=== PATIENT | male | born 1950 | race Caucasian/White ===

== ENCOUNTER 2021-10-08 11:30 | Outpatient (CLI) | payer MEDICARE, BC, SELFPAY ==
[2021-10-08 17:15] LABS: Chloride* 110 mmol/L (96-114); Potassium* 5.5 mmol/L (3.6-5.1); Sodium* 138 mmol/L (135-149)
[2021-10-08 17:17] LABS: Cholesterol* 156 mg/dL (90-199); Creatinine* 1.2 mg/dL (0.5-1.5); Estimated Glomerular Filt Rate 63.85
[2021-10-08 17:18] LABS: Blood Urea Nitrogen* 19 mg/dL (7-30); Calcium* 9.3 mg/dL (8.4-10.6); Carbon Dioxide* 23 mmol/L (20-32); Glucose* 134 mg/dL (60-115); Triglycerides* 113 mg/dL (40-149)
[2021-10-08 17:19] LABS: HDL Cholesterol* 43 mg/dL (>=40); LDL Cholesterol Calculated 90 mg/dL (<100)
[2021-10-08 17:48] LABS: TSH With Reflex to FT4* 0.131 uIU/mL (0.270-4.200)
[2021-10-08 18:06] LABS: Vitamin B12* 408 pg/mL (243-894)
[2021-10-08 20:21] LABS: Free T4 Free Thyroxine* 1.23 ng/dL (0.70-1.85)
== END 2021-10-08 11:31 | disposition home or self-care (01) ==
PROVIDERS: PCP Family Medicine; Visit Provider Family Medicine
DX: E03.9 Hypothyroidism, unspecified (principal); E53.8 Deficiency of other specified B group vitamins; E78.5 Hyperlipidemia, unspecified; N18.9 Chronic kidney disease, unspecified; F03.90 Unspecified dementia, unspecified severity, without behavioral disturbance, psychotic disturbance, mood disturbance, and anxiety; I10 Essential (primary) hypertension; Z13.0 Encounter for screening for diseases of the blood and blood-forming organs and certain disorders involving the immune mechanism
CPT/HCPCS: 80048; 80061; 82607; 84439; 84443

== ENCOUNTER 2022-09-26 11:28 | Outpatient (CLI) | payer MEDICARE, BC, SELFPAY | END 2022-09-26 11:29 | disposition home or self-care (01) | PROVIDERS: PCP Family Medicine; Visit Provider Family Medicine | DX: E11.9 Type 2 diabetes mellitus without complications (principal); I10 Essential (primary) hypertension; E03.9 Hypothyroidism, unspecified; N18.9 Chronic kidney disease, unspecified; E53.8 Deficiency of other specified B group vitamins; E78.5 Hyperlipidemia, unspecified | CPT/HCPCS: 80048; 80061; 84443 ==

== ENCOUNTER 2022-11-08 08:10 | Outpatient (CLI) | payer MEDICARE, BC, SELFPAY | END 2022-11-08 08:11 | disposition home or self-care (01) | LOC: NFLDREF 11-09 14:46 | PROVIDERS: PCP Family Medicine; Referring Provider Family Medicine; Visit Provider Family Medicine | DX: I10 Essential (primary) hypertension (principal); E87.5 Hyperkalemia | CPT/HCPCS: 80048 ==

== ENCOUNTER 2023-03-14 12:13 | Outpatient (CLI) | payer MEDICARE, BC, SELFPAY ==
--- OUTSIDE RECORDS SUMMARY | 2023-03-14 12:17 | XMS_ITS | Continuity of Care Document ---
Author Name Unknown Organization [facility] Address [address] [place] [address] Phone Care Team Providers Care Music Teacher Name Role Phone Navid Massey Unavailable Unavailable Allergies, Adverse Reactions, Alerts Substance Reaction Status Criticality No Known Allergies Active No Inform ation Medications Medication Instructions Dosage Effective Dates (start - stop) Status Comments ASPIRIN (unknown strength) Not Available - Active SIMVASTATIN (unknown strength) Not Available - Active METFORMIN HCL (unknown strength) Not Available - Active MULTIVITAMINS (unknown strength) Not Available - Active LISINOPRIL (unknown strength) Not Available - Active LOPRESSOR (unknown strength) Not Available - Active SYNTHROID (unknown strength) Not Available - Active TRICOR (unknown strength) Not Available - Active GLIPIZIDE (unknown strength) Not Available - Active HYDROXYZINE HCL (unknown strength) Not Available - Active FISH OIL (unknown strength) Not Available - Active ZANAFLEX (unknown strength) Not Available - Active Crossett 5 mg-325 mg tablet take 1 - 2 by Oral route every 6-8 hours as needed for pain. - No Longer Active gabapentin 300 mg capsule take 1 capsule by oral route 3 times every day 300 MG - No Longer Active tramadol 50 mg tablet take 1-2 by Oral route every 8 hours as needed for pain. - No Longer Active Procedures Procedure Date Postop Followup Visit Remove Lumbar Spine Lamina, 1 Seg Remove Added Spine Lamina, 1 Seg 2015 Pa Assist Remove Lumbar Spine Lamina, 1 Seg Pa Assist Remove Added Spine Lamina, 1 S eg Office/Outpatient Visit,Scott Adams 2015 Advance Directives Directive Yes / No Effective Date File Name No Information Encounters Encounter Description Practice Location Reason(s) For Visit Diagnoses Date Provider Providers Copied on Encounter [facility], [address], [place], [place], [id number], [place] tel:[phone] [facility] Encounter for other specified surgical aftercare 6 Maunelito Shoemaker. [facility], [address] [place] [address] [address], [facility], [id number] , [place]. [phone] Referring Provider: Clemente Escobar, [facility] [address], [place], [address]. tel:[phone] [facility], [address], [place], [place], [id number], [place] tel:[phone] [facility] No Information 6 Samantha Tejeda. [facility], [address] [place] [address] [address], [facility], [place], [id number] , [place]. [phone] Referring Provider: Clemente Escobar, [facility] [address], [place], [address]. tel:[phone] [facility], [address], [place], [place], [id number], [place] tel:[phone] [facility] No Information 6 Manuelito Shoemaker. [facility], [address] [place] [address] [address], [facility], [id number] , [place]. tel:[phone] [facility], [address], [place], [place], [id number], [place] tel:[phone] [facility] No Information 6 Manuelito Shoemaker. [facility], [address] [place] [address] [address], [place], [id number] , [place]. tel:[phone] Office/Outpat ient Visit,Scott Adams [facility], [address], [place], [place], [id number], [place] tel:[phone] [facility] Spinal stenosis, lumbar region 0 Manuelito Shoemaker. [facility], [address] [place] [address] [address], [place], [id number] , [place]. tel:[phone] Referring Provider: Clemente Escobar, [facility] [address], [place], [place], [address]. tel:[phone] Family History Family Member Type Diagnosis Age At Onset No Information Payers Payer name Insurance type Covered republican ID [place] [id number] Medicare [facility] [id number] Social History Type Description Quantity Date Captured Comments Alcohol Use Details Unknown Caffeine Use Details Unknown Tobacco Use Status Smoking Status No Information Sex Male Vital Signs Date / Time: Height Weight BMI Pulse Rate Blood Pressure Temperature Respiratory Rate Body Surface Area Head Circumference Head Circ. Percentile Wt./Kamar. Percentile BMI percentile Pulse Ox Inhaled Ox 9:40 AM 71.50 in 115.212 kg (254.00 lbs) 34.9 3 kg/m eter (2) 77 /min 131/72 mm[Hg] Chief Complaint And Reason For Visit No Information Reason For Referral Reason For Referral No Information History Of Present Illness Encounter Date Complaint History Of Prese nt Illness No Information Functional Status Date Functional Assessmen t No Information Instructions Date Instruction Additional Infor mation No Information Assessments Type Assessment Date assessment Encounter for other specified yancey rgical aftercare Patient Care Teams Name Effective Dates (start - stop) Status Members No Information
== END 2023-03-14 12:14 | disposition home or self-care (01) ==
LOC: LKVREF 12:14
PROVIDERS: PCP Family Medicine; Visit Provider Family Medicine
DX: M10.9 Gout, unspecified (principal)
CPT/HCPCS: 84550

== ENCOUNTER 2023-03-18 13:03 | Emergency (ER) | payer MEDICARE, BC, SELFPAY ==
[2023-03-18] VITALS (11 sets, daily range): BP systolic 98–118; BP diastolic 64–80; PULSE 53–59; RESP 16; TEMP 36.1; O2SAT 96–100; BMI 18.2
--- NOTE | 2023-03-18 15:05 | CRLHL7_ITS ---
For Patients: As a result of the Cures Act, medical imaging exams and procedure reports are released immediately into your electronic medical record. You may view this report before your referring provider. If you have questions, please contact your health care provider. INDICATION: First toe infection diabetic TECHNIQUE: Three views right foot FINDINGS: Normal alignment. No acute fractures or acute osseous abnormalities. Tiny focus of gas seen on the oblique view along the dorsal soft tissues of the 1st distal toe no bony destructive change seen. Vascular calcifications. IMPRESSION: No radiographic findings for osteomyelitis. Single view demonstrating a focus gas projected over the region of the nail bed or dorsal distal soft tissues of the 1st toe Dictated by Shagufta Luz MD @ 03/18/2023 4:03:35 PM (Electronically Signed)
[2023-03-18 15:27] LABS: Basophils Absolute Auto 0.02 K/uL (0.00-0.30); Basophils Percent Auto 0.2 % (0.0-3.0); Eosinophils Absolute Auto 0.04 K/uL (0.00-0.50); Eosinophils Percent Auto 0.5 % (0.0-7.0); Hematocrit 42.2 % (37.0-53.0); Hemoglobin* 13.3 gm/dL (13.5-17.5); Immature Granulocytes Abs Auto 0.12 K/uL (0.00-0.30); Immature Granulocytes Pct Auto 1.5 %; Lymphocytes Percent Auto 11.9 % (20-44); Mean Corpuscular HGB Conc 32 gm/dL (32-36); Mean Corpuscular Hemoglobin 28 pg (26-34); Mean Corpuscular Volume 88 fL (80-100); Monocytes Percent Auto 5.8 % (0.0-11.0); Neutrophils Percent Auto 80.1 % (42.0-72.0); Platelet Count* 430 K/uL (140-440); RDW Coefficient of Variation % 13.6 % (11.5-15.5); White Blood Count* 8.07 K/uL (4.50-11.00)
[2023-03-18 15:28] LABS: Slide Review Reflex No
[2023-03-18 15:43] LABS: Albumin* 4.7 g/dL (3.3-5.0); Chloride* 104 mmol/L (96-114)
[2023-03-18 15:44] LABS: Potassium* 4.9 mmol/L (3.6-5.1); Sodium* 137 mmol/L (135-149)
[2023-03-18 15:46] LABS: Creatinine* 1.7 mg/dL (0.5-1.5); Estimated Glomerular Filt Rate 42 ml/min
[2023-03-18 15:47] LABS: Alanine Aminotransferase* 24 U/L (4-50); Alkaline Phosphatase* 50 U/L (40-150); Anion Gap 11 mEq/L (7-15); Aspartate Amino Transferase* 31 U/L (12-35); Bilirubin Total* 0.5 mg/dL (0.1-1.5); Blood Urea Nitrogen* 39 mg/dL (7-30); Calcium* 9.9 mg/dL (8.4-10.6); Carbon Dioxide* 22 mmol/L (20-32); Glucose* 228 mg/dL (60-115)
[2023-03-18 15:50] LABS: C Reactive Protein* 0.6 mg/dL (0.5-1.0)
--- NOTE | 2023-03-18 15:50 | ED_ITS ---
HPI - General Adult General Date Seen: 03/18/23 Chief complaint: Extremity Pain/Injury, Lower Stated complaint: R foot injury Time Seen by Provider: 03/18/23 14:43 Source: patient and family () Mode of arrival: ambulatory Limitations: other (Alzheimer's) History of Present Illness HPI narrative: Patient is a 73-year-old male with history of diabetes, AFib, hypertension, coronary artery disease, dementia presenting to emergency department for concern of a foot infection. According to his they were seen by his primary care provider wall 5 days ago and started on antibiotic. After the antibiotic was started she thinks the erythema to his right great toe has gotten worse. There is a black spot on the lateral aspect at the base of the 5th toe on the same foot but she does not think that has gotten any worse. He has not had any fevers, chills, weakness. He is complaining about foot pain. Patient has been able to ambulate and has been eating and drinking normally. Has not had any vomiting. Denies chest pain, shortness of breath. She does state there was some mild purulent drainage right after the antibiotics were started. No other concerns noted at this time Related Data Home Medications Medication Instructions Recorded Confirmed cyanocobalamin (vitamin B-12) 1,000 mcg PO DAILY 10/08/21 03/18/23 1,000 mcg tablet multivitamin 1 tab PO QAM 10/08/21 03/18/23 metformin 500 mg tablet 500 mg PO BID 09/26/22 03/18/23 aspirin 81 mg tablet,delayed 81 mg PO QDAY 03/14/23 03/18/23 release (Adult Aspirin Regimen) Previous Rx's Medication Instructions Recorded ipratropium bromide 42 mcg (0.06 2 spray intranasal TID #15 mL 09/26/22 %) nasal spray hydrochlorothiazide 25 mg tablet 25 mg PO QAM #90 tabs 09/27/22 lisinopril 20 mg tablet 20 mg PO QDAY #90 tabs 09/27/22 levothyroxine 150 mcg tablet 150 mcg PO DAILY #90 tabs 11/08/22 metoprolol tartrate 25 mg tablet 12.5 mg (1/2 x 25 mg) PO BID #180 11/25/22 tabs olanzapine 5 mg tablet 5 mg PO DAILY #90 tabs 12/21/22 atorvastatin 40 mg tablet See Rx Instructions .Route 02/14/23 .COMPLEX #90 tabs fenofibrate nanocrystallized 48 mg See Rx Instructions .Route 02/14/23 tablet .COMPLEX #180 tabs cephalexin 500 mg capsule 500 mg PO QID #40 caps 03/14/23 prednisone 20 mg tablet 20 mg PO QDAY #7 tabs 03/14/23 fluoxetine 20 mg capsule See Rx Instructions .Route 03/15/23 .COMPLEX #90 caps glipizide 10 mg tablet, extended 10 mg PO QDAY #90 tabs 03/15/23 release 24 hr Allergies Allergy/AdvReac Type Severity Reaction Status Date / Time No Known Drug Allergies Allergy Verified 03/18/23 13:16 Review of Systems Status of ROS: Reports: 10 or more systems reviewed and unremarkable except as noted in History and below [facility] Medical History Durable power of manager environmental health in chart Health care directive on file ?Z78.9 - Other specified health status (ICD-10) Submucosal rectal lesion ?K62.9 - Disease of anus and rectum, unspecified (ICD-10) History of adenomatous polyp of colon (2013) ?Z86.010 - Personal history of colonic polyps (ICD-10) High prostate specific antigen (PSA) ?R97.20 - Elevated prostate specific antigen [PSA] (ICD-10) Cataract (01/12/12) ?H26.9 - Unspecified cataract (ICD-10) Surgical History H/O cataract extraction ?Z98.49 - Cataract extraction status, unspecified eye (ICD-10) H/O shoulder surgery ?Z98.890 - Other specified postprocedural states (ICD-10) History of tonsillectomy (04/14/06) ?Z90.89 - Acquired absence of other organs (ICD-10) History of excision of lamina of lumbar vertebra for decompression of spinal cord (2015) ?Z98.890 - Other specified postprocedural states (ICD-10) History of coronary artery bypass surgery (1993) ?Z95.1 - Presence of aortocoronary bypass graft (ICD-10) Social History Smoking Status: Former smoker Do you use any of these nicotine containing products: None Second hand tobacco smoke exposure: No How often do you have a drink containing alcohol: never AUDIT-C Alcohol total score: 0 Non-prescribed substance use: denies use Little interest or pleasure in doing things: more than half the days Feeling down, depressed, or hopeless: more than half the days service: Yes Exam Narrative: Exam Narrative: Const: Well-nourished, Well-developed, in no distress Eyes: PERRL, no conjunctival injection, and symmetrical lids HENT: Atraumatic external nose and ears. Moist mucous membranes. Neck: Symmetric, trachea midline, No thyromegaly. CVS: RRR, No murmurs or gallops. Peripheral pulses 2+ and equal in all extremities RESP: Unlabored respiratory effort. Clear to auscultation bilaterally. GI: Nontender/Nondistended, No rebound or guarding. MSK:Extremities w/o deformity, Normal Active ROM Skin: Erythema noted to right great toe going from that tip of the toe down to almost the base. Circumferential in appearance. Black lack of. Area of skin at the base of the right great toe on the lateral side aspect Neuro: Normal Muscle tone, No focal neurological deficits. Psych: Awake, Alert, & Oriented x3. Appropriate mood and affect. Const: Vital Signs, click to edit/add: Vital Signs - 24 hr 03/18/23 13:08 03/18/23 15:39 03/18/23 15:40 Temperature 96.9 F L Pulse Rate 58 L 56 L Pulse Rate [Pulse Oximeter] 53 L Respiratory Rate 16 Blood Pressure 98/65 Blood Pressure [Ri ght Upper Arm] 113/64 Pulse Oximetry 98 98 98 Oxygen Delivery Me thod Room Air 03/18/23 15:45 03/18/23 16:00 03/18/23 16:01 Temperature Pulse Rate 59 L 58 L 58 L Pulse Rate [Pulse Oximeter] Respiratory Rate Blood Pressure 112/71 Blood Pressure [Ri ght Upper Arm] Pulse Oximetry 97 96 96 Oxygen Delivery Me thod 03/18/23 16:02 03/18/23 16:15 03/18/23 16:30 Temperature Pulse Rate 57 L 58 L 59 L Pulse Rate [Pulse Oximeter] Respiratory Rate Blood Pressure Blood Pressure [Ri ght Upper Arm] Pulse Oximetry 97 99 100 Oxygen Delivery Me thod 03/18/23 16:31 03/18/23 16:33 Temperature Pulse Rate 59 L Pulse Rate [Pulse Oximeter] Respiratory Rate Blood Pressure 118/80 Blood Pressure [Ri ght Upper Arm] Pulse Oximetry 99 Oxygen Delivery Me thod Course Vital Signs Vital signs: Initial Vital Signs Temperature 96.9 F L 03/18/23 13:08 Temperature Source Temporal Artery Scan 03/18/23 13:08 Pulse Rate 53 L 03/18/23 13:08 Respiratory Rate 16 03/18/23 13:08 Blood Pressure 113/64 03/18/23 13:08 Blood Pressure Mean 80 03/18/23 13:08 Blood Pressure Position Sitting 03/18/23 13:08 Pulse Oximetry 98 03/18/23 13:08 Oxygen Delivery Method Room Air 03/18/23 13:08 Vital Signs Temperature 96.9 F L 03/18/23 13:08 Pulse Rate 53 L 03/18/23 13:08 Respiratory Rate 16 03/18/23 13:08 Blood Pressure 113/64 03/18/23 13:08 Pulse Oximetry 98 03/18/23 13:08 Oxygen Delivery Method Room Air 03/18/23 13:08 Temperature 96.9 F L 03/18/23 13:08 Pulse Rate 59 L 03/18/23 16:33 Respiratory Rate 16 03/18/23 13:08 Blood Pressure 118/80 03/18/23 16:31 Pulse Oximetry 99 03/18/23 16:33 Oxygen Delivery Method Room Air 03/18/23 13:08 Medical Decision Making [facility] Narrative Medical decision making narrative: Patient is a 73-year-old male presenting to emergency department for right foot infection. He is diabetic. Initial concerns for osteomyelitis. He is already on Keflex now for 4 days. Will order ESR, CRP, foot x-ray, CBC, CMP. ESR and CRP are within normal limits. White blood cell count within normal limits. His creatinine is a 1.7 but is appears to be baseline. Foot x-ray returned showing no clear sign of osteomyelitis. There is an air bubble seen underneath the toenail. On evaluation again the patient does have the drain is coming underneath the toenail in this very likely could be the cause of that pocket of air under the nail. This times foot does not appear to be necrotic or showing signs of gangrene. His vital signs were stable I believe is safe to discharge him home and will add on Bactrim which was prescribed through [facility]. I informed him and his that if symptoms are not improving in 48 hours they need to be re-evaluated Lab Data Labs: Lab Results 03/18/23 Range/Units 15:20 WBC 8.07 (4.50-11.00) K/uL RBC 4.80 (4.30-5.90) m/uL Hgb 13.3 L (13.5-17.5) gm/dL Hct 42.2 (37.0-53.0) % MCV 88 (80-100) fL MCH 28 (26-34) pg MCHC 32 (32-36) gm/dL RDW Coeff of Eufemia 13.6 (11.5-15.5) % Plt Count 430 (140-440) K/uL Neut % (Auto) 80.1 H (42.0-72.0) % Lymph % (Auto) 11.9 L (20-44) % Marin % (Auto) 5.8 (0.0-11.0) % Eos % (Auto) 0.5 (0.0-7.0) % Baso % (Auto) 0.2 (0.0-3.0) % Neut # (Auto) 6.50 (1.7-7.0) K/uL Lymph # (Auto) 1.00 (0.90-2.90) K/uL Marin # (Auto) 0.50 (0.00-0.90) K/UL Eos # (Auto) 0.04 (0.00-0.50) K/uL Baso # (Auto) 0.02 (0.00-0.30) K/uL Abs Immat Gran (auto) 0.12 (0.00-0.30) K/uL Imm/Tot Granulo (auto) 1.5 % ESR 11 (2-15) mm/hr Sodium 137 (135-149) mmol/L Potassium 4.9 (3.6-5.1) mmol/L Chloride 104 (96-114) mmol/L Carbon Dioxide 22 (20-32) mmol/L Anion Gap 11 (7-15) mEq/L BUN 39 H (7-30) mg/dL Creatinine 1.7 H (0.5-1.5) mg/dL Estimated Creat Clear 34.20 Estimated GFR 42 ml/min Glucose 228 H (60-115) mg/dL Calcium 9.9 (8.4-10.6) mg/dL Total Bilirubin 0.5 (0.1-1.5) mg/dL AST 31 (12-35) U/L ALT 24 (4-50) U/L Alkaline Phosphatase 50 (40-150) U/L C-Reactive Protein 0.6 (0.5-1.0) mg/dL Total Protein 8.0 (6.0-8.3) g/dL Albumin 4.7 (3.3-5.0) g/dL Imaging Data Foot x-ray: Radiologist's impression: No radiographic findings for osteomyelitis. Single view demonstrating a focus gas projected over the region of the nail bed or dorsal distal soft tissues of the 1st toe Dictated by Shagufta Luz MD @ 03/18/2023 4:03:35 PM Discharge Plan Discharge Clinical Impression: Cellulitis Qualifiers: Site of cellulitis: extremity Site of cellulitis of extremity: toe Laterality: right Qualified Code(s): L03.031 - Cellulitis of right toe Patient Disposition: Home, Self-Care Condition: Stable Instructions: Cellulitis (ED) Additional Instructions: Continue take the cephalexin and also take the Bactrim. If symptoms are not improving in 48 hours return for re-evaluation for possible IV antibiotics. Prescriptions: No Action multivitamin Tablet 1 tab PO QAM cyanocobalamin (vitamin B-12) 1,000 mcg tablet 1,000 mcg PO DAILY aspirin [Adult Aspirin Regimen] 81 mg tablet,delayed release (DR/EC) 81 mg PO QDAY prednisone 20 mg tablet 20 mg PO QDAY Qty: 7 0RF cephalexin 500 mg capsule 500 mg PO QID Qty: 40 0RF metformin 500 mg tablet 500 mg PO BID ipratropium bromide 42 mcg (0.06 %) spray,non-aerosol 2 spray intranasal TID Qty: 15 5RF Rx Instructions: administer into each nostril lisinopril 20 mg tablet 20 mg PO QDAY Qty: 90 3RF hydrochlorothiazide 25 mg tablet 25 mg PO QAM Qty: 90 3RF metoprolol tartrate 25 mg tablet 12.5 mg PO BID Qty: 180 3RF levothyroxine 150 mcg tablet 150 mcg PO DAILY Qty: 90 2RF olanzapine 5 mg tablet 5 mg PO DAILY Qty: 90 2RF fenofibrate nanocrystallized 48 mg tablet See Rx Instructions .ROUTE .COMPLEX Qty: 180 0RF Dose Instruction: TAKE 2 TABLETS BY MOUTH DAILY Rx Instructions: TAKE 2 TABLETS BY MOUTH DAILY atorvastatin 40 mg tablet See Rx Instructions .ROUTE .COMPLEX Qty: 90 1RF Dose Instruction: TAKE 1 TABLET BY MOUTH AT BEDTIME Rx Instructions: TAKE 1 TABLET BY MOUTH AT BEDTIME glipizide 10 mg tablet extended release 24hr 10 mg PO QDAY Qty: 90 3RF fluoxetine 20 mg capsule See Rx Instructions .ROUTE .COMPLEX Qty: 90 1RF Dose Instruction: TAKE 1 CAPSULE BY MOUTH DAILY Rx Instructions: TAKE 1 CAPSULE BY MOUTH DAILY Follow Up/Referrals: Rl Monroe MD [Primary Care Provider] - Stand Alone Forms: [facility] Info Instructions
[2023-03-18 16:07] LABS: Erythrocyte SedimentationRate* 11 mm/hr (2-15)
== END 2023-03-18 16:49 | disposition home or self-care (01) ==
PROVIDERS: Emergency Provider Student in an Organized Health Care Education/Training Program; PCP Family Medicine
DX: L03.031 Cellulitis of right toe (principal)
CPT/HCPCS: 36415; 73630; 80053; 85025; 85651; 86140; 95992; 99283; 99284

== ENCOUNTER 2023-03-25 17:46 | Emergency (ER) | payer MEDICARE, BC, SELFPAY ==
[2023-03-25 17:55] VITALS: BP 112/74; PULSE 96; RESP 18; TEMP 36.4; O2SAT 97; BMI 31.1
--- NOTE | 2023-03-25 18:06 | ED.GENADULT ---
HPI - General Adult General Time Seen by Provider: 18:06 Date Seen: 03/25/23 Chief complaint: Extremity Pain/Injury, Lower Stated complaint: infected right toe Time Seen by Provider: 03/25/23 17:49 Source: patient and RN notes reviewed Mode of arrival: ambulatory Limitations: no limitations History of Present Illness HPI narrative: This 73yo male is accompanied by his with concern for increasing infection in his right foot/toe. He was in on March 17 to the ED, had been on 4 days of Keflex already from his clinic provider at that point. In the ED, CRP, CBC, sed rate were all reassuring. He had Bactrim added in. Creatinine was noted to be 1.7. He finished his Keflex and Bactrim yesterday. Within 24 hours his notes that he has had worsening of the erythema. He is definitely complaining of increased pain with walking. Notes pain in the great toe but possibly also over the lateral foot as well. There have been no fevers. He has no nausea vomiting, is not feeling ill. He does have diabetes and has diabetic neuropathy. Related Data Home Medications Medication Instructions Recorded Confirmed cyanocobalamin (vitamin B-12) 1,000 mcg PO DAILY 10/08/21 03/18/23 1,000 mcg tablet multivitamin 1 tab PO QAM 10/08/21 03/18/23 metformin 500 mg tablet 500 mg PO BID 09/26/22 03/18/23 aspirin 81 mg tablet,delayed 81 mg PO QDAY 03/14/23 03/18/23 release (Adult Aspirin Regimen) Previous Rx's Medication Instructions Recorded ipratropium bromide 42 mcg (0.06 2 spray intranasal TID #15 mL 09/26/22 %) nasal spray hydrochlorothiazide 25 mg tablet 25 mg PO QAM #90 tabs 09/27/22 lisinopril 20 mg tablet 20 mg PO QDAY #90 tabs 09/27/22 levothyroxine 150 mcg tablet 150 mcg PO DAILY #90 tabs 11/08/22 metoprolol tartrate 25 mg tablet 12.5 mg (1/2 x 25 mg) PO BID #180 11/25/22 tabs olanzapine 5 mg tablet 5 mg PO DAILY #90 tabs 12/21/22 atorvastatin 40 mg tablet See Rx Instructions .Route 02/14/23 .COMPLEX #90 tabs fenofibrate nanocrystallized 48 mg See Rx Instructions .Route 02/14/23 tablet .COMPLEX #180 tabs cephalexin 500 mg capsule 500 mg PO QID #40 caps 03/14/23 prednisone 20 mg tablet 20 mg PO QDAY #7 tabs 03/14/23 fluoxetine 20 mg capsule See Rx Instructions .Route 03/15/23 .COMPLEX #90 caps glipizide 10 mg tablet, extended 10 mg PO QDAY #90 tabs 03/15/23 release 24 hr Allergies Allergy/AdvReac Type Severity Reaction Status Date / Time No Known Drug Allergies Allergy Verified 03/18/23 13:16 Review of Systems Status of ROS: Reports: 6 or more systems reviewed and unremarkable except as noted in History and below [facility] Medical History 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 Health care directive on file ?Z78.9 - Other specified health status (ICD-10) Submucosal rectal lesion ?K62.9 - Disease of anus and rectum, unspecified (ICD-10) History of adenomatous polyp of colon (2013) ?Z86.010 - Personal history of colonic polyps (ICD-10) High prostate specific antigen (PSA) ?R97.20 - Elevated prostate specific antigen [PSA] (ICD-10) Cataract (01/12/12) ?H26.9 - Unspecified cataract (ICD-10) Surgical History H/O cataract extraction ?Z98.49 - Cataract extraction status, unspecified eye (ICD-10) H/O shoulder surgery ?Z98.890 - Other specified postprocedural states (ICD-10) History of tonsillectomy (04/14/06) ?Z90.89 - Acquired absence of other organs (ICD-10) History of excision of lamina of lumbar vertebra for decompression of spinal cord (2015) ?Z98.890 - Other specified postprocedural states (ICD-10) History of coronary artery bypass surgery (1993) ?Z95.1 - Presence of aortocoronary bypass graft (ICD-10) Social History Smoking Status: Former smoker Do you use any of these nicotine containing products: None Second hand tobacco smoke exposure: No How often do you have a drink containing alcohol: never AUDIT-C Alcohol total score: 0 Non-prescribed substance use: denies use Little interest or pleasure in doing things: more than half the days Feeling down, depressed, or hopeless: more than half the days service: Yes Exam Const: Vital Signs, click to edit/add: Vital Signs - 24 hr 03/25/23 18:17 03/25/23 18:17 Pulse Rate [Left R adial] 62 Pulse Rate [Right Pulse Oximeter] 65 Respiratory Rate 20 Blood Pressure [Ri ght Upper Arm] 114/74 Pulse Oximetry 97 Oxygen Delivery Me thod Room Air Patient is alter, interactive, no apparent distress. He is sitting in the bed. Speech normal. Face atraumatic, sclera clear. Lungs are clear, no wheezing, no crackles. CV regular rate and rhythm, no murmur noted. Abdomen is soft, nontender, no masses. Left foot has normal skin and comparing his right, the right great toe and lateral foot/fifth toe are red, mildly warm. Small excoriated area at the medial end of the great toenail, no active discharge at this time. Has black eschar along the lateral aspect of the base of the fifth toe, no drainage. Does not seem to have pain with palpation of these areas but is noted to have been complaining of increased pain with walking per his . Documenting provider has reviewed patient's vital signs: yes Course Course ED Course: Will place an IV, draw labs. No evidence for any sepsis, no fever, has been on antibiotics, thus no indication for blood cultures at this time. Will repeat x-ray imaging of his foot, MRI is not an option at this time due to staffing. Will get repeat labs. He certainly has ongoing cellulitis in a diabetic foot with previously treated oral antibiotics with Keflex and Bactrim. Patient does have known renal insufficiency, certainly need to recheck his creatinine for potential antibiotic use and the fact that he was on Bactrim recently. This certainly is worsening cellulitis despite outpatient oral antibiotics, need to rule out underlying osteomyelitis. It is not just the great toe but also the eschar along the base of the 5th toe in the same foot that are concerning. Reevaluation(s) Time of Reevaluation #1: 20:21 Reevaluation #1: Spoke with patient's [place]. We reviewed his situation with the worsening kidney function with creatinine 2.3. He will be getting an EKG. Will have be ordering vancomycin, oral Levaquin. Discussed that I really do recommend hospitalization but she states he gets extremely agitated at night. She would really really prefer to go home. She will return with him tomorrow night, will look at the wound. Have discussed with her that it may be difficult because he is going to need probable outpatient MRI and podiatry. She would still rather proceed with attempted outpatient management. On review of up-to-date, was able to provide a regimen that will allow them to go home. Will give him 1500 mg IV vancomycin here tonight based on renal dosing. Also will give him Levaquin 750 mg which will be every 48 hours. He will return tomorrow evening for re-evaluation to the ER. He will need repeat labs with a CBC and basic metabolic panel. Vital Signs Vital signs: Initial Vital Signs Temperature 97.5 F L 03/25/23 17:55 Temperature Source Temporal Artery Scan 03/25/23 17:55 Pulse Rate 96 03/25/23 17:55 Respiratory Rate 18 03/25/23 17:55 Blood Pressure 112/74 03/25/23 17:55 Blood Pressure Mean 86 03/25/23 17:55 Blood Pressure Position Sitting 03/25/23 17:55 Pulse Oximetry 97 03/25/23 17:55 Oxygen Delivery Method Room Air 03/25/23 17:55 Vital Signs Temperature 97.5 F L 03/25/23 17:55 Pulse Rate 96 03/25/23 17:55 Respiratory Rate 18 03/25/23 17:55 Blood Pressure 112/74 03/25/23 17:55 Pulse Oximetry 97 03/25/23 17:55 Oxygen Delivery Method Room Air 03/25/23 17:55 Temperature 97.5 F L 03/25/23 17:55 Pulse Rate 65 03/25/23 18:17 Respiratory Rate 20 03/25/23 18:17 Blood Pressure 114/74 03/25/23 18:17 Pulse Oximetry 97 03/25/23 18:17 Oxygen Delivery Method Room Air 03/25/23 18:17 Medications Administered Medications: Discontinued Medications Generic Name Dose Route Start Last Admin Trade Name Freq PRN Reason Stop Dose Admin Vancomycin HCl 1,500 mg/ 515 mls @ 257.5 mls/hr 03/25/23 20:30 03/25/23 21:06 Sodium Chloride IVPB 257.5 mls/hr Q24H ANABEL Administration Protocol Levofloxacin 750 mg 03/25/23 20:24 03/25/23 21:06 Levofloxacin 750 Mg Tablet PO 03/25/23 20:25 750 mg ONCE ONE Administration Medical Decision Making Lab Data Lab results reviewed: Yes I reviewed the patient's lab results Labs: Lab Results 03/25/23 Range/Units 18:40 WBC 7.79 (4.50-11.00) K/uL RBC 4.70 (4.30-5.90) m/uL Hgb 13.0 L (13.5-17.5) gm/dL Hct 40.4 (37.0-53.0) % MCV 86 (80-100) fL MCH 28 (26-34) pg MCHC 32 (32-36) gm/dL RDW Coeff of Eufemia 13.3 (11.5-15.5) % Plt Count 381 (140-440) K/uL Neut % (Auto) 68.9 (42.0-72.0) % Lymph % (Auto) 17.2 L (20-44) % Winkler % (Auto) 10.9 (0.0-11.0) % Eos % (Auto) 2.2 (0.0-7.0) % Baso % (Auto) 0.3 (0.0-3.0) % Neut # (Auto) 5.37 (1.7-7.0) K/uL Lymph # (Auto) 1.30 (0.90-2.90) K/uL Winkler # (Auto) 0.80 (0.00-0.90) K/UL Eos # (Auto) 0.17 (0.00-0.50) K/uL Baso # (Auto) 0.02 (0.00-0.30) K/uL Abs Immat Gran (auto) 0.04 (0.00-0.30) K/uL Imm/Tot Granulo (auto) 0.5 % ESR 14 (2-15) mm/hr Sodium 133 L (135-149) mmol/L Potassium 5.5 H (3.6-5.1) mmol/L Chloride 102 (96-114) mmol/L Carbon Dioxide 17 L (20-32) mmol/L Anion Gap 14 (7-15) mEq/L BUN 44 H (7-30) mg/dL Creatinine 2.3 H (0.5-1.5) mg/dL Estimated Creat Clear 32.26 Estimated GFR 29 ml/min Glucose 113 (60-115) mg/dL Lactate 1.4 (0.5-1.9) mmol/L Calcium 9.7 (8.4-10.6) mg/dL C-Reactive Protein 1.0 (0.5-1.0) mg/dL Imaging Data XR right foot: Attestation: I have reviewed the pertinent imaging results. My impression: A my preliminary review, see no evidence for any osteomyelitis, await Radiology over-read. Radiologist's impression: [facility] Patient ID:?[id number] Site Patient ID:?[id number]. Site :?[id number] Study:?XRay Extremity Right Foot 3v-03/25/2023 7:10:42 PM Ordering Physician:?Juventino Toure Final Report: INDICATION: Worsening cellulitis, rule osteomyelitis. TECHNIQUE: Three views of the right foot. FINDINGS: No specific radiographic evidence for osteomyelitis in the foot. No subcutaneous gas. Arterial calcifications in the foot and ankle. Dictated by Donell Crowder MD @ 03/25/2023 8:46:57 PM (Electronic Signature) ECG Data Attestation: I personally reviewed and interpreted this ECG as follows: (Normal sinus rhythm, 64 beats per minute. No ischemia, some nonspecific changes with some mild ST scooping but there is also artifact. Nothing definitive for concerning hyperkalemia. QT corrected 427 milliseconds.) Discharge Plan Discharge Clinical Impression: Diabetic infection of right foot Patient Disposition: Home w/ Parent or Adult Condition: Unchanged Additional Instructions: You need to return tomorrow evening, he will need a CBC and basic metabolic panel for labs, possible other labs if he is considered to be worse. He will need potential repeat antibiotic dosing if kidney function is not worse. Encourage him to drink fluids, try to have him elevate the leg and stay off of it for the time being. If he spiking fevers, you feel this infection is rapidly worsening the next 24 hours, please return to the ER. You are going to have to secure Podiatry outpatient follow-up likely next week as well. Prescriptions: No Action multivitamin Tablet 1 tab PO QAM cyanocobalamin (vitamin B-12) 1,000 mcg tablet 1,000 mcg PO DAILY aspirin [Adult Aspirin Regimen] 81 mg tablet,delayed release (DR/EC) 81 mg PO QDAY prednisone 20 mg tablet 20 mg PO QDAY Qty: 7 0RF cephalexin 500 mg capsule 500 mg PO QID Qty: 40 0RF metformin 500 mg tablet 500 mg PO BID ipratropium bromide 42 mcg (0.06 %) spray,non-aerosol 2 spray intranasal TID Qty: 15 5RF Rx Instructions: administer into each nostril lisinopril 20 mg tablet 20 mg PO QDAY Qty: 90 3RF hydrochlorothiazide 25 mg tablet 25 mg PO QAM Qty: 90 3RF metoprolol tartrate 25 mg tablet 12.5 mg PO BID Qty: 180 3RF levothyroxine 150 mcg tablet 150 mcg PO DAILY Qty: 90 2RF olanzapine 5 mg tablet 5 mg PO DAILY Qty: 90 2RF fenofibrate nanocrystallized 48 mg tablet See Rx Instructions .ROUTE .COMPLEX Qty: 180 0RF Dose Instruction: TAKE 2 TABLETS BY MOUTH DAILY Rx Instructions: TAKE 2 TABLETS BY MOUTH DAILY atorvastatin 40 mg tablet See Rx Instructions .ROUTE .COMPLEX Qty: 90 1RF Dose Instruction: TAKE 1 TABLET BY MOUTH AT BEDTIME Rx Instructions: TAKE 1 TABLET BY MOUTH AT BEDTIME glipizide 10 mg tablet extended release 24hr 10 mg PO QDAY Qty: 90 3RF fluoxetine 20 mg capsule See Rx Instructions .ROUTE .COMPLEX Qty: 90 1RF Dose Instruction: TAKE 1 CAPSULE BY MOUTH DAILY Rx Instructions: TAKE 1 CAPSULE BY MOUTH DAILY Follow Up/Referrals: Rl Monroe MD [Primary Care Provider] - Stand Alone Forms: [employer] Info Instructions
--- NOTE | 2023-03-25 18:13 | CRLHL7_ITS ---
For Patients: As a result of the Century Cures Act, medical imaging exams and procedure reports are released immediately into your electronic medical record. You may view this report before your referring provider. If you have questions, please contact your health care provider. INDICATION: Worsening cellulitis, rule osteomyelitis. TECHNIQUE: Three views of the right foot. FINDINGS: No specific radiographic evidence for osteomyelitis in the foot. No subcutaneous gas. Arterial calcifications in the foot and ankle. Dictated by Donell Crowder MD @ 03/25/2023 8:46:57 PM (Electronically Signed)
[2023-03-25 18:17] VITALS: BP 114/74; PULSE 62; PULSE 65; RESP 20; O2SAT 97
--- OUTSIDE RECORDS SUMMARY | 2023-03-25 18:27 | XMS_ITS | Continuity of Care Document ---
Author Name Unknown Organization [facility] Address [address] [place] [address] Phone Care Team Providers Care Executive Manager Name Role Phone Navid Massey Unavailable Unavailable Allergies, Adverse Reactions, Alerts Substance Reaction Status Criticality No Known Allergies Active No Inform ation Medications Medication Instructions Dosage Effective Dates (start - stop) Status Comments ZANAFLEX (unknown strength) Not Available - Active FISH OIL (unknown strength) Not Available - Active HYDROXYZINE HCL (unknown strength) Not Available - Active GLIPIZIDE (unknown strength) Not Available - Active TRICOR (unknown strength) Not Available - Active SYNTHROID (unknown strength) Not Available - Active LOPRESSOR (unknown strength) Not Available - Active LISINOPRIL (unknown strength) Not Available - Active MULTIVITAMINS (unknown strength) Not Available - Active METFORMIN HCL (unknown strength) Not Available - Active SIMVASTATIN (unknown strength) Not Available - Active ASPIRIN (unknown strength) Not Available - Active Emelle 5 mg-325 mg tablet take 1 - 2 by Oral route every 6-8 hours as needed for pain. - No Longer Active tramadol 50 mg tablet take 1-2 by Oral route every 8 hours as needed for pain. - No Longer Active gabapentin 300 mg capsule take 1 capsule by oral route 3 times every day 300 MG - No Longer Active Procedures Procedure Date [...] C, [address], [place], [place], [id number], [place] tel:[phone] [facility] Encounter for other specified surgical aftercare 6 Manuelito Shoemaker. [facility], [address] [place] [address] [address], [facility], [place], [id number] , [place]. [phone] Referring Provider: Clemente Escobar, [facility] [address], [place], [address]. tel:[phone] [facility], [address], [place], [place], [id number], [place] tel:[phone] [place] [facility] No Information 6 Samantha Tejeda. [facility], [address] [place] [address] [address], [facility] [place], [place], [id number] , [place]. [phone] Referring Provider: Clemente Escobar, [facility] [address], [place], [address]. tel:[phone] [facility], [address], [place], [place], [id number], [place] tel:[phone] [facility] No Information 6 Manuelito Shoemaker. [facility], [address] [place] [address] [address], [facility] [place], [id number] , [place]. tel:[phone] [facility], [address], [place], [place], [id number], [place] tel:[phone] [facility] No Information 6 Manuelito Shoemaker. [facility], [address] [place] [address] [address], [place], [id number] , [place]. tel:[phone] Office/Outpat ient Visit,Scott [facility], [address], [place], [id number], [place] tel:[phone] [facility] Spinal stenosis, lumbar region 0 Manuelito Shoemaker. [facility], [address] [place] [address] [address], [place], [id number] , [place]. tel:[phone] Referring Provider: Clemente Escobar, [facility] [address], [place], [address]. tel:[phone] Family History Family Member Type Diagnosis Age At Onset No Information Payers Payer name Insurance type Covered alliance party ID [place] [id number] Medicare [facility] [id number] Social History Type Description Quantity Date Captured [...]
[2023-03-25 18:49] LABS: Lactate* 1.4 mmol/L (0.5-1.9)
[2023-03-25 18:50] LABS: Basophils Absolute Auto 0.02 K/uL (0.00-0.30); Basophils Percent Auto 0.3 % (0.0-3.0); Eosinophils Absolute Auto 0.17 K/uL (0.00-0.50); Eosinophils Percent Auto 2.2 % (0.0-7.0); Hematocrit 40.4 % (37.0-53.0); Immature Granulocytes Abs Auto 0.04 K/uL (0.00-0.30); Immature Granulocytes Pct Auto 0.5 %; Lymphocytes Percent Auto 17.2 % (20-44); Mean Corpuscular HGB Conc 32 gm/dL (32-36); Mean Corpuscular Hemoglobin 28 pg (26-34); Mean Corpuscular Volume 86 fL (80-100); Monocytes Percent Auto 10.9 % (0.0-11.0); Neutrophils Absolute Auto 5.37 K/uL (1.7-7.0); Neutrophils Percent Auto 68.9 % (42.0-72.0); Platelet Count* 381 K/uL (140-440); RDW Coefficient of Variation % 13.3 % (11.5-15.5); White Blood Count* 7.79 K/uL (4.50-11.00)
[2023-03-25 18:56] LABS: Slide Review Reflex No
[2023-03-25 19:17] LABS: Chloride* 102 mmol/L (96-114)
[2023-03-25 19:18] LABS: Potassium* 5.5 mmol/L (3.6-5.1); Sodium* 133 mmol/L (135-149)
[2023-03-25 19:20] LABS: Creatinine* 2.3 mg/dL (0.5-1.5); Est. Creatinine Clearance* 32.26; Estimated Glomerular Filt Rate 29 ml/min
[2023-03-25 19:21] LABS: Anion Gap 14 mEq/L (7-15); Blood Urea Nitrogen* 44 mg/dL (7-30); Calcium* 9.7 mg/dL (8.4-10.6); Carbon Dioxide* 17 mmol/L (20-32); Glucose* 113 mg/dL (60-115)
[2023-03-25 19:39] LABS: Erythrocyte SedimentationRate* 14 mm/hr (2-15)
[2023-03-25] MEDS: levoFLOXacin 750 MG TABLET PO (21:06)
== END 2023-03-25 23:23 | disposition home or self-care (01) ==
PROVIDERS: Emergency Provider Family Medicine; PCP Family Medicine
DX: E11.621 Type 2 diabetes mellitus with foot ulcer (principal)
CPT/HCPCS: 36415; 73630; 80048; 83605; 85025; 85651; 86140; 96365; 99284; A9270; J3370; J7120

== ENCOUNTER 2023-03-26 18:09 | Emergency (ER) | payer MEDICARE, BC, SELFPAY ==
[2023-03-26 18:59] VITALS: BP 114/77; PULSE 72; RESP 16; TEMP 36.6; O2SAT 96
[2023-03-26 19:05] LABS: Basophils Absolute Auto 0.02 K/uL (0.00-0.30); Basophils Percent Auto 0.2 % (0.0-3.0); Eosinophils Absolute Auto 0.07 K/uL (0.00-0.50); Eosinophils Percent Auto 0.8 % (0.0-7.0); Hematocrit 41.7 % (37.0-53.0); Hemoglobin* 13.4 gm/dL (13.5-17.5); Immature Granulocytes Abs Auto 0.05 K/uL (0.00-0.30); Immature Granulocytes Pct Auto 0.6 %; Lymphocytes Percent Auto 10.4 % (20-44); Mean Corpuscular HGB Conc 32 gm/dL (32-36); Mean Corpuscular Hemoglobin 28 pg (26-34); Mean Corpuscular Volume 86 fL (80-100); Monocytes Percent Auto 8.5 % (0.0-11.0); Neutrophils Percent Auto 79.5 % (42.0-72.0); Platelet Count* 380 K/uL (140-440); RDW Coefficient of Variation % 13.4 % (11.5-15.5); Red Blood Count 4.85 m/uL (4.30-5.90); White Blood Count* 8.73 K/uL (4.50-11.00)
[2023-03-26 19:09] LABS: Slide Review Reflex No
[2023-03-26 19:20] LABS: Chloride* 102 mmol/L (96-114); Potassium* 5.1 mmol/L (3.6-5.1); Sodium* 131 mmol/L (135-149)
[2023-03-26 19:23] LABS: Creatinine* 2.2 mg/dL (0.5-1.5); Estimated Glomerular Filt Rate 30 ml/min
[2023-03-26 19:24] LABS: Anion Gap 17 mEq/L (7-15); Blood Urea Nitrogen* 37 mg/dL (7-30); Calcium* 9.6 mg/dL (8.4-10.6); Carbon Dioxide* 12 mmol/L (20-32); Glucose* 160 mg/dL (60-115)
[2023-03-26 19:27] LABS: C Reactive Protein* 0.7 mg/dL (0.5-1.0)
--- NOTE | 2023-03-26 19:42 | ED_ITS ---
HPI - General Adult General Time Seen by Provider: 19:43 Date Seen: 03/26/23 Chief complaint: Unspecified Complaint, Adult Stated complaint: Cellulitis R foot Time Seen by Provider: 03/26/23 18:12 Source: patient and family ( is present) Mode of arrival: ambulatory Limitations: no limitations History of Present Illness HPI narrative: This 73-year-old male is coming in for re-evaluation tonight. He received vancomycin and oral levofloxacin last night for concern for worsening right foot cellulitis. Patient is diabetic, has diabetic peripheral neuropathy. His Akosua whom is a nurse does state that he put on a sock that was bit longer and thicker, did not complain of pain. He is telling me it still hurts but she observed these changes today and was a bit more reassuring to her. No fevers. She does not feel like the wound is worse. He was waiting in the lobby of to come back, foot had been dependent during that time. He had some worsening theresa l function, needs to have his kidney functions rechecked. She is hopeful to keep him out of the hospital due to his increased behaviors and agitation at night. It is easier for him to be at home. Related Data Home Medications Medication Instructions Recorded Confirmed cyanocobalamin (vitamin B-12) 1,000 mcg PO DAILY 10/08/21 03/18/23 1,000 mcg tablet multivitamin 1 tab PO QAM 10/08/21 03/18/23 metformin 500 mg tablet 500 mg PO BID 09/26/22 03/18/23 aspirin 81 mg tablet,delayed 81 mg PO QDAY 03/14/23 03/18/23 release (Adult Aspirin Regimen) Previous Rx's Medication Instructions Recorded ipratropium bromide 42 mcg (0.06 2 spray intranasal TID #15 mL 09/26/22 %) nasal spray hydrochlorothiazide 25 mg tablet 25 mg PO QAM #90 tabs 09/27/22 lisinopril 20 mg tablet 20 mg PO QDAY #90 tabs 09/27/22 levothyroxine 150 mcg tablet 150 mcg PO DAILY #90 tabs 11/08/22 metoprolol tartrate 25 mg tablet 12.5 mg (1/2 x 25 mg) PO BID #180 11/25/22 tabs olanzapine 5 mg tablet 5 mg PO DAILY #90 tabs 12/21/22 atorvastatin 40 mg tablet See Rx Instructions .Route 02/14/23 .COMPLEX #90 tabs fenofibrate nanocrystallized 48 mg See Rx Instructions .Route 02/14/23 tablet .COMPLEX #180 tabs cephalexin 500 mg capsule 500 mg PO QID #40 caps 03/14/23 prednisone 20 mg tablet 20 mg PO QDAY #7 tabs 03/14/23 fluoxetine 20 mg capsule See Rx Instructions .Route 03/15/23 .COMPLEX #90 caps glipizide 10 mg tablet, extended 10 mg PO QDAY #90 tabs 03/15/23 release 24 hr Allergies Allergy/AdvReac Type Severity Reaction Status Date / Time No Known Drug Allergies Allergy Verified 03/18/23 13:16 Review of Systems Narrative: As per HPI. 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 Health care directive on file ?Z78.9 - Other specified health status (ICD-10) Submucosal rectal lesion ?K62.9 - Disease of anus and rectum, unspecified (ICD-10) History of adenomatous polyp of colon (2013) ?Z86.010 - Personal history of colonic polyps (ICD-10) High prostate specific antigen (PSA) ?R97.20 - Elevated prostate specific antigen [PSA] (ICD-10) Cataract (01/12/12) ?H26.9 - Unspecified cataract (ICD-10) Surgical History H/O cataract extraction ?Z98.49 - Cataract extraction status, unspecified eye (ICD-10) H/O shoulder surgery ?Z98.890 - Other specified postprocedural states (ICD-10) History of tonsillectomy (04/14/06) ?Z90.89 - Acquired absence of other organs (ICD-10) History of excision of lamina of lumbar vertebra for decompression of spinal cord (2015) ?Z98.890 - Other specified postprocedural states (ICD-10) History of coronary artery bypass surgery (1993) ?Z95.1 - Presence of aortocoronary bypass graft (ICD-10) Social History Smoking Status: Former smoker Do you use any of these nicotine containing products: None Second hand tobacco smoke exposure: No How often do you have a drink containing alcohol: never AUDIT-C Alcohol total score: 0 Non-prescribed substance use: denies use Little interest or pleasure in doing things: more than half the days Feeling down, depressed, or hopeless: more than half the days service: Yes Exam Const: Vital Signs, click to edit/add: Vital Signs - 24 hr 03/26/23 18:59 Temperature 97.8 F Pulse Rate [Right Pulse Oximeter] 72 Respiratory Rate 16 Blood Pressure [Le ft Upper Arm] 114/77 Pulse Oximetry 96 Oxygen Delivery Me thod Room Air Patient is alert, interactive. He has some erythema of his foot but he is just brought back, has been dependent in the lobby. The toe and the lateral foot where there is a black eschar look stable, there is no drainage, do not see any concern for any increased swelling or erythema. Foot does not have increased warmth. While here, do appreciate dependent rubor of this foot. Overall, feel like the great toe is decreased in size, swelling diminished. Akosua his does appreciate this as well. Documenting provider has reviewed patient's vital signs: yes Course Course ED Course: His Levaquin dosing would be 750 mg every 48 hours per guidelines from up-to- date. He received 1500 mg of vancomycin yesterday, will see where his labs are today and potentially repeat dose. Akosua understands that she is going to need him to get into Podiatry this next week. He may potentially need an MRI of his foot which is something I cannot provide at this time either. Reevaluation(s) Time of Reevaluation #1: 22:23 Reevaluation #1: Akosua in I reviewed his lab results, discuss that his bicarb is down a bit, would like to see that be improving. Creatinine is at 2.2, yesterday was 2.3. Did give him 500 mL of fluid tonight, he did urinate already. He is getting 1500 mg of vancomycin. Is not due for this 750 mg of Levaquin until tomorrow. Plan will be to do outpatient oral Levaquin 750 mg, repeat the 1500 mg IV vancomycin if his basic metabolic panel stable. She will have him follow up in clinic with his primary or Podiatry on Monday, need to try to get an MRI of this foot scheduled. Further antibiotics to be decided upon on Monday, he would not get another dose of Levaquin until Monday based on kidney dosing for him. Patient may need to be evaluated by a ED staff tomorrow if kidney functions are showing worsening. Akosua did question peak and trough levels for the vancomycin, it is too early to draw these but if he has ongoing vancomycin beyond tomorrow, this may need to be started around 5th dose. Vital Signs Vital signs: Initial Vital Signs Temperature 97.8 F 03/26/23 18:59 Temperature Source Temporal Artery Scan 03/26/23 18:59 Pulse Rate 72 03/26/23 18:59 Respiratory Rate 16 03/26/23 18:59 Blood Pressure 114/77 03/26/23 18:59 Blood Pressure Mean 89 03/26/23 18:59 Blood Pressure Position Sitting 03/26/23 18:59 Pulse Oximetry 96 03/26/23 18:59 Oxygen Delivery Method Room Air 03/26/23 18:59 Vital Signs Temperature 97.8 F 03/26/23 18:59 Pulse Rate 72 03/26/23 18:59 Respiratory Rate 16 03/26/23 18:59 Blood Pressure 114/77 03/26/23 18:59 Pulse Oximetry 96 03/26/23 18:59 Oxygen Delivery Method Room Air 03/26/23 18:59 Temperature 97.8 F 03/26/23 18:59 Pulse Rate 72 03/26/23 18:59 Respiratory Rate 16 03/26/23 18:59 Blood Pressure 114/77 03/26/23 18:59 Pulse Oximetry 96 03/26/23 18:59 Oxygen Delivery Method Room Air 03/26/23 18:59 Medications Administered Medications: Generic Name Dose Route Start Last Admin Trade Name Freq PRN Reason Stop Dose Admin Vancomycin HCl 1,500 mg/ 515 mls @ 257.5 mls/hr 03/26/23 20:15 03/26/23 20:34 Sodium Chloride IVPB 257.5 mls/hr Q24H ANABEL Administration Protocol Discontinued Medications Generic Name Dose Route Start Last Admin Trade Name Freq PRN Reason Stop Dose Admin Sodium Chloride 500 mls @ 500 mls/hr 03/26/23 20:03 03/26/23 21:33 0.9 % Sodium Chloride 500 Ml IV 03/26/23 21:02 Infused .Q1H ONE Infusion Medical Decision Making Lab Data Lab results reviewed: Yes I reviewed the patient's lab results Labs: Lab Results 03/26/23 Range/Units 18:50 WBC 8.73 (4.50-11.00) K/uL RBC 4.85 (4.30-5.90) m/uL Hgb 13.4 L (13.5-17.5) gm/dL Hct 41.7 (37.0-53.0) % MCV 86 (80-100) fL MCH 28 (26-34) pg MCHC 32 (32-36) gm/dL RDW Coeff of Eufemia 13.4 (11.5-15.5) % Plt Count 380 (140-440) K/uL Neut % (Auto) 79.5 H (42.0-72.0) % Lymph % (Auto) 10.4 L (20-44) % Russell % (Auto) 8.5 (0.0-11.0) % Eos % (Auto) 0.8 (0.0-7.0) % Baso % (Auto) 0.2 (0.0-3.0) % Neut # (Auto) 6.90 (1.7-7.0) K/uL Lymph # (Auto) 0.90 (0.90-2.90) K/uL Russell # (Auto) 0.70 (0.00-0.90) K/UL Eos # (Auto) 0.07 (0.00-0.50) K/uL Baso # (Auto) 0.02 (0.00-0.30) K/uL Abs Immat Gran (auto) 0.05 (0.00-0.30) K/uL Imm/Tot Granulo (auto) 0.6 % Sodium 131 L (135-149) mmol/L Potassium 5.1 (3.6-5.1) mmol/L Chloride 102 (96-114) mmol/L Carbon Dioxide 12 L (20-32) mmol/L Anion Gap 17 H (7-15) mEq/L BUN 37 H (7-30) mg/dL Creatinine 2.2 H (0.5-1.5) mg/dL Estimated GFR 30 ml/min Glucose 160 H (60-115) mg/dL Calcium 9.6 (8.4-10.6) mg/dL C-Reactive Protein 0.7 (0.5-1.0) mg/dL Discharge Plan Discharge Clinical Impression: Diabetic infection of right foot Patient Disposition: Home w/ Parent or Adult Condition: Stable Additional Instructions: Return tomorrow to have a basic metabolic panel drawn, get vancomycin if this is stable and have Levaquin 750 mg orally administered. You will need to follow up on Monday in clinic either with Podiatry or with your primary care provider. Do recommend having an MRI considered being ordered if they feel appropriate of this foot. Further antibiotic dosing as far as vancomycin and levofloxacin will need to be ordered. For your renal dosing, levofloxacin is indicated at 750 mg every 48 hours for diabetic foot infection. If ongoing vancomycin is going to be administered, pharmacy will need to start following an order peak and trough levels. Prescriptions: No Action multivitamin Tablet 1 tab PO QAM cyanocobalamin (vitamin B-12) 1,000 mcg tablet 1,000 mcg PO DAILY aspirin [Adult Aspirin Regimen] 81 mg tablet,delayed release (DR/EC) 81 mg PO QDAY prednisone 20 mg tablet 20 mg PO QDAY Qty: 7 0RF cephalexin 500 mg capsule 500 mg PO QID Qty: 40 0RF metformin 500 mg tablet 500 mg PO BID ipratropium bromide 42 mcg (0.06 %) spray,non-aerosol 2 spray intranasal TID Qty: 15 5RF Rx Instructions: administer into each nostril lisinopril 20 mg tablet 20 mg PO QDAY Qty: 90 3RF hydrochlorothiazide 25 mg tablet 25 mg PO QAM Qty: 90 3RF metoprolol tartrate 25 mg tablet 12.5 mg PO BID Qty: 180 3RF levothyroxine 150 mcg tablet 150 mcg PO DAILY Qty: 90 2RF olanzapine 5 mg tablet 5 mg PO DAILY Qty: 90 2RF fenofibrate nanocrystallized 48 mg tablet See Rx Instructions .ROUTE .COMPLEX Qty: 180 0RF Dose Instruction: TAKE 2 TABLETS BY MOUTH DAILY Rx Instructions: TAKE 2 TABLETS BY MOUTH DAILY atorvastatin 40 mg tablet See Rx Instructions .ROUTE .COMPLEX Qty: 90 1RF Dose Instruction: TAKE 1 TABLET BY MOUTH AT BEDTIME Rx Instructions: TAKE 1 TABLET BY MOUTH AT BEDTIME glipizide 10 mg tablet extended release 24hr 10 mg PO QDAY Qty: 90 3RF fluoxetine 20 mg capsule See Rx Instructions .ROUTE .COMPLEX Qty: 90 1RF Dose Instruction: TAKE 1 CAPSULE BY MOUTH DAILY Rx Instructions: TAKE 1 CAPSULE BY MOUTH DAILY Follow Up/Referrals: Rl Monroe MD [Primary Care Provider] - Stand Alone Forms: ttwick Info Instructions
--- OUTSIDE RECORDS SUMMARY | 2023-03-26 19:55 | XMS_ITS | Continuity of Care Document ---
Author Name Unknown Organization [facility] Address [address] [place] [address] Phone Care Team Providers Care Starch Mangle Tender Name Role Phone Navid Massey Unavailable Unavailable [...] ASPIRIN (unknown strength) Not Available - Active [place] 5 mg-325 mg tablet take 1 - [...] C, [address], [place], [place], [id number], [place] tel:[phone] [facility] Encounter for other specified surgical aftercare 6 Manuelito Shoemaker. [facility] [place], [address] [place] [address] [address], [facility] [place], [id number] , [place]. [phone] Referring Provider: Clemente Escobar, [facility] [address], [place], [address]. tel:[phone] [facility], [address], [place], [place], [id number], [place] tel:[phone] [facility] No Information 6 Samantha Tejeda. [facility], [address] [place] [address] [address], [facility] [place], [place], [id number] , [place]. [phone] Referring Provider: Clemente Escobar, [facility] [address], [place], [address]. tel:[phone] [facility], [address], [place], [id number], [place] tel:[phone] [facility] No Information 6 Manuelito Shoemaker. [facility] [place], [address] [place] [address] [address], [facility], [id number] , [place]. tel:[phone] [facility], [address], [place], [id number], [place] tel:[phone] [facility] No Information 6 Manuelito Shoemaker. [facility], [address] [place] [address] [address], [place], [id number] , [place]. tel:[phone] Office/Outpat ient Visit,Scott Adams [facility], [address], [place], [place], [id number], [place] tel:[phone] [facility] Spinal stenosis, lumbar region 0 Manuelito Shoemaker. [facility], [address] [place] [address] [address], [place], [id number] , [place]. tel:[phone] Referring Provider: Clemente Escobar, [facility] [address], [place], [address]. tel:[phone] Family History Family Member Type Diagnosis Age At Onset No Information Payers Payer name Insurance type Covered democrat ID [place]erk[place] [id number] Medicare [facility] [id number] Social History Type Description Quantity Date Captured [...]
[2023-03-26] MEDS: 0.9 % SODIUM CHLORIDE 500 ML 500 ML IV (20:31)
== END 2023-03-26 22:50 | disposition home or self-care (01) ==
PROVIDERS: Emergency Provider Family Medicine; PCP Family Medicine
DX: E11.69 Type 2 diabetes mellitus with other specified complication (principal); L08.9 Local infection of the skin and subcutaneous tissue, unspecified
CPT/HCPCS: 36415; 80048; 85025; 86140; 96365; 96366; 99283; 99284; J3370; J7120

== ENCOUNTER 2023-03-27 17:33 | Emergency (ER) | payer MEDICARE, BC, SELFPAY ==
[2023-03-27 17:52] VITALS: BP 94/60; PULSE 64; RESP 14; TEMP 36.7; O2SAT 96
--- OUTSIDE RECORDS SUMMARY | 2023-03-27 18:22 | XMS_ITS | Continuity of Care Document ---
Author Name Unknown Organization [facility] Address [address] [place] [address] Phone Care Team Providers Care Video Game Maker Name Role Phone Navid Massey Unavailable Unavailable [...] ZANAFLEX (unknown strength) Not Available - Active [place] 5 mg-325 mg tablet take 1 - [...] C, [address], [place], [place], [id number], [place] tel:[phone] [facility] Encounter for other specified surgical aftercare 6 Manuelito Shoemaker. [facility] [place], [address] [place] [address] [address], [facility] [place], [place], [id number] , [place]. [phone] Referring Provider: Clemente Escobar, [facility] [address], [place], [address]. tel:[phone] [facility], [address], [place], [id number], [place] tel:[phone] [facility] No Information 6 Samantha Tejeda. [facility], [address] [place] [address] [address], [facility] [place], [place], [id number] , [place]. [phone] Referring Provider: Clemente Escobar, [facility] [address], [place], [address]. tel:[phone] [facility], [address], [place], [id number], [place] tel:[phone] [facility] No Information 6 Manuelito Shoemaker. [facility] [place], [address] [place] [address] [address], [facility] [place], [id number] , [place]. tel:[phone] [facility], [address], [place], [place], [id number], [place] tel:[phone] [facility] No Information 6 Manuelito Shoemaker. [facility], [address] [place] [address] [address], [place], [id number] , [place]. tel:[phone] Office/Outpat ient Visit,Scott Adams [facility], [address], [place], [id number], [place] tel:[phone] [facility] Spinal stenosis, lumbar region 0 Manuelito Shoemaker. [facility], [address] [place] [address] [address], [place], [id number] , [place]. tel:[phone] Referring Provider: Clemente Escobar, [facility] [address], [place], [address]. tel:[phone] Family History Family Member Type Diagnosis Age At Onset No Information Payers Payer name Insurance type Covered constitution party ID [place] [id number] Medicare [facility] [id number] Social History Type Description Quantity Date Captured [...]
[2023-03-27 18:39] LABS: Chloride* 104 mmol/L (96-114); Potassium* 4.5 mmol/L (3.6-5.1); Sodium* 135 mmol/L (135-149)
[2023-03-27 18:41] LABS: Creatinine* 2.5 mg/dL (0.5-1.5); Estimated Glomerular Filt Rate 26 ml/min
[2023-03-27 18:42] LABS: Anion Gap 12 mEq/L (7-15); Blood Urea Nitrogen* 37 mg/dL (7-30); Calcium* 9.3 mg/dL (8.4-10.6); Carbon Dioxide* 19 mmol/L (20-32); Glucose* 82 mg/dL (60-115)
[2023-03-27] MEDS: 0.9 % SODIUM CHLORIDE 500 ML 500 ML 1000 ML IV (19:19)
--- NOTE | 2023-03-27 19:57 | ED_ITS ---
HPI - General Adult General Date Seen: 03/27/23 Chief complaint: Skin/Abscess/Foreign Body Stated complaint: Cellulitis R toe--needs blood work Time Seen by Provider: 03/27/23 18:00 Source: family () Mode of arrival: ambulatory Limitations: no limitations History of Present Illness HPI narrative: Patient is a 73-year-old male with history of dementia and diabetes presenting to emergency department for diabetic foot infection to his right great toe. He has been dealing with this infection for the past few weeks noted was placed on Bactrim back on March 18. She family states symptoms improved significantly on the Bactrim but then started to come back shortly after he finished the prescription. Return to the emergency department on the 25 of March. At that time he worsening kidney function along with his diabetic foot infection. Inpatient treatment was recommended but declined because she states he does not do well in hospitals with his dementia. They decide on a plan to give him vancomycin and Levaquin in the emergency department every few days. The dosing was determined by his kidney function. He has had 2 doses of vancomycin no and returned today to recheck his kidney function along with the another dose of vancomycin and his 2nd dose of Levaquin. A are going to see their primary care provider tomorrow to have them help set up the dosing schedule. Patient's states the infection has improved significantly since starting 2nd round of antibiotics Related Data Home Medications Medication Instructions Recorded Confirmed cyanocobalamin (vitamin B-12) 1,000 mcg PO DAILY 10/08/21 03/27/23 1,000 mcg tablet multivitamin 1 tab PO QAM 10/08/21 03/27/23 metformin 500 mg tablet 500 mg PO BID 09/26/22 03/27/23 aspirin 81 mg tablet,delayed 81 mg PO QDAY 03/14/23 03/27/23 release (Adult Aspirin Regimen) Previous Rx's Medication Instructions Recorded ipratropium bromide 42 mcg (0.06 2 spray intranasal TID #15 mL 09/26/22 %) nasal spray hydrochlorothiazide 25 mg tablet 25 mg PO QAM #90 tabs 09/27/22 lisinopril 20 mg tablet 20 mg PO QDAY #90 tabs 09/27/22 levothyroxine 150 mcg tablet 150 mcg PO DAILY #90 tabs 11/08/22 metoprolol tartrate 25 mg tablet 12.5 mg (1/2 x 25 mg) PO BID #180 11/25/22 tabs olanzapine 5 mg tablet 5 mg PO DAILY #90 tabs 12/21/22 atorvastatin 40 mg tablet See Rx Instructions .Route 02/14/23 .COMPLEX #90 tabs fenofibrate nanocrystallized 48 mg See Rx Instructions .Route 02/14/23 tablet .COMPLEX #180 tabs cephalexin 500 mg capsule 500 mg PO QID #40 caps 03/14/23 prednisone 20 mg tablet 20 mg PO QDAY #7 tabs 03/14/23 fluoxetine 20 mg capsule See Rx Instructions .Route 03/15/23 .COMPLEX #90 caps glipizide 10 mg tablet, extended 10 mg PO QDAY #90 tabs 03/15/23 release 24 hr Allergies Allergy/AdvReac Type Severity Reaction Status Date / Time No Known Drug Allergies Allergy Verified 03/27/23 18:00 Review of Systems Narrative: ROS limited due to dementia PFSH [facility] Medical History 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 Health care directive on file ?Z78.9 - Other specified health status (ICD-10) Submucosal rectal lesion ?K62.9 - Disease of anus and rectum, unspecified (ICD-10) History of adenomatous polyp of colon (2013) ?Z86.010 - Personal history of colonic polyps (ICD-10) High prostate specific antigen (PSA) ?R97.20 - Elevated prostate specific antigen [PSA] (ICD-10) Cataract (01/12/12) ?H26.9 - Unspecified cataract (ICD-10) Surgical History H/O cataract extraction ?Z98.49 - Cataract extraction status, unspecified eye (ICD-10) H/O shoulder surgery ?Z98.890 - Other specified postprocedural states (ICD-10) History of tonsillectomy (04/14/06) ?Z90.89 - Acquired absence of other organs (ICD-10) History of excision of lamina of lumbar vertebra for decompression of spinal cord (2015) ?Z98.890 - Other specified postprocedural states (ICD-10) History of coronary artery bypass surgery (1993) ?Z95.1 - Presence of aortocoronary bypass graft (ICD-10) Social History Smoking Status: Former smoker Do you use any of these nicotine containing products: None Second hand tobacco smoke exposure: No How often do you have a drink containing alcohol: never AUDIT-C Alcohol total score: 0 Non-prescribed substance use: denies use Little interest or pleasure in doing things: more than half the days Feeling down, depressed, or hopeless: more than half the days service: Yes Exam Narrative: Exam Narrative: Const: Well-nourished, Well-developed, in no distress Eyes: PERRL, no conjunctival injection, and symmetrical lids HENT: Atraumatic external nose and ears. Moist mucous membranes. Neck: Symmetric, trachea midline, No thyromegaly. CVS: RRR, No murmurs or gallops. Peripheral pulses 2+ and equal in all extremities RESP: Unlabored respiratory effort. Clear to auscultation bilaterally. GI: Nontender/Nondistended, No rebound or guarding. MSK:Extremities w/o deformity, Normal Active ROM Skin: Warm, Dry. Erythematous right great toe has cool to the touch along with the rest of his foot Neuro: Normal Muscle tone, No focal neurological deficits. Psych: Awake, Alert, & Oriented x3. Appropriate mood and affect. Const: Vital Signs, click to edit/add: Vital Signs - 24 hr 03/27/23 17:52 Temperature 98.0 F Pulse Rate [Right Pulse Oximeter] 64 Respiratory Rate 14 Blood Pressure [Le ft Upper Arm] 94/60 Pulse Oximetry 96 Oxygen Delivery Me thod Room Air Course Vital Signs Vital signs: Initial Vital Signs Temperature 98.0 F 03/27/23 17:52 Temperature Source Temporal Artery Scan 03/27/23 17:52 Pulse Rate 64 03/27/23 17:52 Respiratory Rate 14 03/27/23 17:52 Blood Pressure 94/60 03/27/23 17:52 Blood Pressure Mean 71 03/27/23 17:52 Pulse Oximetry 96 03/27/23 17:52 Oxygen Delivery Method Room Air 03/27/23 17:52 Vital Signs Temperature 98.0 F 03/27/23 17:52 Pulse Rate 64 03/27/23 17:52 Respiratory Rate 14 03/27/23 17:52 Blood Pressure 94/60 03/27/23 17:52 Pulse Oximetry 96 03/27/23 17:52 Oxygen Delivery Method Room Air 03/27/23 17:52 Temperature 98.0 F 03/27/23 17:52 Pulse Rate 64 03/27/23 17:52 Respiratory Rate 14 03/27/23 17:52 Blood Pressure 94/60 03/27/23 17:52 Pulse Oximetry 96 03/27/23 17:52 Oxygen Delivery Method Room Air 03/27/23 17:52 Medications Administered Medications: Discontinued Medications Generic Name Dose Route Start Last Admin Trade Name Freq PRN Reason Stop Dose Admin Sodium Chloride 500 mls @ 1,000 mls/hr 03/27/23 18:58 03/27/23 19:19 0.9 % Sodium Chloride 500 Ml IV 03/27/23 19:27 1,000 mls/hr .Q30M ONE Administration Vancomycin HCl 1,500 mg/ 515 mls @ 257.5 mls/hr 03/27/23 19:25 03/27/23 19:00 Sodium Chloride IVPB 03/27/23 19:26 257.5 mls/hr ONCE ONE Administration Protocol Levofloxacin 750 mg 03/27/23 19:25 03/27/23 20:00 Levofloxacin 750 Mg Tablet PO 03/27/23 19:26 750 mg ONCE ONE Administration Medical Decision Making [facility] Narrative Medical decision making narrative: Patient is a 73-year-old male presenting emergency department for recheck of his lab work along with and a dose of vancomycin and Levaquin. BMP was ordered. Shows his creatinine is now 2.5 compared 2.2 and 2.3 over the past few days. It is still going up and I still recommend inpatient treatment that the does not want at this time. She feels comfortable managing him outpatient. Another dose of vancomycin and Levaquin were ordered. Also gave him 500 extra mL of normal saline. Patient had and his for discharge home in I informed the of the importance of close outpatient follow-up. Next dose of Levaquin is due on Monday. Lab Data Labs: Lab Results 03/27/23 Range/Units 18:15 Sodium 135 (135-149) mmol/L Potassium 4.5 (3.6-5.1) mmol/L Chloride 104 (96-114) mmol/L Carbon Dioxide 19 L (20-32) mmol/L Anion Gap 12 (7-15) mEq/L BUN 37 H (7-30) mg/dL Creatinine 2.5 H (0.5-1.5) mg/dL Estimated GFR 26 ml/min Glucose 82 (60-115) mg/dL Calcium 9.3 (8.4-10.6) mg/dL Discharge Plan Discharge Clinical Impression: Diabetic infection of right foot Patient Disposition: Home w/ Parent or Adult Condition: Stable Instructions: Foot Care for People with Diabetes (ED) Additional Instructions: Make sure to get primary care follow-up tomorrow morning. It is important you see them and get a Podiatry referral for possible MRI. Return for new worsening symptoms Prescriptions: No Action multivitamin Tablet 1 tab PO QAM cyanocobalamin (vitamin B-12) 1,000 mcg tablet 1,000 mcg PO DAILY aspirin [Adult Aspirin Regimen] 81 mg tablet,delayed release (DR/EC) 81 mg PO QDAY prednisone 20 mg tablet 20 mg PO QDAY Qty: 7 0RF cephalexin 500 mg capsule 500 mg PO QID Qty: 40 0RF metformin 500 mg tablet 500 mg PO BID ipratropium bromide 42 mcg (0.06 %) spray,non-aerosol 2 spray intranasal TID Qty: 15 5RF Rx Instructions: administer into each nostril lisinopril 20 mg tablet 20 mg PO QDAY Qty: 90 3RF hydrochlorothiazide 25 mg tablet 25 mg PO QAM Qty: 90 3RF metoprolol tartrate 25 mg tablet 12.5 mg PO BID Qty: 180 3RF levothyroxine 150 mcg tablet 150 mcg PO DAILY Qty: 90 2RF olanzapine 5 mg tablet 5 mg PO DAILY Qty: 90 2RF fenofibrate nanocrystallized 48 mg tablet See Rx Instructions .ROUTE .COMPLEX Qty: 180 0RF Dose Instruction: TAKE 2 TABLETS BY MOUTH DAILY Rx Instructions: TAKE 2 TABLETS BY MOUTH DAILY atorvastatin 40 mg tablet See Rx Instructions .ROUTE .COMPLEX Qty: 90 1RF Dose Instruction: TAKE 1 TABLET BY MOUTH AT BEDTIME Rx Instructions: TAKE 1 TABLET BY MOUTH AT BEDTIME glipizide 10 mg tablet extended release 24hr 10 mg PO QDAY Qty: 90 3RF fluoxetine 20 mg capsule See Rx Instructions .ROUTE .COMPLEX Qty: 90 1RF Dose Instruction: TAKE 1 CAPSULE BY MOUTH DAILY Rx Instructions: TAKE 1 CAPSULE BY MOUTH DAILY Follow Up/Referrals: Rl Monroe MD [Primary Care Provider] - Stand Alone Forms: [facility] Info Instructions
[2023-03-27] MEDS: levoFLOXacin 750 MG TABLET PO (20:00)
== END 2023-03-27 21:15 | disposition home or self-care (01) ==
PROVIDERS: Emergency Provider Student in an Organized Health Care Education/Training Program; PCP Family Medicine
DX: E11.621 Type 2 diabetes mellitus with foot ulcer (principal)
CPT/HCPCS: 36415; 80048; 96365; 99283; A9270; J3370; J7120

== ENCOUNTER 2023-03-28 13:50 | Emergency (ER) | payer MEDICARE, BC, SELFPAY ==
[2023-03-28 14:52] VITALS: BP 98/57; PULSE 80; RESP 16; TEMP 35.9; O2SAT 95
--- OUTSIDE RECORDS SUMMARY | 2023-03-28 15:10 | XMS_ITS | Continuity of Care Document ---
Author Name Unknown Organization [facility] Address [address] [place] [address] Phone Care Team Providers Care Supervisor [facility] Name Role Phone Navid Massey Unavailable Unavailable [...] ZANAFLEX (unknown strength) Not Available - Active Ackworth 5 mg-325 mg tablet take 1 - [...] C, [address], [place], [place], [id number], [place] tel:[phone] [facility] Encounter for other specified surgical aftercare 6 Manuelito Shoemaker. [facility], [address] [place] [address] [address], [facility], [id number] , [place]. [phone] Referring Provider: Clemente Escobar, [facility] [address], [place], [address]. tel:[phone] [facility], [address], [place], [place], [id number], [place] tel:[phone] [facility] No Information 6 Samantha Tejeda. [facility], [address] [place] [address] [address], [facility] [place], [id number] , [place]. [phone] Referring Provider: Clemente Escobar, [facility] [address], [place], [address]. tel:[phone] [facility], [address], [place], [id number], [place] tel:[phone] [facility] No Information 6 Manuelito Shoemaker. [facility], [address] [place] [address] [address], [facility] [place], [id number] , [place]. tel:[phone] [facility], [address], [place], [place], [id number], [place] tel:[phone] [facility] No Information 6 Manuelito Shoemaker. [facility], [address] [place] [address] [address], [place], [id number] , [place]. tel:[phone] Office/Outpat ient Visit,[place] [facility], [address], [place], [id number], [place] tel:[phone] [facility] Spinal stenosis, lumbar region 0 Manuelito Shoemaker. [facility], [address] [place] [address] [address], [place], [id number] , [place]. tel:[phone] Referring Provider: Clemente Escobar, [facility] [address], [place], [address]. tel:[phone] Family History Family Member Type Diagnosis Age At Onset No Information Payers Payer name Insurance type Covered democrat ID [place]erkowitz([place] [id number] Medicare [facility] [id number] Social History Type Description Quantity Date Captured [...]
[2023-03-28 15:45] LABS: Basophils Absolute Auto 0.02 K/uL (0.00-0.30); Basophils Percent Auto 0.2 % (0.0-3.0); Eosinophils Absolute Auto 0.18 K/uL (0.00-0.50); Eosinophils Percent Auto 2.1 % (0.0-7.0); Hematocrit 40.8 % (37.0-53.0); Hemoglobin* 12.9 gm/dL (13.5-17.5); Immature Granulocytes Abs Auto 0.05 K/uL (0.00-0.30); Immature Granulocytes Pct Auto 0.6 %; Lymphocytes Percent Auto 14.7 % (20-44); Mean Corpuscular HGB Conc 32 gm/dL (32-36); Mean Corpuscular Hemoglobin 28 pg (26-34); Mean Corpuscular Volume 88 fL (80-100); Monocytes Percent Auto 10.1 % (0.0-11.0); Neutrophils Percent Auto 72.3 % (42.0-72.0); Platelet Count* 392 K/uL (140-440); RDW Coefficient of Variation % 13.4 % (11.5-15.5); Red Blood Count 4.66 m/uL (4.30-5.90); White Blood Count* 8.38 K/uL (4.50-11.00)
[2023-03-28 15:47] LABS: Slide Review Reflex No
[2023-03-28 15:48] LABS: Appearance Urine Clear (Clear); Bilirubin Urine Negative (Negative); Blood Urine Negative (Negative); Color Urine Yellow (Yellow); Glucose Urine Negative (Negative); Ketones Urine Negative (Negative); Leukocyte Esterase Urine Negative (Negative); Nitrite Urine Negative (Negative); Protein Urine Negative (Negative); pH Urine 5.5 (5.0-8.5)
[2023-03-28 16:03] LABS: Chloride* 104 mmol/L (96-114); Potassium* 4.9 mmol/L (3.6-5.1); Sodium* 136 mmol/L (135-149)
[2023-03-28 16:06] LABS: Creatinine* 1.9 mg/dL (0.5-1.5); Estimated Glomerular Filt Rate 36 ml/min
[2023-03-28 16:07] LABS: Anion Gap 14 mEq/L (7-15); Blood Urea Nitrogen* 30 mg/dL (7-30); Calcium* 9.6 mg/dL (8.4-10.6); Carbon Dioxide* 18 mmol/L (20-32); Glucose* 99 mg/dL (60-115)
[2023-03-28 16:10] LABS: C Reactive Protein* 0.8 mg/dL (0.5-1.0)
[2023-03-28 16:13] VITALS: BP 108/67; PULSE 78; RESP 16; TEMP 36.6; O2SAT 96
[2023-03-28 16:22] LABS: RBC Urine 0-2 (0-2); WBC Urine 0-2 (0-5)
--- NOTE | 2023-03-28 16:24 | CRLHL7_ITS ---
For Patients: As a result of the Century Cures Act, medical imaging exams and procedure reports are released immediately into your electronic medical record. You may view this report before your referring provider. If you have questions, please contact your health care provider. INDICATION: Chronic ulcer. COMPARISON: Plain film 25 March 2023. TECHNIQUE: Axial, coronal and spur and sagittal T1 and STIR right forefoot sequences. FINDINGS: Mild diffuse soft tissue edema. Denervation mild atrophy and increased STIR signal in the intrinsic muscles. 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 Shallow subchondral edema at the plantar margin. Subchondral cyst at the dorsal margin. Minimal degenerative arthrosis of the hallux sesamoids. Normal marrow signal in the field of view without osteomyelitis. No organized fluid for abscess. Site of the ulcer is not marked. IMPRESSION: No osteomyelitis, abscess or septic arthritis. Nonspecific soft tissue edema. Chronic denervation changes in the muscles. Dictated by Jareth Jones MD @ 03/28/2023 5:32:02 PM (Electronically Signed)
--- NOTE | 2023-03-28 17:44 | ED.GENADULT ---
HPI - General Adult General Chief complaint: Weakness Stated complaint: Cellulitis R toe Time Seen by Provider: 03/28/23 14:59 History of Present Illness HPI narrative: Patient is a 73-year-old male with underlying diabetes and a chronic ulcer on his right foot, seen originally on March 18 with a cellulitis of the right foot, treated at that time with Bactrim. His , who is a nurse, had brought him back on the because of recurrent redness and pain in the foot, he was noted to have some renal insufficiency at that time, creatinine was up from baseline of 1.7 to 2.3. He has underlying dementia, does not do well out of his routine and so his had hoped to keep him out of the hospital, he came back on the and , had IV vancomycin, has been on p.o. Levaquin as well x2 doses. His thinks the foot is doing pretty well but his creatinine had remained elevated and so she talked to his primary doctor today who said he should be re-evaluated in the ER again. He has not had fevers, he denies pain in the foot at this time. Mental status is at baseline. No vomiting, chills, or other complaints. Related Data Home Medications Medication Instructions Recorded Confirmed cyanocobalamin (vitamin B-12) 1,000 mcg PO DAILY 10/08/21 03/27/23 1,000 mcg tablet multivitamin 1 tab PO QAM 10/08/21 03/27/23 metformin 500 mg tablet 500 mg PO BID 09/26/22 03/27/23 aspirin 81 mg tablet,delayed 81 mg PO QDAY 03/14/23 03/27/23 release (Adult Aspirin Regimen) Previous Rx's Medication Instructions Recorded ipratropium bromide 42 mcg (0.06 2 spray intranasal TID #15 mL 09/26/22 %) nasal spray hydrochlorothiazide 25 mg tablet 25 mg PO QAM #90 tabs 09/27/22 lisinopril 20 mg tablet 20 mg PO QDAY #90 tabs 09/27/22 levothyroxine 150 mcg tablet 150 mcg PO DAILY #90 tabs 11/08/22 metoprolol tartrate 25 mg tablet 12.5 mg (1/2 x 25 mg) PO BID #180 11/25/22 tabs olanzapine 5 mg tablet 5 mg PO DAILY #90 tabs 12/21/22 atorvastatin 40 mg tablet See Rx Instructions .Route 02/14/23 .COMPLEX #90 tabs fenofibrate nanocrystallized 48 mg See Rx Instructions .Route 02/14/23 tablet .COMPLEX #180 tabs cephalexin 500 mg capsule 500 mg PO QID #40 caps 03/14/23 prednisone 20 mg tablet 20 mg PO QDAY #7 tabs 03/14/23 fluoxetine 20 mg capsule See Rx Instructions .Route 03/15/23 .COMPLEX #90 caps glipizide 10 mg tablet, extended 10 mg PO QDAY #90 tabs 03/15/23 release 24 hr Allergies Allergy/AdvReac Type Severity Reaction Status Date / Time No Known Drug Allergies Allergy Verified 03/27/23 18:00 Review of Systems Status of ROS: Reports: unobtainable due to medical condition PFSH [facility] Medical History 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 Health care directive on file ?Z78.9 - Other specified health status (ICD-10) Submucosal rectal lesion ?K62.9 - Disease of anus and rectum, unspecified (ICD-10) History of adenomatous polyp of colon (2013) ?Z86.010 - Personal history of colonic polyps (ICD-10) High prostate specific antigen (PSA) ?R97.20 - Elevated prostate specific antigen [PSA] (ICD-10) Cataract (01/12/12) ?H26.9 - Unspecified cataract (ICD-10) Surgical History H/O cataract extraction ?Z98.49 - Cataract extraction status, unspecified eye (ICD-10) H/O shoulder surgery ?Z98.890 - Other specified postprocedural states (ICD-10) History of tonsillectomy (04/14/06) ?Z90.89 - Acquired absence of other organs (ICD-10) History of excision of lamina of lumbar vertebra for decompression of spinal cord (2015) ?Z98.890 - Other specified postprocedural states (ICD-10) History of coronary artery bypass surgery (1993) ?Z95.1 - Presence of aortocoronary bypass graft (ICD-10) Social History Smoking Status: Former smoker Do you use any of these nicotine containing products: None Second hand tobacco smoke exposure: No How often do you have a drink containing alcohol: never AUDIT-C Alcohol total score: 0 Non-prescribed substance use: denies use Little interest or pleasure in doing things: more than half the days Feeling down, depressed, or hopeless: more than half the days service: Yes Exam Narrative: Exam Narrative: Vital signs as noted above. In general, an alert, nontoxic elderly male. Head: Normocephalic, atraumatic. Eyes: Pupils are equal reactive. Extraocular movements are full. Conjunctivae are normal. ENT: Mucous membranes are moist. Throat is normal. Neck: Supple without lymphadenopathy. Heart: Regular rate and rhythm. No murmur or rub. Lungs: Clear bilaterally. No increased work of breathing, crackles or wheezes. Abdomen: Soft and nontender. No organomegaly. Extremities: Pulses are not palpable in either foot, capillary refill is just about 2 seconds. On the right there is some mild erythema noted particularly on the lateral foot. No significant warmth. He has a small ulcer near the head of the 5th metatarsal on the right with black eschar. Trace edema in the foot on the right. Neurologic: Patient is oriented to person. Speech is fluent, face symmetric, moves all extremities equally. Affect: Normal. Skin: Warm and dry. Well perfused. Const: Vital Signs, click to edit/add: Vital Signs - 24 hr 03/28/23 14:52 03/28/23 16:13 Temperature 96.7 F L 97.8 F Pulse Rate [Pulse Oximeter] 80 78 Respiratory Rate 16 16 Blood Pressure [Le ft Upper Arm] 98/57 L 108/67 Pulse Oximetry 95 96 Oxygen Delivery Me thod Room Air Room Air Documenting provider has reviewed patient's vital signs: yes Course Course ED Course: I recheck labs today, white blood cell count, lactate, CRP remain normal. His creatinine is actually improved to 1.9. I do not think he needs admission for renal insufficiency at this point. He is afebrile, initial blood pressure was recorded at 98/57 but repeat is 108/67. No signs of sepsis at this time. I did have Dr. Peterson look at his foot as well as she saw him a couple of days ago to assess whether it looked stable, worse etcetera. She feels that it looks improved compared to couple of days ago. I did do an MRI, this is read by Radiology as negative for evidence of osteomyelitis. I think it is reasonable to let him go home today, will keep him on his Levaquin q.48h, renal dosing for 3 more doses. I put in a consult for wound care clinic. His is well aware of reasons to return such as significantly worsening redness, fevers, chills etcetera. Vital Signs Vital signs: Initial Vital Signs Temperature 96.7 F L 03/28/23 14:52 Temperature Source Temporal Artery Scan 03/28/23 14:52 Pulse Rate 80 03/28/23 14:52 Respiratory Rate 16 03/28/23 14:52 Blood Pressure 98/57 L 03/28/23 14:52 Blood Pressure Mean 70 03/28/23 14:52 Blood Pressure Position Sitting 03/28/23 14:52 Pulse Oximetry 95 03/28/23 14:52 Oxygen Delivery Method Room Air 03/28/23 14:52 Vital Signs Temperature 96.7 F L 03/28/23 14:52 Pulse Rate 80 03/28/23 14:52 Respiratory Rate 16 03/28/23 14:52 Blood Pressure 98/57 L 03/28/23 14:52 Pulse Oximetry 95 03/28/23 14:52 Oxygen Delivery Method Room Air 03/28/23 14:52 Temperature 97.8 F 03/28/23 16:13 Pulse Rate 78 03/28/23 16:13 Respiratory Rate 16 03/28/23 16:13 Blood Pressure 108/67 03/28/23 16:13 Pulse Oximetry 96 03/28/23 16:13 Oxygen Delivery Method Room Air 03/28/23 16:13 Medical Decision Making Lab Data Labs: Lab Results 03/28/23 03/28/23 Range/Units 15:26 15:35 WBC 8.38 (4.50-11.00) K/uL RBC 4.66 (4.30-5.90) m/uL Hgb 12.9 L (13.5-17.5) gm/dL Hct 40.8 (37.0-53.0) % MCV 88 (80-100) fL MCH 28 (26-34) pg MCHC 32 (32-36) gm/dL RDW Coeff of Eufemia 13.4 (11.5-15.5) % Plt Count 392 (140-440) K/uL Neut % (Auto) 72.3 H (42.0-72.0) % Lymph % (Auto) 14.7 L (20-44) % Barnes % (Auto) 10.1 (0.0-11.0) % Eos % (Auto) 2.1 (0.0-7.0) % Baso % (Auto) 0.2 (0.0-3.0) % Neut # (Auto) 6.10 (1.7-7.0) K/uL Lymph # (Auto) 1.20 (0.90-2.90) K/uL Barnes # (Auto) 0.80 (0.00-0.90) K/UL Eos # (Auto) 0.18 (0.00-0.50) K/uL Baso # (Auto) 0.02 (0.00-0.30) K/uL Abs Immat Gran (auto) 0.05 (0.00-0.30) K/uL Imm/Tot Granulo (auto) 0.6 % Sodium 136 (135-149) mmol/L Potassium 4.9 (3.6-5.1) mmol/L Chloride 104 (96-114) mmol/L Carbon Dioxide 18 L (20-32) mmol/L Anion Gap 14 (7-15) mEq/L BUN 30 (7-30) mg/dL Creatinine 1.9 H (0.5-1.5) mg/dL Estimated GFR 36 ml/min Glucose 99 (60-115) mg/dL Calcium 9.6 (8.4-10.6) mg/dL C-Reactive Protein 0.8 (0.5-1.0) mg/dL Urine Color Yellow (Yellow) Urine Appearance Clear (Clear) Urine pH 5.5 (5.0-8.5) Ur Specific [place] 1.010 (1.000-1.030) Urine Protein Negative (Negative) Urine Glucose (UA) Negative (Negative) Urine Ketones Negative (Negative) Urine Blood Negative (Negative) Urine Nitrite Negative (Negative) Urine Bilirubin Negative (Negative) Urine Urobilinogen 1.0 (0.2-1.0) Ur Leukocyte Esterase Negative (Negative) Urine RBC 0-2 (0-2) Urine WBC 0-2 (0-5) Ur Squamous Epith Cells None (None-Few) Urine Bacteria None (None) Discharge Plan Discharge Clinical Impression: Cellulitis, Chronic ulcer of right foot Patient Disposition: Home w/ Parent or Adult Condition: Stable Instructions: Cellulitis (ED) Additional Instructions: Continue Levaquin, 750 mg (tablets are 500 mg) for 3 more doses, for a total of 10 days. I have put in a request for wound care consult. Return at any time for worsening such as fevers, significantly worsening erythema, etcetera. The number to the wound clinic is [phone]. Prescriptions: No Action multivitamin Tablet 1 tab PO QAM cyanocobalamin (vitamin B-12) 1,000 mcg tablet 1,000 mcg PO DAILY aspirin [Adult Aspirin Regimen] 81 mg tablet,delayed release (DR/EC) 81 mg PO QDAY prednisone 20 mg tablet 20 mg PO QDAY Qty: 7 0RF cephalexin 500 mg capsule 500 mg PO QID Qty: 40 0RF metformin 500 mg tablet 500 mg PO BID ipratropium bromide 42 mcg (0.06 %) spray,non-aerosol 2 spray intranasal TID Qty: 15 5RF Rx Instructions: administer into each nostril lisinopril 20 mg tablet 20 mg PO QDAY Qty: 90 3RF hydrochlorothiazide 25 mg tablet 25 mg PO QAM Qty: 90 3RF metoprolol tartrate 25 mg tablet 12.5 mg PO BID Qty: 180 3RF levothyroxine 150 mcg tablet 150 mcg PO DAILY Qty: 90 2RF olanzapine 5 mg tablet 5 mg PO DAILY Qty: 90 2RF fenofibrate nanocrystallized 48 mg tablet See Rx Instructions .ROUTE .COMPLEX Qty: 180 0RF Dose Instruction: TAKE 2 TABLETS BY MOUTH DAILY Rx Instructions: TAKE 2 TABLETS BY MOUTH DAILY atorvastatin 40 mg tablet See Rx Instructions .ROUTE .COMPLEX Qty: 90 1RF Dose Instruction: TAKE 1 TABLET BY MOUTH AT BEDTIME Rx Instructions: TAKE 1 TABLET BY MOUTH AT BEDTIME glipizide 10 mg tablet extended release 24hr 10 mg PO QDAY Qty: 90 3RF fluoxetine 20 mg capsule See Rx Instructions .ROUTE .COMPLEX Qty: 90 1RF Dose Instruction: TAKE 1 CAPSULE BY MOUTH DAILY Rx Instructions: TAKE 1 CAPSULE BY MOUTH DAILY Follow Up/Referrals: Rl Monroe MD [Primary Care Provider] - Stand Alone Forms: [employer] Info Instructions
== END 2023-03-28 17:54 | disposition home or self-care (01) ==
PROVIDERS: Emergency Provider Emergency Medicine; PCP Family Medicine
DX: E11.621 Type 2 diabetes mellitus with foot ulcer (principal); L03.115 Cellulitis of right lower limb
CPT/HCPCS: 36415; 73718; 80048; 81001; 85025; 86140; 99284

== ENCOUNTER 2023-04-13 07:49 | Outpatient (CLI) | payer MEDICARE, BC, SELFPAY ==
--- OUTSIDE RECORDS SUMMARY | 2023-04-13 07:54 | XMS_ITS | Clinical Summary ---
Author Name Unknown Organization [employer] [facility] [employer] Address [place], [place] [address] Care Team Providers Care Remote Sensing Technician Name Role Phone Rl Monroe MD Primary Care Provider Allergies No known active allergies Medications Medication Sig Dispensed Refills Start Date End Date Status metoprolol (LOPRESSOR) 50 mg tablet takes 25 mg per day 0 03/19/2009 Active glipiZIDE (GLUCOTROL) 10 mg tablet take 1 tablet (10 mg) by oral route once daily before a meal 0 03/19/2009 Active aspirin enteric coated (ECOTRIN) 325 mg tablet take 2 tablets (650 mg) by oral route every 6 hours as needed 0 03/19/2009 Active hydrOXYzine HCl (ATARAX) 50 mg tabletIndications:Lum bar radiculopathy Take 1 tablet by mouth every 6 hours if needed for Other (Specify) (back pain). 30 tablet 0 08/19/2015 Active MURTAZA ROOT (MURTAZA, ZINGIBER OFFICINALIS,) 550 mg capsule Take 550 mg by mouth once daily. 0 Active Cinnamon Bark 500 mg capsule Take 1,000 mg by mouth once daily. 0 Active Cholecalciferol, Vitamin D3, 5,000 unit tab Take by mouth once daily. 0 Active Melatonin-Pyridoxine 3-2 mg tab Take 3 mg by mouth at bedtime. 0 Active coQ10, ubiquinol, 100 mg cap Take 200 mg by mouth. 0 Active lisinopril (PRINIVIL; ZESTRIL) 40 mg tablet Take 40 mg by mouth once daily. 0 Active lovastatin (MEVACOR) 40 mg tablet Take 40 mg by mouth at bedtime. 0 Active levothyroxine (SYNTHROID) 175 mcg tablet Take 175 mcg by mouth once daily. 0 Active folic acid 1 mg tabletIndications:Spi nal stenosis, lumbar region, without neurogenic claudication Take 1 tablet by mouth once daily. 30 tablet 0 10/01/2015 Active thiamine (VITAMIN B1) 100 mg tabletIndications:Spi nal stenosis, lumbar region, without neurogenic claudication Take 1 tablet by mouth once daily. 30 tablet 0 10/01/2015 Active acetaminophen (TYLENOL) 325 mg tabletIndications:Acu te postoperative pain Take 2 tablets by mouth every 4 hours while awake. Max acetaminophen dose: 4000mg in 24 hrs. 0 10/01/2015 Active gabapentin (NEURONTIN) 100 mg capsuleIndications:Ac pechanga postoperative pain Take 2 capsules by mouth 3 times daily. 30 capsule 0 10/01/2015 Active methocarbamol (ROBAXIN) 500 mg tabletIndications:Acu te postoperative pain Take 1 tablet by mouth every 6 hours if needed. 0 10/01/2015 Active metFORMIN (GLUCOPHAGE) 1,000 mg tabletIndications:Typ e 2 diabetes mellitus without complication (HC) Take 1 tablet by mouth once daily with a meal. 0 10/01/2015 Active omega-3 fatty acids-vitamin E (FISH OIL) 1,000 mg capIndications:Other hyperlipidemia Take 1 capsule by mouth once daily. 0 10/01/2015 Active multivitamins pediatric chewable (FLINTSTONE'S) chewable tabletIndications:Typ e 2 diabetes mellitus without complication (HC) Take 1 tablet by mouth once daily. 0 10/01/2015 Active fenofibrate nanocrystallized (TRICOR) 48 mg tabletIndications:Oth er hyperlipidemia Take 2 tablets by mouth once daily with a meal. 0 10/01/2015 Active oxyCODONE (ROXICODONE) 5 mg immediate release tabletIndications:Acu te postoperative pain Take 1-2 tablets by mouth every 4 hours if needed for Pain (Pain 3-6/10 1 tab, 7-10/10 2 tabs.). 30 tablet 0 10/01/2015 Active sennosides-docusate, 8.6-50 mg, (SENOKOT S) 8.6-50 mg tabletIndications:Spi nal stenosis, lumbar region, without neurogenic claudication Take 2 tablets by mouth 2 times daily. Hold for loose stools. 30 tablet 0 10/01/2015 Active Active Problems Problem Noted Date Diagnosed Date Depression 09/29/2015 Bipolar disorder 09/29/2015 Overview: Stopped [place] in 2011 Spinal stenosis, lumbar deborah on, without neurogenic claudication 09/28/2015 Insomnia 09/28/2015 Unspecified hypothyroidism 09/12/2011 Diabetes mellitus type II 09/12/2011 Overview: a system change updated this record. This will not affect patient care or billing. This comment can be deleted. 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 Family History Medical History Relation Name Comments Heart Disease Father Other Father polio Stroke Father Diabetes Mother Heart Disease Mother Hypertension Mother Psychiatric illness Mother depressi on Cancer Sister esophageal Diabetes Sister Relation Name Status Comments Father Mother Sister Social History Tobacco Use Types Packs/Day Years Used Date Smoking Tobacco: Former Cigarettes 1.5 20 0 09/27/1973 - 09/27/1993 Smokeless Tobacco: Never Comments:quit many years ago Alcohol Use Standard Drinks/Week Comments Yes 7 (1 standard drink = 0.6 oz pur e alcohol) 1-2 drinks per day Social Connections Answer Date Recorded Frequency of Communication with Friends and Fami ly Not on file 12/21/2022 Sex and Gender Information Value Date Recorded Sex Assigned at Not on file Gender Identity Not on file Sexual Orientation Not on file Obstetrics History Last Filed Vital Signs Vital Sign Reading Time Taken Comments Blood Pressure 137/65 10/01/2015 8:00 AM CDT Pulse 65 10/01/2015 8:00 AM CDT Temperature 36.9 ??C (98.5 ??F) 10/01/2015 8:00 AM CD T Respiratory Rate 16 10/01/2015 8:00 AM CDT Oxygen Saturation 99% 10/01/2015 8:00 AM CDT Inhaled Oxygen Concentration - - Weight 113.4 kg (250 lb) 09/28/2015 2:00 PM CDT Height 188 cm (6' 2) 09/28/2015 2:00 PM CDT Body Mass Index 32.1 09/28/2015 2:00 PM CDT Plan of Treatment Upcoming Encounters Date Type Department Care Team (Late st Contact Info) Description 05/16/2023 9:30 AM POWERHOUSE ATTENDANT Office Visit [facility] [place] [address] [facility] [address] [id number] Navi Zimmerman, DPM [address] [place] [address] Health Maintenance Due Date Last Done Comments Pneumococcal series for age 65+ (1 of 2 - PCV) 01/28/1954 Tdap 01/28/1959 Depression screening for age 12+ 1960 Hepatitis C screening for age 18-79 01/28/1966 Tetanus booster 1968 Colonoscopy through age 75 01/28/1993 Lipids for age 45-75 01/28/1993 Zoster (shingles) series for age 50+ (1 of 2) 01/28/1998 Medicare Wellness for age 65+ 01/28/2013 BMI (ht and wt on same day) for age 18+ 08/18/2016 08/19/2015 COVID-19 vaccine series ( season) 2022 03/31/2021, 06/26/2020, 06/05/2020 Influenza for age 65+ 12/02/2022 Advance Directives Latest Code Status on File Code Status Date Activated Date Inactivated Comments Full Code 09/28/2015 9:24 PM 10/01/2015 1:41 PM Code Status History Code Status Date Activated Date Inactivated Comments Full Code 09/28/2015 1:04 PM 09/28/2015 9:24 PM Question Answer Comments Code Status Discussion: Not Discussed Care Teams Remote Sensing Technician Relationship Specialty Start Date End Date Rl Monroe MD PCP - General Family Practice 08/19/15
--- OUTSIDE RECORDS SUMMARY | 2023-04-13 07:54 | XMS_ITS | Continuity of Care Document ---
Author Name Unknown Organization [facility] Address [address] [place] [address] Phone Care Team Providers Care Clean Up Supervisor Name Role Phone Navid Massey Unavailable Unavailable [...] ZANAFLEX (unknown strength) Not Available - Active [place] 5 mg-325 mg tablet take 1 - [...] C, [address], [place], [place], [id number], [place] tel:[phone] [facility] Encounter for other specified surgical aftercare 6 Manuelito Shoemaker. [facility], [address] [place] [address] [address], [facility] [place], [place], [id number] , [place]. [phone] Referring Provider: Clemente Escobar, [facility] [address], [place], [address]. tel:[phone] [facility], [address], [place], [place], [id number], [place] tel:[phone] [facility] No Information 6 Samantha Tejeda. [facility], [address] [place] [address] [address], [facility] [place], [id number] , [place]. [phone] Referring Provider: Clemente Escobar, [facility] [address], [place], [address]. tel:[phone] [facility], [address], [place], [place], [id number], [place] tel:[phone] [facility] No Information 6 Manuelito Shoemaker. [facility], [address] [place] [address] [address], [facility] [place], [id number] , [place]. tel:[phone] [facility], [address], [place], [place], [id number], [place] tel:[phone] [facility] No Information 6 Manuelito Shoemaker. [facility], [address] [place] [address] [address], [place], [place], [id number] , [place]. tel:[phone] Office/Outpat ient Visit,Scott Adams [facility], [address], [place], [place], [id number], [place] tel:[phone] [facility] Spinal stenosis, lumbar region 0 Manuelito Shoemaker. [facility], [address] [place] [address] [address], [place], [id number] , [place]. tel:[phone] Referring Provider: Clemente Escobar, [facility] [address], [place], [address]. tel:[phone] Family History Family Member Type Diagnosis Age At Onset No Information Payers Payer name Insurance type Covered constitution party ID [place] [id number] Medicare [facility] [id number] Social History Type Description Quantity Date Captured [...]
== END 2023-04-13 07:50 | disposition home or self-care (01) ==
PROVIDERS: PCP Family Medicine; Visit Provider Nurse Practitioner Family
DX: E11.621 Type 2 diabetes mellitus with foot ulcer (principal); L97.518 Non-pressure chronic ulcer of other part of right foot with other specified severity; I73.9 Peripheral vascular disease, unspecified; Z79.84 Long term (current) use of oral hypoglycemic drugs
CPT/HCPCS: 97602; G0463

== ENCOUNTER 2023-04-18 10:38 | Emergency (ER) | payer MEDICARE, BC, SELFPAY ==
[2023-04-18 10:47] VITALS: BP 103/60; PULSE 72; RESP 18; TEMP 36.7; O2SAT 98; BMI 31.1
--- NOTE | 2023-04-18 10:55 | ED_ITS ---
HPI - General Adult General Chief complaint: Extremity Pain/Injury, Lower Stated complaint: Pain in R foot Time Seen by Provider: 04/18/23 10:42 History of Present Illness HPI narrative: This 73-year-old male comes in with his significant other who reports increased pain in this right lower extremity. He does have vascular insufficiency likely secondary to diabetes. He had been to wound clinic appointment and a order for ultrasound arterial study was placed but there is no specific time when this is scheduled. He was told by someone in the wound clinic to come to the ER. The patient has dementia and is a poor historian. His is with him and states that he did not sleep well last night because of increased pain. This pain is primarily in his right foot. He does have a cool foot but there is erythema and capillary refill is present but somewhat delayed. He does have a wound on his big toe. Related Data Home Medications Medication Instructions Recorded Confirmed cyanocobalamin (vitamin B-12) 1,000 mcg PO DAILY 10/08/21 04/12/23 1,000 mcg tablet multivitamin 1 tab PO QAM 10/08/21 04/12/23 aspirin 81 mg tablet,delayed 81 mg PO QDAY 03/14/23 04/12/23 release (Adult Aspirin Regimen) levofloxacin 750 mg tablet 750 mg PO Q48H 03/31/23 04/12/23 Previous Rx's Medication Instructions Recorded ipratropium bromide 42 mcg (0.06 2 spray intranasal TID #15 mL 09/26/22 %) nasal spray hydrochlorothiazide 25 mg tablet 25 mg PO QAM #90 tabs 09/27/22 levothyroxine 150 mcg tablet 150 mcg PO DAILY #90 tabs 11/08/22 metoprolol tartrate 25 mg tablet 12.5 mg (1/2 x 25 mg) PO BID #180 11/25/22 tabs olanzapine 5 mg tablet 5 mg PO DAILY #90 tabs 12/21/22 atorvastatin 40 mg tablet See Rx Instructions .Route 02/14/23 .COMPLEX #90 tabs fenofibrate nanocrystallized 48 mg See Rx Instructions .Route 02/14/23 tablet .COMPLEX #180 tabs fluoxetine 20 mg capsule See Rx Instructions .Route 03/15/23 .COMPLEX #90 caps glipizide 10 mg tablet, extended 10 mg PO QDAY #90 tabs 03/15/23 release 24 hr amoxicillin 875 mg-potassium 1 tab PO BID #28 tabs 03/31/23 clavulanate 125 mg tablet azithromycin 250 mg tablet See Rx Instructions PO .COMPLEX #6 04/12/23 tabs oxycodone 5 mg tablet 5 mg PO Q8H PRN pain #20 tabs 04/18/23 Allergies Allergy/AdvReac Type Severity Reaction Status Date / Time No Known Drug Allergies Allergy Verified 04/12/23 11:11 Review of Systems Status of ROS: Reports: 10 or more systems reviewed and unremarkable except as noted in History and below Narrative: Constitutional: No fevers, no weight gain or loss. Eyes: No discharge. No vision changes. HENT: No congestion, no sore throat, no ear pain. Cardiovascular: No chest pain, no palpitations. Respiratory: No shortness of breath, no wheezes, no cough. Gastrointestinal: No abdominal pain, no vomiting, no diarrhea. Genitourinary: No dysuria, no hematuria. Musculoskeletal: Normal range of motion. Right lower extremity pain and pallor. Skin: No rashes, no pruritis. Neurological: No dizziness, weakness, sensory change, speech change. Endo/Heme/Allergies: No bruising or bleeding. No polydipsia. Pysch: no suicidality, no anxiety, no insomnia. All other systems reviewed and are negative. [facility] Medical History Durable power of deputy attorney general in chart Health care directive on file ?Z78.9 - Other specified health status (ICD-10) Submucosal rectal lesion ?K62.9 - Disease of anus and rectum, unspecified (ICD-10) History of adenomatous polyp of colon (2013) ?Z86.010 - Personal history of colonic polyps (ICD-10) High prostate specific antigen (PSA) ?R97.20 - Elevated prostate specific antigen [PSA] (ICD-10) Cataract (01/12/12) ?H26.9 - Unspecified cataract (ICD-10) Surgical History H/O cataract extraction ?Z98.49 - Cataract extraction status, unspecified eye (ICD-10) H/O shoulder surgery ?Z98.890 - Other specified postprocedural states (ICD-10) History of tonsillectomy (04/14/06) ?Z90.89 - Acquired absence of other organs (ICD-10) History of excision of lamina of lumbar vertebra for decompression of spinal cord (2015) ?Z98.890 - Other specified postprocedural states (ICD-10) History of coronary artery bypass surgery (1993) ?Z95.1 - Presence of aortocoronary bypass graft (ICD-10) Social History Smoking Status: Former smoker Do you use any of these nicotine containing products: None Second hand tobacco smoke exposure: No How often do you have a drink containing alcohol: never How often do you have six or more drinks on one occasion: Never AUDIT-C Alcohol total score: 0 Non-prescribed substance use: denies use Little interest or pleasure in doing things: more than half the days Feeling down, depressed, or hopeless: more than half the days service: Yes Exam Narrative: Exam Narrative: Constitutional: Well-developed, well-nourished, no acute distress. HEENT: Normocephalic, atraumatic. Neck: Normal range of motion. Nontender. Supple. Heart: Regular. No murmurs. Normal rate. Intact distal pulses. Lungs: Clear to auscultation. No chest discomfort. No wheezes, rhonchi, or rales. Abdomen: Normal bowel sounds. Nontender. No rebound tenderness. Genitalia: Deferred. Back: No midline tenderness. Normal range of motion. Extremities: Normal range of motion. Right lower extremity has erythema with capillary refill at about 5 seconds. There is diffuse pain in this area. He has a small blister on the big toe near the toenail. Skin: Intact. No rash. Warm. No erythema or pallor. Neurologic: No altered sensation. No weakness. Alert and oriented. Psychiatric: No suicidality. No anxiety or depression. No insomnia. Nursing notes and vitals signs are reviewed. Const: Vital Signs, click to edit/add: Vital Signs - 24 hr 04/18/23 10:47 Temperature 98.1 F Pulse Rate [Pulse Oximeter] 72 Respiratory Rate 18 Blood Pressure [Ri ght Upper Arm] 103/60 Pulse Oximetry 98 Oxygen Delivery Me thod Room Air Course Vital Signs Vital signs: Initial Vital Signs Temperature 98.1 F 04/18/23 10:47 Temperature Source Temporal Artery Scan 04/18/23 10:47 Pulse Rate 72 04/18/23 10:47 Respiratory Rate 18 04/18/23 10:47 Blood Pressure 103/60 04/18/23 10:47 Blood Pressure Mean 74 04/18/23 10:47 Blood Pressure Position Supine 04/18/23 10:47 Pulse Oximetry 98 04/18/23 10:47 Oxygen Delivery Method Room Air 04/18/23 10:47 Vital Signs Temperature 98.1 F 04/18/23 10:47 Pulse Rate 72 04/18/23 10:47 Respiratory Rate 18 04/18/23 10:47 Blood Pressure 103/60 04/18/23 10:47 Pulse Oximetry 98 04/18/23 10:47 Oxygen Delivery Method Room Air 04/18/23 10:47 Temperature 98.1 F 04/18/23 10:47 Pulse Rate 72 04/18/23 10:47 Respiratory Rate 18 04/18/23 10:47 Blood Pressure 103/60 04/18/23 10:47 Pulse Oximetry 98 04/18/23 10:47 Oxygen Delivery Method Room Air 04/18/23 10:47 Medical Decision Making MDM Narrative Medical decision making narrative: This patient comes in with limb ischemia that is acute and possibly critical. He did have an order placed for an arterial ultrasound as an outpatient. I did place the order to happen through the ER here and distribution coordinator reports that there is very minimal flow blood to his right lower extremity. The patient has pain in his leg is cool. He does have red complexion in his leg and there is capillary refill that is delayed. I do not palpate any pulses. He is able to move his foot. He does not have sensation in his leg but this is preexistent with his diabetic neuropathy. I did speak with the vascular surgeon on-call at [facility], Dr. Carbone. He was willing to take him in the hospital for further management treatment but there are no beds available. He would be on a wait list that would likely extend into tomorrow. The patient is currently in not any acute distress and the vascular surgeon stated that would be okay for him to go home on pain medicine and he could return to this emergency department or the emergency department at [facility] if symptoms are worsening. Meanwhile the patient will receive scheduling phone number for vascular clinic and the clinic personnel will attempt to contact him for follow-up to happen very soon. Discharge Plan Discharge Clinical Impression: Limb ischemia, Type 2 diabetes mellitus, Dementia Patient Disposition: Home w/ Parent or Adult Condition: Unchanged Additional Instructions: Take medication as needed and directed for pain. Follow-up with vascular surgery Clinic. Someone from the clinic will call for follow-up plan. The phone number at this clinic is [phone]. Return to emergency department here or at [facility] if worsening symptoms happen. Prescriptions: New oxycodone 5 mg tablet 5 mg PO Q8H PRN (Reason: pain) Qty: 20 0RF No Action multivitamin Tablet 1 tab PO QAM cyanocobalamin (vitamin B-12) 1,000 mcg tablet 1,000 mcg PO DAILY aspirin [Adult Aspirin Regimen] 81 mg tablet,delayed release (DR/EC) 81 mg PO QDAY levofloxacin 750 mg tablet 750 mg PO Q48H amoxicillin-pot clavulanate 875-125 mg tablet 1 tab PO BID Qty: 28 0RF ipratropium bromide 42 mcg (0.06 %) spray,non-aerosol 2 spray intranasal TID Qty: 15 5RF Rx Instructions: administer into each nostril hydrochlorothiazide 25 mg tablet 25 mg PO QAM Qty: 90 3RF metoprolol tartrate 25 mg tablet 12.5 mg PO BID Qty: 180 3RF azithromycin 250 mg tablet See Rx Instructions PO .COMPLEX Qty: 6 0RF Rx Instructions: For 250 mg dose pack: take 500 mg today (day 1), then 250 mg for 4 days (days 2-5) PO levothyroxine 150 mcg tablet 150 mcg PO DAILY Qty: 90 2RF olanzapine 5 mg tablet 5 mg PO DAILY Qty: 90 2RF fenofibrate nanocrystallized 48 mg tablet See Rx Instructions .ROUTE .COMPLEX Qty: 180 0RF Dose Instruction: TAKE 2 TABLETS BY MOUTH DAILY Rx Instructions: TAKE 2 TABLETS BY MOUTH DAILY atorvastatin 40 mg tablet See Rx Instructions .ROUTE .COMPLEX Qty: 90 1RF Dose Instruction: TAKE 1 TABLET BY MOUTH AT BEDTIME Rx Instructions: TAKE 1 TABLET BY MOUTH AT BEDTIME glipizide 10 mg tablet extended release 24hr 10 mg PO QDAY Qty: 90 3RF fluoxetine 20 mg capsule See Rx Instructions .ROUTE .COMPLEX Qty: 90 1RF Dose Instruction: TAKE 1 CAPSULE BY MOUTH DAILY Rx Instructions: TAKE 1 CAPSULE BY MOUTH DAILY Follow Up/Referrals: Rl Monroe MD [Primary Care Provider] - Stand Alone Forms: IActive Instructions
--- NOTE | 2023-04-18 11:17 | CRLHL7_ITS ---
For Patients: As a result of the Century Cures Act, medical imaging exams and procedure reports are released immediately into your electronic medical record. You may view this report before your referring provider. If you have questions, please contact your health care provider. DUPLEX ARTERIAL ULTRASOUND RIGHT LOWER EXTREMITY, 04/18/2023 CLINICAL HISTORY: Nonhealing wounds, decreased pedal pulses. History of dementia. COMPARISON: None. TECHNIQUE: The right lower extremity arteries were examined per exam specific protocol with rizvi-scale ultrasound, color-flow and Doppler spectral analysis. Peak systolic velocities (PSV), Doppler waveform quality and velocity ratios, if applicable, were documented at sites per exam specific protocol. FINDINGS: RIGHT: PSV (cm/sec). Waveform (T-Tri, B-Bi, M-Jayuya). BATH STEWARD: 86. T. DFA: 51. M. FA PRX: 20. M. FA MID: 0. None. FA DISTAL: 145. M. POP A: 165. M. ENEIDA A: 0. None. LINE REPAIRER TOWER: 35. M. CHAPARRO: Nonphasic flow DPA: Nonphasic flow Multiphasic waveforms are seen in the common femoral artery with transition to monophasic waveforms in the proximal SFA. The mid SFA is occluded with reconstitution distally, likely from deep femoral artery collaterals. The peroneal artery is occluded. Monophasic waveforms are seen in the posterior tibial artery. Antegrade nonphasic low-resistance waveforms are seen in the anterior tibial and dorsalis pedis arteries. 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 Peroneal artery is distally occluded. MARY KAY FRANCISCO M.D. Vascular [facility] Interventional [facility]iology [email or web address] Transcribed: 1:[address]/Dictated by: Mary Kay Francisco MD @ 04/18/2023 1:25:00 PM (Electronically Signed)
--- OUTSIDE RECORDS SUMMARY | 2023-04-18 11:20 | XMS_ITS | Clinical Summary ---
Author Name Unknown Organization [employer] Address [place], [place] [address] Care Team Providers Care Tailor Women'S Garment Alteration Name Role Phone Rl Monroe MD Primary Care Provider [phone] Allergies No known active allergies Medications Medication [...] 10/01/2015 Active gabapentin (NEURONTIN) 100 mg capsuleIndications:Ac circle postoperative pain Take 2 capsules by mouth [...] Depression 09/29/2015 Bipolar disorder 09/29/2015 Overview: Stopped [place] in 2011 Spinal stenosis, lumbar deborah on, [...] st Contact Info) Description 05/16/2023 9:30 AM ETHANOL OPERATIONS MANAGER Office Visit [facility] [place] [address] [facility] [address] [address] Navi Zimmerman, DPM [address] [place] [address] Health Maintenance Due Date Last Done Comments [...] Code Status Discussion: Not Discussed Care Teams Tailor Women'S Garment Alteration Relationship Specialty Start Date End Date Rl Monroe MD PCP - General Family Practice 08/19/15
--- OUTSIDE RECORDS SUMMARY | 2023-04-18 11:20 | XMS_ITS | Continuity of Care Document ---
Author Name Unknown Organization [facility] Address [address] [place] [address] Phone Care Team Providers Care Human Resources Designate Name Role Phone Navid Massey Unavailable Unavailable [...] ZANAFLEX (unknown strength) Not Available - Active [place] 5 mg-325 mg tablet take 1 - [...] Spine [place], 1 S eg Office/Outpatient Visit,Scott Aadms 2015 Advance Directives Directive Yes / No Effective Date File Name No Information Encounters Encounter Description Practice Location Reason(s) For Visit Diagnoses Date Provider Providers Copied on Encounter [facility], [address], [place], [id number], [place] tel:[phone] [facility] Encounter for other specified surgical aftercare 6 Maneulito Shoemaker. [facility] [place], [address] [place] [address] [address], [facility] [place], [id number] , [place]. [phone] Referring Provider: Clemente Escobar, [facility] [address], [place], [address]. tel:[phone] [facility], [address], [place], [place], [id number], [place] tel:[phone] [facility] No Information 6 Samantha Tejeda. [facility], [address] [place] [address] [address], [facility] [place] [id number] , [place]. [phone] Referring Provider: Clemente Escobar, [facility] [address], [place], [address]. tel:[phone] [facility], [address], [place], [id number], [place] tel:[phone] [facility] No Information 6 Manuelito Shoemaker. [facility] [place], [address] [place] [address] [address], [facility] [place], [id number] , [place]. tel:[phone] [facility], [address], [place], [id number], [place] tel:[phone] [facility] No Information 6 Manuelito Shoemaker. [facility], [address] [place] [address] [address], [place], [id number] , [place]. tel:[phone] Office/Outpat ient Visit,Scott Adams [facility], [address], [place], [id number], [place] tel:[phone] [facility] Spinal stenosis, lumbar region 0 Manuelito Shoemaker. [facility], [address] [place] [address] [address], [place], [id number] , [place]. tel:[phone] Referring Provider: Clemente Escobar, [facility] [address], [place], [address]. tel:[phone] Family History Family Member Type Diagnosis Age At Onset No Information Payers Payer name Insurance type Covered libertarian ID [place]erk[place] [id number] Medicare [facility] [id number] Social History Type Description Quantity Date Captured [...]
== END 2023-04-18 14:00 | disposition home or self-care (01) ==
PROVIDERS: Emergency Provider Emergency Medicine Emergency Medical Services; PCP Family Medicine
DX: I99.8 Other disorder of circulatory system (principal); E11.9 Type 2 diabetes mellitus without complications; F03.90 Unspecified dementia, unspecified severity, without behavioral disturbance, psychotic disturbance, mood disturbance, and anxiety; M79.604 Pain in right leg
CPT/HCPCS: 93926; 99284

== ENCOUNTER 2023-04-20 09:18 | Outpatient (CLI) | payer MEDICARE, BC, SELFPAY ==
--- OUTSIDE RECORDS SUMMARY | 2023-04-20 09:24 | XMS_ITS | Continuity of Care Document ---
Author Name Unknown Organization [facility] Address [address] [place] [address] Phone Care Team Providers Care Department Of Sociology Chair Name Role Phone Navid Massey Unavailable Unavailable [...] ZANAFLEX (unknown strength) Not Available - Active Mallory 5 mg-325 mg tablet take 1 - [...] C, [address], [place], [id number], [place] tel:[phone] [facility] Encounter for other specified surgical aftercare 6 Manuelito Shoemaker. [facility] [place], [address] [place] [address] [address], [facility] [place], [id number] , [place]. [phone] Referring Provider: Clemente Escobar, [facility] [address], [place], [address]. tel:[phone] [facility], [address], [place], [address], [place] tel:[phone] [facility] No Information 6 Samantha Tejeda. [facility], [address] [place] [address] [address], [facility] [place], [place], [id number] , [place]. [phone] Referring Provider: Clemente Escobar, [facility] [address], [place], [address]. tel:[phone] [facility], [address], [place], [address], [place] tel:[phone] [facility] No Information 6 Manuelito Shoemaker. [facility] [place], [address] [place] [address] [address], [facility], [id number] , [place]. tel:[phone] [facility], [address], [place], [id number], [place] tel:[phone] [facility] No Information 6 Manuelito Shoemaker. [facility], [address] [place] [address] [address], [place], [id number] , [place]. tel:[phone] Office/Outpat ient Visit,Scott Adams [facility], [address], [place], [address], [place] tel:[phone] [facility] Spinal stenosis, lumbar region 0 Manuelito Shoemaker. [facility], [address] [place] [address] [address], [place], [id number] , [place]. tel:[phone] Referring Provider: Clemente Escobar, [facility] [address], [place], [address]. tel:[phone] Family History Family Member Type Diagnosis Age At Onset No Information Payers Payer name Insurance type Covered republican ID [place] [id number] Medicare [facility] [id number] Social History Type Description Quantity Date Captured [...]
--- OUTSIDE RECORDS SUMMARY | 2023-04-20 09:25 | XMS_ITS | Clinical Summary ---
Author Name Unknown Organization [facility] Address [place], [place] [address] Care Team Providers Care Third Loader Name Role Phone Rl Monroe MD Primary Care Provider [phone] Allergies No known active allergies Medications Medication [...] 10/01/2015 Active gabapentin (NEURONTIN) 100 mg capsuleIndications:Ac chinik postoperative pain Take 2 capsules by mouth [...] Depression 09/29/2015 Bipolar disorder 09/29/2015 Overview: Stopped [place] in 2011 Spinal stenosis, lumbar deborah on, without neurogenic claudication 09/28/2015 Insomnia 09/28/2015 Unspecified hypothyroidism 09/12/2011 Diabetes mellitus type II 09/12/2011 Overview: a system change updated this record. This will not affect patient care or billing. This comment can be deleted. 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 Encounters Date Type Department Care Team Description 04/19/2023 Orders Only [facility] [address] [place] [id number] Raulito Carbone MD <No scans attached> 04/19/2023 Telephone [facility] [address] [place] [phone] Raulito Carbone MD Appointment 04/18/2023 Telephone [facility] [address] [place] [phone] Raulito Carbone MD from Last 3 Months Family History Medical History Relation Name Comments [...] st Contact Info) Description 05/16/2023 9:30 AM 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
== END 2023-04-20 09:19 | disposition home or self-care (01) ==
LOC: WOUND 09:18
PROVIDERS: PCP Family Medicine; Visit Provider Nurse Practitioner Family
DX: E11.621 Type 2 diabetes mellitus with foot ulcer (principal); L97.518 Non-pressure chronic ulcer of other part of right foot with other specified severity; L89.152 Pressure ulcer of sacral region, stage 2; I73.9 Peripheral vascular disease, unspecified; Z79.84 Long term (current) use of oral hypoglycemic drugs
CPT/HCPCS: 97602; G0463

== ENCOUNTER 2023-04-27 14:45 | Outpatient (CLI) | payer MEDICARE, BC, SELFPAY ==
--- OUTSIDE RECORDS SUMMARY | 2023-04-27 14:47 | XMS_ITS | Continuity of Care Document ---
Author Name Unknown Organization [facility] Address [address] [place] [address] Phone Care Team Providers Care Exchange Engineer Name Role Phone Navid Massey Unavailable Unavailable [...] ZANAFLEX (unknown strength) Not Available - Active [place] 5 mg-325 mg tablet take 1 - [...] C, [address], [place], [id number], [place] tel:[phone] [facility] Encounter for other specified surgical aftercare 6 Manuelito Shoemaker. [facility] [place], [address] [place] [address] [address], [facility] [place], [id number] , [place]. [phone] Referring Provider: Clemente Escobar, [facility] [address], [place], [address]. tel:[phone] [facility], [address], [place], [id number], [place] tel:[phone] [facility] No Information 6 Samantha Tejeda. [facility], [address] [place] [address] [address], [facility], [id number] , [place]. [phone] Referring Provider: Clemente Escobar, [facility] [address], [place], [address]. tel:[phone] [facility], [address], [place], [address], [place] tel:[phone] [facility] No Information 6 Manuelito Shoemaker. [facility] [place], [address] [place] [address] [address], [facility] [place], [id number] , [place]. tel:[phone] [facility], [address], [place], [address], [place] tel:[phone] [facility] No Information 6 Manuelito Shoemaker. [facility], [address] [place] [address] [address], [place], [id number] , [place]. tel:[phone] Office/Outpat ient Visit,Scott Adams [facility], [address], [place], [id number], [place] tel:[phone] [facility] Spinal stenosis, lumbar region 0 Manuelito Shoemaker. [facility], [address] [place] [address] [address], [place], [id number] , [place]. tel:[phone] Referring Provider: Clemente Escobar, [facility] [address], [place], [address]. tel:[phone] Family History Family Member Type Diagnosis Age At Onset No Information Payers Payer name Insurance type Covered constitution party ID [place] [id number] Medicare [facility] [id number] Social History Type Description Quantity Date Captured [...]
--- OUTSIDE RECORDS SUMMARY | 2023-04-27 14:47 | XMS_ITS | Clinical Summary ---
Author Name Unknown Organization [facility] Address [place], [place] [address] Care Team Providers Care Rn New Graduate Name Role Phone Rl Monroe MD Primary Care Provider [phone] Allergies No known active allergies Medications Medication Sig Dispensed Refills Start Date End Date Status Cholecalciferol, Vitamin D3, 5,000 unit tab Take by mouth once daily. 0 Active acetaminophen (TYLENOL) 325 mg tabletIndications:Ac chitimacha postoperative pain Take 2 tablets by mouth every 4 hours while awake. Max acetaminophen dose: 4000mg in 24 hrs. 0 6 Active fenofibrate nanocrystallized (TRICOR) 48 mg tabletIndications:Ot her hyperlipidemia Take 2 tablets by mouth once daily with a meal. 0 6 Active aspirin (ECOTRIN) 81 mg enteric coated tablet Take 81 mg by mouth once daily with a meal. 0 Active atorvastatin (LIPITOR) 40 mg tablet Take 40 mg by mouth once daily. 0 Active lisinopriL (PRINIVIL; ZESTRIL) 20 mg tablet Take 10 mg by mouth once daily. 0 Active Levothyroxine (TIROSINT) 150 mcg cap Take 150 mcg by mouth before breakfast. 0 Active metoprolol tartrate (LOPRESSOR) 25 mg tablet Take 12.5 mg by mouth two times daily. 0 Active FLUoxetine 20 mg tablet Take 20 mg by mouth every morning. 0 Active cyanocobalamin (Vitamin B-12) 1,000 mcg tablet Take 1,000 mcg by mouth once daily. 0 Active OLANzapine (ZYPREXA) 5 mg tablet Take 5 mg by mouth at bedtime. 0 Active multivit,thx,calcium ,iron,mins (MULTIVITAMIN AND MINERAL ORAL) Take 1 Tablet by mouth once daily. 0 Active glipiZIDE extended-release (GLUCOTROL XL) 10 mg Extended-Release tablet Take 10 mg by mouth once daily before a meal. 0 Active hydrocodone/acetamin ophen (VICODIN ORAL) Take 5 mg by mouth once daily. 0 Active metoprolol (LOPRESSOR) 50 mg tablet takes 25 mg per day 0 9 04/26/19 Discontinu ed(Other - add note to specify (E-cancel not sent)) glipiZIDE (GLUCOTROL) 10 mg tablet take 1 tablet (10 mg) by oral route once daily before a meal 0 9 04/26/19 Discontinu ed(Other - add note to specify (E-cancel not sent)) aspirin enteric coated (ECOTRIN) 325 mg tablet take 2 tablets (650 mg) by oral route every 6 hours as needed 0 9 04/26/19 Discontinu ed(Other - add note to specify (E-cancel not sent)) hydrOXYzine HCl (ATARAX) 50 mg tabletIndications:Anette mbar radiculopathy Take 1 tablet by mouth every 6 hours if needed for Other (Specify) (back pain). 30 tablet 0 6 04/26/19 Discontinu ed(Other - add note to specify (E-cancel not sent)) MURTAZA ROOT (MURTAZA, ZINGIBER OFFICINALIS,) 550 mg capsule Take 550 mg by mouth once daily. 0 04/26/19 Discontinu ed(Other - add note to specify (E-cancel not sent)) Cinnamon Bark 500 mg capsule Take 1,000 mg by mouth once daily. 0 04/26/19 Discontinu ed(Other - add note to specify (E-cancel not sent)) Melatonin-Pyridoxine 3-2 mg tab Take 3 mg by mouth at bedtime. 0 04/26/19 Discontinu ed(Other - add note to specify (E-cancel not sent)) coQ10, ubiquinol, 100 mg cap Take 200 mg by mouth. 0 04/26/19 Discontinu ed(Other - add note to specify (E-cancel not sent)) lisinopril (PRINIVIL; ZESTRIL) 40 mg tablet Take 40 mg by mouth once daily. 0 04/26/19 Discontinu ed(Other - add note to specify (E-cancel not sent)) lovastatin (MEVACOR) 40 mg tablet Take 40 mg by mouth at bedtime. 0 04/26/19 Discontinu ed(Other - add note to specify (E-cancel not sent)) levothyroxine (SYNTHROID) 175 mcg tablet Take 175 mcg by mouth once daily. 0 04/26/19 Discontinu ed(Other - add note to specify (E-cancel not sent)) folic acid 1 mg tabletIndications:Sp inal stenosis, lumbar region, without neurogenic claudication Take 1 tablet by mouth once daily. 30 tablet 0 6 04/26/19 24 Discontinu ed(Other - add note to specify (E-cancel not sent)) thiamine (VITAMIN B1) 100 mg tabletIndications:Sp inal stenosis, lumbar region, without neurogenic claudication Take 1 tablet by mouth once daily. 30 tablet 0 6 04/26/19 Discontinu ed(Other - add note to specify (E-cancel not sent)) gabapentin (NEURONTIN) 100 mg capsuleIndications:A cute postoperative pain Take 2 capsules by mouth 3 times daily. 30 capsule 0 6 04/26/19 Discontinu ed(Other - add note to specify (E-cancel not sent)) methocarbamol (ROBAXIN) 500 mg tabletIndications:Ac chitimacha postoperative pain Take 1 tablet by mouth every 6 hours if needed. 0 6 04/26/19 Discontinu ed(Other - add note to specify (E-cancel not sent)) metFORMIN (GLUCOPHAGE) 1,000 mg tabletIndications:Ty pe 2 diabetes mellitus without complication (HC) Take 1 tablet by mouth once daily with a meal. 0 6 04/26/19 Discontinu ed(Other - add note to specify (E-cancel not sent)) omega-3 fatty acids-vitamin E (FISH OIL) 1,000 mg capIndications:Other hyperlipidemia Take 1 capsule by mouth once daily. 0 6 04/26/19 Discontinu ed(Other - add note to specify (E-cancel not sent)) multivitamins pediatric chewable (FLINTSTONE'S) chewable tabletIndications:Ty pe 2 diabetes mellitus without complication (HC) Take 1 tablet by mouth once daily. 0 6 04/26/19 Discontinu ed(Other - add note to specify (E-cancel not sent)) oxyCODONE (ROXICODONE) 5 mg immediate release tabletIndications:Ac chitimacha postoperative pain Take 1-2 tablets by mouth every 4 hours if needed for Pain (Pain 3-6/10 1 tab, 7-10/10 2 tabs.). 30 tablet 0 6 04/26/19 Discontinu ed(Other - add note to specify (E-cancel not sent)) sennosides-docusate, 8.6-50 mg, (SENOKOT S) 8.6-50 mg tabletIndications:Sp inal stenosis, lumbar region, without neurogenic claudication Take 2 tablets by mouth 2 times daily. Hold for loose stools. 30 tablet 0 6 04/26/19 Discontinu ed(Other - add note to specify (E-cancel not sent)) Active Problems Problem Noted Date Diagnosed Date Depression 09/29/2015 Bipolar disorder 09/29/2015 Overview: Stopped [place] in 2011 Spinal stenosis, lumbar deborah on, [...] Encounters Date Type Department Care Team Description 04/26/2023 2:00 PM INSPECTION ENGINEER Office Visit [facility] [address] [place] [address] Donal Meneses MD Arrived 04/26/2023 12:29 PM INSPECTION ENGINEER - 04/26/2023 11:59 PM INSPECTION ENGINEER Hospital Encounter [facility] [address] [place] [address] Carmen Carbone MD Leistner, Joseph S, R.T. [facility] Critical limb ischemia of both lower extremities (HC) 04/26/2023 Travel 04/20/2023 Telephone [facility] [address], [place] [address] Carmen Carbone MD Follow Up 04/19/2023 Orders Only [facility] [address], [place] [address] Carmen Carbone MD <No scans attached> 04/19/2023 Telephone [facility] [address], [place] [address] Carmen Carbone MD Appointment 04/18/2023 Telephone [facility] [address], [place] [address] Carmen Carbone MD from Last 3 Months Family [...] Sign Reading Time Taken Comments Blood Pressure 118/52 04/26/2023 1:57 PM INSPECTION ENGINEER Pulse 62 04/26/2023 1:57 PM INSPECTION ENGINEER Temperature 36.9 ??C (98.5 ??F) 10/01/2015 8:00 AM CD T Respiratory Rate 16 04/26/2023 1:57 PM INSPECTION ENGINEER Oxygen Saturation 96% 04/26/2023 1:57 PM INSPECTION ENGINEER Inhaled Oxygen Concentration - - Weight 113.4 kg (250 lb) 09/28/2015 2:00 PM CDT Height 188 cm (6' 2) 09/28/2015 2:00 PM CDT Body Mass Index 32.1 09/28/2015 2:00 PM CDT Plan of Treatment Upcoming Encounters Date Type Department Care Team (Late st Contact Info) Description 05/16/2023 9:30 AM INSPECTION ENGINEER Office Visit [facility] [address] [place] [address] Navi Zimmerman, DPDeo [address] [place] [address] Health Maintenance Due Date Last Done Comments [...] 06/26/2020, 06/05/2020 Influenza for age 65+ 12/02/2022 Procedures Procedure Name Priority Date/Time Associated Diagnosis Comments US ARTERIAL LOWER EXTREMITY W REYNA BILATERAL MORRIS 04/26/2023 1:40 PM INSPECTION ENGINEER Critical limb ischemia of both lower extremities (HC) from Last 3 Months Results * US ARTERIAL LOWER EXTREMITY W REYNA BILATERAL (04/26/2023 1:40 PM INSPECTION ENGINEER) Anatomical Region Laterality Modality LEGS Ultrasound 04/26/2023 1:01 PM INSPECTION ENGINEER Narrative 04/26/2023 6:51 PM INSPECTION ENGINEER VASCULAR ULTRASOUND REPORT CLEMENTE WEI Accession#: ?? [id number] : ?1950 Study Date: ?? 04/26/2023 1:01:19 PM Age: ?73 years ?? Tech: ? JSL Gender: M ?Referring MD: CARMEN CARBONE Site: [facility] Study performed: ?Lower extremity (bilateral), resting REYNA, TBI, duplex US. Indication for study: Critical limb ischemia of both lower extremities (HC) Study Quality: ?Good TECHNIQUE: Lower/upper extremity arteries were examined per exam protocol by duplex ultrasound, color-flow and spectral Doppler. Peak systolic velocities (PSV), Doppler waveform quality, velocity ratios and vessel size in cm, were documented at protocol specific sites. Physiologic data including segmental pressures, ankle/brachial index (REYNA), digit PPG recordings, laser Doppler flowmetry, transcutaneous oximetry, and digit temperatures were documented at sites per exam protocol and test requirements. IMPRESSION: 1. Resting ankle-brachial index is moderately reduced on the right at 0.75 and is normal on the left at 1.02. 2. Toe-brachial index is severely reduced on the right at 0.00 and toe-brachial index is moderately reduced on the left at 0.47. 3. Evaluation of the lower right extremity shows 50-74% stenosis in the profunda femoral and 75-99% stenosis in the proximal popliteal arteries. There mid right superficial femoral artery appears occluded with distal reconstitution via collaterals COMPARISON: No prior study available for comparison. FINDINGS: Moderate right REYNA and Normal left REYNA. 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 The right mid FA appears to be occluded with collaterals feeding into the distal FA. There appears to be two stenoses within the right popliteal artery. Monophasic flow detected at the ankle bilaterally. Right toe/brachial index indicates severe range. There is 50-74% stenosis in the right profunda femoral artery. There is 75-99% stenosis in the right proximal popliteal artery. Left toe/brachial index indicates moderate range. +--------+ + + +--------+ + RIGHT ?? Velocity cm/s PRE ? Phasicity ?? Stenosis Ratio ? Velocity cm/s ? Phasicity ? +--------+ + + +--------+ + FELTING MACHINE OPERATOR HELPER PRX ? 74 ? multiphasic ? +--------+ + + +--------+ + FELTING MACHINE OPERATOR HELPER DST ? 82 ? multiphasic ? +--------+ + + +--------+ + PFA ? 205 ? 74 ? stenotic ?? 50-74% 2.8:1 ? multiphasic ? +--------+ + + +--------+ + SFA PRX ? 42 ? monophasic ? +--------+ + + +--------+ + SFA MID ?0 ? occluded ? +--------+ + + +--------+ + SFA DST ? 67 ? monophasic ? COLLATERAL FED +--------+ + + +--------+ + TRUDY PRX ? 131 ? 25 ? stenotic ?? 75-99% 5.2:1 ? monophasic ? +--------+ + + +--------+ + TRUDY MID ? 116 ? 23 ? stenotic ?? 75-99% 5.0:1 ? monophasic ? +--------+ + + +--------+ + TRUDY DST ? 17 ? monophasic ? +--------+ + + +--------+ + CONCIERGE MANAGER DST ? 16 ? monophasic ? +--------+ + + +--------+ + ENEIDA DST ? 13 ? monophasic ? +--------+ + + +--------+ + DPA ? 14 ? monophasic ? +--------+ + + +--------+ + +--------+ + + LEFT ? Velocity cm/s Phasicity ?? +--------+ + + FELTING MACHINE OPERATOR HELPER PRX ? 57 ? multiphasic +--------+ + + FELTING MACHINE OPERATOR HELPER DST ? 66 ? multiphasic +--------+ + + PFA ? 91 ? multiphasic +--------+ + + SFA PRX ? 53 ? multiphasic +--------+ + + SFA MID ? 67 ? multiphasic +--------+ + + SFA DST ? 39 ? multiphasic +--------+ + + TRUDY PRX ? 33 ? multiphasic +--------+ + + TRUDY DST ? 40 ? monophasic +--------+ + + CONCIERGE MANAGER DST ? 20 ? monophasic +--------+ + + DPA ? 30 ? monophasic +--------+ + + Criteria: Stenosis ?V. Ratio Mild ?<50% ?<2.0 Moderate ?? 50-74% ?> or = 2.0 Severe ? 75-99% ?> or = 4.0 Occluded ?100% ?? no detectable flow Pressures +-----+ +--------+ +-----+ ? RIGHT (mmHg) ? LEFT (mmHg) ? +-----+ +--------+ +-----+ Index ? 96 ? Brachial ?94 ? Index +-----+ +--------+ +-----+ 0.75 ? 72 ?CONCIERGE MANAGER ?74 ? 0.77 +-----+ +--------+ +-----+ 0.66 ? 63 ?DPA ?98 ? 1.02 +-----+ +--------+ +-----+ 0.00 ? 0 ? Digit 1 ?45 ? 0.47 +-----+ +--------+ +-----+ Donal Meneses MD. Electronically signed on 04/26/2023 6:51:00 PM This study was performed and interpreted by a service accredited by the Intersocietal Accreditation Commission (IAC/Vascular), [email or web address].org/vascular Report generated by [email or web address]. ??Final ?? Procedure Note Donal Meneses MD - 04/26/2023 VASCULAR ULTRASOUND REPORT CLEMENTE WEI : 1950 Study Date: 04/26/2023 1:01:19 PM Age: 73 years Tech: ETHEL Gender: M Referring MD: CARMEN CARBONE Site: [facility] Study performed: Lower extremity (bilateral), resting REYNA, TBI,duplex US. Indication for study: Critical limb ischemia of both lower extremities(HC) Study Quality: Good TECHNIQUE: Lower/upper extremity arteries were examined per exam protocol by duplexultrasound, color-flow and spectral Doppler. Peak systolic velocities(PSV), Doppler waveform quality, velocity ratios and vessel size in cm,were documented at protocol specific sites. Physiologic data includingsegmental pressures, ankle/brachial index (REYNA), digit PPG recordings,laser Doppler flowmetry, transcutaneous oximetry, and digit temperatureswere documented at sites per exam protocol and test requirements. IMPRESSION: 1. Resting ankle-brachial index is moderately reduced on the right at0.75 and is normal on the left at 1.02. 2. Toe-brachial index is severely reduced on the right at 0.00 andtoe-brachial index is moderately reduced on the left at 0.47. 3. Evaluation of the lower right extremity shows 50-74% stenosis in theprofunda femoral and 75-99% stenosis in the proximal popliteal arteries.There mid right superficial femoral artery appears occluded with distalreconstitution via collaterals COMPARISON: No prior study available for comparison. FINDINGS: Moderate right REYNA and Normal left REYNA. 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 The right mid FA appears to be occluded with collaterals feeding into thedistal FA. There appears to be two stenoses within the right poplitealartery. Monophasic flow detected at the ankle bilaterally. Right toe/brachial index indicates severe range. There is 50-74% stenosisin the right profunda femoral artery. There is 75-99% stenosis in theright proximal popliteal artery. Left toe/brachial index indicates moderate range. +--------+ + + +--------+ + RIGHT Velocity cm/s PRE Phasicity Stenosis Ratio Velocity cm/s Phasicity +--------+ + + +--------+ + FELTING MACHINE OPERATOR HELPER PRX 74 multiphasic +--------+ + + +--------+ + FELTING MACHINE OPERATOR HELPER DST 82 multiphasic +--------+ + + +--------+ + PFA 205 74 stenotic 50-74% 2.8:1 multiphasic +--------+ + + +--------+ + SFA PRX 42 monophasic +--------+ + + +--------+ + SFA MID 0 occluded +--------+ + + +--------+ + SFA DST 67 monophasic COLLATERALFED +--------+ + + +--------+ + TRUDY PRX 131 25 stenotic 75-99% 5.2:1 monophasic +--------+ + + +--------+ + TRUDY MID 116 23 stenotic 75-99% 5.0:1 monophasic +--------+ + + +--------+ + TRUDY DST 17 monophasic +--------+ + + +--------+ + CONCIERGE MANAGER DST 16 monophasic +--------+ + + +--------+ + ENEIDA DST 13 monophasic +--------+ + + +--------+ + DPA 14 monophasic +--------+ + + +--------+ + +--------+ + + LEFT Velocity cm/s Phasicity +--------+ + + FELTING MACHINE OPERATOR HELPER PRX 57 multiphasic +--------+ + + FELTING MACHINE OPERATOR HELPER DST 66 multiphasic +--------+ + + PFA 91 multiphasic +--------+ + + SFA PRX 53 multiphasic +--------+ + + SFA MID 67 multiphasic +--------+ + + SFA DST 39 multiphasic +--------+ + + TRUDY PRX 33 multiphasic +--------+ + + TRUDY DST 40 monophasic +--------+ + + CONCIERGE MANAGER DST 20 monophasic +--------+ + + DPA 30 monophasic +--------+ + + Criteria: Stenosis V. Ratio Mild <50% <2.0 Moderate 50-74% > or = 2.0 Severe 75-99% > or = 4.0 Occluded 100% no detectable flow Pressures +-----+ +--------+ +-----+ RIGHT (mmHg) LEFT (mmHg) +-----+ +--------+ +-----+ Index 96 Brachial 94 Index +-----+ +--------+ +-----+ 0.75 72 CONCIERGE MANAGER 74 0.77 +-----+ +--------+ +-----+ 0.66 63 DPA 98 1.02 +-----+ +--------+ +-----+ 0.00 0 Digit 1 45 0.47 +-----+ +--------+ +-----+ Donal Meneses MD. Electronically signed on 04/26/2023 6:51:00 PM This study was performed and interpreted by a service accredited by theIntersocietal Accreditation Commission (IAC/Vascular),www.[email or web address]/vascular Report generated by [email or web address]. Final Carmen Donell Carbone MD from Last 3 Months Advance Directives Latest Code Status on File Code Status Date Activated Date Inactivated Comments Full Code 09/28/2015 9:24 PM 10/01/2015 1:41 PM Code Status History Code Status Date Activated Date Inactivated Comments Full Code 09/28/2015 1:04 PM 09/28/2015 9:24 PM Question Answer Comments Code Status Discussion: Not Discussed Care Teams Rn New Graduate Relationship Specialty Start Date End Date Rl Monroe MD PCP - General Family Practice 08/19/15
== END 2023-04-27 14:46 | disposition home or self-care (01) ==
LOC: WOUND 14:45
PROVIDERS: PCP Family Medicine; Visit Provider Nurse Practitioner Family
DX: E11.621 Type 2 diabetes mellitus with foot ulcer (principal); I70.221 Atherosclerosis of native arteries of extremities with rest pain, right leg; L97.518 Non-pressure chronic ulcer of other part of right foot with other specified severity; L89.152 Pressure ulcer of sacral region, stage 2; Z79.84 Long term (current) use of oral hypoglycemic drugs
CPT/HCPCS: G0463

== ENCOUNTER 2023-05-05 18:20 | Outpatient (CLI) | payer MEDICARE, BC, SELFPAY ==
--- OUTSIDE RECORDS SUMMARY | 2023-05-07 07:28 | XMS_ITS | Clinical Summary ---
Author Name Unknown Organization [employer] [facility] Address [place], [place] [address] Care Team Providers Care Plant Superintendent Name Role Phone Rl Monroe MD Primary Care Provider [phone] Allergies No known active allergies Medications Medication [...] Depression 09/29/2015 Bipolar disorder 09/29/2015 Overview: Stopped [place] in 2011 Spinal stenosis, lumbar deborah on, [...] Department Care Team Description 05/05/2023 Orders Only [facility] [address] [place] [address] Abida Louis MD <No scans attached> 05/02/2023 2:14 PM SAWMILL RELIEF WORKER Anesthesia Event [facility] [address] [place] [address] June Damian MD Rochon, Breanne Nicole, SUZANNA 04/28/2023 9:28 AM SAWMILL RELIEF WORKER Anesthesia Event [facility] [address] [place] [address] June Damian MD Taylor, Matty Nieves MD 04/27/2023 6:58 PM SAWMILL RELIEF WORKER - 05/05/2023 4:45 PM SAWMILL RELIEF WORKER Hospital Encounter [facility] [address] [place] [address] Helen Ryder MD [facility], MD Dante Clay, MD [...] Home Health 04/27/2023 Travel 04/26/2023 2:00 PM SAWMILL RELIEF WORKER Office Visit [facility] [address] [place] [id number] Donal Meneses MD 04/26/2023 12:29 PM SAWMILL RELIEF WORKER - 04/26/2023 11:59 PM SAWMILL RELIEF WORKER Hospital Encounter [facility] [address], [place] [address] Carmen Carbone MD Leistner, Joseph S, R.T. (ARRT) Critical limb ischemia of both lower extremities (HC) 04/26/2023 Travel 04/20/2023 Telephone [facility] [address] [place] [phone] Carmen Carbone MD Follow Up 04/19/2023 Orders Only [facility] [address], [place] [address] Carmen Carbone MD <No scans attached> 04/19/2023 Telephone [facility] [address] [place] [phone] Carmen Carbone MD Appointment 04/18/2023 Telephone [facility] [address] [place] [phone] Carmen Carbone MD from Last 3 Months [...] Comments Blood Pressure 112/54 05/05/2023 3:37 PM SAWMILL RELIEF WORKER Pulse 61 05/05/2023 3:37 PM SAWMILL RELIEF WORKER Temperature 36.6 ??C (97.8 ??F) 05/05/2023 3:37 PM CS T Respiratory Rate 16 05/05/2023 3:37 PM SAWMILL RELIEF WORKER Oxygen Saturation 100% 05/05/2023 3:37 PM SAWMILL RELIEF WORKER Inhaled Oxygen Concentration - - Weight 103.3 kg (227 lb 11.2 oz) 05/05/2023 6:00 AM SAWMILL RELIEF WORKER Height 185.4 cm (6' 1) 04/27/2023 5:50 PM SAWMILL RELIEF WORKER Body Mass Index 30.04 04/27/2023 5:50 PM SAWMILL RELIEF WORKER Plan of Treatment Upcoming Encounters Date Type Department Care Team (Late st Contact Info) Description 05/16/2023 9:30 AM SAWMILL RELIEF WORKER Office Visit [facility] [address] [phone] Navi Zimmerman, BOB [address] [place] [address] 06/09/2023 12:30 PM SAWMILL RELIEF WORKER Appointment [facility] [address] [place] [address] 06/09/2023 1:30 PM SAWMILL RELIEF WORKER Office Visit [facility] [address] [place] [address] Donal Meneses MD [address] [place] [address] Health Maintenance Due Date Last Done Comments [...] Comments GLUCOSE METER Timed 05/05/2023 1:38 PM SAWMILL RELIEF WORKER GLUCOSE METER Timed 05/05/2023 9:12 AM SAWMILL RELIEF WORKER GLUCOSE METER Timed 05/04/2023 9:25 PM SAWMILL RELIEF WORKER GLUCOSE METER Timed 05/04/2023 5:29 PM SAWMILL RELIEF WORKER US ARTERIAL LOWER EXTREMITY W REYNA RIGHT Routine 05/04/2023 3:49 PM SAWMILL RELIEF WORKER GLUCOSE METER Timed 05/04/2023 2:18 PM SAWMILL RELIEF WORKER XR FOOT 3 VIEWS RIGHT PORTABLE Routine 05/03/2023 12:36 PM SAWMILL RELIEF WORKER HEMOGLOBIN A1C SCREENING MORRIS 05/03/2023 8:49 AM SAWMILL RELIEF WORKER EXTRA TUBE BLUE Today 05/03/2023 8:49 AM SAWMILL RELIEF WORKER BASIC METABOLIC PANEL Early AM 05/03/2023 8:49 AM SAWMILL RELIEF WORKER CBC W PLT NO DIFF Early AM 05/03/2023 8:4 9 AM SAWMILL RELIEF WORKER SCAN-CARDIAC STRIP 05/03/2023 8: 12 AM SAWMILL RELIEF WORKER APTT Early AM 05/03/2023 7:28 AM SAWMILL RELIEF WORKER GLUCOSE METER Timed 05/02/2023 6:33 PM SAWMILL RELIEF WORKER PV OTHER PROCEDURE Routine 05/02/2023 6: 20 PM SAWMILL RELIEF WORKER HCHG ACTIVATED CLOTTING TM CV Timed 05/02/2023 6:05 PM SAWMILL RELIEF WORKER HCHG ACTIVATED CLOTTING TM CV Timed 05/02/2023 5:12 PM SAWMILL RELIEF WORKER HCHG ACTIVATED CLOTTING TM CV Timed 05/02/2023 5:02 PM SAWMILL RELIEF WORKER HCHG ACTIVATED CLOTTING TM CV Timed 05/02/2023 4:30 PM SAWMILL RELIEF WORKER HCHG ACTIVATED CLOTTING TM CV Timed 05/02/2023 3:55 PM SAWMILL RELIEF WORKER HCHG ACTIVATED CLOTTING TM CV Timed 05/02/2023 3:21 PM SAWMILL RELIEF WORKER HCHG ACTIVATED CLOTTING TM CV Timed 05/02/2023 3:09 PM SAWMILL RELIEF WORKER ENDOTRACHEAL TUBE Routine 05/02/2023 2:4 0 PM SAWMILL RELIEF WORKER ENDOTRACHEAL TUBE Routine 05/02/2023 2:4 0 PM SAWMILL RELIEF WORKER ENDOTRACHEAL TUBE Routine 05/02/2023 2:4 0 PM SAWMILL RELIEF WORKER CBC W PLT NO DIFF Timed 05/02/2023 9:3 0 AM SAWMILL RELIEF WORKER BASIC METABOLIC PANEL Timed 05/02/2023 9:30 AM SAWMILL RELIEF WORKER APTT Early AM 05/02/2023 9:30 AM SAWMILL RELIEF WORKER SCAN-CARDIAC STRIP 05/02/2023 12 :00 AM SAWMILL RELIEF WORKER GLUCOSE METER Timed 05/01/2023 9:34 PM SAWMILL RELIEF WORKER GLUCOSE METER Timed 05/01/2023 8:42 PM SAWMILL RELIEF WORKER GLUCOSE METER Timed 05/01/2023 5:12 PM SAWMILL RELIEF WORKER GLUCOSE METER Timed 05/01/2023 12:01 PM SAWMILL RELIEF WORKER GLUCOSE METER Timed 05/01/2023 8:02 AM SAWMILL RELIEF WORKER APTT MORRIS 05/01/2023 7:53 AM SAWMILL RELIEF WORKER GLUCOSE METER Timed 04/30/2023 10:21 PM SAWMILL RELIEF WORKER GLUCOSE METER Timed 04/30/2023 4:51 PM SAWMILL RELIEF WORKER GLUCOSE METER Timed 04/30/2023 11:45 AM SAWMILL RELIEF WORKER GLUCOSE, RANDOM MORRIS 04/30/2023 7:26 AM SAWMILL RELIEF WORKER APTT Early AM 04/30/2023 7:26 AM SAWMILL RELIEF WORKER CREATININE Early AM 04/30/2023 7:26 AM SAWMILL RELIEF WORKER APTT Timed 04/30/2023 12:10 AM SAWMILL RELIEF WORKER GLUCOSE METER Timed 04/29/2023 10:09 PM SAWMILL RELIEF WORKER APTT Timed 04/29/2023 4:51 PM SAWMILL RELIEF WORKER GLUCOSE METER Timed 04/29/2023 4:46 PM SAWMILL RELIEF WORKER GLUCOSE METER Timed 04/29/2023 12:05 PM SAWMILL RELIEF WORKER GLUCOSE METER Timed 04/29/2023 7:56 AM SAWMILL RELIEF WORKER APTT Timed 04/29/2023 7:31 AM SAWMILL RELIEF WORKER CBC W PLT NO DIFF Early AM 04/29/2023 7:3 1 AM SAWMILL RELIEF WORKER BASIC METABOLIC PANEL Early AM 04/29/2023 7:31 AM SAWMILL RELIEF WORKER APTT Timed 04/28/2023 11:13 PM SAWMILL RELIEF WORKER GLUCOSE METER Timed 04/28/2023 10:41 PM SAWMILL RELIEF WORKER GLUCOSE METER Timed 04/28/2023 6:39 PM SAWMILL RELIEF WORKER US VEIN MAPPING LOWER EXTREMITY BILATERAL Today 04/28/2023 5:38 PM SAWMILL RELIEF WORKER SCAN-CARDIAC STRIP 04/28/2023 4: 41 PM SAWMILL RELIEF WORKER CREATININE Early AM 04/28/2023 4:32 PM SAWMILL RELIEF WORKER GLUCOSE METER Timed 04/28/2023 2:12 PM SAWMILL RELIEF WORKER GLUCOSE METER Timed 04/28/2023 1:44 PM SAWMILL RELIEF WORKER GLUCOSE METER Timed 04/28/2023 1:30 PM SAWMILL RELIEF WORKER GLUCOSE METER Timed 04/28/2023 1:26 PM SAWMILL RELIEF WORKER SCAN-OPERATIVE/PROCED URE REPORT 04/28/2023 12:00 AM SAWMILL RELIEF WORKER LACTATE SCREEN VENOUS ISTAT W BECKFORD Timed 04/27/2023 9:43 PM SAWMILL RELIEF WORKER TYPE & SCREEN STAT 04/27/2023 8:21 PM SAWMILL RELIEF WORKER APTT MORRIS 04/27/2023 8:21 PM SAWMILL RELIEF WORKER ISTAT EC8 Timed 04/27/2023 7:52 PM SAWMILL RELIEF WORKER BLOOD CULTURE STAT 04/27/2023 7:41 PM SAWMILL RELIEF WORKER EXTRA TUBE BECKFORD ON ICE STAT 04/27/2023 7:35 PM SAWMILL RELIEF WORKER ISTAT LACTATE SCREEN VENOUS STAT 04/27/2023 7:35 PM SAWMILL RELIEF WORKER CBC WITH AUTO DIFFERENTIAL STAT 04/27/2023 7:34 PM SAWMILL RELIEF WORKER BLOOD CULTURE STAT 04/27/2023 7:34 PM SAWMILL RELIEF WORKER BASIC METABOLIC PANEL STAT 04/27/2023 7:34 PM SAWMILL RELIEF WORKER CBC WITH AUTO DIFFERENTIAL STAT 04/27/2023 7:34 PM SAWMILL RELIEF WORKER US ARTERIAL LOWER EXTREMITY W REYNA BILATERAL MORRIS 04/26/2023 1:40 PM SAWMILL RELIEF WORKER Critical limb ischemia of both lower extremities (HC) from Last 3 Months Results * (ABNORMAL) GLUCOSE METER (05/05/2023 1:38 PM SAWMILL RELIEF WORKER) Only the most recent of24 resultswithin the time period is included. [facility] GLUCOSE METER 160(H) 65 - 100 mg/dL 05/05/2023 1:39 PM SAWMILL RELIEF WORKER [facility] Blood BLOOD SPECIMEN / Unknown 05/05/2023 1:38 PM SAWMILL RELIEF WORKER 05/05/2023 1:39 PM SAWMILL RELIEF WORKER Abida Louis MD CHEMISTRY [facility] [address] [place] [address], [place] * US ARTERIAL LOWER EXTREMITY W REYNA RIGHT (05/04/2023 3:49 PM SAWMILL RELIEF WORKER) Anatomical Region Laterality Modality LEG R Ultrasound Impressions 05/05/2023 8:20 AM SAWMILL RELIEF WORKER ?? 1. ??Right lower extremity: ??Moderately reduced [...] and [facility] [employer] [email or web address] [email or web address] / Narrative 05/05/2023 8:20 AM SAWMILL RELIEF WORKER Table formatting from the original result was [...] CM/SEC ? RIGHT PSV T,B,M VELOCITY RATIO LOSS PREVENTION INVESTIGATOR Prox 96 T - ?? LOSS PREVENTION INVESTIGATOR Dist 124 T ??- PFA 124 T - ?? SFA Prox ??109 62 T - ?? SFA Mid ??117 140 T - ?? SFA Dist ??101 116 T - ?? TRUDY Prox 63 M - ?? TRUDY Dist 88 M - ?? RANGE SCIENTIST ??147 M - ?? CHAPARRO 75 M - DPA 65 M - ?? T= Triphasic; ??B= Biphasic; ??M= Monophasic ?? LEFT PSV T,B,M VELOCITY RATIO LOSS PREVENTION INVESTIGATOR Prox 88 ??T ??- ?? LOSS PREVENTION INVESTIGATOR Dist 89 ??T ??- ?? PFA 136 ??T ??- ?? SFA Prox ??62 69 ??T ??- ?? SFA Mid ??62 78 T ??- ?? SFA Dist ??58 62 ??T ??- ?? TRUDY Prox 31 T ??- ?? TRUDY Dist 49 ??T ??- ?? RANGE SCIENTIST ??0 - - ?? CHAPARRO 72 T - DPA 33 M - ?? Right ??Left ?Index ??Index Brachial 125 ??118 ?? Ankle (PT) 72 0.58 0 0.00 Ankle (DP) 68 0.54 82 0.66 Digit 16 0.13 44 0.35 Ny LUDWIG US * XR FOOT 3 VIEWS RIGHT PORTABLE (05/03/2023 12:36 PM SAWMILL RELIEF WORKER) Anatomical Region Laterality Modality FEET, FOOT R Digital Radiogra phy 05/03/2023 6:22 PM SAWMILL RELIEF WORKER Impressions 05/03/2023 6:22 PM SAWMILL RELIEF WORKER Assessment of the toes is limited by flexion. No soft tissue air. No foreign body. No obvious bone resorption. No fracture or significant bone lesion. 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 Dictated by Jareth Jones MD @ May 03 2023 ??6:22PM (Electronically Signed) ?? Narrative 05/03/2023 6:22 PM SAWMILL RELIEF WORKER For Patients: ??As a result of the [...] (ABNORMAL) HEMOGLOBIN A1C SCREENING (05/03/2023 8:49 AM SAWMILL RELIEF WORKER) HEMOGLOBIN A1C SCREENING 7.2(H) <=6.4 % 05/03/2023 2:03 PM SAWMILL RELIEF WORKER [facility] TRAL LABORATORY Blood BLOOD SPECIMEN / Unknown Butterfly / Unknown 05/03/2023 8:49 AM SAWMILL RELIEF WORKER 05/03/2023 8:59 AM SAWMILL RELIEF WORKER Narrative [facility] - 05/03/2023 2:03 PM SAWMILL RELIEF WORKER ? (<5.7%) ?Normal ? (5.7% to 6.4%) ? Indicates prediabetes ? (>=6.5%) ? Confirms diabetes Falsely low levels may be seen with: Recent Transfusion, Recent Significant Blood Loss, Hemolytic Diseases, or Falsely elevated levels may be seen with: Untreated Anemias, Splenectomy Huma FRAGAM CHEMISTRY Performing Organization Address [facility] de Phone Number [facility] [address] [place] [phone], [place] * EXTRA TUBE BLUE (05/03/2023 8:49 AM SAWMILL RELIEF WORKER) Blood BLOOD SPECIMEN / Unknown Butterfly / Unknown 05/03/2023 8:49 AM SAWMILL RELIEF WORKER 05/03/2023 8:59 AM SAWMILL RELIEF WORKER Abida Louis MD LABORATORY Performing Organization Address [facility] de Phone Number [facility] [address] [place] [phone], [place] * (ABNORMAL) CBC (05/03/2023 8:49 AM SAWMILL RELIEF WORKER) Only the most recent of3 resultswithin the time period is included. WHITE BLOOD COUNT 7.1 4.5 - 11.0 thou/cu mm 05/03/2023 9:18 AM [facility] TRAL LABORATORY RED BLOOD COUNT 4.09(L) 4.30 - 5.90 mil/cu mm 05/03/2023 9:18 AM [facility] TRAL LABORATORY HEMOGLOBIN 10.9(L) 13.5 - 17.5 g/dL 05/03/2023 9:18 AM [facility] TRAL LABORATORY HEMATOCRIT 36.0(L) 37.0 - 53.0 % 05/03/2023 9:18 AM [facility] TRAL LABORATORY MCV 88 80 - 100 fL 05/03/2023 9:18 AM [facility] TRAL LABORATORY MCH 26.7 26.0 - 34.0 pg 05/03/2023 9:18 AM [facility] TRAL LABORATORY MCHC 30.3(L) 32.0 - 36.0 g/dL 05/03/2023 9:18 AM [facility] TRAL LABORATORY RDW 13.6 11.5 - 15.5 % 05/03/2023 9:18 AM [facility] TRAL LABORATORY PLATELET COUNT 343 140 - 440 thou/cu mm 05/03/2023 9:18 AM [facility] TRAL LABORATORY MPV 9.4 6.5 - 11.0 fL 05/03/2023 9:18 AM [facility] TRAL LABORATORY NRBC 0.0 % 05/03/2023 9:18 AM [facility] TRAL LABORATORY ABS NRBC 0.0 thou /cu mm 05/03/2023 9:18 AM [facility] TRAL LABORATORY Blood BLOOD SPECIMEN / Unknown Butterfly / Unknown 05/03/2023 8:49 AM SAWMILL RELIEF WORKER 05/03/2023 8:59 AM SAWMILL RELIEF WORKER [facility] LABORATORY - 05/03/2023 9:18 AM SAWMILL RELIEF WORKER Call if Hemoglobin less than 10. Jennifer Torres MD HEMATOLOGY [facility] [address] [place] [address], * (ABNORMAL) Basic Metabolic Panel (05/03/2023 8:49 AM SAWMILL RELIEF WORKER) Only the most recent of4 resultswithin the time period is included. SODIUM 137 136 - 145 mmol/L 05/03/2023 9:43 AM [facility] TRAL LABORATORY POTASSIUM 4.3 3.5 - 5.1 mmol/L 05/03/2023 9:43 AM [facility] TRAL LABORATORY CHLORIDE 106 98 - 107 mmol/L 05/03/2023 9:43 AM [facility] TRAL LABORATORY CO2,TOTAL 20(L) 22 - 29 mmol/L 05/03/2023 9:43 AM [facility] TRAL LABORATORY ANION GAP 11 5 - 18 05/03/2023 9:43 AM [facility] TRAL LABORATORY GLUCOSE 97 70 - 99 mg/dL 05/03/2023 9:43 AM [facility] TRAL LABORATORY CALCIUM 9.5 8.8 - 10.2 mg/dL 05/03/2023 9:43 AM [facility] TRAL LABORATORY BUN 20 8 - 23 mg/dL 05/03/2023 9:43 AM [facility] TRAL LABORATORY CREATININE 1.68(H) 0.70 - 1.20 mg/dL 05/03/2023 9:43 AM [facility] TRAL LABORATORY BUN/CREAT RATIO 12 10 - 20 9:43 AM [facility] TRAL LABORATORY eGFR 42(L) >90 mL/min/1.7 3m2 05/03/2023 9:43 AM [facility] TRAL LABORATORY Comment:As of 2021, eG FR is calculated by the CKD-EPI creatinine equation without race adjustment. ??eGFR can be influenced by muscle mass, exercise, and diet. ??The reported eGFR is an estimation only and is only applicable if the renal function is stable. Blood BLOOD SPECIMEN / Unknown Butterfly / Unknown 05/03/2023 8:49 AM SAWMILL RELIEF WORKER 05/03/2023 8:59 AM SAWMILL RELIEF WORKER Jennifer Torres MD [facility] [address] [place] [phone], * SCAN-CARDIAC STRIP (05/03/2023 8:12 AM SAWMILL RELIEF WORKER) Scanner OTHER * APTT (05/03/2023 7:28 AM SAWMILL RELIEF WORKER) Only the most recent of9 resultswithin the time period is included. APTT 31 29 - 36 sec 05/03/2023 8:17 AM [facility] LABOR[facility] Blood BLOOD SPECIMEN / Unknown Butterfly / Unknown 05/03/2023 7:28 AM SAWMILL RELIEF WORKER 05/03/2023 7:42 AM SAWMILL RELIEF WORKER Narrative [facility] - 05/03/2023 8:17 AM SAWMILL RELIEF WORKER Therapeutic Range: 57-100 seconds Donal Meneses MD HEMATOLOG Y [facility] [address] [place] [address], [place] * PV OTHER PROCEDURE (05/02/2023 6:20 PM SAWMILL RELIEF WORKER) Anatomical Region Laterality Modality Other Narrative 05/02/2023 6:20 PM SAWMILL RELIEF WORKER Donal Meneses MD ? 05/03/2023 ??9:42 AM OPERATIVE REPORT DATE OF SURGERY: 05/03/2023 SURGEON: Donal Meneses MD ETL SOFTWARE ENGINEER: Jennifer Torres MD (vascular surgery fellow) PREOPERATIVE [...] kit and we subsequently placed in a 5-Macanese sheath. We then were able to select [...] Using a Mongo ES 0.014 wire and Venetia catheter we attempted to cross antegrade through [...] for the entire procedure as dictated above. CUSHION BUILDER MEASURES: We utilized approximately 65 ml of Visipaque contrast and fluoroscopy time was approximately 32.8 minutes (232 mGy). The patient was systemically heparinized during the procedure Donal Meneses MD Vascular and Endovascular Surgery Doanl Meneses MD CV IMAGIN G * (ABNORMAL) ACTIVATED CLOTTING TIME SAS053 ACT (05/02/2023 6:05 PM SAWMILL RELIEF WORKER) Only the most recent of7 resultswithin the time period is included. ACTIVATED CLOTTING TIME, POCT 228(H) 74 - 125 sec 05/02/2023 6:29 PM SAWMILL RELIEF WORKER [facility] LABORATORY Blood BLOOD SPECIMEN / Unknown 05/02/2023 6:05 PM SAWMILL RELIEF WORKER 05/02/2023 6:29 PM SAWMILL RELIEF WORKER Abida Louis MD [facility] [address] [place] [address], [place] * [facility] TUBE PR1, H[facility] INSTRUMENT DISP PR10, HCHG STYLET PR1 (05/02/2023 2:40 PM SAWMILL RELIEF WORKER) Narrative Jatin Ross CRNA - 05/02/2023 2:40 PM SAWMILL RELIEF WORKER Jatin Ross CRNA ? 05/02/2023 ??2:41 PM [...] ORDERABLES * SCAN-CARDIAC STRIP (05/02/2023 12:00 AM SAWMILL RELIEF WORKER) Narrative 05/02/2023 12:00 AM SAWMILL RELIEF WORKER Ordered by an unspecified provider. Other Clinical Staff OTHER * GLUCOSE, RANDOM (04/30/2023 7:26 AM SAWMILL RELIEF WORKER) GLUCOSE,RANDOM 116 70 - 139 mg/dL 04/30/2023 10:36 AM SAWMILL RELIEF WORKER [facility] Blood BLOOD SPECIMEN / Unknown Venipuncture / Unknown 04/30/2023 7:26 AM SAWMILL RELIEF WORKER 04/30/2023 7:39 AM SAWMILL RELIEF WORKER Lisbeth Dee RN CHEMISTRY [facility] [employer] [facility] [address] [place] [address], * (ABNORMAL) Creatinine AM (04/30/2023 7:26 AM SAWMILL RELIEF WORKER) Only the most recent of2 resultswithin the time period is included. eGFR 50(L) >90 mL/min/1.7 3m2 04/30/2023 8:06 AM SAWMILL RELIEF WORKER [facility] [employer] LABORATORY[facility] TR[facility]ORATORY Comment:As of 2021, eG FR is calculated by the CKD-EPI creatinine equation without race adjustment. ??eGFR can be influenced by muscle mass, exercise, and diet. ??The reported eGFR is an estimation only and is only applicable if the renal function is stable. CREATININE 1.45(H) 0.70 - 1.20 mg/dL 04/30/2023 8:06 AM SAWMILL RELIEF WORKER [facility] TR[facility] LABOR[facility] Blood BLOOD SPECIMEN / Unknown Venipuncture / Unknown 04/30/2023 7:26 AM SAWMILL RELIEF WORKER 04/30/2023 7:39 AM SAWMILL RELIEF WORKER Abida Louis MD CHEMISTRY [facility] [address] [place] [address], [place] * US VEIN MAPPING LOWER EXTREMITY BILATERAL (04/28/2023 5:38 PM SAWMILL RELIEF WORKER) Anatomical Region Laterality Modality LEGS, LEG L, LEG R Ultrasound Impressions 04/29/2023 3:00 PM SAWMILL RELIEF WORKER ??Bilateral lower extremity superficial venous mapping with diameters outlined above. The bilateral greater saphenous veins are patent and compressible throughout. The right small saphenous vein is noncompressible in the distal calf. The left small saphenous vein is noncompressible throughout. Chase Barnes M.D. Vascular and Interventional [facility]iology [employer] [email or web address] KARNE/[email or web address] / Narrative 04/29/2023 3:00 PM SAWMILL RELIEF WORKER For Patients: As a result of the [...] [place] * SCAN-CARDIAC STRIP (04/28/2023 4:41 PM SAWMILL RELIEF WORKER) Scanner OTHER * SCAN-OPERATIVE/PROCEDURE REPORT (04/28/2023 12:00 AM SAWMILL RELIEF WORKER) Narrative 04/28/2023 12:00 AM SAWMILL RELIEF WORKER Ordered by an unspecified provider. Other Clinical Staff OTHER * LACTATE SCREEN VENOUS ISTAT W SHAKEEL (04/27/2023 9:43 PM SAWMILL RELIEF WORKER) LACTATE VENOUS SCREEN ISTAT <1.8 <=2.0 04/27/2023 9:48 PM SAWMILL RELIEF WORKER [facility] LABORATORY LACTATE SCREEN VENOUS POCT 1.5 <=2.0 04/27/2023 9:48 PM SAWMILL RELIEF WORKER [facility] LABORATORY Blood BLOOD SPECIMEN / Unknown 04/27/2023 9:43 PM SAWMILL RELIEF WORKER 04/27/2023 9:48 PM SAWMILL RELIEF WORKER Helen Ryder MD LABORATORY [facility] LABORATORY [address] [place] [address], * TYPE & SCREEN (04/27/2023 8:21 PM SAWMILL RELIEF WORKER) ABORH O Rh Positive 04/27/2023 9:31 PM SAWMILL RELIEF WORKER [facility] LAB BLOOD BANK ANTIBODY SCREEN Negative Negative 04/27/2023 9:31 PM SAWMILL RELIEF WORKER [facility] LAB BLOOD BANK SPECIMEN EXPIRATION DATE/TIME 04/30/23 23:59 04/27/2023 9:31 PM SAWMILL RELIEF WORKER [facility] LAB BLOOD BANK Blood BLOOD SPECIMEN / Unknown Non-Lab Venipuncture / Unknown 04/27/2023 8:21 PM SAWMILL RELIEF WORK[employer] 04/27/2023 8:48 PM [employer] Rosie Orourke MD BLOOD BANK [facility] BLOOD BANK [address] [place] [id number], * (ABNORMAL) ISTAT EC8 (04/27/2023 7:52 PM [employer]) GLUCOSE, POCT 70 70 - 99 mg/dL 04/27/2023 7:56 PM [employer] [facility] LABORAT[facility] BUN, POCT 37(H) 8 - 25 mg/dL 04/27/2023 7:56 PM [employer] [facility] SODIUM, POCT 135 135 - 145 mmol/L 04/27/2023 7:56 PM [employer] [facility] LAB[facility] POTASSIUM, POCT 4.3 3.5 - 5.0 mmol/L 04/27/2023 7:56 PM [facility] TRAL LABORATORY CHLORIDE, POCT 107 98 - 107 mmol/L 04/27/2023 7:56 PM [employer] [facility] LAB[facility] CO2,TOTAL, POCT 21 21 - 31 mmol/L 04/27/2023 7:56 PM [employer] [facility] ANION GAP, POCT 13 5 - 18 04/27/2023 7:56 PM [employer] WORK[employer] [facility] PH, VENOUS, POCT 7.44(H) 7.32 - 7.42 04/27/2023 7:56 PM [employer] [facility] PCO2, VENOUS, POCT 29(L) 41 - 51 mmHg 04/27/2023 7:56 PM [facility] TRAL LAB[facility] HCO3, VENOUS, POCT 20(L) 22 - 30 mmol/L 04/27/2023 7:56 PM [facility] BASE EXCESS, VENOUS, POCT -5.0(L) -2.0 - 3.0 04/27/2023 7:56 PM [facility] HEMATOCRIT, POCT 35.0(L) 37.0 - 53.0 % 04/27/2023 7:56 PM [facility] HEMOGLOBIN, POCT 11.9(L) 13.5 - 17.5 g/dL 04/27/2023 7:56 PM [facility] Blood BLOOD SPECIMEN / Unknown 04/27/2023 7:52 PM [employer] 04/27/2023 7:56 PM [employer] Helen Ryder MD [facility]MI[facility] [address] [place] [address], * BLOOD CULTURE X2 (04/27/2023 7:41 PM SAWMILL RELIEF WORKER) Only the most recent of2 resultswithin the time period is included. CULTURE No Growth. 05/01/2023 9:49 PM SAWMILL RELIEF WORKER [facility] Blood BLOOD SPECIMEN / Unknown Non-Lab Venipuncture / Unknown 04/27/2023 7:41 PM SAWMILL RELIEF WORKER 04/27/2023 7:49 PM SAWMILL RELIEF WORKER Narrative [facility] - 05/01/2023 9:49 PM [employer]WMILL RELIEF WORKER Low volume blood culture received; possible false negative culture. Helen Ryder MD MICROBIOLOGY Performing Organization Address [facility]/ZIP Co de Phone Number [facility] [address] [place] [address], * EXTRA TUBE [place] ON ICE (04/27/2023 7:35 PM SAWMILL RELIEF WORKER) Blood BLOOD SPECIMEN / Unknown Non-Lab Venipuncture / Unknown 04/27/2023 7:35 PM SAWMILL RELIEF WORKER 04/27/2023 7:50 PM SAWMILL RELIEF WORKER Helen Ryder MD LABORATORY Performing Organization Address [facility] Co de Phone Number [facility] [address] [place] [address], * (ABNORMAL) CBC WITH AUTO DIFFERENTIAL (04/27/2023 7:34 PM SAWMILL RELIEF WORKER) WHITE BLOOD COUNT 7.3 4.5 - 11.0 thou/cu mm 04/27/2023 8:00 PM SAWMILL RELIEF WORKER [facility] RED BLOOD COUNT 4.20(L) 4.30 - 5.90 mil/cu mm 04/27/2023 8:00 PM SAWMILL RELIEF WORKER [facility] HEMOGLOBIN 11.7(L) 13.5 - 17.5 g/dL 04/27/2023 8:00 PM [facility] HEMATOCRIT 35.4(L) 37.0 - 53.0 % 04/27/2023 8:00 PM [employer]WMILL RELIEF WORKER [facility] MCV 84 80 - 100 fL 04/27/2023 8:00 PM [facility] MCH 27.9 26.0 - 34.0 pg 04/27/2023 8:00 PM SAWMILL RELIEF WORKER [facility] MCHC 33.1 32.0 - 36.0 g/dL 04/27/2023 8:00 PM [facility] RDW 13.3 11.5 - 15.5 % 04/27/2023 8:00 PM [facility] PLATELET COUNT 425 140 - 440 thou/cu mm 04/27/2023 8:00 PM [facility] MPV 9.3 6.5 - 11.0 fL 04/27/2023 8:00 PM [facility] NRBC 0.0 % 04/27/2023 8:00 PM [facility] ABS NRBC 0.0 thou /cu mm 04/27/2023 8:00 PM [facility] % NEUT 68.6 % 04/27/2023 8:00 PM [facility] % LYMPH 16.8 % 04/27/2023 8:00 PM [facility] % MONO 12.2 % 04/27/2023 8:00 PM [facility] % EOS 1.1 % 04/27/2023 8:00 PM [facility] % BASO 0.3 % 04/27/2023 8:00 PM [facility] % IMMATURE GRAN (METAS,MYELOS,MI OS) 1.0 % 04/27/2023 8:00 PM [facility] ABSOLUTE NEUTROPHILS 5.0 1.7 - 7.0 thou/cu mm 04/27/2023 8:00 PM [facility] ABSOLUTE LYMPHOCYTES 1.2 0.9 - 2.9 thou/cu mm 04/27/2023 8:00 PM [facility] ABSOLUTE MONOCYTES 0.9(H) <0.9 thou/cu mm 04/27/2023 8:00 PM [facility] ABSOLUTE EOSINOPHILS 0.1 <0.5 thou/cu mm 04/27/2023 8:00 PM [facility] ABSOLUTE BASOPHILS 0.0 <0.3 thou/cu mm 04/27/2023 8:00 PM SAWMILL RELIEF WORKER [facility] ABSOLUTE IMMATURE GRANULOCYTES(MET ,MYELOS,PROS) 0.1 <0.3 thou/cu mm 04/27/2023 8:00 PM SAWMILL RELIEF WORKER [facility] Blood BLOOD SPECIMEN / Unknown Non-Lab Venipuncture / Unknown 04/27/2023 7:34 PM SAWMILL RELIEF WORKER 04/27/2023 7:49 PM SAWMILL RELIEF WORKER Helen Ryder MD [facility] [address] [place] [address], [place] * US ARTERIAL LOWER EXTREMITY W REYNA BILATERAL (04/26/2023 1:40 PM SAWMILL RELIEF WORKER) Anatomical Region Laterality Modality LEGS Ultrasound 04/26/2023 1:01 PM SAWMILL RELIEF WORKER Narrative 04/26/2023 6:51 PM SAWMILL RELIEF WORKER VASCULAR ULTRASOUND REPORT CLEMENTE BENTON Accession#: ?? [id number] : ?1950 Study Date: ?? 04/26/2023 1:01:19 PM Age: ?73 years ?? Tech: ? JSL Gender: M ?Referring MD: CARMEN CARBONE Site: [facility] Study performed: ?Lower extremity (bilateral), [...] Phasicity ? +--------+ + + +--------+ + LOSS PREVENTION INVESTIGATOR PRX ? 74 ? multiphasic ? +--------+ + + +--------+ + LOSS PREVENTION INVESTIGATOR DST ? 82 ? multiphasic ? +--------+ [...] monophasic ? +--------+ + + +--------+ + RANGE SCIENTIST DST ? 16 ? monophasic ? +--------+ + + +--------+ + ENEIDA DST ? 13 ? monophasic ? +--------+ + + +--------+ + DPA ? 14 ? monophasic ? +--------+ + + +--------+ + +--------+ + + LEFT ? Velocity cm/s Phasicity ?? +--------+ + + LOSS PREVENTION INVESTIGATOR PRX ? 57 ? multiphasic +--------+ + + LOSS PREVENTION INVESTIGATOR DST ? 66 ? multiphasic +--------+ + + PFA ? 91 ? multiphasic +--------+ + + SFA PRX ? 53 ? multiphasic +--------+ + + SFA MID ? 67 ? multiphasic +--------+ + + SFA DST ? 39 ? multiphasic +--------+ + + TRUDY PRX ? 33 ? multiphasic +--------+ + + TRUDY DST ? 40 ? monophasic +--------+ + + RANGE SCIENTIST DST ? 20 ? monophasic +--------+ + [...] Index +-----+ +--------+ +-----+ 0.75 ? 72 ?RANGE SCIENTIST ?74 ? 0.77 +-----+ +--------+ +-----+ 0.66 ? 63 ?DPA ?98 ? 1.02 +-----+ +--------+ +-----+ 0.00 ? 0 ? Digit 1 ?45 ? 0.47 +-----+ +--------+ +-----+ Donal Meneses MD. Electronically signed on 04/26/2023 6:51:00 PM This study was performed and interpreted by a service accredited by the Intersocietal Accreditation Commission (IAC/Vascular), www.intersocietal.org/vascular Report generated by [facility]. ??Final ?? Procedure Note Donal Meneses MD - 04/26/2023 VASCULAR ULTRASOUND REPORT CLEMENTE BENTON : 1950 Study Date: 04/26/2023 1:01:19 PM Age: 73 years Tech: ETHEL Gender: M Referring MD: CARMEN CARBONE Site: [facility] Study performed: Lower extremity (bilateral), resting RYENA, TBI,duplex US. Indication for study: Critical limb [...] cm/s Phasicity +--------+ + + +--------+ + LOSS PREVENTION INVESTIGATOR PRX 74 multiphasic +--------+ + + +--------+ + LOSS PREVENTION INVESTIGATOR DST 82 multiphasic +--------+ + + +--------+ [...] 17 monophasic +--------+ + + +--------+ + RANGE SCIENTIST DST 16 monophasic +--------+ + + +--------+ + ENEIDA DST 13 monophasic +--------+ + + +--------+ + DPA 14 monophasic +--------+ + + +--------+ + +--------+ + + LEFT Velocity cm/s Phasicity +--------+ + + LOSS PREVENTION INVESTIGATOR PRX 57 multiphasic +--------+ + + LOSS PREVENTION INVESTIGATOR DST 66 multiphasic +--------+ + + PFA 91 multiphasic +--------+ + + SFA PRX 53 multiphasic +--------+ + + SFA MID 67 multiphasic +--------+ + + SFA DST 39 multiphasic +--------+ + + TRUDY PRX 33 multiphasic +--------+ + + TRUDY DST 40 monophasic +--------+ + + RANGE SCIENTIST DST 20 monophasic +--------+ + + DPA 30 monophasic +--------+ + + Criteria: Stenosis V. Ratio Mild <50% <2.0 Moderate 50-74% > or = 2.0 Severe 75-99% > or = 4.0 Occluded 100% no detectable flow Pressures +-----+ +--------+ +-----+ RIGHT (mmHg) LEFT (mmHg) +-----+ +--------+ +-----+ Index 96 Brachial 94 Index +-----+ +--------+ +-----+ 0.75 72 RANGE SCIENTIST 74 0.77 +-----+ +--------+ +-----+ 0.66 63 DPA 98 1.02 +-----+ +--------+ +-----+ 0.00 0 Digit 1 45 0.47 +-----+ +--------+ +-----+ Donal Meneses MD. Electronically signed on 04/26/2023 6:51:00 PM This study was performed and interpreted by a service accredited by theIntersocietal Accreditation Commission (IAC/Vascular),[email or web address]/vascular Report generated by [facility]. 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
--- OUTSIDE RECORDS SUMMARY | 2023-05-07 07:28 | XMS_ITS | Continuity of Care Document ---
Author Name Unknown Organization [facility] Address [address] [place] [address] Phone Care Team Providers Care Automobile Locator Name Role Phone Navid Massey Unavailable Unavailable [...] ASPIRIN (unknown strength) Not Available - Active [place] 5 mg-325 mg tablet take 1 - [...] C, [address], [place], [place], [id number], [place] tel:[phone] [facility] Encounter for other specified surgical aftercare 6 Manuelito Shoemaker. [facility] [place], [address] [place] [address] [address], [facility], [id number] , [place]. [phone] Referring Provider: Clemente Escobar, [facility] [address], [place], [address]. tel:[phone] [facility], [address], [place], [place], [id number], [place] tel:[phone] [facility] No Information 6 Samantha Tejeda. [facility], [address] [place] [address] [address], [facility], [place], [id number] , [place]. [phone] Referring Provider: Clmeente Escobar, [facility] [address], [place], [address]. tel:[phone] [facility], [address], [place], [place], [id number], [place] tel:[phone] [facility] No Information 6 Manuelito Shoemaker. [facility] [place], [address] [place] [address] [address], [facility] [place], [id number] , [place]. tel:[phone] [facility], [address], [place], [id number], [place] tel:[phone] [facility] No Information 6 Manuelito Shoemaker. [facility], [address] [place] [address] [address], [place], [place], [id number] , [place]. tel:[phone] Office/Outpat ient Visit,Scott Adams [facility], [address], [place], [place], [id number], [place] tel:[phone] [facility] Spinal stenosis, lumbar region 0 Manuelito Shoemaker. [facility], [address] [place] [address] [address], [place], [id number] , [place]. tel:[phone] Referring Provider: Clemente Escobar, [facility] [address], [place], [address]. tel:[phone] Family History Family Member Type Diagnosis Age At Onset No Information Payers Payer name Insurance type Covered [id number] Medicare [facility] [id number] Social History Type Description Quantity Date Captured [...]
== END 2023-05-05 18:21 | disposition home or self-care (01) ==
LOC: AMB 05-07 07:26
PROVIDERS: PCP Family Medicine; Visit Provider Family Medicine
DX: S09.90XA Unspecified injury of head, initial encounter (principal); W18.30XA Fall on same level, unspecified, initial encounter; Y92.481 Parking lot as the place of occurrence of the external cause
CPT/HCPCS: A0425; A0427

== ENCOUNTER 2023-05-05 19:15 | Emergency (ER) | payer MEDICARE, BC, SELFPAY ==
[2023-05-05 19:18] VITALS: BP 108/59; PULSE 70; RESP 24; TEMP 36.5; O2SAT 99
--- NOTE | 2023-05-05 19:21 | CRLHL7_ITS ---
For Patients: As a result of the Century Cures Act, medical imaging exams and procedure reports are released immediately into your electronic medical record. You may view this report before your referring provider. If you have questions, please contact your health care provider. Indication: Fall Technique: Noncontrast axial CT of the lumbar spine with coronal and sagittal reformats. Comparison: No relevant comparison studies available at this institution. Findings: Preserved lumbar lordosis. Trace degenerative anterolisthesis at L2-3. Vertebral body heights are maintained. No acute osseous fracture identified. Degenerative changes and bony bridging across the bilateral SI joints. Aortoiliac atherosclerotic plaquing. Colonic diverticulosis. At L3-4, posterior disc-osteophyte complex and facet arthropathy, with suspected mild-moderate residual spinal canal narrowing status post inferior laminectomy decompression. At L4-5, posterior disc-osteophyte complex and facet arthropathy, with mild right and moderate left neural foraminal stenosis, but patent spinal canal status post laminectomy decompression. No other significant neural foraminal or spinal canal stenosis at the remaining levels. Impression: 1. No evidence of acute fracture or traumatic malalignment in the lumbar spine. 2. Lumbar spondylosis, post-laminectomy changes, and bilateral SI joint ankylosis as detailed. Please note that all CT scans at this facility use dose modulation, iterative reconstruction, and/or weight-based dosing when appropriate to reduce radiation dose to as low as reasonably achievable. Dictated by Aleah Carter MD @ 05/05/2023 8:45:21 PM (Electronically Signed)
--- NOTE | 2023-05-05 19:21 | CRLHL7_ITS ---
For Patients: As a result of the Century Cures Act, medical imaging exams and procedure reports are released immediately into your electronic medical record. You may view this report before your referring provider. If you have questions, please contact your health care provider. Indication: Fall Technique: Noncontrast axial CT of the thoracic spine with coronal and sagittal reformats. Comparison: No relevant comparison studies available at this institution. Findings: Normal static alignment of the thoracic spine. No significant spondylolisthesis. Vertebral body heights are preserved. No evidence of acute fracture. Right ventrolateral bridging syndesmophytes spanning T3-7 with bulky ventrolateral projecting osteophytes throughout the mid and lower thoracic levels. Spinal canal appears grossly patent. No evidence of significant neural foraminal or spinal canal stenosis. Included lungs are clear. Impression: 1. No evidence of acute fracture or traumatic malalignment in the thoracic spine. 2. Scattered spondylosis without significant spinal canal stenosis. Please note that all CT scans at this facility use dose modulation, iterative reconstruction, and/or weight-based dosing when appropriate to reduce radiation dose to as low as reasonably achievable. Dictated by Aleah Carter MD @ 05/05/2023 8:34:14 PM (Electronically Signed)
--- NOTE | 2023-05-05 19:21 | CRLHL7_ITS ---
For Patients: As a result of the Century Cures Act, medical imaging exams and procedure reports are released immediately into your electronic medical record. You may view this report before your referring provider. If you have questions, please contact your health care provider. Indication: Fall Technique: Noncontrast axial CT of the cervical spine with coronal and sagittal reformats. Comparison: No relevant comparison studies available at this institution. Findings: The head and neck are tilted and turned rightward, limiting evaluation. Slight reversal of normal cervical lordosis. No acute fracture identified. No convincing evidence of traumatic malalignment given suboptimal positioning. Craniocervical articulation appears grossly maintained. The spinal canal appears widely patent. No concerning findings identified in the paraspinal soft tissues. Included lung apices are clear. Impression: 1. No convincing evidence of acute fracture or traumatic malalignment in the cervical spine given suboptimal positioning. Please note that all CT scans at this facility use dose modulation, iterative reconstruction, and/or weight-based dosing when appropriate to reduce radiation dose to as low as reasonably achievable. Dictated by Aleah Carter MD @ 05/05/2023 8:40:12 PM (Electronically Signed)
--- NOTE | 2023-05-05 19:21 | CRLHL7_ITS ---
For Patients: As a result of the Century Cures Act, medical imaging exams and procedure reports are released immediately into your electronic medical record. You may view this report before your referring provider. If you have questions, please contact your health care provider. INDICATION: Fall TECHNIQUE: Noncontrast axial CT of the head. Coronal and sagittal reformats. Bone and soft tissue algorithms. COMPARISON: MRI brain and CT head, April 2021 FINDINGS: Generalized cerebral volume loss. No acute intracranial hemorrhage or abnormal extra-axial fluid collection. No midline shift, hydrocephalus, or herniation. Preserved rizvi-white matter differentiation. 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 Calcific intracranial atherosclerotic plaquing. Lobulated mucosal thickening in both maxillary sinuses. Bilateral cerumen impaction. Bilateral lens implants. IMPRESSION: 1. No skull fracture or acute intracranial hemorrhage identified. 2. Generalized cerebral volume loss, mild chronic microangiopathy changes, and small old right parietal infarct. 3. Bilateral cerumen impaction. Please note that all CT scans at this facility use dose modulation, iterative reconstruction, and/or weight-based dosing when appropriate to reduce radiation dose to as low as reasonably achievable. Dictated by Aleah Carter MD @ 05/05/2023 8:29:03 PM (Electronically Signed)
--- OUTSIDE RECORDS SUMMARY | 2023-05-05 19:37 | XMS_ITS | Clinical Summary ---
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 0 Active fenofibrate nanocrystallized (TRICOR) 48 mg tabletIndications:O ther hyperlipidemia Take 2 tablets by mouth once daily with a meal. 0 10/01/19 16 Active aspirin (ECOTRIN) 81 mg enteric coated [...] by mouth two times daily. 0 Active cyanocobalamin (Vitamin B-12) 1,000 mcg tablet Take 1,000 mcg by mouth once daily. 0 Active multivit,thx,calciu m,iron,mins (MULTIVITAMIN AND MINERAL ORAL) Take 1 Tablet by mouth once daily. 0 Active lisinopriL (PRINIVIL; ZESTRIL) 10 mg tablet Take 10 mg by mouth once daily. 0 Active FLUoxetine (PROZAC) 20 mg capsule Take 20 mg by mouth once daily. 0 Active ipratropium (ATROVENT NASAL) 42 mcg (0.06 %) nasal spray Inhale 2 Sprays into affected nostril(s) 3 times daily if needed. 0 Active acetaminophen (TYLENOL EXTRA STRGTH) 500 mg tabletIndications:P ain of lower extremity, unspecified laterality Take 2 Tablets (1,000 mg) by mouth three times daily. Max acetaminophen dose: 4000mg in 24 hrs. 120 Tablet 0 05/05/19 24 Active melatonin 3 mg tabletIndications:P rimary insomnia Take 2 Tablets (6 mg) by mouth at bedtime. 30 Tablet 0 05/05/19 24 Active QUEtiapine (SEROQUEL) 50 mg tabletIndications:A gitation due to dementia (HC) Take 1 Tablet (50 mg) by mouth at bedtime. 30 Tablet 0 05/05/19 24 Active clopidogreL (PLAVIX) 75 mg tabletIndications:C ritical limb ischemia of right lower extremity (HC) Take 1 Tablet (75 mg) by mouth once daily. 60 Tablet 0 05/06/19 24 Active OLANzapine (ZYPREXA) 5 mg tabletIndications:A gitation due to dementia (HC) Take 1 Tablet (5 mg) by mouth every 6 hours if needed for Agitation. 30 Tablet 0 05/05/19 24 Active glipiZIDE extended-release (GLUCOTROL XL) 10 mg Extended-Release tabletIndications:T ype 2 diabetes mellitus with diabetic nephropathy, without long-term current use of insulin (HC) HOLD UNTIL FOLLOW UP WITH PCP 0 05/05/19 24 Active oxyCODONE (ROXICODONE) 5 mg immediate release tabletIndications:P ain of lower extremity, unspecified laterality Take 1 tablet (5mg) by mouth before bedtime scheduled and every 6 hours as needed for pain. 30 Tablet 0 05/05/19 24 Active commodeIndications: Critical limb ischemia of right lower extremity (HC) As directed. Standard commode. For home use. -Patient is confined to a single room 1 Each 0 05/05/19 24 Active metoprolol (LOPRESSOR) 50 mg tablet takes 25 mg per day 0 03/19/20 09 024 Discontinued(Ot her - add note to specify (E-cancel not sent)) glipiZIDE (GLUCOTROL) 10 mg tablet take 1 tablet (10 mg) by oral route once daily before a meal 0 03/19/20 09 Discontinued(Ot her - add note to specify (E-cancel not sent)) aspirin enteric coated (ECOTRIN) 325 mg tablet take 2 tablets (650 mg) by oral route every 6 hours as needed 0 03/19/20 09 024 Discontinued(Ot her - add note to specify (E-cancel not sent)) hydrOXYzine HCl (ATARAX) 50 mg tabletIndications:L umbar radiculopathy Take 1 tablet by mouth every 6 hours if needed for Other (Specify) (back pain). 30 tablet 0 08/19/19 16 024 Discontinued(Ot her - add note to specify (E-cancel not sent)) MURTAZA ROOT (MURTAZA, ZINGIBER OFFICINALIS,) 550 mg capsule Take 550 mg by mouth once daily. 0 Discontinued(Ot her - add note to specify (E-cancel not sent)) Cinnamon Bark 500 mg capsule Take 1,000 mg by mouth once daily. 0 024 Discontinued(Ot her - add note to specify (E-cancel not sent)) Melatonin-Pyridoxin e 3-2 mg tab Take 3 mg by mouth at bedtime. 0 Discontinued(Ot her - add note to specify (E-cancel not sent)) coQ10, ubiquinol, 100 mg cap Take 200 mg by mouth. 0 Discontinued(Ot her - add note to specify (E-cancel not sent)) lisinopril (PRINIVIL; ZESTRIL) 40 mg tablet Take 40 mg by mouth once daily. 0 024 Discontinued(Ot her - add note to specify (E-cancel not sent)) lovastatin (MEVACOR) 40 mg tablet Take 40 mg by mouth at bedtime. 0 Discontinued(Ot her - add note to specify (E-cancel not sent)) levothyroxine (SYNTHROID) 175 mcg tablet Take 175 mcg by mouth once daily. 0 Discontinued(Ot her - add note to specify (E-cancel not sent)) folic acid 1 mg tabletIndications:S chikis stenosis, lumbar region, without neurogenic claudication Take 1 tablet by mouth once daily. 30 tablet 0 10/01/19 16 024 Discontinued(Ot her - add note to specify (E-cancel not sent)) thiamine (VITAMIN B1) 100 mg tabletIndications:S chikis stenosis, lumbar region, without neurogenic claudication Take 1 tablet by mouth once daily. 30 tablet 0 10/01/19 16 024 Discontinued(Ot her - add note to specify (E-cancel not sent)) acetaminophen (TYLENOL) 325 mg tabletIndications:A cute postoperative pain Take 2 tablets by mouth every 4 hours while awake. Max acetaminophen dose: 4000mg in 24 hrs. 0 10/01/19 16 024 Discontinued(Ph armacist change per medication history (E-cancel not sent)) gabapentin (NEURONTIN) 100 mg capsuleIndications: Acute postoperative pain Take 2 capsules by mouth 3 times daily. 30 capsule 0 10/01/19 16 024 Discontinued(Ot her - add note to specify (E-cancel not sent)) methocarbamol (ROBAXIN) 500 mg tabletIndications:A cute postoperative pain Take 1 tablet by mouth every 6 hours if needed. 0 10/01/19 16 024 Discontinued(Ot her - add note to specify (E-cancel not sent)) metFORMIN (GLUCOPHAGE) 1,000 mg tabletIndications:T ype 2 diabetes mellitus without complication (HC) Take 1 tablet by mouth once daily with a meal. 0 10/01/19 16 024 Discontinued(Ot her - add note to specify (E-cancel not sent)) omega-3 fatty acids-vitamin E (FISH OIL) 1,000 mg capIndications:Othe r hyperlipidemia Take 1 capsule by mouth once daily. 0 10/01/19 16 024 Discontinued(Ot her - add note to specify (E-cancel not sent)) multivitamins pediatric chewable (FLINTSTONE'S) chewable tabletIndications:T ype 2 diabetes mellitus without complication (HC) Take 1 tablet by mouth once daily. 0 10/01/19 16 024 Discontinued(Ot her - add note to specify (E-cancel not sent)) oxyCODONE (ROXICODONE) 5 mg immediate release tabletIndications:A cute postoperative pain Take 1-2 tablets by mouth every 4 hours if needed for Pain (Pain 3-6/10 1 tab, 7-10/10 2 tabs.). 30 tablet 0 10/01/19 16 024 Discontinued(Ot her - add note to specify (E-cancel not sent)) sennosides-docusate , 8.6-50 mg, (SENOKOT S) 8.6-50 mg tabletIndications:S chikis stenosis, lumbar region, without neurogenic claudication Take 2 tablets by mouth 2 times daily. Hold for loose stools. 30 tablet 0 10/01/19 16 024 Discontinued(Ot her - add note to specify (E-cancel not sent)) lisinopriL (PRINIVIL; ZESTRIL) 20 mg tablet Take 10 mg by mouth once daily. 0 024 Discontinued(*M edication adjustment) FLUoxetine 20 mg tablet Take 20 mg by mouth every morning. 0 024 Discontinued(*M edication adjustment) OLANzapine (ZYPREXA) 5 mg tablet Take 5 mg by mouth at bedtime. 0 024 Discontinued(*I P Discontinued) glipiZIDE extended-release (GLUCOTROL XL) 10 mg Extended-Release tablet Take 10 mg by mouth once daily before a meal. 0 024 Discontinued hydrocodone/acetami nophen (VICODIN ORAL) Take 5 mg by mouth once daily. 0 024 Discontinued(Ph armacist change per medication history (E-cancel not sent)) hydroCHLOROthiazide (HCTZ) 25 mg tablet Take 25 mg by mouth once daily. 0 024 Discontinued(Ph armacist change per medication history (E-cancel not sent)) metFORMIN (GLUCOPHAGE) 1,000 mg tablet Take 1,000 mg by mouth two times daily with meals. 0 024 Discontinued(Ph armacist change per medication history (E-cancel not sent)) acetaminophen (TYLENOL EXTRA STRGTH) 500 mg tablet Take 1,000 mg by mouth every 4 hours if needed. Max acetaminophen dose: 4000mg in 24 hrs. 0 024 Discontinued(*I P Discontinued) oxyCODONE (ROXICODONE) 5 mg immediate release tablet Take 5 mg by mouth once daily if needed for Pain. 0 024 Discontinued(*I P Discontinued) commodeIndications: Critical limb ischemia of right lower extremity (HC) As directed. Commode. For home use. Bariatric. 1 Each 0 05/05/19 24 024 Discontinued oxyCODONE (ROXICODONE) 5 mg immediate release tabletIndications:P ain of lower extremity, unspecified laterality Take 1 Tablet (5 mg) by mouth at bedtime. 15 Tablet 0 05/05/19 24 024 Discontinued(*I P Discontinued) oxyCODONE (ROXICODONE) 5 mg immediate release tabletIndications:P ain of lower extremity, unspecified laterality Take 1 Tablet (5 mg) by mouth every 6 hours if needed for Pain. 20 Tablet 0 05/05/19 24 024 Discontinued Active Problems Problem Noted Date Diagnosed Date Critical limb ischemia of right lower extremity 04/28/2023 Depression 09/29/2015 Bipolar disorder 09/29/2015 Overview: Stopped [place] in 2011 Spinal stenosis, lumbar deborah on, [...] Encounters Date Type Department Care Team Description 05/05/2023 Orders Only [facility] [address] [place] [address] Abida Louis MD <No scans attached> 05/02/2023 2:14 PM WATER REGULATOR AND VALVE REPAIRER Anesthesia Event [facility] [address] [place] [address] June Damian MD Rochon, Breanne Nicole, SUZANNA 04/28/2023 9:28 AM WATER REGULATOR AND VALVE REPAIRER Anesthesia Event [facility] [address] [place] [address] June Damian MD Taylor, Matty Nieves MD 04/27/2023 6:58 PM WATER REGULATOR AND VALVE REPAIRER - 05/05/2023 4:45 PM WATER REGULATOR AND VALVE REPAIRER Hospital Encounter [facility] [address] [place] [address] Helen Ryder MD [facility], MD Dante Clay, MD Heriberto Chávez, Abida Jenkins MD S/P peripheral artery angioplasty (Primary Dx); Critical limb ischemia of right lower extremity (HC); S/P arterial stent; Pain of lower extremity, unspecified laterality; Primary insomnia; 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 (ARRT) Critical limb ischemia of both lower extremities (HC) 04/26/2023 Travel 04/20/2023 Telephone [facility] [address] [place] [id number] Carmen Carbone MD Follow Up 04/19/2023 Orders Only [facility] [address], [place] [address] Carmen Carbone MD <No scans attached> 04/19/2023 Telephone [facility] [address] [place] [phone] Carmen Carbone MD Appointment 04/18/2023 Telephone [facility] [address] [place] [id number] Carmen Carbone MD from Last 3 Months [...] Sign Reading Time Taken Comments Blood Pressure 112/54 05/05/2023 3:37 PM WATER REGULATOR AND VALVE REPAIRER Pulse 61 05/05/2023 3:37 PM WATER REGULATOR AND VALVE REPAIRER Temperature 36.6 ??C (97.8 ??F) 05/05/2023 3:37 PM CS T Respiratory Rate 16 05/05/2023 3:37 PM WATER REGULATOR AND VALVE REPAIRER Oxygen Saturation 100% 05/05/2023 3:37 PM WATER REGULATOR AND VALVE REPAIRER Inhaled Oxygen Concentration - - Weight 103.3 kg (227 lb 11.2 oz) 05/05/2023 6:00 AM WATER REGULATOR AND VALVE REPAIRER Height 185.4 cm (6' 1) 04/27/2023 5:50 PM WATER REGULATOR AND VALVE REPAIRER Body Mass Index 30.04 04/27/2023 5:50 PM WATER REGULATOR AND VALVE REPAIRER Plan of Treatment Upcoming Encounters Date Type Department Care Team (Late st Contact Info) Description 05/16/2023 9:30 AM WATER REGULATOR AND VALVE REPAIRER Office Visit [facility] [address] [phone] Navi Zimmerman, [address] [place] [address] 06/09/2023 12:30 PM WATER REGULATOR AND VALVE REPAIRER Appointment [facility] [address] [place] [address] 06/09/2023 1:30 PM WATER REGULATOR AND VALVE REPAIRER Office [place] [facility] [address] [place] [address] Donal Meneses MD [address] [place] [address] Health Maintenance Due Date Last Done Comments [...] Procedure Name Priority Date/Time Associated Diagnosis Comments GLUCOSE METER Timed 05/05/2023 1:38 PM WATER REGULATOR AND VALVE REPAIRER GLUCOSE METER Timed 05/05/2023 9:12 AM WATER REGULATOR AND VALVE REPAIRER GLUCOSE METER Timed 05/04/2023 9:25 PM WATER REGULATOR AND VALVE REPAIRER GLUCOSE METER Timed 05/04/2023 5:29 PM WATER REGULATOR AND VALVE REPAIRER US ARTERIAL LOWER EXTREMITY W REYNA RIGHT Routine 05/04/2023 3:49 PM WATER REGULATOR AND VALVE REPAIRER GLUCOSE METER Timed 05/04/2023 2:18 PM WATER REGULATOR AND VALVE REPAIRER XR FOOT 3 VIEWS RIGHT PORTABLE Routine 05/03/2023 12:36 PM WATER REGULATOR AND VALVE REPAIRER HEMOGLOBIN A1C SCREENING MORRIS 05/03/2023 8:49 AM WATER REGULATOR AND VALVE REPAIRER EXTRA TUBE BLUE Today 05/03/2023 8:49 AM WATER REGULATOR AND VALVE REPAIRER BASIC METABOLIC PANEL Early AM 05/03/2023 8:49 AM WATER REGULATOR AND VALVE REPAIRER CBC W PLT NO DIFF Early AM 05/03/2023 8:4 9 AM WATER REGULATOR AND VALVE REPAIRER SCAN-CARDIAC STRIP 05/03/2023 8: 12 AM WATER REGULATOR AND VALVE REPAIRER APTT Early AM 05/03/2023 7:28 AM WATER REGULATOR AND VALVE REPAIRER GLUCOSE METER Timed 05/02/2023 6:33 PM WATER REGULATOR AND VALVE REPAIRER PV OTHER PROCEDURE Routine 05/02/2023 6: 20 PM WATER REGULATOR AND VALVE REPAIRER HCHG ACTIVATED CLOTTING TM CV Timed 05/02/2023 6:05 PM WATER REGULATOR AND VALVE REPAIRER HCHG ACTIVATED CLOTTING TM CV Timed 05/02/2023 5:12 PM WATER REGULATOR AND VALVE REPAIRER HCHG ACTIVATED CLOTTING TM CV Timed 05/02/2023 5:02 PM WATER REGULATOR AND VALVE REPAIRER HCHG ACTIVATED CLOTTING TM CV Timed 05/02/2023 4:30 PM WATER REGULATOR AND VALVE REPAIRER HCHG ACTIVATED CLOTTING TM CV Timed 05/02/2023 3:55 PM WATER REGULATOR AND VALVE REPAIRER HCHG ACTIVATED CLOTTING TM CV Timed 05/02/2023 3:21 PM WATER REGULATOR AND VALVE REPAIRER HCHG ACTIVATED CLOTTING TM CV Timed 05/02/2023 3:09 PM WATER REGULATOR AND VALVE REPAIRER ENDOTRACHEAL TUBE Routine 05/02/2023 2:4 0 PM WATER REGULATOR AND VALVE REPAIRER ENDOTRACHEAL TUBE Routine 05/02/2023 2:4 0 PM WATER REGULATOR AND VALVE REPAIRER ENDOTRACHEAL TUBE Routine 05/02/2023 2:4 0 PM WATER REGULATOR AND VALVE REPAIRER CBC W PLT NO DIFF Timed 05/02/2023 9:3 0 AM WATER REGULATOR AND VALVE REPAIRER BASIC METABOLIC PANEL Timed 05/02/2023 9:30 AM WATER REGULATOR AND VALVE REPAIRER APTT Early AM 05/02/2023 9:30 AM WATER REGULATOR AND VALVE REPAIRER SCAN-CARDIAC STRIP 05/02/2023 12 :00 AM WATER REGULATOR AND VALVE REPAIRER GLUCOSE METER Timed 05/01/2023 9:34 PM WATER REGULATOR AND VALVE REPAIRER GLUCOSE METER Timed 05/01/2023 8:42 PM WATER REGULATOR AND VALVE REPAIRER GLUCOSE METER Timed 05/01/2023 5:12 PM WATER REGULATOR AND VALVE REPAIRER GLUCOSE METER Timed 05/01/2023 12:01 PM WATER REGULATOR AND VALVE REPAIRER GLUCOSE METER Timed 05/01/2023 8:02 AM WATER REGULATOR AND VALVE REPAIRER APTT MORRSI 05/01/2023 7:53 AM WATER REGULATOR AND VALVE REPAIRER GLUCOSE METER Timed 04/30/2023 10:21 PM WATER REGULATOR AND VALVE REPAIRER GLUCOSE METER Timed 04/30/2023 4:51 PM WATER REGULATOR AND VALVE REPAIRER GLUCOSE METER Timed 04/30/2023 11:45 AM WATER REGULATOR AND VALVE REPAIRER GLUCOSE, RANDOM MORRIS 04/30/2023 7:26 AM WATER REGULATOR AND VALVE REPAIRER APTT Early AM 04/30/2023 7:26 AM WATER REGULATOR AND VALVE REPAIRER CREATININE Early AM 04/30/2023 7:26 AM WATER REGULATOR AND VALVE REPAIRER APTT Timed 04/30/2023 12:10 AM WATER REGULATOR AND VALVE REPAIRER GLUCOSE METER Timed 04/29/2023 10:09 PM WATER REGULATOR AND VALVE REPAIRER APTT Timed 04/29/2023 4:51 PM WATER REGULATOR AND VALVE REPAIRER GLUCOSE METER Timed 04/29/2023 4:46 PM WATER REGULATOR AND VALVE REPAIRER GLUCOSE METER Timed 04/29/2023 12:05 PM WATER REGULATOR AND VALVE REPAIRER GLUCOSE METER Timed 04/29/2023 7:56 AM WATER REGULATOR AND VALVE REPAIRER APTT Timed 04/29/2023 7:31 AM WATER REGULATOR AND VALVE REPAIRER CBC W PLT NO DIFF Early AM 04/29/2023 7:3 1 AM WATER REGULATOR AND VALVE REPAIRER BASIC METABOLIC PANEL Early AM 04/29/2023 7:31 AM WATER REGULATOR AND VALVE REPAIRER APTT Timed 04/28/2023 11:13 PM WATER REGULATOR AND VALVE REPAIRER GLUCOSE METER Timed 04/28/2023 10:41 PM WATER REGULATOR AND VALVE REPAIRER GLUCOSE METER Timed 04/28/2023 6:39 PM WATER REGULATOR AND VALVE REPAIRER US VEIN MAPPING LOWER EXTREMITY BILATERAL Today 04/28/2023 5:38 PM WATER REGULATOR AND VALVE REPAIRER SCAN-CARDIAC STRIP 04/28/2023 4: 41 PM WATER REGULATOR AND VALVE REPAIRER CREATININE Early AM 04/28/2023 4:32 PM WATER REGULATOR AND VALVE REPAIRER GLUCOSE METER Timed 04/28/2023 2:12 PM WATER REGULATOR AND VALVE REPAIRER GLUCOSE METER Timed 04/28/2023 1:44 PM WATER REGULATOR AND VALVE REPAIRER GLUCOSE METER Timed 04/28/2023 1:30 PM WATER REGULATOR AND VALVE REPAIRER GLUCOSE METER Timed 04/28/2023 1:26 PM WATER REGULATOR AND VALVE REPAIRER SCAN-OPERATIVE/PROCED URE REPORT 04/28/2023 12:00 AM WATER REGULATOR AND VALVE REPAIRER LACTATE SCREEN VENOUS ISTAT W BECKFORD Timed 04/27/2023 9:43 PM WATER REGULATOR AND VALVE REPAIRER TYPE & SCREEN STAT 04/27/2023 8:21 PM WATER REGULATOR AND VALVE REPAIRER APTT MORRIS 04/27/2023 8:21 PM WATER REGULATOR AND VALVE REPAIRER ISTAT EC8 Timed 04/27/2023 7:52 PM WATER REGULATOR AND VALVE REPAIRER BLOOD CULTURE STAT 04/27/2023 7:41 PM WATER REGULATOR AND VALVE REPAIRER EXTRA TUBE BECKFORD ON ICE STAT 04/27/2023 7:35 PM WATER REGULATOR AND VALVE REPAIRER ISTAT LACTATE SCREEN VENOUS STAT 04/27/2023 7:35 PM WATER REGULATOR AND VALVE REPAIRER CBC WITH AUTO DIFFERENTIAL STAT 04/27/2023 7:34 PM WATER REGULATOR AND VALVE REPAIRER BLOOD CULTURE STAT 04/27/2023 7:34 PM WATER REGULATOR AND VALVE REPAIRER BASIC METABOLIC PANEL STAT 04/27/2023 7:34 PM WATER REGULATOR AND VALVE REPAIRER CBC WITH AUTO DIFFERENTIAL STAT 04/27/2023 7:34 PM WATER REGULATOR AND VALVE REPAIRER US ARTERIAL LOWER EXTREMITY W REYNA BILATERAL MORRIS 04/26/2023 1:40 PM WATER REGULATOR AND VALVE REPAIRER Critical limb ischemia of both lower extremities (HC) from Last 3 Months Results * (ABNORMAL) GLUCOSE METER (05/05/2023 1:38 PM WATER REGULATOR AND VALVE REPAIRER) Only the most recent of24 resultswithin the time period is included. [facility] GLUCOSE METER 160(H) 65 - 100 mg/dL 05/05/2023 1:39 PM WATER REGULATOR AND VALVE REPAIRER [facility] Blood BLOOD SPECIMEN / Unknown 05/05/2023 1:38 PM WATER REGULATOR AND VALVE REPAIRER 05/05/2023 1:39 PM WATER REGULATOR AND VALVE REPAIRER Abida Louis MD CHEMISTRY [facility] [address] [place] [address], [place] * US ARTERIAL LOWER EXTREMITY W REYNA RIGHT (05/04/2023 3:49 PM WATER REGULATOR AND VALVE REPAIRER) Anatomical Region Laterality Modality LEG R Ultrasound Impressions 05/05/2023 8:20 AM WATER REGULATOR AND VALVE REPAIRER ?? 1. ??Right lower extremity: ??Moderately reduced resting REYNA of 0.58, slightly decreased from 0.75 on prior exam. ??Severely reduced resting TBI of 0.13, previously unable to be obtained. ??Predominantly multiphasic waveforms throughout with transition to monophasic waveforms in the popliteal artery. ??No hemodynamically significant stenoses or occlusions are identified. 2. ??Left lower extremity: ??Moderately reduced resting REYNA of 0.66, decreased from 1.02 on prior exam. Moderately reduced resting TBI of 0.35, slightly decreased from 0.47. ??Predominantly multiphasic waveforms throughout. 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 ??No hemodynamically significant stenoses identified. Chase Barnes M.D. V[facility] Inter[facility] [employer] [email or web address] Narrative 05/05/2023 8:20 AM WATER REGULATOR AND VALVE REPAIRER Table formatting from the original result was not included. For Patients: As a result of the Cures Act, medical imaging exams and procedure reports are released immediately into your electronic medical record. ??You may view this report before your referring provider. ?? If you have questions, please contact your health care provider. DUPLEX ARTERIAL ULTRASOUND RIGHT LOWER EXTREMITY WITH ANKLE AND TOE BRACHIAL INDICES 05/04/2023 CLINICAL HISTORY: ??Status post endovascular intervention. ?? COMPARISON: ??04/26/2023. TECHNIQUE: ??The right lower extremity arteries were examined per exam specific protocol with beckford-scale ultrasound, color-flow and Doppler spectral analysis. ??Peak systolic velocities (PSV), Doppler waveform quality and velocity ratios, if applicable, were documented at sites per exam specific protocol. ??The pedal arteries (posterior tibial, dorsalis pedis, and peroneal) were evaluated with beckford-scale ultrasound, color flow and Doppler spectral analysis (continuous-wave Doppler recordings may be substituted). ??Peak systolic velocities (PSV) and/or Doppler waveform quality were documented at each vessel. ??Ankle-brachial and toe-brachial indices were measured and calculated by placing appropriately sized BP cuffs at ankles and upper arms bilaterally. ??Resting pressures were documented per exam protocol. ?? FINDINGS: ??Right lower extremity: ??Moderately reduced resting REYNA OF 0.58, decreased from 0.75 on prior exam. ??Severely reduced resting TBI of 0.13, previously unobtainable. ??Predominantly multiphasic waveforms are seen throughout with transition to monophasic waveforms in the proximal popliteal artery. ??No hemodynamically significant stenoses or occlusions are identified. Left lower extremity: ??Resting REYNA is moderately reduced measuring 0.66, decreased from 1.02 on prior exam. Resting TBI is moderately reduced measuring 0.35, decreased from 0.47 on prior exam. ??Predominantly multiphasic waveforms are seen throughout with monophasic waveforms noted in the dorsalis pedis artery. ??The posterior tibial artery is distally occluded. ??No hemodynamically significant stenoses identified. ??ARTERIAL DUPLEX US LOWER EXTREMITIES PSV IN CM/SEC ? RIGHT PSV T,B,M VELOCITY RATIO TURNTABLE WORKER Prox 96 T - ?? TURNTABLE WORKER Dist 124 T ??- PFA 124 T - ?? SFA Prox ??109 62 T - ?? SFA Mid ??117 140 T - ?? SFA Dist ??101 116 T - ?? TRUDY Prox 63 M - ?? TRUDY Dist 88 M - ?? SHUTTLE PREPARATION SUPERVISOR ??147 M - ?? CHAPARRO 75 M - DPA 65 M - ?? T= Triphasic; ??B= Biphasic; ??M= Monophasic ?? LEFT PSV T,B,M VELOCITY RATIO TURNTABLE WORKER Prox 88 ??T ??- ?? TURNTABLE WORKER Dist 89 ??T ??- ?? PFA 136 ??T ??- ?? SFA Prox ??62 69 ??T ??- ?? SFA Mid ??62 78 T ??- ?? SFA Dist ??58 62 ??T ??- ?? TRUDY Prox 31 T ??- ?? TRUDY Dist 49 ??T ??- ?? SHUTTLE PREPARATION SUPERVISOR ??0 - - ?? CHAPARRO 72 T - DPA 33 M - ?? Right ??Left ?Index ??Index Brachial 125 ??118 ?? Ankle (PT) 72 0.58 0 0.00 Ankle (DP) 68 0.54 82 0.66 Digit 16 0.13 44 0.35 Ny LUDWIG US * XR FOOT 3 VIEWS RIGHT PORTABLE (05/03/2023 12:36 PM WATER REGULATOR AND VALVE REPAIRER) Anatomical Region Laterality Modality FEET, FOOT R Digital Radiogra phy 05/03/2023 6:22 PM WATER REGULATOR AND VALVE REPAIRER Impressions 05/03/2023 6:22 PM WATER REGULATOR AND VALVE REPAIRER Assessment of the toes is limited by flexion. No soft tissue air. No foreign body. No obvious bone resorption. No fracture or significant bone lesion. 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 Dictated by Jareth Jones MD @ May 03 2023 ??6:22PM (Electronically Signed) ?? Narrative 05/03/2023 6:22 PM WATER REGULATOR AND VALVE REPAIRER For Patients: ??As a result of the Cures Act, medical imaging exams and procedure reports are released immediately into your electronic medical record. ??You may view this report before your referring provider. ??If you have questions, please contact your health care provider. INDICATION: Dry gangrene right hallux. TECHNIQUE: Three views right foot. Procedure Note Jareth Jones MD - 05/03/2023 For Patients: As a result of the Cures Act, medical imagingexams and procedure reports are released immediately into your electronicmedical record. You may view this report before your referring provider.If you have questions, please contact your health care provider. INDICATION: Dry gangrene right hallux. TECHNIQUE: Three views right foot. IMPRESSION: Assessment of the toes is limited by flexion. No soft tissue air. Noforeign body. No obvious bone resorption. No fracture or significant bonelesion. 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 Dictated by Jareth Jones MD @ May 03 2023 6:22PM (Electronically Signed) [facility] [place] [facility] * (ABNORMAL) HEMOGLOBIN A1C SCREENING (05/03/2023 8:49 AM WATER REGULATOR AND VALVE REPAIRER) HEMOGLOBIN A1C SCREENING 7.2(H) <=6.4 % 05/03/2023 2:03 PM WATER REGULATOR AND VALVE REPAIRER [facility] Walk-in Appointment Scheduler-[facility] Blood BLOOD SPECIMEN / Unknown Butterfly / Unknown 05/03/2023 8:49 AM WATER REGULATOR AND VALVE REPAIRER 05/03/2023 8:59 AM WATER REGULATOR AND VALVE REPAIRER Narrative [facility] - 05/03/2023 2:03 PM WATER REGULATOR AND VALVE REPAIRER ? (<5.7%) ?Normal ? (5.7% to 6.4%) ? Indicates prediabetes ? (>=6.5%) ? Confirms diabetes Falsely low levels may be seen with: Recent Transfusion, Recent Significant Blood Loss, Hemolytic Diseases, or Falsely elevated levels may be seen with: Untreated Anemias, Splenectomy [facility] FRAGAM CHEMISTRY Performing Organization Address [facility] de Phone Number [facility] [address] [place] [id number], [place] * EXTRA TUBE BLUE (05/03/2023 8:49 AM WATER REGULATOR AND VALVE REPAIRER) Blood BLOOD SPECIMEN / Unknown Butterfly / Unknown 05/03/2023 8:49 AM WATER REGULATOR AND VALVE REPAIRER 05/03/2023 8:59 AM WATER REGULATOR AND VALVE REPAIRER Abida Louis MD LABORATORY Performing Organization Address [facility] de Phone Number [facility] [address] [place] [id number], [place] * (ABNORMAL) CBC (05/03/2023 8:49 AM WATER REGULATOR AND VALVE REPAIRER) Only the most recent of3 resultswithin the time period is included. WHITE BLOOD COUNT 7.1 4.5 - 11.0 thou/cu mm 05/03/2023 9:18 AM [facility] RED BLOOD COUNT 4.09(L) 4.30 - 5.90 mil/cu mm 05/03/2023 9:18 AM [facility] HEMOGLOBIN 10.9(L) 13.5 - 17.5 g/dL 05/03/2023 9:18 AM [facility] HEMATOCRIT 36.0(L) 37.0 - 53.0 % 05/03/2023 9:18 AM [facility] MCV 88 80 - 100 fL 05/03/2023 9:18 AM [facility] MCH 26.7 26.0 - 34.0 pg 05/03/2023 9:18 AM [facility] MCHC 30.3(L) 32.0 - 36.0 g/dL 05/03/2023 9:18 AM [facility] RDW 13.6 11.5 - 15.5 % 05/03/2023 9:18 AM [facility] PLATELET COUNT 343 140 - 440 thou/cu mm 05/03/2023 9:18 AM [facility] MPV 9.4 6.5 - 11.0 fL 05/03/2023 9:18 AM [facility] NRBC 0.0 % 05/03/2023 9:18 AM [facility] ABS NRBC 0.0 thou /cu mm 05/03/2023 9:18 AM [facility] Blood BLOOD SPECIMEN / Unknown Butterfly / Unknown 05/03/2023 8:49 AM WATER REGULATOR AND VALVE REPAIRER 05/03/2023 8:59 AM WATER REGULATOR AND VALVE REPAIRER [facility] LABORATORY - 05/03/2023 9:18 AM WATER REGULATOR AND VALVE REPAIRER Call if Hemoglobin less than 10. eJnnifer Torres MD HEMATOLOGY [facility] [address] [place] [address], * (ABNORMAL) Basic Metabolic Panel (05/03/2023 8:49 AM WATER REGULATOR AND VALVE REPAIRER) Only the most recent of4 resultswithin the time period is included. SODIUM 137 136 - 145 mmol/L 05/03/2023 9:43 AM [facility] POTASSIUM 4.3 3.5 - 5.1 mmol/L 05/03/2023 9:43 AM [facility] CHLORIDE 106 98 - 107 mmol/L 05/03/2023 9:43 AM [facility] CO2,TOTAL 20(L) 22 - 29 mmol/L 05/03/2023 9:43 AM [facility] ANION GAP 11 5 - 18 05/03/2023 9:43 AM [facility] GLUCOSE 97 70 - 99 mg/dL 05/03/2023 9:43 AM [facility] CALCIUM 9.5 8.8 - 10.2 mg/dL 05/03/2023 9:43 AM [facility] BUN 20 8 - 23 mg/dL 05/03/2023 9:43 AM [facility] CREATININE 1.68(H) 0.70 - 1.20 mg/dL 05/03/2023 9:43 AM [facility] BUN/CREAT RATIO 12 10 - 20 9:43 AM [facility] eGFR 42(L) >90 mL/min/1.7 3m2 05/03/2023 9:43 AM [facility] Comment:As of 2021, eG FR is calculated by the CKD-EPI creatinine equation without race adjustment. ??eGFR can be influenced by muscle mass, exercise, and diet. ??The reported eGFR is an estimation only and is only applicable if the renal function is stable. Blood BLOOD SPECIMEN / Unknown Butterfly / Unknown 05/03/2023 8:49 AM WATER REGULATOR AND VALVE REPAIRER 05/03/2023 8:59 AM WATER REGULATOR AND VALVE REPAIRER Jennifer Torres [facility] [address] [place] [phone], * SCAN-CARDIAC STRIP (05/03/2023 8:12 AM WATER REGULATOR AND VALVE REPAIRER) Scanner OTHER * APTT (05/03/2023 7:28 AM WATER REGULATOR AND VALVE REPAIRER) Only the most recent of9 resultswithin the time period is included. APTT 31 29 - 36 sec 05/03/2023 8:17 AM [facility] Blood BLOOD SPECIMEN / Unknown Butterfly / Unknown 05/03/2023 7:28 AM WATER REGULATOR AND VALVE REPAIRER 05/03/2023 7:42 AM WATER REGULATOR AND VALVE REPAIRER Narrative [facility] - 05/03/2023 8:17 AM WATER REGULATOR AND VALVE REPAIRER Therapeutic Range: 57-100 seconds Donal Meneses MD HEMATOLOG Y [facility] [address] [place] [address], [place] * PV OTHER PROCEDURE (05/02/2023 6:20 PM WATER REGULATOR AND VALVE REPAIRER) Anatomical Region Laterality Modality Other Narrative 05/02/2023 6:20 PM WATER REGULATOR AND VALVE REPAIRER Donal Meneses MD ? 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 PROCEDURES Ultrasound examination of the left groin and ultrasound guided access of the left common femoral artery Left common iliac artery balloon angioplasty (5x40 mm) Right common iliac artery balloon angioplasty (5x40 mm) Right lower extremity angiogram Recanalization of right superficial femoral artery chronic total occlusion Balloon angioplasty of right superficial femoral artery (4x200 mm) Ultrasound guided retrograde access of the right posterior tibial artery Retrograde recanalization of right popliteal artery, TP trunk, and posterior tibial artery Externalization of the retrograde wire from the left femoral access Balloon angioplasty of right popliteal, TP trunk, and posterior tibial artery (2x200 balloon) Intravascular ultrasound evaluation of right femoral, popliteal, TP trunk, and posterior tibial arteries Balloon angioplasty of right P3 segment of the popliteal artery, TP trunk and posterior tibial artery (2.5x150 mm balloon) Drug coated balloon angioplasty of the right popliteal artery (5x150 mm balloon) Drug coated balloon angioplasty of the right superficial femoral and proximal popliteal artery (6x150 and 6x100 mm balloons) Repeat intravascular ultrasound evaluation of right femoral, popliteal, TP trunk and posterior tibial arteries Stenting of the proximal right superficial femoral artery (8x100 mm Everflex stent) Balloon angioplasty of right P1 segment of the popliteal artery (6x60 mm balloon) Balloon angioplasty of distal right posterior tibial artery at the retrograde access point (2x40 mm balloon) Completion angiography Percutaneous closure of left common femoral access (Perclose) ANESTHESIA General INDICATIONS FOR PROCEDURE Clemente Benton is a 73 y.o. male patient with PMH significant for CAD, DM-2, HTN, CKD, and dementia presented to the vascular clinic with a worsening right toe and lateral foot wound. When I first saw the patient he did not have really much of any pain which his corroborated. However 2 days later he started to have more pain so he was sent to the emergency department and underwent diagnostic angiography of the right lower extremity on 04/[address] Galan. Due to the severity of the occlusions seen on the angiogram it was felt that he may do better with a femoral to tibial bypass. Further evaluation showed he only had a small segment of greater saphenous vein in the left thigh. Additional discussion with the patient and family regarding the option of open revascularization and endovascular revascularization was continued. Given his dementia the family thought that recovery from a bypass would be rather significant and not the ideal procedure given his overall status regardless of its potential improved long-term patency. So we discussed proceeding with angiogram with intervention and all were in agreement that we would attempt this first. The risks, benefits, as well as alternatives to surgical therapy were thoroughly discussed with the patient. The patient and understood that the risks of the procedure include, but are not limited to, bleeding, infection, need for reoperation, failure to revascularize, future limb loss, as well as perioperative complications from anesthesia. ??At this point the patient signed a surgical consent and wished for us to proceed. ?? OPERATIVE FINDINGS Ultrasound examination of the groin demonstrated the common femoral artery to be suitable as an access site. A hard copy of the image was placed into the patient's medical records. Based on the angiogram from last Monday we proceeded to go up and over the bifurcation and performed a right lower extremity angiogram from the common femoral artery which demonstrated the same findings as last Monday. Initially he had a right proximal femoral artery occlusion with reconstitution via collaterals at the distal superficial femoral artery. This then occluded at the P2 segment of the popliteal artery with distal reconstitution of the proximal anterior tibial artery, peroneal artery and posterior tibial artery via collaterals with the dominant runoff to the foot via the posterior tibial artery. Due to the stenosis and angulation of the iliac arteries it was difficult to advance the sheath over the bifurcation so a 5 mm balloon was inflated in both the left and right common iliac artery to help advance the sheath up and over into the common femoral artery. The right superficial femoral artery occlusion was crossed and ballooned with a 4 mm balloon to create a channel. We then subsequently attempted to cross the popliteal occlusion but were unable to advance the wire so we opted for a retrograde pedal access. The right posterior tibial artery was evaluated by ultrasound and felt to be adequate for retrograde access. We were able to cross the occlusion retrograde and snare the wire and externalized it out of the left femoral access. Intravascular ultrasound was then performed to obtain accurate vessel diameters and evaluate the nature of the stenosis. The wire did remain true lumen and the areas of occlusion and stenosis were fibrofatty plaque with mild to moderate calcification in some areas. After balloon angioplasty of the popliteal TP trunk and posterior tibial artery there was significantly improved flow into the foot with minimal residual stenosis throughout. His residual dissection of the proximal SFA recanalization was treated with a stent. At the P1 segment there was a small nonflow limiting dissection which we did not stent. The peroneal and anterior tibial artery reconstituted via collaterals and there is an intact pedal arch. PROCEDURE IN DETAIL After obtaining informed consent the patient was brought to the operating room and placed in a supine position. General anesthesia was induced by the anesthesia team. The groins and entirety of the right leg were prepped and draped in the standard sterile fashion. A preoperative time-out was performed which confirmed that the correct patient as well as procedure was being performed. We initiated the procedure by first performing the ultrasound examination with the findings as noted above. ??Under real-time ultrasonic guidance, we went ahead and placed the needle into the patent common femoral artery. This was done utilizing a micropuncture kit and we subsequently placed in a 5-Moroccan sheath. We then were able to select the contralateral common femoral artery by using a catheter. We then performed the angiograms with the findings as noted. The patient was systemically heparinized to an ACT > 250 and this was monitored throughout the procedure. A Rod wire was advanced to the right common femoral artery and a 6 Fr x 45 cm sheath was exchanged. The sheath would not track over the iliac bifurcation due to stenosis and the angulation. Thus we exchanged the Rod wire for an Amplatz superstiff wire and used a 5 mm balloon to perform balloon angioplasty of the left and right common iliac arteries which allowed us to advance our sheath into the right common femoral artery. We subsequently used a 0.035 soft angled Glidewire and Navicross catheter and crossed the proximal chronic total occlusion. We performed balloon angioplasty of this occlusion with a 4 x 200 mm balloon. We then advanced our sheath into the superficial femoral artery over the Amplatz wire. Using a Mongo ES 0.014 wire and Charleston catheter we attempted to cross antegrade through the popliteal occlusion however the wire was only tracking into branches and a subintimal plane. So we decided to perform retrograde pedal access. Ultrasound was used to evaluate the right posterior tibial artery which was felt to be suitable for retrograde access. Using a micropuncture needle and real-time ultrasound evaluation the needle was seen entering the posterior tibial artery and the micropuncture wire was advanced into the posterior tibial artery. Over the micropuncture wire we advanced the micropuncture sheath dilator and subsequently through that a V18 wire. The V18 wire was used to cross the posterior tibial, TP trunk, and popliteal artery occlusion. Using the Ensnare we snared the V18 from the left femoral access and externalized the wire. Over the wire we advanced a 2 x 200 mm balloon and performed initial balloon angioplasty to create a channel through the occlusion. Intravascular ultrasound was then used to evaluate the femoral, popliteal, TP trunk, and posterior tibial segments in order to evaluate the morphology of the stenosis which appeared to be more fibrofatty rather than calcium although there was mild to moderate calcification. Additionally the intravascular ultrasound allowed us to better evaluate the diameters of the arteries to appropriately size our therapy. Subsequently a 2.5 mm balloon was used to perform balloon angioplasty of the distal popliteal, TP trunk, posterior tibial artery. Then a 5 x 150 mm drug-coated balloon was used to perform balloon angioplasty of the right popliteal artery. And finally 6 x 150 and 6 x 100 mm drug-coated balloons were used to perform balloon angioplasty of the right superficial femoral artery. IVUS and angiography demonstrated residual dissection and stenosis of the proximal superficial femoral artery so an 8 x 100 mm Everflex stent was deployed and post-dilated. There was an additional small dissection of the popliteal artery so we performed another prolonged balloon inflation with a 6 mm balloon. After this a small nonflow limiting dissection was still present but not stented. We then advanced a wire to the retrograde pedal access and performed a 5-minute inflation with a 2 mm balloon to obtain hemostasis after removal of the micro sheath dilator. Completion angiography demonstrated significantly improved flow through the femoral popliteal TP trunk and posterior tibial artery. The anterior and peroneal artery reconstitutes distally via collaterals and there is an intact pedal arch. We then subsequently withdrew our catheter and the sheath was removed over a Bentson wire and a Perclose was successfully deployed for hemostasis. A sterile dressing was then placed on top of the access points. SPECIMENS REMOVED: None ESTIMATED BLOOD LOSS: 20 ml INTRAOPERATIVE FLUIDS: Please see medical records. SPONGE/INSTRUMENT/NEEDLE COUNTS: Sponge, instrument and needle counts are correct times two. CONDITION ON DISCHARGE FROM OPERATING ROOM: Condition at discharge was stable. COMPLICATIONS: There were none apparent. ATTESTATION OF PRESENCE: I was present and scrubbed for the entire procedure as dictated above. SUPERVISOR COIN MACHINE MEASURES: We utilized approximately 65 ml of Visipaque contrast and fluoroscopy time was approximately 32.8 minutes (232 mGy). The patient was systemically heparinized during the procedure Donal Meneses MD Vascular and Endovascular Surgery Donal Meneses MD CV IMAGIN G * (ABNORMAL) ACTIVATED CLOTTING TIME [id number] ACT (05/02/2023 6:05 PM WATER REGULATOR AND VALVE REPAIRER) Only the most recent of7 resultswithin the time period is included. ACTIVATED CLOTTING TIME, POCT 228(H) 74 - 125 sec 05/02/2023 6:29 PM WATER REGULATOR AND VALVE REPAIRER [facility] Blood BLOOD SPECIMEN / Unknown 05/02/2023 6:05 PM WATER REGULATOR AND VALVE REPAIRER 05/02/2023 6:29 PM WATER REGULATOR AND VALVE REPAIRER Abida Louis MD [facility] [address] [place] [address], [place] * HCHG TUBE PR1, HCHG INSTRUMENT DISP PR10, HCHG STYLET PR1 (05/02/2023 2:40 PM WATER REGULATOR AND VALVE REPAIRER) Narrative Jatin Ross CRNA - 05/02/2023 2:40 PM WATER REGULATOR AND VALVE REPAIRER Jatin Ross CRNA ? 05/02/2023 ??2:41 PM Procedure: ETT Patient location during procedure: OR ETT Properties Mask Ventilation: easy and oral airway Final Technique: video laryngoscopy Type: straight Location: oral Cuffed: yes Tube Size: 7.5 mm Stylet: yes Laryngoscope Blade: Glidescope Blade Size: 4 Cormack-Lehane Grade View: 1 Insertion Attempts: 1 Placement Verification: auscultation, end tidal CO2, symmetrical chest wall movement and cuff palpation Assessment: pharynx clear, atraumatic and dentition unchanged Secured at: 21 Measured From: lips Difficulty: 0 (not difficult) Difficulty Comment: limited neck mobility Jatin Ross CRNA ANESTHESIA PX NOTE ORDERABLES * SCAN-CARDIAC STRIP (05/02/2023 12:00 AM WATER REGULATOR AND VALVE REPAIRER) Narrative 05/02/2023 12:00 AM WATER REGULATOR AND VALVE REPAIRER Ordered by an unspecified provider. Other Clinical Staff OTHER * GLUCOSE, RANDOM (04/30/2023 7:26 AM WATER REGULATOR AND VALVE REPAIRER) GLUCOSE,RANDOM 116 70 - 139 mg/dL 04/30/2023 10:36 AM WATER REGULATOR AND VALVE REPAIRER [facility] Blood BLOOD SPECIMEN / Unknown Venipuncture / Unknown 04/30/2023 7:26 AM WATER REGULATOR AND VALVE REPAIRER 04/30/2023 7:39 AM WATER REGULATOR AND VALVE REPAIRER Lisbeth Dee RN CHEMISTRY [facility] [address] [place] [address], * (ABNORMAL) Creatinine AM (04/30/2023 7:26 AM WATER REGULATOR AND VALVE REPAIRER) Only the most recent of2 resultswithin the time period is included. eGFR 50(L) >90 mL/min/1.7 3m2 04/30/2023 8:06 AM WATER REGULATOR AND VALVE REPAIRER [facility] Comment:As of 2021, eG FR is calculated by the CKD-EPI creatinine equation without race adjustment. ??eGFR can be influenced by muscle mass, exercise, and diet. ??The reported eGFR is an estimation only and is only applicable if the renal function is stable. CREATININE 1.45(H) 0.70 - 1.20 mg/dL 04/30/2023 8:06 AM WATER REGULATOR AND VALVE REPAIRER [facility] Blood BLOOD SPECIMEN / Unknown Venipuncture / Unknown 04/30/2023 7:26 AM WATER REGULATOR AND VALVE REPAIRER 04/30/2023 7:39 AM WATER REGULATOR AND VALVE REPAIRER Abida Louis MD CHEMISTRY [facility] [address] [place] [address], [place] * US VEIN MAPPING LOWER EXTREMITY BILATERAL (04/28/2023 5:38 PM WATER REGULATOR AND VALVE REPAIRER) Anatomical Region Laterality Modality LEGS, LEG L, LEG R Ultrasound Impressions 04/29/2023 3:00 PM WATER REGULATOR AND VALVE REPAIRER ??Bilateral lower extremity superficial venous mapping with diameters outlined above. The bilateral greater saphenous veins are patent and compressible throughout. The right small saphenous vein is noncompressible in the distal calf. The left small saphenous vein is noncompressible throughout. Chase Barnes M.D. Vascular and Interventional Radiology [employer] [email or web address] / Narrative 04/29/2023 3:00 PM WATER REGULATOR AND VALVE REPAIRER For Patients: As a result of the Century Cures Act, medical imaging exams and procedure reports are released immediately into your electronic medical record. ??You may view this report before your referring provider. ?? If you have questions, please contact your health care provider. ULTRASOUND LOWER EXTREMITY VENOUS MAPPING STUDY BILATERAL 04/28/2023 INDICATION: ??Assess for bypass suitability. ?? COMPARISON: ??None. TECHNIQUE: ??The bilateral lower extremity veins were examined with beckford-scale ultrasound, color-flow and Doppler spectral analysis. ?? Compressibility of the veins by transducer pressure was used to evaluate the presence or absence of DVT/SVT at sites per exam specific protocol. ?? Superficial vein diameters were measured in centimeters (cm) at sites per exam specific protocol. ?? FINDINGS: ??The bilateral greater saphenous veins are patent and compressible where visualized. The left small saphenous vein is noncompressible throughout. The right small saphenous vein is noncompressible in the distal calf. VEIN MAPPING Right Lower Extremity RT GSV/SFJ: ??10 mm RT GSV Prx Thigh: ??3.2 mm RT GSV Mid Thigh: ??2.9 mm RT GSV Distal Thigh: ??1.4 mm RT GSV at Knee: ??1.2 mm RT GSV Prx Calf: ??3.0 mm RT GSV Mid Calf: ??0.9 mm RT GSV Dst Calf: ??2.5 mm RT SSV Pop Fossa: ??1.9 mm RT SSV Prox Calf: ??1.8 mm RT SSV Mid Calf: ??1.6 mm RT SSV Dst Calf: ??N/V Left Lower Extremity LT GSV/SFJ: ??4.5 mm LT GSV Prx Thigh: ??3.2 mm LT GSV Mid Thigh: ??3.7 mm LT GSV Distal Thigh: ??1.7 mm LT GSV at Knee: ??1.5 mm LT GSV Prx Calf: ??2.9 mm LT GSV Mid Calf: ??2.4 mm LT GSV Dst Calf: ??2.2 mm LT SSV Pop Fossa: ??N/V LT SSV Prox Calf: ??N/V LT SSV Mid Calf: ??N/V LT SSV Dst Calf: ??N/V mm Rosie Orourke MD [place] * SCAN-CARDIAC STRIP (04/28/2023 4:41 PM WATER REGULATOR AND VALVE REPAIRER) Scanner OTHER * SCAN-OPERATIVE/PROCEDURE REPORT (04/28/2023 12:00 AM WATER REGULATOR AND VALVE REPAIRER) Narrative 04/28/2023 12:00 AM WATER REGULATOR AND VALVE REPAIRER Ordered by an unspecified provider. Other Clinical Staff OTHER * LACTATE SCREEN VENOUS ISTAT W SHAKEEL (04/27/2023 9:43 PM WATER REGULATOR AND VALVE REPAIRER) LACTATE VENOUS SCREEN ISTAT <1.8 <=2.0 04/27/2023 9:48 PM WATER REGULATOR AND VALVE REPAIRER [facility] LACTATE SCREEN VENOUS POCT 1.5 <=2.0 04/27/2023 9:48 PM WATER REGULATOR AND VALVE REPAIRER [facility] Blood BLOOD SPECIMEN / Unknown 04/27/2023 9:43 PM WATER REGULATOR AND VALVE REPAIRER 04/27/2023 9:48 PM WATER REGULATOR AND VALVE REPAIRER Helen Ryder MD LABORATORY [facility] LABORATORY [address] [place] [address], * TYPE & SCREEN (04/27/2023 8:21 PM WATER REGULATOR AND VALVE REPAIRER) ABORH O Rh Positive 04/27/2023 9:31 PM WATER REGULATOR AND VALVE REPAIRER [facility] LAB BLOOD BANK ANTIBODY SCREEN Negative Negative 04/27/2023 9:31 PM WATER REGULATOR AND VALVE REPAIRER [facility] LAB BLOOD BANK SPECIMEN EXPIRATION DATE/TIME 04/30/23 23:59 04/27/2023 9:31 PM WATER REGULATOR AND VALVE REPAIRER [facility] LAB BLOOD BANK Blood BLOOD SPECIMEN / Unknown Non-Lab Venipuncture / Unknown 04/27/2023 8:21 PM WATER REGULATOR AND VALVE REPAIRER 04/27/2023 8:48 PM WATER REGULATOR AND VALVE REPAIRER Rosie Orourke MD BLOOD BANK [facility] LAB BLOOD BANK [address] [place] [address], * (ABNORMAL) ISTAT EC8 (04/27/2023 7:52 PM WATER REGULATOR AND VALVE REPAIRER) GLUCOSE, POCT 70 70 - 99 mg/dL 04/27/2023 7:56 PM WATER REGULATOR AND VALVE REPAIRER [facility] TRAL LABORATORY BUN, POCT 37(H) 8 - 25 mg/dL 04/27/2023 7:56 PM WATER REGULATOR AND VALVE REPAIRER [facility] TRAL LABORATORY SODIUM, POCT 135 135 - 145 mmol/L 04/27/2023 7:56 PM WATER REGULATOR AND VALVE REPAIRER [facility] TRAL LABORATORY POTASSIUM, POCT 4.3 3.5 - 5.0 mmol/L 04/27/2023 7:56 PM [facility] CHLORIDE, POCT 107 98 - 107 mmol/L 04/27/2023 7:56 PM WATER REGULATOR AND VALVE REPAIRER [facility] TRAL LABOR[facility] CO2,TOTAL, POCT 21 21 - 31 mmol/L 04/27/2023 7:56 PM WATER REGULATOR AND VALVE REPAIRER [facility] ANION GAP, POCT 13 5 - 18 04/27/2023 7:56 PM WATER REGULATOR AND VALVE REPAIRER [facility] LABORATORY PH, VENOUS, POCT 7.44(H) 7.32 - 7.42 04/27/2023 7:56 PM WATER REGULATOR AND VALVE REPAIRER [facility] PCO2, VENOUS, POCT 29(L) 41 - 51 mmHg 04/27/2023 7:56 PM [facility] HCO3, VENOUS, POCT 20(L) 22 - 30 mmol/L 04/27/2023 7:56 PM [facility] LABOR[facility] BASE EXCESS, VENOUS, POCT -5.0(L) -2.0 - 3.0 04/27/2023 7:56 PM [facility] LABOR[facility] HEMATOCRIT, POCT 35.0(L) 37.0 - 53.0 % 04/27/2023 7:56 PM [facility] HEMOGLOBIN, POCT 11.9(L) 13.5 - 17.5 g/dL 04/27/2023 7:56 PM [facility] Blood BLOOD SPECIMEN / Unknown 04/27/2023 7:52 PM WATER REGULATOR AND VALVE REPAIRER 04/27/2023 7:56 PM WATER REGULATOR AND VALVE REPAIRER Helen Ryder MD CHEMISTRY [facility] [address] [place] [address], * BLOOD CULTURE X2 (04/27/2023 7:41 PM WATER REGULATOR AND VALVE REPAIRER) Only the most recent of2 resultswithin the time period is included. CULTURE No Growth. 05/01/2023 9:49 PM WATER REGULATOR AND VALVE REPAIRER [facility] LABORATORY Blood BLOOD SPECIMEN / Unknown Non-Lab Venipuncture / Unknown 04/27/2023 7:41 PM WATER REGULATOR AND VALVE REPAIRER 04/27/2023 7:49 PM WATER REGULATOR AND VALVE REPAIRER Narrative [facility] - 05/01/2023 9:49 PM WATER REGULATOR AND VALVE REPAIRER Low volume blood culture received; possible false negative culture. Helen Ryder MD MICROBIOLOGY Performing Organization Address [facility]/ZIP Co de Phone Number [facility] [address] [place] [address], * EXTRA TUBE B[place]FORD ON ICE (04/27/2023 7:35 PM WATER REGULATOR AND VALVE REPAIRER) Blood BLOOD SPECIMEN / Unknown Non-Lab Venipuncture / Unknown 04/27/2023 7:35 PM WATER REGULATOR AND VALVE REPAIRER 04/27/2023 7:50 PM WATER REGULATOR AND VALVE REPAIRER Helen Ryder MD LABORATORY Performing Organization Address [facility] Co de Phone Number [facility] [address] [place] [address], * (ABNORMAL) CBC WITH AUTO DIFFERENTIAL (04/27/2023 7:34 PM WATER REGULATOR AND VALVE REPAIRER) WHITE BLOOD COUNT 7.3 4.5 - 11.0 thou/cu mm 04/27/2023 8:00 PM WATER REGULATOR AND VALVE REPAIRER [facility] TRAL LABORATORY RED BLOOD COUNT 4.20(L) 4.30 - 5.90 mil/cu mm 04/27/2023 8:00 PM WATER REGULATOR AND VALVE REPAIRER [facility] TRAL LABORATORY HEMOGLOBIN 11.7(L) 13.5 - 17.5 g/dL 04/27/2023 8:00 PM [facility] HEMATOCRIT 35.4(L) 37.0 - 53.0 % 04/27/2023 8:00 PM WATER REGULATOR AND VALVE REPAIRER [facility] TRAL LABORATORY MCV 84 80 - 100 fL 04/27/2023 8:00 PM [facility] MCH 27.9 26.0 - 34.0 pg 04/27/2023 8:00 PM WATER REGULATOR AND VALVE REPAIRER [facility] MCHC 33.1 32.0 - 36.0 g/dL 04/27/2023 8:00 PM [facility] RDW 13.3 11.5 - 15.5 % 04/27/2023 8:00 PM [facility] PLATELET COUNT 425 140 - 440 thou/cu mm 04/27/2023 8:00 PM [facility] MPV 9.3 6.5 - 11.0 fL 04/27/2023 8:00 PM [facility] NRBC 0.0 % 04/27/2023 8:00 PM [facility] ABS NRBC 0.0 thou /cu mm 04/27/2023 8:00 PM [facility] % NEUT 68.6 % 04/27/2023 8:00 PM [facility] % LYMPH 16.8 % 04/27/2023 8:00 PM [facility] % MONO 12.2 % 04/27/2023 8:00 PM [facility] % EOS 1.1 % 04/27/2023 8:00 PM [facility] % BASO 0.3 % 04/27/2023 8:00 PM [facility] % IMMATURE GRAN (METAS,MYELOS,NY OS) 1.0 % 04/27/2023 8:00 PM [facility] ABSOLUTE NEUTROPHILS 5.0 1.7 - 7.0 thou/cu mm 04/27/2023 8:00 PM [facility] ABSOLUTE LYMPHOCYTES 1.2 0.9 - 2.9 thou/cu mm 04/27/2023 8:00 PM [facility] ABSOLUTE MONOCYTES 0.9(H) <0.9 thou/cu mm 04/27/2023 8:00 PM [facility] ABSOLUTE EOSINOPHILS 0.1 <0.5 thou/cu mm 04/27/2023 8:00 PM [facility] ABSOLUTE BASOPHILS 0.0 <0.3 thou/cu mm 04/27/2023 8:00 PM WATER REGULATOR AND VALVE REPAIRER [facility] TRAL LABORATORY ABSOLUTE IMMATURE GRANULOCYTES(MET ,MYELOS,PROS) 0.1 <0.3 thou/cu mm 04/27/2023 8:00 PM WATER REGULATOR AND VALVE REPAIRER [facility] TRAL LABORATORY Blood BLOOD SPECIMEN / Unknown Non-Lab Venipuncture / Unknown 04/27/2023 7:34 PM WATER REGULATOR AND VALVE REPAIRER 04/27/2023 7:49 PM WATER REGULATOR AND VALVE REPAIRER Helen Ryder MD [facility] [address] [place] [address], [place] * US ARTERIAL LOWER EXTREMITY W REYNA BILATERAL (04/26/2023 1:40 PM WATER REGULATOR AND VALVE REPAIRER) Anatomical Region Laterality Modality LEGS Ultrasound 04/26/2023 1:01 PM WATER REGULATOR AND VALVE REPAIRER Narrative 04/26/2023 6:51 PM WATER REGULATOR AND VALVE REPAIRER VASCULAR ULTRASOUND REPORT CLEMENTE BENTON Accession#: ?? [id number] : ?1950 Study Date: ?? 04/26/2023 1:01:19 PM Age: ?73 years ?? Tech: ? JSL Gender: M ?Referring MD: CARMEN CARBONE Site: [facility] Study performed: ?Lower extremity (bilateral), [...] Phasicity ? +--------+ + + +--------+ + TURNTABLE WORKER PRX ? 74 ? multiphasic ? +--------+ + + +--------+ + TURNTABLE WORKER DST ? 82 ? multiphasic ? +--------+ [...] monophasic ? +--------+ + + +--------+ + SHUTTLE PREPARATION SUPERVISOR DST ? 16 ? monophasic ? +--------+ + + +--------+ + ENEIDA DST ? 13 ? monophasic ? +--------+ + + +--------+ + DPA ? 14 ? monophasic ? +--------+ + + +--------+ + +--------+ + + LEFT ? Velocity cm/s Phasicity ?? +--------+ + + TURNTABLE WORKER PRX ? 57 ? multiphasic +--------+ + + TURNTABLE WORKER DST ? 66 ? multiphasic +--------+ + + PFA ? 91 ? multiphasic +--------+ + + SFA PRX ? 53 ? multiphasic +--------+ + + SFA MID ? 67 ? multiphasic +--------+ + + SFA DST ? 39 ? multiphasic +--------+ + + TRUDY PRX ? 33 ? multiphasic +--------+ + + TRUDY DST ? 40 ? monophasic +--------+ + + SHUTTLE PREPARATION SUPERVISOR DST ? 20 ? monophasic +--------+ + [...] Index +-----+ +--------+ +-----+ 0.75 ? 72 ?SHUTTLE PREPARATION SUPERVISOR ?74 ? 0.77 +-----+ +--------+ +-----+ 0.66 ? 63 ?DPA ?98 ? 1.02 +-----+ +--------+ +-----+ 0.00 ? 0 ? Digit 1 ?45 ? 0.47 +-----+ +--------+ +-----+ Donal Meneses MD. Electronically signed on 04/26/2023 6:51:00 PM This study was performed and interpreted by a service accredited by the Intersocietal Accreditation Commission (IAC/Vascular), [email or web address].org/vascular Report generated by [email or web address]. ??Final ?? Procedure Note Donal Meneses MD - 04/26/2023 VASCULAR ULTRASOUND REPORT CLEMENTE BENTON : 1950 Study Date: 04/26/2023 1:01:19 PM Age: 73 years Tech: ETHEL Gender: M Referring MD: CARMEN CARBONE Site: [facility] Study performed: Lower extremity (bilateral), [...] cm/s Phasicity +--------+ + + +--------+ + TURNTABLE WORKER PRX 74 multiphasic +--------+ + + +--------+ + TURNTABLE WORKER DST 82 multiphasic +--------+ + + +--------+ [...] 17 monophasic +--------+ + + +--------+ + SHUTTLE PREPARATION SUPERVISOR DST 16 monophasic +--------+ + + +--------+ + ENEIDA DST 13 monophasic +--------+ + + +--------+ + DPA 14 monophasic +--------+ + + +--------+ + +--------+ + + LEFT Velocity cm/s Phasicity +--------+ + + TURNTABLE WORKER PRX 57 multiphasic +--------+ + + TURNTABLE WORKER DST 66 multiphasic +--------+ + + PFA 91 multiphasic +--------+ + + SFA PRX 53 multiphasic +--------+ + + SFA MID 67 multiphasic +--------+ + + SFA DST 39 multiphasic +--------+ + + TRUDY PRX 33 multiphasic +--------+ + + TRUDY DST 40 monophasic +--------+ + + SHUTTLE PREPARATION SUPERVISOR DST 20 monophasic +--------+ + + DPA 30 monophasic +--------+ + + Criteria: Stenosis V. Ratio Mild <50% <2.0 Moderate 50-74% > or = 2.0 Severe 75-99% > or = 4.0 Occluded 100% no detectable flow Pressures +-----+ +--------+ +-----+ RIGHT (mmHg) LEFT (mmHg) +-----+ +--------+ +-----+ Index 96 Brachial 94 Index +-----+ +--------+ +-----+ 0.75 72 SHUTTLE PREPARATION SUPERVISOR 74 0.77 +-----+ +--------+ +-----+ 0.66 63 DPA 98 1.02 +-----+ +--------+ +-----+ 0.00 0 Digit 1 45 0.47 +-----+ +--------+ +-----+ Donal Meneses MD. Electronically signed on 04/26/2023 6:51:00 PM This study was performed and interpreted by a service accredited by theIntersocietal Accreditation Commission (IAC/Vascular),www.intersocietal.org/vascular Report generated by [employer]. 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 Healthcare Directive 05/05/2022 023 Latest Code Status on File Code Status Date Activated Date Inactivated Comments DNR 04/27/2023 11:01 PM 05/05/2023 7:29 PM Question Answer Comments Code Status Discussion: Reviewed Preferences Code Status History Code Status Date Activated Date Inactivated Comments Full Code 04/27/2023 10:47 PM 04/27/2023 11:01 PM Question Answer Comments Code Status Discussion: Unable to Assess Preferences, Provider to review later Full Code 09/28/2015 9:24 PM 10/01/2015 1:41 PM Full Code 09/28/2015 1:04 PM 09/28/2015 9:24 PM Question Answer Comments Code Status Discussion: Not Discussed Care Teams Smooth And [employer]r Worker Composites Relationship Specialty Start Date End Date Rl Monroe MD PCP - General Family Practice 08/19/15
--- OUTSIDE RECORDS SUMMARY | 2023-05-05 19:37 | XMS_ITS | Continuity of Care Document ---
Author Name Unknown Organization [facility] Address [address] [place] [address] Phone Care Team Providers Care Display Screen Fabricator Name Role Phone Navid Massey Unavailable Unavailable [...] ASPIRIN (unknown strength) Not Available - Active Irving 5 mg-325 mg tablet take 1 - [...] C, [address], [place], [place], [id number], [place] tel:[phone] [facility] Encounter for other specified surgical aftercare 6 Manuelito Shoemaker. [facility], [address] [place] [address] [address], [facility], [place], [id number] , [place]. [phone] Referring Provider: Clemente Escobar, [facility] [address], [place], [address]. tel:[phone] [facility], [address], [place], [place], [id number], [place] tel:[phone] [facility] No Information 6 Samantha Tejeda. [facility], [address] [place] [address] [address], [facility] [place], [place], [id number] , [place]. [phone] Referring Provider: Clemente Escobar, [facility] [address], [place], [address]. tel:[phone] [facility], [address], [place], [place], [id number], [place] tel:[phone] [facility] No Information 6 Manuelito Shoemaker. [facility], [address] [place] [address] [address], [facility] [place], [id number] , [place]. tel:[phone] [facility], [address], [place], [id number], [place] tel:[phone] [facility] No Information 6 Manuelito Shoemaker. [facility], [address] [place] [address] [address], [place], [place], [id number] , [place]. tel:[phone] Office/Outpat ient Visit,Scott Adams [facility], [address], [place], [place], [id number], [place] tel:[phone] [facility] Spinal stenosis, lumbar region 0 Manuelito Shoemaker. [facility], [address] [place] [address] [address], [place], [id number] , [place]. tel:[phone] Referring Provider: Clemente Escobar, [facility] [address], [place], [address]. tel:[phone] Family History Family Member Type Diagnosis Age At Onset No Information Payers Payer name Insurance type Covered democr[place] ID [id number] Medicare [facility] BL [id number] Social History Type Description Quantity Date Captured [...]
--- NOTE | 2023-05-05 20:06 | ED_ITS ---
HPI - General Adult General Chief complaint: Fall/Minor Trauma Stated complaint: fall Time Seen by Provider: 05/05/23 19:18 Source: family and EMS Mode of arrival: EMS Limitations: other (Dementia) History of Present Illness HPI narrative: 73-year-old male with history of dementia presents today after a fall. Patient was waiting in the car while his was grocery shopping when he decided to get out of the car and started wandering around the parking lot. A witness stated that he suddenly fell backwards and hit his head on the concrete. Patient is complaining of head, neck and back pain. He did not allow EMS to put a cervical collar on him. Per EMS and witness, patient did not lose consciousness. Past medical history is also significant for diabetes, vascular insufficiency. Related Data Home Medications Medication Instructions Recorded Confirmed cyanocobalamin (vitamin B-12) 1,000 mcg PO DAILY 10/08/21 04/12/23 1,000 mcg tablet multivitamin 1 tab PO QAM 10/08/21 04/12/23 aspirin 81 mg tablet,delayed 81 mg PO QDAY 03/14/23 04/12/23 release (Adult Aspirin Regimen) levofloxacin 750 mg tablet 750 mg PO Q48H 03/31/23 04/12/23 Previous Rx's Medication Instructions Recorded ipratropium bromide 42 mcg (0.06 2 spray intranasal TID #15 mL 09/26/22 %) nasal spray hydrochlorothiazide 25 mg tablet 25 mg PO QAM #90 tabs 09/27/22 levothyroxine 150 mcg tablet 150 mcg PO DAILY #90 tabs 11/08/22 metoprolol tartrate 25 mg tablet 12.5 mg (1/2 x 25 mg) PO BID #180 11/25/22 tabs olanzapine 5 mg tablet 5 mg PO DAILY #90 tabs 12/21/22 atorvastatin 40 mg tablet See Rx Instructions .Route 02/14/23 .COMPLEX #90 tabs fenofibrate nanocrystallized 48 mg See Rx Instructions .Route 02/14/23 tablet .COMPLEX #180 tabs fluoxetine 20 mg capsule See Rx Instructions .Route 03/15/23 .COMPLEX #90 caps glipizide 10 mg tablet, extended 10 mg PO QDAY #90 tabs 03/15/23 release 24 hr amoxicillin 875 mg-potassium 1 tab PO BID #28 tabs 03/31/23 clavulanate 125 mg tablet azithromycin 250 mg tablet See Rx Instructions PO .COMPLEX #6 04/12/23 tabs oxycodone 5 mg tablet 5 mg PO Q8H PRN pain #20 tabs 04/18/23 Allergies Allergy/AdvReac Type Severity Reaction Status Date / Time No Known Drug Allergies Allergy Verified 04/12/23 11:11 Review of Systems Status of ROS: Reports: 10 or more systems reviewed and unremarkable except as noted in History and below PFSH PFS Medical History 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 Health care directive on file ?Z78.9 - Other specified health status (ICD-10) Submucosal rectal lesion ?K62.9 - Disease of anus and rectum, unspecified (ICD-10) History of adenomatous polyp of colon (2013) ?Z86.010 - Personal history of colonic polyps (ICD-10) High prostate specific antigen (PSA) ?R97.20 - Elevated prostate specific antigen [PSA] (ICD-10) Cataract (01/12/12) ?H26.9 - Unspecified cataract (ICD-10) Surgical History H/O cataract extraction ?Z98.49 - Cataract extraction status, unspecified eye (ICD-10) H/O shoulder surgery ?Z98.890 - Other specified postprocedural states (ICD-10) History of tonsillectomy (04/14/06) ?Z90.89 - Acquired absence of other organs (ICD-10) History of excision of lamina of lumbar vertebra for decompression of spinal cord (2015) ?Z98.890 - Other specified postprocedural states (ICD-10) History of coronary artery bypass surgery (1993) ?Z95.1 - Presence of aortocoronary bypass graft (ICD-10) Social History Smoking Status: Former smoker Do you use any of these nicotine containing products: None Second hand tobacco smoke exposure: No How often do you have a drink containing alcohol: never How often do you have six or more drinks on one occasion: Never AUDIT-C Alcohol total score: 0 Non-prescribed substance use: denies use Little interest or pleasure in doing things: more than half the days Feeling down, depressed, or hopeless: more than half the days service: Yes Exam Narrative: Exam Narrative: Well-nourished well-developed patient. Patient can not answer some questions with yes or no. Can not tell me where his pain is or isn't by saying yes or no. He appears chronically uncomfortable. HEENT: Normocephalic atraumatic. Pupils are equally round reactive to light. Extraocular muscles are intact. Conjunctivae are moist without any icterus noted. Moist mucous membranes. Cardiovascular: Heart is regular rate and rhythm . Lungs: Clear to auscultation bilaterally. Abdomen: Soft and nontender nondistended with normal bowel sounds. Skin: Well perfused without any obvious rashes. Back: Normal appearance. He since he is so uncomfortable is difficult to tell if he is having pain with palpation of the cervical, thoracic or lumbar spine. Const: Vital Signs, click to edit/add: Vital Signs - 24 hr 05/05/23 19:18 Temperature 97.7 F Pulse Rate [Pulse Oximeter] 70 Respiratory Rate 24 Blood Pressure [Le ft Upper Arm] 108/59 L Pulse Oximetry 99 Oxygen Delivery Me thod Room Air Course Course ED Course: Because examination was so difficult, we did proceed with head, cervical, lumbar and thoracic spine CT. Imaging was negative for any acute pathology. Vital Signs Vital signs: Initial Vital Signs Temperature 97.7 F 05/05/23 19:18 Temperature Source Temporal Artery Scan 05/05/23 19:18 Pulse Rate 70 05/05/23 19:18 Respiratory Rate 24 05/05/23 19:18 Blood Pressure 108/59 L 05/05/23 19:18 Blood Pressure Mean 75 05/05/23 19:18 Blood Pressure Position Supine 05/05/23 19:18 Pulse Oximetry 99 05/05/23 19:18 Oxygen Delivery Method Room Air 05/05/23 19:18 Vital Signs Temperature 97.7 F 05/05/23 19:18 Pulse Rate 70 05/05/23 19:18 Respiratory Rate 24 05/05/23 19:18 Blood Pressure 108/59 L 05/05/23 19:18 Pulse Oximetry 99 05/05/23 19:18 Oxygen Delivery Method Room Air 05/05/23 19:18 Temperature 97.7 F 05/05/23 19:18 Pulse Rate 70 05/05/23 19:18 Respiratory Rate 24 05/05/23 19:18 Blood Pressure 108/59 L 05/05/23 19:18 Pulse Oximetry 99 05/05/23 19:18 Oxygen Delivery Method Room Air 05/05/23 19:18 Medical Decision Making MDM Narrative Medical decision making narrative: [age] year old male status post witnessed fall. No evidence of acute significant injury found today. Patient discharged home to the care of his . Imaging Data CT scan - head: Attestation: I have reviewed the pertinent imaging results. Radiologist's impression: Noncontrast axial CT of the head. Coronal and sagittal reformats. Bone and soft tissue algorithms. COMPARISON: MRI brain and CT head, April 2021 FINDINGS: Generalized cerebral volume loss. No acute intracranial hemorrhage or abnormal extra-axial fluid collection. No midline shift, hydrocephalus, or herniation. Preserved rizvi-white matter differentiation. 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 Calcific intracranial atherosclerotic plaquing. Lobulated mucosal thickening in both maxillary sinuses. Bilateral cerumen impaction. Bilateral lens implants. IMPRESSION: 1. No skull fracture or acute intracranial hemorrhage identified. 2. Generalized cerebral volume loss, mild chronic microangiopathy changes, and small old right parietal infarct. 3. Bilateral cerumen impaction. CT cervical spine: Attestation: I have reviewed the pertinent imaging results. Radiologist's impression: Noncontrast axial CT of the cervical spine with coronal and sagittal reformats. Comparison: No relevant comparison studies available at this institution. Findings: The head and neck are tilted and turned rightward, limiting evaluation. Slight reversal of normal cervical lordosis. No acute fracture identified. No convincing evidence of traumatic malalignment given suboptimal positioning. Craniocervical articulation appears grossly maintained. The spinal canal appears widely patent. No concerning findings identified in the paraspinal soft tissues. Included lung apices are clear. Impression: 1. No convincing evidence of acute fracture or traumatic malalignment in the cervical spine given suboptimal positioning. CT thoracic spine: Attestation: I have reviewed the pertinent imaging results. Radiologist's impression: Noncontrast axial CT of the thoracic spine with coronal and sagittal reformats. Comparison: No relevant comparison studies available at this institution. Findings: Normal static alignment of the thoracic spine. No significant spondylolisthesis. Vertebral body heights are preserved. No evidence of acute fracture. Right ventrolateral bridging syndesmophytes spanning T3-7 with bulky ventrolateral projecting osteophytes throughout the mid and lower thoracic levels. Spinal canal appears grossly patent. No evidence of significant neural foraminal or spinal canal stenosis. Included lungs are clear. Impression: 1. No evidence of acute fracture or traumatic malalignment in the thoracic spine. 2. Scattered spondylosis without significant spinal canal stenosis. CT lumbar spine: Attestation: I have reviewed the pertinent imaging results. Radiologist's impression: Noncontrast axial CT of the lumbar spine with coronal and sagittal reformats. Comparison: No relevant comparison studies available at this institution. Findings: Preserved lumbar lordosis. Trace degenerative anterolisthesis at L2-3. Vertebral body heights are maintained. No acute osseous fracture identified. Degenerative changes and bony bridging across the bilateral SI joints. Aortoiliac atherosclerotic plaquing. Colonic diverticulosis. At L3-4, posterior disc-osteophyte complex and facet arthropathy, with suspected mild-moderate residual spinal canal narrowing status post inferior laminectomy decompression. At L4-5, posterior disc-osteophyte complex and facet arthropathy, with mild right and moderate left neural foraminal stenosis, but patent spinal canal status post laminectomy decompression. No other significant neural foraminal or spinal canal stenosis at the remaining levels. Impression: 1. No evidence of acute fracture or traumatic malalignment in the lumbar spine. 2. Lumbar spondylosis, post-laminectomy changes, and bilateral SI joint ankylosis as detailed. Discharge Plan Discharge Clinical Impression: Fall Patient Disposition: Home w/ Parent or Adult Condition: Stable Additional Instructions: Okay to use Tylenol as needed for discomfort. Okay to use a heating pad to the areas that are sore. He may experience increased soreness tomorrow. Return to the ER for increasing altered mental status, vomiting or other concerns. Prescriptions: No Action multivitamin Tablet 1 tab PO QAM cyanocobalamin (vitamin B-12) 1,000 mcg tablet 1,000 mcg PO DAILY aspirin [Adult Aspirin Regimen] 81 mg tablet,delayed release (DR/EC) 81 mg PO QDAY levofloxacin 750 mg tablet 750 mg PO Q48H amoxicillin-pot clavulanate 875-125 mg tablet 1 tab PO BID Qty: 28 0RF ipratropium bromide 42 mcg (0.06 %) spray,non-aerosol 2 spray intranasal TID Qty: 15 5RF Rx Instructions: administer into each nostril hydrochlorothiazide 25 mg tablet 25 mg PO QAM Qty: 90 3RF metoprolol tartrate 25 mg tablet 12.5 mg PO BID Qty: 180 3RF azithromycin 250 mg tablet See Rx Instructions PO .COMPLEX Qty: 6 0RF Rx Instructions: For 250 mg dose pack: take 500 mg today (day 1), then 250 mg for 4 days (days 2-5) PO oxycodone 5 mg tablet 5 mg PO Q8H PRN (Reason: pain) Qty: 20 0RF levothyroxine 150 mcg tablet 150 mcg PO DAILY Qty: 90 2RF olanzapine 5 mg tablet 5 mg PO DAILY Qty: 90 2RF fenofibrate nanocrystallized 48 mg tablet See Rx Instructions .ROUTE .COMPLEX Qty: 180 0RF Dose Instruction: TAKE 2 TABLETS BY MOUTH DAILY Rx Instructions: TAKE 2 TABLETS BY MOUTH DAILY atorvastatin 40 mg tablet See Rx Instructions .ROUTE .COMPLEX Qty: 90 1RF Dose Instruction: TAKE 1 TABLET BY MOUTH AT BEDTIME Rx Instructions: TAKE 1 TABLET BY MOUTH AT BEDTIME glipizide 10 mg tablet extended release 24hr 10 mg PO QDAY Qty: 90 3RF fluoxetine 20 mg capsule See Rx Instructions .ROUTE .COMPLEX Qty: 90 1RF Dose Instruction: TAKE 1 CAPSULE BY MOUTH DAILY Rx Instructions: TAKE 1 CAPSULE BY MOUTH DAILY Follow Up/Referrals: Rl Monroe MD [Primary Care Provider] - Stand Alone Forms: [facility] Info Instructions
== END 2023-05-05 21:04 | disposition home or self-care (01) ==
PROVIDERS: Emergency Provider Family Medicine; PCP Family Medicine
DX: Z71.1 Person with feared health complaint in whom no diagnosis is made (principal); W18.30XA Fall on same level, unspecified, initial encounter; Y93.01 Activity, walking, marching and hiking; Y92.481 Parking lot as the place of occurrence of the external cause
CPT/HCPCS: 70450; 72125; 72128; 72131; 99283; 99284; 99285

== ENCOUNTER 2023-05-09 05:51 | Outpatient (CLI) | payer MEDICARE, BC, SELFPAY ==
--- OUTSIDE RECORDS SUMMARY | 2023-05-12 16:16 | XMS_ITS | Continuity of Care Document ---
Author Name Unknown Organization [facility] Address [address] [place] [address] Phone Care Team Providers Care Holistic Specialist Name Role Phone Navid Massey Unavailable Unavailable [...] ASPIRIN (unknown strength) Not Available - Active [place] 5 mg-325 mg tablet take 1 - [...] C, [address], [place], [place], [id number], [place] tel:[phone] [facility] Encounter for other specified surgical aftercare 6 Manuelito Shoemaker. [facility], [address] [place] [address] [address], [facility] [place], [id number] , [place]. [phone] Referring Provider: Clemente Escobar, [facility] [address], [place], [address]. tel:[phone] [facility], [address], [place], [place], [id number], [place] tel:[phone] [facility] No Information 6 Samantha Tejeda. [facility], [address] [place] [address] [address], [facility], [id number] , [place]. [phone] Referring Provider: Clemente Escobar, [facility] [address], [place], [address]. tel:[phone] [facility], [address], [place], [place], [id number], [place] tel:[phone] [facility] No Information 6 Manuelito Shoemaker. [facility] [place], [address] [place] [address] [address], [facility] [place], [id number] , [place]. tel:[phone] [facility], [address], [place], [id number], [place] tel:[phone] [facility] No Information 6 Manuelito Shoemaker. [facility], [address] [place] [address] [address], [place], [id number] , [place]. tel:[phone] Office/Outpat ient Visit,Scott Adams [facility], [address], [place], [id number], [place] tel:[phone] [facility] Spinal stenosis, lumbar region 0 Manuelito Shoemaker. [facility], [address] [place] [address] [address], [place], [id number] , [place]. tel:[phone] Referring Provider: Clemente Escobar, [facility] [address], [place], [address]. tel:[phone] Family History Family Member Type Diagnosis Age At Onset No Information Payers Payer name Insurance type Covered constitution party [id number] Medicare [facility] [id number] Social History Type Description Quantity Date Captured [...]
--- OUTSIDE RECORDS SUMMARY | 2023-05-12 16:16 | XMS_ITS | Clinical Summary ---
Author Name Unknown Organization [facility] Address [place], [place] [address] Care Team Providers Care Night Order Selector Name Role Phone Rl Monroe MD Primary Care Provider [phone] Allergies No known active allergies Medications Medication [...] Depression 09/29/2015 Bipolar disorder 09/29/2015 Overview: Stopped [place] [facility] in 2011 Spinal stenosis, lumbar deborah on, [...] Encounters Date Type Department Care Team Description 05/12/2023 Telephone [facility] [address] [place] [address] Donal Meneses MD Imaging 05/12/2023 Orders Only [facility] [address] [place] [address] Donal Meneses MD <No scans attached> 05/05/2023 Orders Only [facility] [address] [place] [address] Abida Louis MD <No scans attached> 05/02/2023 2:14 PM PSYCHIATRIC SECRETARY Anesthesia Event [facility] [address] [place] [address] June Damian MD Rochon Genny Coleman, SUZANNA 04/28/2023 9:28 AM PSYCHIATRIC SECRETARY Anesthesia Event [facility] [address] [place] [address] June Damian MD Taylor, Phillip [place], MD 04/27/2023 6:58 PM PSYCHIATRIC SECRETARY - 05/05/2023 4:45 PM PSYCHIATRIC SECRETARY Hospital Encounter [facility] [address] [place] [address] Helen Ryder MD [facility] [place] Hospitalists [facility], MD Dante Clay, MD Heriberto Chávez, Abida Jenkins MD S/P peripheral artery angioplasty (Primary Dx); Critical limb ischemia of right lower extremity (HC); S/P arterial stent; Pain of lower extremity, unspecified laterality; Primary insomnia; Agitation due to dementia (HC); Type 2 diabetes mellitus with diabetic nephropathy, 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 (ARRT) Critical limb ischemia of both lower extremities (HC) 04/26/2023 Travel 04/20/2023 Telephone [facility] [address] [place] [address] Carmen Carbone MD Follow Up 04/19/2023 Orders Only [facility] [address] [place] [address] Carmen Cabrone MD <No scans attached> 04/19/2023 Telephone [facility] [place] [address] [place] [address] Carmen Carbone MD Appointment 04/18/2023 Telephone [facility] [address] [place] [address] Carmen Carbone MD from Last 3 Months [...] Comments Blood Pressure 112/54 05/05/2023 3:37 PM PSYCHIATRIC SECRETARY Pulse 61 05/05/2023 3:37 PM PSYCHIATRIC SECRETARY Temperature 36.6 ??C (97.8 ??F) 05/05/2023 3:37 PM CS T Respiratory Rate 16 05/05/2023 3:37 PM PSYCHIATRIC SECRETARY Oxygen Saturation 100% 05/05/2023 3:37 PM PSYCHIATRIC SECRETARY Inhaled Oxygen Concentration - - Weight 103.3 kg (227 lb 11.2 oz) 05/05/2023 6:00 AM PSYCHIATRIC SECRETARY Height 185.4 cm (6' 1) 04/27/2023 5:50 PM PSYCHIATRIC SECRETARY Body Mass Index 30.04 04/27/2023 5:50 PM PSYCHIATRIC SECRETARY Plan of Treatment Health Maintenance Due Date Last Done Comments [...] Comments GLUCOSE METER Timed 05/05/2023 1:38 PM PSYCHIATRIC SECRETARY GLUCOSE METER Timed 05/05/2023 9:12 AM PSYCHIATRIC SECRETARY GLUCOSE METER Timed 05/04/2023 9:25 PM PSYCHIATRIC SECRETARY GLUCOSE METER Timed 05/04/2023 5:29 PM PSYCHIATRIC SECRETARY US ARTERIAL LOWER EXTREMITY W REYNA RIGHT Routine 05/04/2023 3:49 PM PSYCHIATRIC SECRETARY GLUCOSE METER Timed 05/04/2023 2:18 PM PSYCHIATRIC SECRETARY XR FOOT 3 VIEWS RIGHT PORTABLE Routine 05/03/2023 12:36 PM PSYCHIATRIC SECRETARY HEMOGLOBIN A1C SCREENING MORRIS 05/03/2023 8:49 AM PSYCHIATRIC SECRETARY EXTRA TUBE BLUE Today 05/03/2023 8:49 AM PSYCHIATRIC SECRETARY BASIC METABOLIC PANEL Early AM 05/03/2023 8:49 AM PSYCHIATRIC SECRETARY CBC W PLT NO DIFF Early AM 05/03/2023 8:4 9 AM PSYCHIATRIC SECRETARY SCAN-CARDIAC STRIP 05/03/2023 8: 12 AM PSYCHIATRIC SECRETARY APTT Early AM 05/03/2023 7:28 AM PSYCHIATRIC SECRETARY GLUCOSE METER Timed 05/02/2023 6:33 PM PSYCHIATRIC SECRETARY PV OTHER PROCEDURE Routine 05/02/2023 6: 20 PM PSYCHIATRIC SECRETARY HCHG ACTIVATED CLOTTING TM CV Timed 05/02/2023 6:05 PM PSYCHIATRIC SECRETARY HCHG ACTIVATED CLOTTING TM CV Timed 05/02/2023 5:12 PM PSYCHIATRIC SECRETARY HCHG ACTIVATED CLOTTING TM CV Timed 05/02/2023 5:02 PM PSYCHIATRIC SECRETARY HCHG ACTIVATED CLOTTING TM CV Timed 05/02/2023 4:30 PM PSYCHIATRIC SECRETARY HCHG ACTIVATED CLOTTING TM CV Timed 05/02/2023 3:55 PM PSYCHIATRIC SECRETARY HCHG ACTIVATED CLOTTING TM CV Timed 05/02/2023 3:21 PM PSYCHIATRIC SECRETARY HCHG ACTIVATED CLOTTING TM CV Timed 05/02/2023 3:09 PM PSYCHIATRIC SECRETARY ENDOTRACHEAL TUBE Routine 05/02/2023 2:4 0 PM PSYCHIATRIC SECRETARY ENDOTRACHEAL TUBE Routine 05/02/2023 2:4 0 PM PSYCHIATRIC SECRETARY ENDOTRACHEAL TUBE Routine 05/02/2023 2:4 0 PM PSYCHIATRIC SECRETARY CBC W PLT NO DIFF Timed 05/02/2023 9:3 0 AM PSYCHIATRIC SECRETARY BASIC METABOLIC PANEL Timed 05/02/2023 9:30 AM PSYCHIATRIC SECRETARY APTT Early AM 05/02/2023 9:30 AM PSYCHIATRIC SECRETARY SCAN-CARDIAC STRIP 05/02/2023 12 :00 AM PSYCHIATRIC SECRETARY GLUCOSE METER Timed 05/01/2023 9:34 PM PSYCHIATRIC SECRETARY GLUCOSE METER Timed 05/01/2023 8:42 PM PSYCHIATRIC SECRETARY GLUCOSE METER Timed 05/01/2023 5:12 PM PSYCHIATRIC SECRETARY GLUCOSE METER Timed 05/01/2023 12:01 PM PSYCHIATRIC SECRETARY GLUCOSE METER Timed 05/01/2023 8:02 AM PSYCHIATRIC SECRETARY APTT MORRIS 05/01/2023 7:53 AM PSYCHIATRIC SECRETARY GLUCOSE METER Timed 04/30/2023 10:21 PM PSYCHIATRIC SECRETARY GLUCOSE METER Timed 04/30/2023 4:51 PM PSYCHIATRIC SECRETARY GLUCOSE METER Timed 04/30/2023 11:45 AM PSYCHIATRIC SECRETARY GLUCOSE, RANDOM MORRIS 04/30/2023 7:26 AM PSYCHIATRIC SECRETARY APTT Early AM 04/30/2023 7:26 AM PSYCHIATRIC SECRETARY CREATININE Early AM 04/30/2023 7:26 AM PSYCHIATRIC SECRETARY APTT Timed 04/30/2023 12:10 AM PSYCHIATRIC SECRETARY GLUCOSE METER Timed 04/29/2023 10:09 PM PSYCHIATRIC SECRETARY APTT Timed 04/29/2023 4:51 PM PSYCHIATRIC SECRETARY GLUCOSE METER Timed 04/29/2023 4:46 PM PSYCHIATRIC SECRETARY GLUCOSE METER Timed 04/29/2023 12:05 PM PSYCHIATRIC SECRETARY GLUCOSE METER Timed 04/29/2023 7:56 AM PSYCHIATRIC SECRETARY APTT Timed 04/29/2023 7:31 AM PSYCHIATRIC SECRETARY CBC W PLT NO DIFF Early AM 04/29/2023 7:3 1 AM PSYCHIATRIC SECRETARY BASIC METABOLIC PANEL Early AM 04/29/2023 7:31 AM PSYCHIATRIC SECRETARY APTT Timed 04/28/2023 11:13 PM PSYCHIATRIC SECRETARY GLUCOSE METER Timed 04/28/2023 10:41 PM PSYCHIATRIC SECRETARY GLUCOSE METER Timed 04/28/2023 6:39 PM PSYCHIATRIC SECRETARY US VEIN MAPPING LOWER EXTREMITY BILATERAL Today 04/28/2023 5:38 PM PSYCHIATRIC SECRETARY SCAN-CARDIAC STRIP 04/28/2023 4: 41 PM PSYCHIATRIC SECRETARY CREATININE Early AM 04/28/2023 4:32 PM PSYCHIATRIC SECRETARY GLUCOSE METER Timed 04/28/2023 2:12 PM PSYCHIATRIC SECRETARY GLUCOSE METER Timed 04/28/2023 1:44 PM PSYCHIATRIC SECRETARY GLUCOSE METER Timed 04/28/2023 1:30 PM PSYCHIATRIC SECRETARY GLUCOSE METER Timed 04/28/2023 1:26 PM PSYCHIATRIC SECRETARY SCAN-OPERATIVE/PROCED URE REPORT 04/28/2023 12:00 AM PSYCHIATRIC SECRETARY LACTATE SCREEN VENOUS ISTAT W BECKFORD Timed 04/27/2023 9:43 PM PSYCHIATRIC SECRETARY TYPE & SCREEN STAT 04/27/2023 8:21 PM PSYCHIATRIC SECRETARY APTT MORRIS 04/27/2023 8:21 PM PSYCHIATRIC SECRETARY ISTAT EC8 Timed 04/27/2023 7:52 PM PSYCHIATRIC SECRETARY BLOOD CULTURE STAT 04/27/2023 7:41 PM PSYCHIATRIC SECRETARY EXTRA TUBE BECKFORD ON ICE STAT 04/27/2023 7:35 PM PSYCHIATRIC SECRETARY ISTAT LACTATE SCREEN VENOUS STAT 04/27/2023 7:35 PM PSYCHIATRIC SECRETARY CBC WITH AUTO DIFFERENTIAL STAT 04/27/2023 7:34 PM PSYCHIATRIC SECRETARY BLOOD CULTURE STAT 04/27/2023 7:34 PM PSYCHIATRIC SECRETARY BASIC METABOLIC PANEL STAT 04/27/2023 7:34 PM PSYCHIATRIC SECRETARY CBC WITH AUTO DIFFERENTIAL STAT 04/27/2023 7:34 PM PSYCHIATRIC SECRETARY US ARTERIAL LOWER EXTREMITY W REYNA BILATERAL MORRIS 04/26/2023 1:40 PM PSYCHIATRIC SECRETARY Critical limb ischemia of both lower extremities (HC) from Last 3 Months Results * (ABNORMAL) GLUCOSE METER (05/05/2023 1:38 PM PSYCHIATRIC SECRETARY) Only the most recent of24 resultswithin the time period is included. [facility] GLUCOSE METER 160(H) 65 - 100 mg/dL 05/05/2023 1:39 PM PSYCHIATRIC SECRETARY [facility] [employer] [facility]AT[facility] Blood BLOOD SPECIMEN / Unknown 05/05/2023 1:38 PM PSYCHIATRIC SECRETARY 05/05/2023 1:39 PM PSYCHIATRIC SECRETARY Abida Louis MD CHEMISTRY [facility] [address] [place] [address], * US ARTERIAL LOWER EXTREMITY W REYNA RIGHT (05/04/2023 3:49 PM PSYCHIATRIC SECRETARY) Anatomical Region Laterality Modality LEG R Ultrasound Impressions 05/05/2023 8:20 AM PSYCHIATRIC SECRETARY ?? 1. ??Right lower extremity: ??Moderately reduced [...] and [facility] [employer] [facility] [email or web address] / Narrative 05/05/2023 8:20 AM PSYCHIATRIC SECRETARY Table formatting from the original result was [...] CM/SEC ? RIGHT PSV T,B,M VELOCITY RATIO RISK INTERN Prox 96 T - ?? RISK INTERN Dist 124 T ??- PFA 124 T - ?? SFA Prox ??109 62 T - ?? SFA Mid ??117 140 T - ?? SFA Dist ??101 116 T - ?? TRUDY Prox 63 M - ?? TRUDY Dist 88 M - ?? BIOCHEMISTRY TEACHER ??147 M - ?? CHAPARRO 75 M - DPA 65 M - ?? T= Triphasic; ??B= Biphasic; ??M= Monophasic ?? LEFT PSV T,B,M VELOCITY RATIO RISK INTERN Prox 88 ??T ??- ?? RISK INTERN Dist 89 ??T ??- ?? PFA 136 ??T ??- ?? SFA Prox ??62 69 ??T ??- ?? SFA Mid ??62 78 T ??- ?? SFA Dist ??58 62 ??T ??- ?? TRUDY Prox 31 T ??- ?? TRUDY Dist 49 ??T ??- ?? BIOCHEMISTRY TEACHER ??0 - - ?? CHAPARRO 72 T - DPA 33 M - ?? Right ??Left ?Index ??Index Brachial 125 ??118 ?? Ankle (PT) 72 0.58 0 0.00 Ankle (DP) 68 0.54 82 0.66 Digit 16 0.13 44 0.35 Ny LUDWIG US * XR FOOT 3 VIEWS RIGHT PORTABLE (05/03/2023 12:36 PM PSYCHIATRIC SECRETARY) Anatomical Region Laterality Modality FEET, FOOT R Digital Radiogra phy 05/03/2023 6:22 PM PSYCHIATRIC SECRETARY Impressions 05/03/2023 6:22 PM PSYCHIATRIC SECRETARY Assessment of the toes is limited by flexion. No soft tissue air. No foreign body. No obvious bone resorption. No fracture or significant bone lesion. 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 Dictated by Jareth Jones MD @ May 03 2023 ??6:22PM (Electronically Signed) ?? Narrative 05/03/2023 6:22 PM PSYCHIATRIC SECRETARY For Patients: ??As a result of the 21st Century Cures Act, medical imaging exams and [...] 03 2023 6:22PM (Electronically Signed) Huma Spain DPM GENERAL IMAGING * (ABNORMAL) HEMOGLOBIN A1C SCREENING (05/03/2023 8:49 AM PSYCHIATRIC SECRETARY) HEMOGLOBIN A1C SCREENING 7.2(H) <=6.4 % 05/03/2023 2:03 PM PSYCHIATRIC SECRETARY [facility] [employer] [facility]AT[facility] Blood BLOOD SPECIMEN / Unknown Butterfly / Unknown 05/03/2023 8:49 AM PSYCHIATRIC SECRETARY 05/03/2023 8:59 AM PSYCHIATRIC SECRETARY Narrative [facility] LAB[facility]AT[facility] - 05/03/2023 2:03 PM PSYCHIATRIC SECRETARY ? (<5.7%) ?Normal ? (5.7% to 6.4%) ? Indicates prediabetes ? (>=6.5%) ? Confirms diabetes Falsely low levels may be seen with: Recent Transfusion, Recent Significant Blood Loss, Hemolytic Diseases, or Falsely elevated levels may be seen with: Untreated Anemias, Splenectomy Huma Spain DPM CHEMISTRY [facility] [address] [place] [address], [place] * EXTRA TUBE BLUE (05/03/2023 8:49 AM PSYCHIATRIC SECRETARY) Blood BLOOD SPECIMEN / Unknown Butterfly / Unknown 05/03/2023 8:49 AM PSYCHIATRIC SECRETARY 05/03/2023 8:59 AM PSYCHIATRIC SECRETARY Abida Louis MD LABORATORY [facility] [address] [place] [address], [place] * (ABNORMAL) CBC (05/03/2023 8:49 AM PSYCHIATRIC SECRETARY) Only the most recent of3 resultswithin the time period is included. WHITE BLOOD COUNT 7.1 4.5 - 11.0 thou/cu mm 05/03/2023 9:18 AM [facility] TRAL LABORATORY RED BLOOD COUNT 4.09(L) 4.30 - 5.90 mil/cu mm 05/03/2023 9:18 AM [facility] TRAL LABORATORY HEMOGLOBIN 10.9(L) 13.5 - 17.5 g/dL 05/03/2023 9:18 AM [facility] TRAL LABORATORY HEMATOCRIT 36.0(L) 37.0 - 53.0 % 05/03/2023 9:18 AM [facility] TRAL LABORATORY MCV 88 80 - 100 fL 05/03/2023 9:18 AM [facility] TR[facility] LAB[facility]ORY MCH 26.7 26.0 - 34.0 pg 05/03/2023 9:18 AM [facility] TRAL LABOR[facility]ORY MCHC 30.3(L) 32.0 - 36.0 g/dL 05/03/2023 9:18 AM [facility] TRAL LABORAT[facility] RDW 13.6 11.5 - 15.5 % 05/03/2023 9:18 AM [facility] TRAL LABORATORY PLATELET COUNT 343 140 - 440 thou/cu mm 05/03/2023 9:18 AM [facility] TR[facility] LAB[facility] MPV 9.4 6.5 - 11.0 fL 05/03/2023 9:18 AM [facility] TR[facility] LAB[facility] NRBC 0.0 % 05/03/2023 9:18 AM [facility] TR[facility] LAB[facility] ABS NRBC 0.0 thou /cu mm 05/03/2023 9:18 AM [facility] LAB[facility] Blood BLOOD SPECIMEN / Unknown Butterfly / Unknown 05/03/2023 8:49 AM PSYCHIATRIC SECRETARY 05/03/2023 8:59 AM PSYCHIATRIC SECRETARY [facility] LABORATORY - 05/03/2023 9:18 AM PSYCHIATRIC SECRETARY Call if Hemoglobin less than 10. Jennifer Torres MD HEMATOLOGY [facility] [address] [place] [address], * (ABNORMAL) Basic Metabolic Panel (05/03/2023 8:49 AM PSYCHIATRIC SECRETARY) Only the most recent of4 resultswithin the time period is included. SODIUM 137 136 - 145 mmol/L 05/03/2023 9:43 AM [facility] TRAL LABORATORY POTASSIUM 4.3 3.5 - 5.1 mmol/L 05/03/2023 9:43 AM [facility] TRAL LABORATORY CHLORIDE 106 98 - 107 mmol/L 05/03/2023 9:43 AM [facility] TRAL LABOR[facility] CO2,TOTAL 20(L) 22 - 29 mmol/L 05/03/2023 9:43 AM [facility] TRAL LABORATORY ANION GAP 11 5 - 18 05/03/2023 9:43 AM [facility] TR[facility] LAB[facility] GLUCOSE 97 70 - 99 mg/dL 05/03/2023 9:43 AM [facility] LAB[facility] CALCIUM 9.5 8.8 - 10.2 mg/dL 05/03/2023 9:43 AM [facility] TR[facility] LAB[facility] BUN 20 8 - 23 mg/dL 05/03/2023 9:43 AM [facility] TRAL LABOR[facility]ORY CREATININE 1.68(H) 0.70 - 1.20 mg/dL 05/03/2023 9:43 AM PSYCHIATRIC SECRETARY [facility] TRAL LABORATORY BUN/CREAT RATIO 12 10 - 20 9:43 AM PSYCHIATRIC SECRETARY [facility] TRAL LABORATORY eGFR 42(L) >90 mL/min/1.7 3m2 05/03/2023 9:43 AM PSYCHIATRIC SECRETARY [facility] TRAL LABORATORY Comment:As of 2021, eG FR is calculated by the CKD-EPI creatinine equation without race adjustment. ??eGFR can be influenced by muscle mass, exercise, and diet. ??The reported eGFR is an estimation only and is only applicable if the renal function is stable. Blood BLOOD SPECIMEN / Unknown Butterfly / Unknown 05/03/2023 8:49 AM PSYCHIATRIC SECRETARY 05/03/2023 8:59 AM PSYCHIATRIC SECRETARY Jennifer Torres MD CHEMISTRY Performing Organization Address [facility] Co de Phone Number [facility] [address] [place] [address], * SCAN-CARDIAC STRIP (05/03/2023 8:12 AM PSYCHIATRIC SECRETARY) Scanner OTHER * APTT (05/03/2023 7:28 AM PSYCHIATRIC SECRETARY) Only the most recent of9 resultswithin the time period is included. APTT 31 29 - 36 sec 05/03/2023 8:17 AM PSYCHIATRIC SECRETARY [facility] Blood BLOOD SPECIMEN / Unknown Butterfly / Unknown 05/03/2023 7:28 AM PSYCHIATRIC SECRETARY 05/03/2023 7:42 AM PSYCHIATRIC SECRETARY Narrative [facility] - 05/03/2023 8:17 AM PSYCHIATRIC SECRETARY Therapeutic Range: 57-100 seconds Donal Meneses MD HEMATOLOG Y Performing Organization Address City/[facility] Co de Phone Number [facility] [address] [place] [address], * PV OTHER PROCEDURE (05/02/2023 6:20 PM PSYCHIATRIC SECRETARY) Anatomical Region Laterality Modality Other Narrative 05/02/2023 6:20 PM PSYCHIATRIC SECRETARY Donal Meneses MD ? 05/03/2023 ??9:42 AM OPERATIVE REPORT DATE OF SURGERY: 05/03/2023 SURGEON: Donal Meneses MD ENVIRONMENTAL PROFESSIONAL: Jennifer Torres MD (vascular surgery fellow) PREOPERATIVE [...] kit and we subsequently placed in a 5-Kiswahili sheath. We then were able to select [...] artery over the Amplatz wire. Using a GlamBoxo ES 0.014 wire and Leon catheter we attempted to cross antegrade through [...] and the sheath was removed over a Startlocalson wire and a Perclose was successfully deployed [...] for the entire procedure as dictated above. LATIN TEACHER MEASURES: We utilized approximately 65 ml of Visipaque contrast and fluoroscopy time was approximately 32.8 minutes (232 mGy). The patient was systemically heparinized during the procedure Donal Meneses MD Vascular and Endovascular Surgery Donal Meneses MD CV IMAGIN G * (ABNORMAL) ACTIVATED CLOTTING TIME [id number] ACT (05/02/2023 6:05 PM PSYCHIATRIC SECRETARY) Only the most recent of7 resultswithin the time period is included. ACTIVATED CLOTTING TIME, POCT 228(H) 74 - 125 sec 05/02/2023 6:29 PM PSYCHIATRIC SECRETARY [facility] Blood BLOOD SPECIMEN / Unknown 05/02/2023 6:05 PM PSYCHIATRIC SECRETARY 05/02/2023 6:29 PM PSYCHIATRIC SECRETARY Abida Louis MD HEMATOLOGY [facility] [address] [address], * HCHG TUBE PR1, HCHG INSTRUMENT DISP PR10, HCHG STYLET PR1 (05/02/2023 2:40 PM PSYCHIATRIC SECRETARY) Narrative Jatin Ross CRNA - 05/02/2023 2:40 PM PSYCHIATRIC SECRETARY Jatin Ross CRNA ? 05/02/2023 ??2:41 PM [...] Difficulty Comment: limited neck mobility Jatin Ross [employer]ED GOODS STOCK CLERK ANESTHESIA PX NOTE ORDERABLES * SCAN-CARDIAC STRIP (05/02/2023 12:00 AM PSYCHIATRIC SECRETARY) Narrative 05/02/2023 12:00 AM PSYCHIATRIC SECRETARY Ordered by an unspecified provider. Other Clinical Staff OTHER * GLUCOSE, RANDOM (04/30/2023 7:26 AM PSYCHIATRIC SECRETARY) Pathologist [facility] GLUCOSE,RANDOM 116 70 - 139 mg/dL 04/30/2023 10:36 AM PSYCHIATRIC SECRETARY [facility] Blood BLOOD SPECIMEN / Unknown Venipuncture / Unknown 04/30/2023 7:26 AM PSYCHIATRIC SECRETARY 04/30/2023 7:39 AM PSYCHIATRIC SECRETARY Lisbeth Dee RN CHEMISTRY [facility] [address] * (ABNORMAL) Creatinine AM (04/30/2023 7:26 AM PSYCHIATRIC SECRETARY) Only the most recent of2 resultswithin the time period is included. Pathologist [facility] eGFR 50(L) >90 mL/min/1.7 3m2 04/30/2023 8:06 AM PSYCHIATRIC SECRETARY [facility] Comment:As of 2021, eG FR is calculated by the CKD-EPI creatinine equation without race adjustment. ??eGFR can be influenced by muscle mass, exercise, and diet. ??The reported eGFR is an estimation only and is only applicable if the renal function is stable. CREATININE 1.45(H) 0.70 - 1.20 mg/dL 04/30/2023 8:06 AM PSYCHIATRIC SECRETARY [facility] Blood BLOOD SPECIMEN / Unknown Venipuncture / Unknown 04/30/2023 7:26 AM PSYCHIATRIC SECRETARY 04/30/2023 7:39 AM PSYCHIATRIC SECRETARY Abida Louis MD CHEMISTRY [facility] LAB[facility]ATORY [address] [place] [address], [place] * US VEIN MAPPING LOWER EXTREMITY BILATERAL (04/28/2023 5:38 PM PSYCHIATRIC SECRETARY) Anatomical Region Laterality Modality LEGS, LEG L, LEG R Ultrasound Impressions 04/29/2023 3:00 PM PSYCHIATRIC SECRETARY ??Bilateral lower extremity superficial venous mapping with diameters outlined above. The bilateral greater saphenous veins are patent and compressible throughout. The right small saphenous vein is noncompressible in the distal calf. The left small saphenous vein is noncompressible throughout. Chase Barnes M.D. Vascular and Interventional [facility] [employer] [facility] [email or web address] / Narrative 04/29/2023 3:00 PM PSYCHIATRIC SECRETARY For Patients: As a result of the [...] US * SCAN-CARDIAC STRIP (04/28/2023 4:41 PM PSYCHIATRIC SECRETARY) Scanner OTHER * SCAN-OPERATIVE/PROCEDURE REPORT (04/28/2023 12:00 AM PSYCHIATRIC SECRETARY) Narrative 04/28/2023 12:00 AM PSYCHIATRIC SECRETARY Ordered by an unspecified provider. Other Clinical Staff OTHER * LACTATE SCREEN VENOUS ISTAT W BECKFORD (04/27/2023 9:43 PM PSYCHIATRIC SECRETARY) LACTATE VENOUS SCREEN ISTAT <1.8 <=2.0 04/27/2023 9:48 PM PSYCHIATRIC SECRETARY [facility] LAB[facility]ORY LACTATE SCREEN VENOUS POCT 1.5 <=2.0 04/27/2023 9:48 PM PSYCHIATRIC SECRETARY [facility] Blood BLOOD SPECIMEN / Unknown 04/27/2023 9:43 PM PSYCHIATRIC SECRETARY 04/27/2023 9:48 PM PSYCHIATRIC SECRETARY Helen Ryder MD LABORATORY [facility] [address] [place] [address], * TYPE & SCREEN (04/27/2023 8:21 PM PSYCHIATRIC SECRETARY) ABORH O Rh Positive 04/27/2023 9:31 PM PSYCHIATRIC SECRETARY [facility] ANTIBODY SCREEN Negative Negative 04/27/2023 9:31 PM PSYCHIATRIC SECRETARY [facility] SPECIMEN EXPIRATION DATE/TIME 04/30/23 23:59 04/27/2023 9:31 PM PSYCHIATRIC SECRETARY [facility] Blood BLOOD SPECIMEN / Unknown Non-Lab Venipuncture / Unknown 04/27/2023 8:21 PM PSYCHIATRIC SECRETARY 04/27/2023 8:48 PM PSYCHIATRIC SECRETARY Rosie Orourke MD BLOOD BANK [facility] [address] [place] [address], * (ABNORMAL) ISTAT EC8 (04/27/2023 7:52 PM PSYCHIATRIC SECRETARY) GLUCOSE, POCT 70 70 - 99 mg/dL 04/27/2023 7:56 PM PSYCHIATRIC SECRETARY [facility] TR[facility] LABORATORY BUN, POCT 37(H) 8 - 25 mg/dL 04/27/2023 7:56 PM PSYCHIATRIC SECRETARY [facility] TR[facility] SODIUM, POCT 135 135 - 145 mmol/L 04/27/2023 7:56 PM PSYCHIATRIC SECRETARY [facility] POTASSIUM, POCT 4.3 3.5 - 5.0 mmol/L 04/27/2023 7:56 PM PSYCHIATRIC SECRETARY [facility] CHLORIDE, POCT 107 98 - 107 mmol/L 04/27/2023 7:56 PM PSYCHIATRIC SECRETARY [facility] CO2,TOTAL, POCT 21 21 - 31 mmol/L 04/27/2023 7:56 PM PSYCHIATRIC SECRETARY [facility] ANION GAP, POCT 13 5 - 18 04/27/2023 7:56 PM PSYCHIATRIC SECRETARY [facility] PH, VENOUS, POCT 7.44(H) 7.32 - 7.42 04/27/2023 7:56 PM PSYCHIATRIC SECRETARY [facility] PCO2, VENOUS, POCT 29(L) 41 - 51 mmHg 04/27/2023 7:56 PM PSYCHIATRIC SECRETARY [facility] HCO3, VENOUS, POCT 20(L) 22 - 30 mmol/L 04/27/2023 7:56 PM PSYCHIATRIC SECRETARY [facility] BASE EXCESS, VENOUS, POCT -5.0(L) -2.0 - 3.0 04/27/2023 7:56 PM PSYCHIATRIC SECRETARY [facility] HEMATOCRIT, POCT 35.0(L) 37.0 - 53.0 % 04/27/2023 7:56 PM PSYCHIATRIC SECRETARY [facility] HEMOGLOBIN, POCT 11.9(L) 13.5 - 17.5 g/dL 04/27/2023 7:56 PM PSYCHIATRIC SECRETARY [facility] Blood BLOOD SPECIMEN / Unknown 04/27/2023 7:52 PM PSYCHIATRIC SECRETARY 04/27/2023 7:56 PM PSYCHIATRIC SECRETARY Helen Ryder MD CHEMISTRY Performing Organization Address City/[facility]/ZIP Co de Phone Number [facility] [address] [place] [address], * BLOOD CULTURE X2 (04/27/2023 7:41 PM PSYCHIATRIC SECRETARY) Only the most recent of2 resultswithin the time period is included. CULTURE No Growth. 05/01/2023 9:49 PM PSYCHIATRIC SECRETARY [facility] Blood BLOOD SPECIMEN / Unknown Non-Lab Venipuncture / Unknown 04/27/2023 7:41 PM PSYCHIATRIC SECRETARY 04/27/2023 7:49 PM PSYCHIATRIC SECRETARY Narrative [facility] - 05/01/2023 9:49 PM PSYCHIATRIC SECRETARY Low volume blood culture received; possible false negative culture. Helen Ryder MD MICROBIOLOGY [facility] [address] [place] [id number], [place] * EXTRA TUBE [place] ON ICE (04/27/2023 7:35 PM PSYCHIATRIC SECRETARY) Blood BLOOD SPECIMEN / Unknown Non-Lab Venipuncture / Unknown 04/27/2023 7:35 PM PSYCHIATRIC SECRETARY 04/27/2023 7:50 PM PSYCHIATRIC SECRETARY Helen Ryder MD LABORATORY [facility] [address] [place] [address], * (ABNORMAL) CBC WITH AUTO DIFFERENTIAL (04/27/2023 7:34 PM PSYCHIATRIC SECRETARY) WHITE BLOOD COUNT 7.3 4.5 - 11.0 thou/cu mm 04/27/2023 8:00 PM [facility] RED BLOOD COUNT 4.20(L) 4.30 - 5.90 mil/cu mm 04/27/2023 8:00 PM [facility] HEMOGLOBIN 11.7(L) 13.5 - 17.5 g/dL 04/27/2023 8:00 PM [facility] HEMATOCRIT 35.4(L) 37.0 - 53.0 % 04/27/2023 8:00 PM [facility] MCV 84 80 - 100 fL 04/27/2023 8:00 PM [facility] MCH 27.9 26.0 - 34.0 pg 04/27/2023 8:00 PM [facility] MCHC 33.1 32.0 - 36.0 g/dL 04/27/2023 8:00 PM [facility] RDW 13.3 11.5 - 15.5 % 04/27/2023 8:00 PM [facility] PLATELET COUNT 425 140 - 440 thou/cu mm 04/27/2023 8:00 PM [facility] MPV 9.3 6.5 - 11.0 fL 04/27/2023 8:00 PM [facility] NRBC 0.0 % 04/27/2023 8:00 PM [facility] ABS NRBC 0.0 thou /cu mm 04/27/2023 8:00 PM [facility] % NEUT 68.6 % 04/27/2023 8:00 PM [facility] % LYMPH 16.8 % 04/27/2023 8:00 PM [facility] % MONO 12.2 % 04/27/2023 8:00 PM [facility] % EOS 1.1 % 04/27/2023 8:00 PM [facility] % BASO 0.3 % 04/27/2023 8:00 PM [facility] % IMMATURE GRAN (METAS,MYELOS,WY OS) 1.0 % 04/27/2023 8:00 PM [facility] ABSOLUTE NEUTROPHILS 5.0 1.7 - 7.0 thou/cu mm 04/27/2023 8:00 PM [facility] ABSOLUTE LYMPHOCYTES 1.2 0.9 - 2.9 thou/cu mm 04/27/2023 8:00 PM [facility] ABSOLUTE MONOCYTES 0.9(H) <0.9 thou/cu mm 04/27/2023 8:00 PM [facility] ABSOLUTE EOSINOPHILS 0.1 <0.5 thou/cu mm 04/27/2023 8:00 PM [facility] ABSOLUTE BASOPHILS 0.0 <0.3 thou/cu mm 04/27/2023 8:00 PM [facility] ABSOLUTE IMMATURE GRANULOCYTES(MET ,MYELOS,PROS) 0.1 <0.3 thou/cu mm 04/27/2023 8:00 PM [facility] Blood BLOOD SPECIMEN / Unknown Non-Lab Venipuncture / Unknown 04/27/2023 7:34 PM PSYCHIATRIC SECRETARY 04/27/2023 7:49 PM [facility] Helen Ryder MD HEMATOLOGY [facility] [address] [place] [address], * US ARTERIAL LOWER EXTREMITY W REYNA BILATERAL (04/26/2023 1:40 PM PSYCHIATRIC SECRETARY) Anatomical Region Laterality Modality LEGS Ultrasound 04/26/2023 1:01 PM PSYCHIATRIC SECRETARY Narrative 04/26/2023 6:51 PM PSYCHIATRIC SECRETARY VASCULAR ULTRASOUND REPORT CLEMENTE BENTON Accession#: ?? [id number] : ?1950 Study Date: ?? 04/26/2023 1:01:19 PM Age: ?73 years ?? Tech: ? JSL Gender: M ?Referring MD: CARMEN CARBONE Site: [facility] Study performed: ?Lower extremity (bilateral), [...] Phasicity ? +--------+ + + +--------+ + RISK INTERN PRX ? 74 ? multiphasic ? +--------+ + + +--------+ + RISK INTERN DST ? 82 ? multiphasic ? +--------+ [...] monophasic ? +--------+ + + +--------+ + BIOCHEMISTRY TEACHER DST ? 16 ? monophasic ? +--------+ + + +--------+ + ENEIDA DST ? 13 ? monophasic ? +--------+ + + +--------+ + DPA ? 14 ? monophasic ? +--------+ + + +--------+ + +--------+ + + LEFT ? Velocity cm/s Phasicity ?? +--------+ + + RISK INTERN PRX ? 57 ? multiphasic +--------+ + + RISK INTERN DST ? 66 ? multiphasic +--------+ + + PFA ? 91 ? multiphasic +--------+ + + SFA PRX ? 53 ? multiphasic +--------+ + + SFA MID ? 67 ? multiphasic +--------+ + + SFA DST ? 39 ? multiphasic +--------+ + + TRUDY PRX ? 33 ? multiphasic +--------+ + + TRUDY DST ? 40 ? monophasic +--------+ + + BIOCHEMISTRY TEACHER DST ? 20 ? monophasic +--------+ + [...] Index +-----+ +--------+ +-----+ 0.75 ? 72 ?BIOCHEMISTRY TEACHER ?74 ? 0.77 +-----+ +--------+ +-----+ 0.66 ? 63 ?DPA ?98 ? 1.02 +-----+ +--------+ +-----+ 0.00 ? 0 ? Digit 1 ?45 ? 0.47 +-----+ +--------+ +-----+ Donal Meneses MD. Electronically signed on 04/26/2023 6:51:00 PM This study was performed and interpreted by a service accredited by the Intersocietal Accreditation Commission (IAC/Vascular), www.intersocietal.org/vascular Report generated by [employer]. ??Final ?? Procedure Note Donal Meneses MD - 04/26/2023 VASCULAR ULTRASOUND REPORT CLEMENTE BENTON : 1950 Study Date: 04/26/2023 1:01:19 PM Age: 73 years Tech: ETHEL Gender: M Referring MD: CARMEN CARBONE Site: [facility] Study performed: Lower extremity (bilateral), [...] cm/s Phasicity +--------+ + + +--------+ + RISK INTERN PRX 74 multiphasic +--------+ + + +--------+ + RISK INTERN DST 82 multiphasic +--------+ + + +--------+ [...] 17 monophasic +--------+ + + +--------+ + BIOCHEMISTRY TEACHER DST 16 monophasic +--------+ + + +--------+ + ENEIDA DST 13 monophasic +--------+ + + +--------+ + DPA 14 monophasic +--------+ + + +--------+ + +--------+ + + LEFT Velocity cm/s Phasicity +--------+ + + RISK INTERN PRX 57 multiphasic +--------+ + + RISK INTERN DST 66 multiphasic +--------+ + + PFA 91 multiphasic +--------+ + + SFA PRX 53 multiphasic +--------+ + + SFA MID 67 multiphasic +--------+ + + SFA DST 39 multiphasic +--------+ + + TRUDY PRX 33 multiphasic +--------+ + + TRUDY DST 40 monophasic +--------+ + + BIOCHEMISTRY TEACHER DST 20 monophasic +--------+ + + DPA 30 monophasic +--------+ + + Criteria: Stenosis V. Ratio Mild <50% <2.0 Moderate 50-74% > or = 2.0 Severe 75-99% > or = 4.0 Occluded 100% no detectable flow Pressures +-----+ +--------+ +-----+ RIGHT (mmHg) LEFT (mmHg) +-----+ +--------+ +-----+ Index 96 Brachial 94 Index +-----+ +--------+ +-----+ 0.75 72 BIOCHEMISTRY TEACHER 74 0.77 +-----+ +--------+ +-----+ 0.66 63 DPA 98 1.02 +-----+ +--------+ +-----+ 0.00 0 Digit 1 45 0.47 +-----+ +--------+ +-----+ Donal Meneses MD. Electronically signed on 04/26/2023 6:51:00 PM This study was performed and interpreted by a service accredited by theIntersocietal Accreditation Commission (IAC/Vascular),www.[email or web address]/vascular Report generated by [employer]. Final Carmen Donell Carbone MD US from Last 3 Months Advance Directives Documents on File Type Date Recorded Patient Design Engineering Technician Expl anation Healthcare Directive 05/05/2022 023 Latest [...] Code Status Discussion: Not Discussed Care Teams Night Order Selector Relationship Specialty Start Date End Date Rl Monroe MD PCP - General Family Practice 08/19/15
== END 2023-05-09 05:52 | disposition home or self-care (01) ==
LOC: AMB 05-12 16:14
PROVIDERS: PCP Family Medicine; Visit Provider Family Medicine
DX: R45.1 Restlessness and agitation (principal)
CPT/HCPCS: A0425; A0429

== ENCOUNTER 2023-05-09 06:37 | Inpatient (IN) | payer MEDICARE, BC, SELFPAY ==
[2023-05-09] VITALS (7 sets, daily range): BP systolic 91–144; BP diastolic 56–92; PULSE 74–90; RESP 14–20; TEMP 36.1–36.9; O2SAT 94–100
--- NOTE | 2023-05-09 06:48 | ED.GENADULT ---
HPI - General Adult General Time Seen by Provider: 06:48 <Franklin Winchester MD - Last Filed: 05/09/23 07:03> Date Seen: 05/09/23 <Franklin Winchester MD - Last Filed: 05/09/23 07:03> Chief complaint: Unspecified Complaint, Adult <Franklin Winchester MD - Last Filed: 05/09/23 07:03> Stated complaint: agitation <Franklin Winchester MD - Last Filed: 05/09/23 07:03> Time Seen by Provider: 05/09/23 06:48 <Franklin Winchester MD - Last Filed: 05/09/23 07:03> Source: patient, EMS, RN notes reviewed and old records reviewed <Franklin Winchester MD - Last Filed: 05/09/23 07:03> Mode of arrival: EMS <Franklin Winchester MD - Last Filed: 05/09/23 07:03> Limitations: no limitations <Franklin Winchester MD - Last Filed: 05/09/23 07:03> History of Present Illness HPI narrative: 73-year-old male who comes in with increased agitation. Patient with baseline Alzheimer's and was recently hospitalized for tibial graft left leg, had increased delirium during that admission. Reviewed prior emergency department visit from April 18 when patient was seen with arterial insufficiency of the lower extremity. Also reviewed prior emergency department visit from May 05 when patient was seen for a fall, did fall backward in his head at that time, CT scan of the head at that time was negative. Patient presents today with increased agitation at home. Patient is unable to provide any meaningful history and no family member came with him. Denies pain or shortness of breath although questionable reliability <Franklin Winchester MD - Last Filed: 05/09/23 07:03> Related Data Home medications: Home Medications Medication Instructions Recorded Confirmed cyanocobalamin (vitamin B-12) 1,000 mcg PO DAILY 10/08/21 05/09/23 1,000 mcg tablet multivitamin 1 tab PO QAM 10/08/21 05/09/23 aspirin 81 mg tablet,delayed 81 mg PO QDAY 03/14/23 05/09/23 release (Adult Aspirin Regimen) levofloxacin 750 mg tablet 750 mg PO Q48H 03/31/23 05/09/23 Previous Rx's Medication Instructions Recorded ipratropium bromide 42 mcg (0.06 2 spray intranasal TID #15 mL 09/26/22 %) nasal spray hydrochlorothiazide 25 mg tablet 25 mg PO QAM #90 tabs 09/27/22 levothyroxine 150 mcg tablet 150 mcg PO DAILY #90 tabs 11/08/22 metoprolol tartrate 25 mg tablet 12.5 mg (1/2 x 25 mg) PO BID #180 11/25/22 tabs olanzapine 5 mg tablet 5 mg PO DAILY #90 tabs 12/21/22 atorvastatin 40 mg tablet See Rx Instructions .Route 02/14/23 .COMPLEX #90 tabs fenofibrate nanocrystallized 48 mg See Rx Instructions .Route 02/14/23 tablet .COMPLEX #180 tabs fluoxetine 20 mg capsule See Rx Instructions .Route 03/15/23 .COMPLEX #90 caps glipizide 10 mg tablet, extended 10 mg PO QDAY #90 tabs 03/15/23 release 24 hr amoxicillin 875 mg-potassium 1 tab PO BID #28 tabs 03/31/23 clavulanate 125 mg tablet azithromycin 250 mg tablet See Rx Instructions PO .COMPLEX #6 04/12/23 tabs oxycodone 5 mg tablet 5 mg PO Q8H PRN pain #20 tabs 04/18/23 <Franklin Winchester MD - Last Filed: 05/09/23 07:03> Allergies/adverse reactions: Allergies Allergy/AdvReac Type Severity Reaction Status Date / Time No Known Drug Allergies Allergy Verified 05/09/23 06:44 <Franklin Winchester MD - Last Filed: 05/09/23 07:03> [facility] Medical History: Medical History Durable power of tax associate attorney in chart Health care directive on file ?Z78.9 - Other specified health status (ICD-10) Submucosal rectal lesion ?K62.9 - Disease of anus and rectum, unspecified (ICD-10) History of adenomatous polyp of colon (2013) ?Z86.010 - Personal history of colonic polyps (ICD-10) High prostate specific antigen (PSA) ?R97.20 - Elevated prostate specific antigen [PSA] (ICD-10) Cataract (01/12/12) ?H26.9 - Unspecified cataract (ICD-10) <Franklin Winchester MD - Last Filed: 05/09/23 07:03> Surgical History: Surgical History H/O cataract extraction ?Z98.49 - Cataract extraction status, unspecified eye (ICD-10) H/O shoulder surgery ?Z98.890 - Other specified postprocedural states (ICD-10) History of tonsillectomy (04/14/06) ?Z90.89 - Acquired absence of other organs (ICD-10) History of excision of lamina of lumbar vertebra for decompression of spinal cord (2015) ?Z98.890 - Other specified postprocedural states (ICD-10) History of coronary artery bypass surgery (1993) ?Z95.1 - Presence of aortocoronary bypass graft (ICD-10) <Franklin Winchester MD - Last Filed: 05/09/23 07:03> Social History: Social History Smoking Status: Former smoker Do you use any of these nicotine containing products: None Second hand tobacco smoke exposure: No How often do you have a drink containing alcohol: never How often do you have six or more drinks on one occasion: Never AUDIT-C Alcohol total score: 0 Non-prescribed substance use: denies use Little interest or pleasure in doing things: more than half the days Feeling down, depressed, or hopeless: more than half the days service: Yes <Franklin Winchester MD - Last Filed: 05/09/23 07:03> Exam Narrative: Exam Narrative: General: Well-developed and well-nourished, no acute distress Head: Atraumatic and normocephalic Eyes: Pupils are equal reactive, extraocular motions intact, conjunctiva clear ENT: External nose and ears are normal, posterior pharynx without erythema or exudate Neck: No midline cervical tenderness, full spontaneous range of motion the neck, trachea midline, no adenopathy Heart: Regular rate and rhythm no murmurs or thrills Lungs: Clear to auscultation bilaterally without wheezes or crackles Abdomen: Soft, nontender, nondistended with active bowel sounds Musculoskeletal: No tenderness, deformity, or edema Neurologic: Awake, alert,no gross focal neurologic deficits, cranial nerves intact as tested Psych: Mood and affect are appropriate Skin: Edema and redness of the right foot and ankle, warm. <Franklin Winchester MD - Last Filed: 05/09/23 07:03> Const: Vital Signs, click to edit/add: Vital Signs - 24 hr 05/09/23 06:44 05/09/23 08:00 Temperature 97 F L Pulse Rate [Pulse Oximeter] 84 78 Respiratory Rate 20 18 Blood Pressure [Ri ght Upper Arm] 115/62 112/72 Pulse Oximetry 100 99 Oxygen Delivery Me thod Room Air Room Air <Franklin Winchester MD - Last Filed: 05/09/23 07:03> Vital Signs, click to edit/add: Vital Signs - 24 hr 05/09/23 06:44 05/09/23 08:00 Temperature 97 F L Pulse Rate [Pulse Oximeter] 84 78 Respiratory Rate 20 18 Blood Pressure [Ri ght Upper Arm] 115/62 112/72 Pulse Oximetry 100 99 Oxygen Delivery Me thod Room Air Room Air <Michel Stanley DO - Last Filed: 05/09/23 13:03> Course Course ED Course: Patient seen examined, prior emergency department visit May 05 was reviewed. Patient sent in by ambulance for ?agitation. ? Patient is cooperative and resting comfortably on my exam, unable to provide any meaningful history. Right foot with erythema and warmth, apparently patient had a recent vascular procedure on this leg complicated by postprocedural/hospital delirium on top of baseline Alzheimer's. Labs ordered to evaluate further source patient is alert area, given recent fall and change in mentation, CT scan of the head ordered. <Franklin Winchester MD - Last Filed: 05/09/23 07:03> Vital Signs Vital signs: Initial Vital Signs Temperature 97 F L 05/09/23 06:44 Temperature Source Temporal Artery Scan 05/09/23 06:44 Pulse Rate 84 05/09/23 06:44 Pulse Rhythm Regular 05/09/23 06:44 Pulse Strength 3+ Normal 05/09/23 06:44 Respiratory Rate 20 05/09/23 06:44 Blood Pressure 115/62 05/09/23 06:44 Blood Pressure Mean 79 05/09/23 06:44 Blood Pressure Position Sitting 05/09/23 06:44 Pulse Oximetry 100 05/09/23 06:44 Oxygen Delivery Method Room Air 05/09/23 06:44 Vital Signs Temperature 97 F L 05/09/23 06:44 Pulse Rate 84 05/09/23 06:44 Respiratory Rate 20 05/09/23 06:44 Blood Pressure 115/62 05/09/23 06:44 Pulse Oximetry 100 05/09/23 06:44 Oxygen Delivery Method Room Air 05/09/23 06:44 Temperature 97 F L 05/09/23 06:44 Pulse Rate 78 05/09/23 08:00 Respiratory Rate 18 05/09/23 08:00 Blood Pressure 112/72 05/09/23 08:00 Pulse Oximetry 99 05/09/23 08:00 Oxygen Delivery Method Room Air 05/09/23 08:00 <Franklin Winchester MD - Last Filed: 05/09/23 07:03> Initial Vital Signs Temperature 97 F L 05/09/23 06:44 Temperature Source Temporal Artery Scan 05/09/23 06:44 Pulse Rate 84 05/09/23 06:44 Pulse Rhythm Regular 05/09/23 06:44 Pulse Strength 3+ Normal 05/09/23 06:44 Respiratory Rate 20 05/09/23 06:44 Blood Pressure 115/62 05/09/23 06:44 Blood Pressure Mean 79 05/09/23 06:44 Blood Pressure Position Sitting 05/09/23 06:44 Pulse Oximetry 100 05/09/23 06:44 Oxygen Delivery Method Room Air 05/09/23 06:44 Vital Signs Temperature 97 F L 05/09/23 06:44 Pulse Rate 84 05/09/23 06:44 Respiratory Rate 20 05/09/23 06:44 Blood Pressure 115/62 05/09/23 06:44 Pulse Oximetry 100 05/09/23 06:44 Oxygen Delivery Method Room Air 05/09/23 06:44 Temperature 97 F L 05/09/23 06:44 Pulse Rate 78 05/09/23 08:00 Respiratory Rate 18 05/09/23 08:00 Blood Pressure 112/72 05/09/23 08:00 Pulse Oximetry 99 05/09/23 08:00 Oxygen Delivery Method Room Air 05/09/23 08:00 <Michel Stanley DO - Last Filed: 05/09/23 13:03> Medical Decision Making MDM Narrative Medical decision making narrative: Patient is a 73-year-old male who is signed out to me pending workup and disposition. Lab work all returned showing no acute abnormalities. Head CT showed no concerning findings. The arrived and I spoke to her. She states she has been increasing aggression at home since his procedure last week and she states she is unable to care for him at this time due to this. He has also been having issues with falls and was seen 2 days ago for a fall. She believes he needs geriatric psych but is agreeable to long-term placement if absolutely necessary. Initially patient was admitted but then we are had the possibility for transfer to Geriatric psych in [facility]. We held him in the emergency department until we get a definitive answer on admission. I spoke to their admission people and were told that the currently cannot accept any patients because they have some type of flu-like symptoms going throughout the it department and they want to find out what it is before accepting any more patients. Were told to call back and a day or 2. Patient will be admitted to Dr. Lancaster. <Michel Stanley, - Last Filed: 05/09/23 13:03> Lab Data Labs: Lab Results 05/09/23 05/09/23 Range/Units 07:43 08:30 WBC 7.31 (4.50-11.00) K/uL RBC 3.85 L (4.30-5.90) m/uL Hgb 10.4 L (13.5-17.5) gm/dL Hct 33.8 L (37.0-53.0) % MCV 88 (80-100) fL MCH 27 (26-34) pg MCHC 31 L (32-36) gm/dL RDW Coeff of Eufemia 13.0 (11.5-15.5) % Plt Count 435 (140-440) K/uL Neut % (Auto) 79.0 H (42.0-72.0) % Lymph % (Auto) 8.6 L (20-44) % [place] % (Auto) 10.9 (0.0-11.0) % Eos % (Auto) 0.8 (0.0-7.0) % Baso % (Auto) 0.3 (0.0-3.0) % Neut # (Auto) 5.80 (1.7-7.0) K/uL Lymph # (Auto) 0.60 L (0.90-2.90) K/uL [place] # (Auto) 0.80 (0.00-0.90) K/UL Eos # (Auto) 0.06 (0.00-0.50) K/uL Baso # (Auto) 0.02 (0.00-0.30) K/uL Abs Immat Gran (auto) 0.03 (0.00-0.30) K/uL Imm/Tot Granulo (auto) 0.4 % VBG pH 7.318 L (7.32-7.43) VBG pCO2 40 (40-50) mmHG VBG pO2 31.1 (25-47) mmHG VBG HCO3 21 (21-28) mmol/L Sodium 138 (135-149) mmol/L Potassium 4.2 (3.6-5.1) mmol/L Chloride 108 (96-114) mmol/L Carbon Dioxide 18 L (20-32) mmol/L Anion Gap 12 (7-15) mEq/L BUN 46 H (7-30) mg/dL Creatinine 1.7 H (0.5-1.5) mg/dL Estimated GFR 42 ml/min Glucose 182 H (60-115) mg/dL Calcium 9.9 (8.4-10.6) mg/dL Magnesium 1.8 (1.5-2.6) mg/dL Total Bilirubin 0.7 (0.1-1.5) mg/dL Direct Bilirubin 0.3 (0.0-0.5) mg/dL AST 29 (12-35) U/L ALT 21 (4-50) U/L Alkaline Phosphatase 52 (40-150) U/L Ammonia < 9.0 L (13.1-30.0) umol/L Total Protein 7.4 (6.0-8.3) g/dL Albumin 4.2 (3.3-5.0) g/dL Lab Acknowledgement Test Added <Franklin Winchester MD - Last Filed: 05/09/23 07:03> Lab Results 05/09/23 05/09/23 Range/Units 07:43 08:30 WBC 7.31 (4.50-11.00) K/uL RBC 3.85 L (4.30-5.90) m/uL Hgb 10.4 L (13.5-17.5) gm/dL Hct 33.8 L (37.0-53.0) % MCV 88 (80-100) fL MCH 27 (26-34) pg MCHC 31 L (32-36) gm/dL RDW Coeff of Eufemia 13.0 (11.5-15.5) % Plt Count 435 (140-440) K/uL Neut % (Auto) 79.0 H (42.0-72.0) % Lymph % (Auto) 8.6 L (20-44) % [place] % (Auto) 10.9 (0.0-11.0) % Eos % (Auto) 0.8 (0.0-7.0) % Baso % (Auto) 0.3 (0.0-3.0) % Neut # (Auto) 5.80 (1.7-7.0) K/uL Lymph # (Auto) 0.60 L (0.90-2.90) K/uL [place] # (Auto) 0.80 (0.00-0.90) K/UL Eos # (Auto) 0.06 (0.00-0.50) K/uL Baso # (Auto) 0.02 (0.00-0.30) K/uL Abs Immat Gran (auto) 0.03 (0.00-0.30) K/uL Imm/Tot Granulo (auto) 0.4 % VBG pH 7.318 L (7.32-7.43) VBG pCO2 40 (40-50) mmHG VBG pO2 31.1 (25-47) mmHG VBG HCO3 21 (21-28) mmol/L Sodium 138 (135-149) mmol/L Potassium 4.2 (3.6-5.1) mmol/L Chloride 108 (96-114) mmol/L Carbon Dioxide 18 L (20-32) mmol/L Anion Gap 12 (7-15) mEq/L BUN 46 H (7-30) mg/dL Creatinine 1.7 H (0.5-1.5) mg/dL Estimated GFR 42 ml/min Glucose 182 H (60-115) mg/dL Calcium 9.9 (8.4-10.6) mg/dL Magnesium 1.8 (1.5-2.6) mg/dL Total Bilirubin 0.7 (0.1-1.5) mg/dL Direct Bilirubin 0.3 (0.0-0.5) mg/dL AST 29 (12-35) U/L ALT 21 (4-50) U/L Alkaline Phosphatase 52 (40-150) U/L Ammonia < 9.0 L (13.1-30.0) umol/L Total Protein 7.4 (6.0-8.3) g/dL Albumin 4.2 (3.3-5.0) g/dL Lab Acknowledgement Test Added <Michel Stanley DO - Last Filed: 05/09/23 13:03> Imaging Data CT scan - head: Radiologist's impression: Stable age-related and chronic small-vessel disease changes of the brain similar to previous exam without acute intracranial abnormality. Please note that all CT scans at this facility use dose modulation, iterative reconstruction, and/or weight-based dosing when appropriate to reduce radiation dose to as low as reasonably achievable. Dictated by Calvin Crow MD @ 05/09/2023 9:40:18 AM <Michel Stanley DO - Last Filed: 05/09/23 13:03> Discharge Plan Discharge Clinical Impression: Dementia Qualifiers: Dementia type: unspecified type Dementia severity: unspecified severity Dementia behavioral or psychological symptom: unspecified whether behavioral, psychotic, or mood disturbance or anxiety Qualified Code(s): F03.90 - Unspecified dementia, unspecified severity, without behavioral disturbance, psychotic disturbance, mood disturbance, and anxiety <Franklin Winchester MD - Last Filed: 05/09/23 07:03> Patient Disposition: Admitted As Observation <Franklin Winchester MD - Last Filed: 05/09/23 07:03> Condition: Stable <Franklin Winchester MD - Last Filed: 05/09/23 07:03>
--- OUTSIDE RECORDS SUMMARY | 2023-05-09 07:16 | XMS_ITS | Clinical Summary ---
Author Name Unknown Organization [facility] Address [place], [place] [address] Care Team Providers Care Exhaust Worker Name Role Phone Rl Monroe MD Primary Care Provider [phone] Allergies No known active allergies Medications Medication [...] Depression 09/29/2015 Bipolar disorder 09/29/2015 Overview: Stopped [place] in 2011 Spinal stenosis, lumbar deboarh on, without neurogenic claudication 09/28/2015 Insomnia 09/28/2015 Unspecified hypothyroidism 09/12/2011 Diabetes mellitus type II 09/12/2011 Overview: a system change updated this record. This will not affect patient care or billing. This comment can be deleted. 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 Encounters Date Type Department Care Team Description 05/05/2023 Orders Only [facility] [address] [place] [address] Abida Louis MD <No scans attached> 05/02/2023 2:14 PM CREAM DIPPER Anesthesia Event [facility] [address] [place] [address] June Damian MD Rochon, Breanne Nicole, SUZANNA 04/28/2023 9:28 AM CREAM DIPPER Anesthesia Event [facility] [address] [place] [address] June Damian MD Taylor, Matty Nieves MD 04/27/2023 6:58 PM CREAM DIPPER - 05/05/2023 4:45 PM CREAM DIPPER Hospital Encounter [facility] [address] [place] [address] Helen Ryder MD [facility] [place] [facility], [facility], MD Dante [...] Home Health 04/27/2023 Travel 04/26/2023 2:00 PM CREAM DIPPER Office Visit [facility] [address] [place] [phone] Donal Meneses MD 04/26/2023 12:29 PM CREAM DIPPER - 04/26/2023 11:59 PM CREAM DIPPER Hospital Encounter [facility] [address], [place] [address] Carmen Carbone MD Leistner, Joseph S, R.T. (ARRT) Critical limb ischemia of both lower extremities (HC) 04/26/2023 Travel 04/20/2023 Telephone [facility] [place] [facility] [address] [place] [phone] Carmen Carbone MD Follow Up 04/19/2023 Orders Only [facility] [address], [place] [address] Carmen Carbone MD <No scans attached> 04/19/2023 Telephone [facility] [address] [place] [address] Carmen Carbone MD Appointment 04/18/2023 Telephone [facility] [address] [place] [phone] Carmen Carbone MD from Last 3 Months [...] Comments Blood Pressure 112/54 05/05/2023 3:37 PM CREAM DIPPER Pulse 61 05/05/2023 3:37 PM CREAM DIPPER Temperature 36.6 ??C (97.8 ??F) 05/05/2023 3:37 PM CS T Respiratory Rate 16 05/05/2023 3:37 PM CREAM DIPPER Oxygen Saturation 100% 05/05/2023 3:37 PM CREAM DIPPER Inhaled Oxygen Concentration - - Weight 103.3 kg (227 lb 11.2 oz) 05/05/2023 6:00 AM CREAM DIPPER Height 185.4 cm (6' 1) 04/27/2023 5:50 PM CREAM DIPPER Body Mass Index 30.04 04/27/2023 5:50 PM CREAM DIPPER Plan of Treatment Upcoming Encounters Date Type Department Care Team (Late st Contact Info) Description 05/16/2023 9:30 AM CREAM DIPPER Office Visit [facility] [address] [phone] Navi Zimmerman, [address] [place] [address] 06/09/2023 12:30 PM CREAM DIPPER Appointment [facility] [address] [place] [address] 06/09/2023 1:30 PM CREAM DIPPER Office Visit [facility] [place] [facility] [address] [place] [address] Donal Meneses MD [address] [place] [address] Health Maintenance Due Date Last Done Comments [...] Comments GLUCOSE METER Timed 05/05/2023 1:38 PM CREAM DIPPER GLUCOSE METER Timed 05/05/2023 9:12 AM CREAM DIPPER GLUCOSE METER Timed 05/04/2023 9:25 PM CREAM DIPPER GLUCOSE METER Timed 05/04/2023 5:29 PM CREAM DIPPER US ARTERIAL LOWER EXTREMITY W REYNA RIGHT Routine 05/04/2023 3:49 PM CREAM DIPPER GLUCOSE METER Timed 05/04/2023 2:18 PM CREAM DIPPER XR FOOT 3 VIEWS RIGHT PORTABLE Routine 05/03/2023 12:36 PM CREAM DIPPER HEMOGLOBIN A1C SCREENING MORRIS 05/03/2023 8:49 AM CREAM DIPPER EXTRA TUBE BLUE Today 05/03/2023 8:49 AM CREAM DIPPER BASIC METABOLIC PANEL Early AM 05/03/2023 8:49 AM CREAM DIPPER CBC W PLT NO DIFF Early AM 05/03/2023 8:4 9 AM CREAM DIPPER SCAN-CARDIAC STRIP 05/03/2023 8: 12 AM CREAM DIPPER APTT Early AM 05/03/2023 7:28 AM CREAM DIPPER GLUCOSE METER Timed 05/02/2023 6:33 PM CREAM DIPPER PV OTHER PROCEDURE Routine 05/02/2023 6: 20 PM CREAM DIPPER HCHG ACTIVATED CLOTTING TM CV Timed 05/02/2023 6:05 PM CREAM DIPPER HCHG ACTIVATED CLOTTING TM CV Timed 05/02/2023 5:12 PM CREAM DIPPER HCHG ACTIVATED CLOTTING TM CV Timed 05/02/2023 5:02 PM CREAM DIPPER HCHG ACTIVATED CLOTTING TM CV Timed 05/02/2023 4:30 PM CREAM DIPPER HCHG ACTIVATED CLOTTING TM CV Timed 05/02/2023 3:55 PM CREAM DIPPER HCHG ACTIVATED CLOTTING TM CV Timed 05/02/2023 3:21 PM CREAM DIPPER HCHG ACTIVATED CLOTTING TM CV Timed 05/02/2023 3:09 PM CREAM DIPPER ENDOTRACHEAL TUBE Routine 05/02/2023 2:4 0 PM CREAM DIPPER ENDOTRACHEAL TUBE Routine 05/02/2023 2:4 0 PM CREAM DIPPER ENDOTRACHEAL TUBE Routine 05/02/2023 2:4 0 PM CREAM DIPPER CBC W PLT NO DIFF Timed 05/02/2023 9:3 0 AM CREAM DIPPER BASIC METABOLIC PANEL Timed 05/02/2023 9:30 AM CREAM DIPPER APTT Early AM 05/02/2023 9:30 AM CREAM DIPPER SCAN-CARDIAC STRIP 05/02/2023 12 :00 AM CREAM DIPPER GLUCOSE METER Timed 05/01/2023 9:34 PM CREAM DIPPER GLUCOSE METER Timed 05/01/2023 8:42 PM CREAM DIPPER GLUCOSE METER Timed 05/01/2023 5:12 PM CREAM DIPPER GLUCOSE METER Timed 05/01/2023 12:01 PM CREAM DIPPER GLUCOSE METER Timed 05/01/2023 8:02 AM CREAM DIPPER APTT MORRIS 05/01/2023 7:53 AM CREAM DIPPER GLUCOSE METER Timed 04/30/2023 10:21 PM CREAM DIPPER GLUCOSE METER Timed 04/30/2023 4:51 PM CREAM DIPPER GLUCOSE METER Timed 04/30/2023 11:45 AM CREAM DIPPER GLUCOSE, RANDOM MORRIS 04/30/2023 7:26 AM CREAM DIPPER APTT Early AM 04/30/2023 7:26 AM CREAM DIPPER CREATININE Early AM 04/30/2023 7:26 AM CREAM DIPPER APTT Timed 04/30/2023 12:10 AM CREAM DIPPER GLUCOSE METER Timed 04/29/2023 10:09 PM CREAM DIPPER APTT Timed 04/29/2023 4:51 PM CREAM DIPPER GLUCOSE METER Timed 04/29/2023 4:46 PM CREAM DIPPER GLUCOSE METER Timed 04/29/2023 12:05 PM CREAM DIPPER GLUCOSE METER Timed 04/29/2023 7:56 AM CREAM DIPPER APTT Timed 04/29/2023 7:31 AM CREAM DIPPER CBC W PLT NO DIFF Early AM 04/29/2023 7:3 1 AM CREAM DIPPER BASIC METABOLIC PANEL Early AM 04/29/2023 7:31 AM CREAM DIPPER APTT Timed 04/28/2023 11:13 PM CREAM DIPPER GLUCOSE METER Timed 04/28/2023 10:41 PM CREAM DIPPER GLUCOSE METER Timed 04/28/2023 6:39 PM CREAM DIPPER US VEIN MAPPING LOWER EXTREMITY BILATERAL Today 04/28/2023 5:38 PM CREAM DIPPER SCAN-CARDIAC STRIP 04/28/2023 4: 41 PM CREAM DIPPER CREATININE Early AM 04/28/2023 4:32 PM CREAM DIPPER GLUCOSE METER Timed 04/28/2023 2:12 PM CREAM DIPPER GLUCOSE METER Timed 04/28/2023 1:44 PM CREAM DIPPER GLUCOSE METER Timed 04/28/2023 1:30 PM CREAM DIPPER GLUCOSE METER Timed 04/28/2023 1:26 PM CREAM DIPPER SCAN-OPERATIVE/PROCED URE REPORT 04/28/2023 12:00 AM CREAM DIPPER LACTATE SCREEN VENOUS ISTAT W BECKFORD Timed 04/27/2023 9:43 PM CREAM DIPPER TYPE & SCREEN STAT 04/27/2023 8:21 PM CREAM DIPPER APTT MORRIS 04/27/2023 8:21 PM CREAM DIPPER ISTAT EC8 Timed 04/27/2023 7:52 PM CREAM DIPPER BLOOD CULTURE STAT 04/27/2023 7:41 PM CREAM DIPPER EXTRA TUBE BECKFORD ON ICE STAT 04/27/2023 7:35 PM CREAM DIPPER ISTAT LACTATE SCREEN VENOUS STAT 04/27/2023 7:35 PM CREAM DIPPER CBC WITH AUTO DIFFERENTIAL STAT 04/27/2023 7:34 PM CREAM DIPPER BLOOD CULTURE STAT 04/27/2023 7:34 PM CREAM DIPPER BASIC METABOLIC PANEL STAT 04/27/2023 7:34 PM CREAM DIPPER CBC WITH AUTO DIFFERENTIAL STAT 04/27/2023 7:34 PM CREAM DIPPER US ARTERIAL LOWER EXTREMITY W REYNA BILATERAL MORRIS 04/26/2023 1:40 PM CREAM DIPPER Critical limb ischemia of both lower extremities (HC) from Last 3 Months Results * (ABNORMAL) GLUCOSE METER (05/05/2023 1:38 PM CREAM DIPPER) Only the most recent of24 resultswithin the time period is included. [facility] GLUCOSE METER 160(H) 65 - 100 mg/dL 05/05/2023 1:39 PM CREAM DIPPER [facility] Blood BLOOD SPECIMEN / Unknown 05/05/2023 1:38 PM CREAM DIPPER 05/05/2023 1:39 PM CREAM DIPPER Abida Louis MD CHEMISTRY [facility] [address] [place] [address], [place] * US ARTERIAL LOWER EXTREMITY W REYNA RIGHT (05/04/2023 3:49 PM CREAM DIPPER) Anatomical Region Laterality Modality LEG R Ultrasound Impressions 05/05/2023 8:20 AM CREAM DIPPER ?? 1. ??Right lower extremity: ??Moderately reduced [...] [email or web address] / Narrative 05/05/2023 8:20 AM CREAM DIPPER Table formatting from the original result was [...] CM/SEC ? RIGHT PSV T,B,M VELOCITY RATIO RESEARCH STAFF MEMBER Prox 96 T - ?? RESEARCH STAFF MEMBER Dist 124 T ??- PFA 124 T - ?? SFA Prox ??109 62 T - ?? SFA Mid ??117 140 T - ?? SFA Dist ??101 116 T - ?? TRUDY Prox 63 M - ?? TRUDY Dist 88 M - ?? INSULATION SPRAYER ??147 M - ?? CHAPARRO 75 M - DPA 65 M - ?? T= Triphasic; ??B= Biphasic; ??M= Monophasic ?? LEFT PSV T,B,M VELOCITY RATIO RESEARCH STAFF MEMBER Prox 88 ??T ??- ?? RESEARCH STAFF MEMBER Dist 89 ??T ??- ?? PFA 136 ??T ??- ?? SFA Prox ??62 69 ??T ??- ?? SFA Mid ??62 78 T ??- ?? SFA Dist ??58 62 ??T ??- ?? TRUDY Prox 31 T ??- ?? TRUDY Dist 49 ??T ??- ?? INSULATION SPRAYER ??0 - - ?? CHAPARRO 72 T - DPA 33 M - ?? Right ??Left ?Index ??Index Brachial 125 ??118 ?? Ankle (PT) 72 0.58 0 0.00 Ankle (DP) 68 0.54 82 0.66 Digit 16 0.13 44 0.35 Ny LUDWIG [place] * XR FOOT 3 VIEWS RIGHT PORTABLE (05/03/2023 12:36 PM CREAM DIPPER) Anatomical Region Laterality Modality FEET, FOOT R Digital Radiogra phy 05/03/2023 6:22 PM CREAM DIPPER Impressions 05/03/2023 6:22 PM CREAM DIPPER Assessment of the toes is limited by flexion. No soft tissue air. No foreign body. No obvious bone resorption. No fracture or significant bone lesion. 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 Dictated by Jareth Jones MD @ May 03 2023 ??6:22PM (Electronically Signed) ?? Narrative 05/03/2023 6:22 PM CREAM DIPPER For Patients: ??As a result of the [...] (ABNORMAL) HEMOGLOBIN A1C SCREENING (05/03/2023 8:49 AM CREAM DIPPER) HEMOGLOBIN A1C SCREENING 7.2(H) <=6.4 % 05/03/2023 2:03 PM CREAM DIPPER [facility] Blood BLOOD SPECIMEN / Unknown Butterfly / Unknown 05/03/2023 8:49 AM CREAM DIPPER 05/03/2023 8:59 AM CREAM DIPPER Narrative [facility] - 05/03/2023 2:03 PM CREAM DIPPER ? (<5.7%) ?Normal ? (5.7% to 6.4%) ? Indicates prediabetes ? (>=6.5%) ? Confirms diabetes Falsely low levels may be seen with: Recent Transfusion, Recent Significant Blood Loss, Hemolytic Diseases, or Falsely elevated levels may be seen with: Untreated Anemias, Splenectomy Huma FRAGAM CHEMISTRY Performing Organization Address [facility] de Phone Number [facility] [address] [place] [phone], [place] * EXTRA TUBE BLUE (05/03/2023 8:49 AM CREAM DIPPER) Blood BLOOD SPECIMEN / Unknown Butterfly / Unknown 05/03/2023 8:49 AM CREAM DIPPER 05/03/2023 8:59 AM CREAM DIPPER Abida Louis MD LABORATORY Performing Organization Address [facility] de Phone Number [facility] [address] [place] [phone], [place] * (ABNORMAL) CBC (05/03/2023 8:49 AM CREAM DIPPER) Only the most recent of3 resultswithin the time period is included. WHITE BLOOD COUNT 7.1 4.5 - 11.0 thou/cu mm 05/03/2023 9:18 AM [facility] TR[facility] RED BLOOD COUNT 4.09(L) 4.30 - 5.90 mil/cu mm 05/03/2023 9:18 AM [facility] HEMOGLOBIN 10.9(L) 13.5 - 17.5 g/dL 05/03/2023 9:18 AM [facility] HEMATOCRIT 36.0(L) 37.0 - 53.0 % 05/03/2023 9:18 AM [facility] MCV 88 80 - 100 fL 05/03/2023 9:18 AM [facility] MCH 26.7 26.0 - 34.0 pg 05/03/2023 9:18 AM [facility] MCHC 30.3(L) 32.0 - 36.0 g/dL 05/03/2023 9:18 AM [facility] RDW 13.6 11.5 - 15.5 % 05/03/2023 9:18 AM [facility] PLATELET COUNT 343 140 - 440 thou/cu mm 05/03/2023 9:18 AM [facility] MPV 9.4 6.5 - 11.0 fL 05/03/2023 9:18 AM [facility] NRBC 0.0 % 05/03/2023 9:18 AM [facility] ABS NRBC 0.0 thou /cu mm 05/03/2023 9:18 AM [facility] Blood BLOOD SPECIMEN / Unknown Butterfly / Unknown 05/03/2023 8:49 AM CREAM DIPPER 05/03/2023 8:59 AM CREAM DIPPER [facility] LABORATORY - 05/03/2023 9:18 AM CREAM DIPPER Call if Hemoglobin less than 10. Jennifer Torres MD HEMATOLOGY [facility] [address] [place] [address], * (ABNORMAL) Basic Metabolic Panel (05/03/2023 8:49 AM CREAM DIPPER) Only the most recent of4 resultswithin the time period is included. SODIUM 137 136 - 145 mmol/L 05/03/2023 9:43 AM [facility] POTASSIUM 4.3 3.5 - 5.1 mmol/L 05/03/2023 9:43 AM [facility] CHLORIDE 106 98 - 107 mmol/L 05/03/2023 9:43 AM [facility] CO2,TOTAL 20(L) 22 - 29 mmol/L 05/03/2023 9:43 AM [facility] ANION GAP 11 5 - 18 05/03/2023 9:43 AM [facility] GLUCOSE 97 70 - 99 mg/dL 05/03/2023 9:43 AM [facility] CALCIUM 9.5 8.8 - 10.2 mg/dL 05/03/2023 9:43 AM [facility] BUN 20 8 - 23 mg/dL 05/03/2023 9:43 AM [facility] CREATININE 1.68(H) 0.70 - 1.20 mg/dL 05/03/2023 9:43 AM [facility] BUN/CREAT RATIO 12 10 - 20 9:43 AM [facility] eGFR 42(L) >90 mL/min/1.7 3m2 05/03/2023 9:43 AM [facility] Comment:As of 2021, eG FR is calculated by the CKD-EPI creatinine equation without race adjustment. ??eGFR can be influenced by muscle mass, exercise, and diet. ??The reported eGFR is an estimation only and is only applicable if the renal function is stable. Blood BLOOD SPECIMEN / Unknown Butterfly / Unknown 05/03/2023 8:49 AM CREAM DIPPER 05/03/2023 8:59 AM CREAM DIPPER Jennifer Torres MD [facility] [address] [place] [phone], * SCAN-CARDIAC STRIP (05/03/2023 8:12 AM CREAM DIPPER) Scanner OTHER * APTT (05/03/2023 7:28 AM CREAM DIPPER) Only the most recent of9 resultswithin the time period is included. APTT 31 29 - 36 sec 05/03/2023 8:17 AM [facility] Blood BLOOD SPECIMEN / Unknown Butterfly / Unknown 05/03/2023 7:28 AM CREAM DIPPER 05/03/2023 7:42 AM CREAM DIPPER Narrative [facility] - 05/03/2023 8:17 AM CREAM DIPPER Therapeutic Range: 57-100 seconds Donal Meneses MD HEMATOLOG Y [facility] [address] [place] [address], [place] * PV OTHER PROCEDURE (05/02/2023 6:20 PM CREAM DIPPER) Anatomical Region Laterality Modality Other Narrative 05/02/2023 6:20 PM CREAM DIPPER Donal Meneses MD ? 05/03/2023 ??9:42 AM OPERATIVE REPORT DATE OF SURGERY: 05/03/2023 SURGEON: Donal Meneses MD FOUNTAIN MANAGER: Jennifer Torres MD (vascular surgery fellow) PREOPERATIVE [...] kit and we subsequently placed in a 5-Bolivian sheath. We then were able to select [...] Using a Mongo ES 0.014 wire and Crabtree catheter we attempted to cross antegrade through [...] for the entire procedure as dictated above. CORN CROP SUPERVISOR MEASURES: We utilized approximately 65 ml of Visipaque contrast and fluoroscopy time was approximately 32.8 minutes (232 mGy). The patient was systemically heparinized during the procedure Donal Meneses MD Vascular and Endovascular Surgery Donal Meneses MD CV IMAGIN G * (ABNORMAL) ACTIVATED CLOTTING TIME [id number] ACT (05/02/2023 6:05 PM CREAM DIPPER) Only the most recent of7 resultswithin the time period is included. ACTIVATED CLOTTING TIME, POCT 228(H) 74 - 125 sec 05/02/2023 6:29 PM CREAM DIPPER [facility] Blood BLOOD SPECIMEN / Unknown 05/02/2023 6:05 PM CREAM DIPPER 05/02/2023 6:29 PM CREAM DIPPER Abida Louis MD [facility] [address] [place] [address], [place] * HCHG TUBE PR1, HCHG INSTRUMENT DISP PR10, HCHG STYLET PR1 (05/02/2023 2:40 PM CREAM DIPPER) Narrative Jatin Ross CRNA - 05/02/2023 2:40 PM CREAM DIPPER Jatin Ross CRNA ? 05/02/2023 ??2:41 PM [...] ORDERABLES * SCAN-CARDIAC STRIP (05/02/2023 12:00 AM CREAM DIPPER) Narrative 05/02/2023 12:00 AM CREAM DIPPER Ordered by an unspecified provider. Other Clinical Staff OTHER * GLUCOSE, RANDOM (04/30/2023 7:26 AM CREAM DIPPER) GLUCOSE,RANDOM 116 70 - 139 mg/dL 04/30/2023 10:36 AM CREAM DIPPER [facility] Blood BLOOD SPECIMEN / Unknown Venipuncture / Unknown 04/30/2023 7:26 AM CREAM DIPPER 04/30/2023 7:39 AM CREAM DIPPER Lisbeth Dee RN CHEMISTRY [facility] [address] [place] [address], * (ABNORMAL) Creatinine AM (04/30/2023 7:26 AM CREAM DIPPER) Only the most recent of2 resultswithin the time period is included. eGFR 50(L) >90 mL/min/1.7 3m2 04/30/2023 8:06 AM CREAM DIPPER [facility] Comment:As of 2021, eG FR is calculated by the CKD-EPI creatinine equation without race adjustment. ??eGFR can be influenced by muscle mass, exercise, and diet. ??The reported eGFR is an estimation only and is only applicable if the renal function is stable. CREATININE 1.45(H) 0.70 - 1.20 mg/dL 04/30/2023 8:06 AM CREAM DIPPER [facility] Blood BLOOD SPECIMEN / Unknown Venipuncture / Unknown 04/30/2023 7:26 AM CREAM DIPPER 04/30/2023 7:39 AM CREAM DIPPER Abida Louis MD CHEMISTRY [facility] [address] [place] [address], [place] * US VEIN MAPPING LOWER EXTREMITY BILATERAL (04/28/2023 5:38 PM CREAM DIPPER) Anatomical Region Laterality Modality LEGS, LEG L, LEG R Ultrasound Impressions 04/29/2023 3:00 PM CREAM DIPPER ??Bilateral lower extremity superficial venous mapping with diameters outlined above. The bilateral greater saphenous veins are patent and compressible throughout. The right small saphenous vein is noncompressible in the distal calf. The left small saphenous vein is noncompressible throughout. Chase Barnes M.D. Vascular and Interventional Radiology [employer] [facility] [email or web address] / Narrative 04/29/2023 3:00 PM CREAM DIPPER For Patients: As a result of the [...] [place] * SCAN-CARDIAC STRIP (04/28/2023 4:41 PM CREAM DIPPER) Scanner OTHER * SCAN-OPERATIVE/PROCEDURE REPORT (04/28/2023 12:00 AM CREAM DIPPER) Narrative 04/28/2023 12:00 AM CREAM DIPPER Ordered by an unspecified provider. Other Clinical Staff OTHER * LACTATE SCREEN VENOUS ISTAT W SHAKEEL (04/27/2023 9:43 PM CREAM DIPPER) LACTATE VENOUS SCREEN ISTAT <1.8 <=2.0 04/27/2023 9:48 PM CREAM DIPPER [facility] LACTATE SCREEN VENOUS POCT 1.5 <=2.0 04/27/2023 9:48 PM CREAM DIPPER [facility] Blood BLOOD SPECIMEN / Unknown 04/27/2023 9:43 PM CREAM DIPPER 04/27/2023 9:48 PM CREAM DIPPER Helen Ryder MD LABORATORY [facility] [address] [place] [address], * TYPE & SCREEN (04/27/2023 8:21 PM CREAM DIPPER) ABORH O Rh Positive 04/27/2023 9:31 PM CREAM DIPPER [facility] LAB BLOOD BANK ANTIBODY SCREEN Negative Negative 04/27/2023 9:31 PM CREAM DIPPER [facility] LAB BLOOD BANK SPECIMEN EXPIRATION DATE/TIME 04/30/23 23:59 04/27/2023 9:31 PM CREAM DIPPER [facility] BLOOD BANK Blood BLOOD SPECIMEN / Unknown Non-Lab Venipuncture / Unknown 04/27/2023 8:21 PM CREAM DIPPER 04/27/2023 8:48 PM CREAM DIPPER Rosie Orourke MD BLOOD BANK [facility] LAB BLOOD BANK [address] [place] [address], * (ABNORMAL) ISTAT EC8 (04/27/2023 7:52 PM CREAM DIPPER) GLUCOSE, POCT 70 70 - 99 mg/dL 04/27/2023 7:56 PM CREAM DIPPER [facility] TRAL LABORATORY BUN, POCT 37(H) 8 - 25 mg/dL 04/27/2023 7:56 PM CREAM DIPPER [facility] TR[facility] LABORATORY SODIUM, POCT 135 135 - 145 mmol/L 04/27/2023 7:56 PM CREAM DIPPER [facility] TRAL LABORATORY POTASSIUM, POCT 4.3 3.5 - 5.0 mmol/L 04/27/2023 7:56 PM [facility] TR[facility] LABORATORY CHLORIDE, POCT 107 98 - 107 mmol/L 04/27/2023 7:56 PM CREAM DIPPER [facility] TRAL LABORATORY CO2,TOTAL, POCT 21 21 - 31 mmol/L 04/27/2023 7:56 PM CREAM DIPPER [facility] ANION GAP, POCT 13 5 - 18 04/27/2023 7:56 PM CREAM DIPPER [facility] LAB[facility] PH, VENOUS, POCT 7.44(H) 7.32 - 7.42 04/27/2023 7:56 PM CREAM DIPPER [facility] PCO2, VENOUS, POCT 29(L) 41 - 51 mmHg 04/27/2023 7:56 PM [facility] LAB[facility] HCO3, VENOUS, POCT 20(L) 22 - 30 mmol/L 04/27/2023 7:[address] [facility] LABOR[facility] BASE EXCESS, VENOUS, POCT -5.0(L) -2.0 - 3.0 04/27/2023 7:[address] [facility] HEMATOCRIT, POCT 35.0(L) 37.0 - 53.0 % 04/27/2023 7:[address] [facility] HEMOGLOBIN, POCT 11.9(L) 13.5 - 17.5 g/dL 04/27/2023 7:[address] [facility] Blood BLOOD SPECIMEN / Unknown 04/27/2023 7:52 PM CREAM DIPPER 04/27/2023 7:56 PM CREAM DIPPER Helen Ryder MD CHEMISTRY [facility] LABORATORY [address] [place] [address], * BLOOD CULTURE X2 (04/27/2023 7:41 PM [facility]) Only the most recent of2 resultswithin the time period is included. CULTURE No Growth. 05/01/2023 9:49 PM [facility] Blood BLOOD SPECIMEN / Unknown Non-Lab Venipuncture / Unknown 04/27/2023 7:41 PM [facility] 04/27/2023 7:49 PM [facility] Narrative [facility] - 05/01/2023 9:49 PM [facility] Low volume blood culture received; possible false negative culture. Helen Ryder MD MICROBIOLOGY Performing Organization Address [facility]/ZIP Co de Phone Number [facility] [address] [place] [address], * EXTRA TUBE [place] ON ICE (04/27/2023 7:35 PM [facility]) Blood BLOOD SPECIMEN / Unknown Non-Lab Venipuncture / Unknown 04/27/2023 7:35 PM [facility] 04/27/2023 7:50 PM [facility] Helen Ryder MD LABORATORY Performing Organization Address [facility] Co de Phone Number [facility] [address] [place] [address], * (ABNORMAL) CBC WITH AUTO DIFFERENTIAL (04/27/2023 7:34 PM [facility]) WHITE BLOOD COUNT 7.3 4.5 - 11.0 thou/cu mm 04/27/2023 8:00 PM [facility] RED BLOOD COUNT 4.20(L) 4.30 - 5.90 mil/cu mm 04/27/2023 8:00 PM [facility] HEMOGLOBIN 11.7(L) 13.5 - 17.5 g/dL 04/27/2023 8:00 PM [facility] HEMATOCRIT 35.4(L) 37.0 - 53.0 % 04/27/2023 8:00 PM [facility] MCV 84 80 - 100 fL 04/27/2023 8:00 PM [facility] MCH 27.9 26.0 - 34.0 pg 04/27/2023 8:00 PM [facility] MCHC 33.1 32.0 - 36.0 g/dL 04/27/2023 8:00 PM [facility] RDW 13.3 11.5 - 15.5 % 04/27/2023 8:00 PM [facility] [facility] PLATELET COUNT 425 140 - 440 thou/cu mm 04/27/2023 8:00 PM [facility] MPV 9.3 6.5 - 11.0 fL 04/27/2023 8:00 PM [facility] NRBC 0.0 % 04/27/2023 8:00 PM [facility] ABS NRBC 0.0 thou /cu mm 04/27/2023 8:00 PM [facility] % NEUT 68.6 % 04/27/2023 8:00 PM [facility] % LYMPH 16.8 % 04/27/2023 8:00 PM [facility] % MONO 12.2 % 04/27/2023 8:00 PM [facility] % EOS 1.1 % 04/27/2023 8:00 PM [facility] % BASO 0.3 % 04/27/2023 8:00 PM [facility] % IMMATURE GRAN (METAS,MYELOS,DE OS) 1.0 % 04/27/2023 8:00 PM [facility] ABSOLUTE NEUTROPHILS 5.0 1.7 - 7.0 thou/cu mm 04/27/2023 8:00 PM [facility] ABSOLUTE LYMPHOCYTES 1.2 0.9 - 2.9 thou/cu mm 04/27/2023 8:00 PM [facility] ABSOLUTE MONOCYTES 0.9(H) <0.9 thou/cu mm 04/27/2023 8:00 PM [facility] ABSOLUTE EOSINOPHILS 0.1 <0.5 thou/cu mm 04/27/2023 8:00 PM [facility] ABSOLUTE BASOPHILS 0.0 <0.3 thou/cu mm 04/27/2023 8:00 PM [facility] ABSOLUTE IMMATURE GRANULOCYTES(MET ,MYELOS,PROS) 0.1 <0.3 thou/cu mm 04/27/2023 8:00 PM [facility] Blood BLOOD SPECIMEN / Unknown Non-Lab Venipuncture / Unknown 04/27/2023 7:34 PM [facility] 04/27/2023 7:49 PM [facility] Helen Ryder MD [facility] [address] [place] [address], [place] * US ARTERIAL LOWER EXTREMITY W REYNA BILATERAL (04/26/2023 1:40 PM [facility]) Anatomical Region Laterality Modality LEGS Ultrasound 04/26/2023 1:01 PM [facility] Narrative 04/26/2023 6:51 PM [facility] VASCULAR ULTRASOUND REPORT CLEMENTE BENTON Accession#: ?? [id number] : ?1950 Study Date: ?? 04/26/2023 1:01:19 PM Age: ?73 years ?? Tech: ? JSL Gender: M ?Referring MD: CARMEN CARBONE Site: [facility] Study performed: ?Lower extremity [...] Phasicity ? +--------+ + + +--------+ + RESEARCH STAFF MEMBER PRX ? 74 ? multiphasic ? +--------+ + + +--------+ + RESEARCH STAFF MEMBER DST ? 82 ? multiphasic ? +--------+ [...] monophasic ? +--------+ + + +--------+ + INSULATION SPRAYER DST ? 16 ? monophasic ? +--------+ + + +--------+ + ENEDIA DST ? 13 ? monophasic ? +--------+ + + +--------+ + DPA ? 14 ? monophasic ? +--------+ + + +--------+ + +--------+ + + LEFT ? Velocity cm/s Phasicity ?? +--------+ + + RESEARCH STAFF MEMBER PRX ? 57 ? multiphasic +--------+ + + RESEARCH STAFF MEMBER DST ? 66 ? multiphasic +--------+ + + PFA ? 91 ? multiphasic +--------+ + + SFA PRX ? 53 ? multiphasic +--------+ + + SFA MID ? 67 ? multiphasic +--------+ + + SFA DST ? 39 ? multiphasic +--------+ + + TRUDY PRX ? 33 ? multiphasic +--------+ + + TRUDY DST ? 40 ? monophasic +--------+ + + INSULATION SPRAYER DST ? 20 ? monophasic +--------+ + [...] Index +-----+ +--------+ +-----+ 0.75 ? 72 ?INSULATION SPRAYER ?74 ? 0.77 +-----+ +--------+ +-----+ 0.66 ? 63 ?DPA ?98 ? 1.02 +-----+ +--------+ +-----+ 0.00 ? 0 ? Digit 1 ?45 ? 0.47 +-----+ +--------+ +-----+ Donal Meneses MD. Electronically signed on 04/26/2023 6:51:00 PM This study was performed and interpreted by a service accredited by the Intersocietal Accreditation Commission (IAC/Vascular), www.intersocietal.org/vascular Report generated by [employer]. ??Final ?? Procedure Note Donal Meneses MD - 04/26/2023 VASCULAR ULTRASOUND REPORT CLEMENTE BENTON : 1950 Study Date: 04/26/2023 1:01:19 PM Age: 73 years Tech: ETHEL Gender: M Referring MD: CARMEN CARBONE Site: [facility] Study performed: Lower extremity [...] cm/s Phasicity +--------+ + + +--------+ + RESEARCH STAFF MEMBER PRX 74 multiphasic +--------+ + + +--------+ + RESEARCH STAFF MEMBER DST 82 multiphasic +--------+ + + +--------+ [...] 17 monophasic +--------+ + + +--------+ + INSULATION SPRAYER DST 16 monophasic +--------+ + + +--------+ + ENEIDA DST 13 monophasic +--------+ + + +--------+ + DPA 14 monophasic +--------+ + + +--------+ + +--------+ + + LEFT Velocity cm/s Phasicity +--------+ + + RESEARCH STAFF MEMBER PRX 57 multiphasic +--------+ + + RESEARCH STAFF MEMBER DST 66 multiphasic +--------+ + + PFA 91 multiphasic +--------+ + + SFA PRX 53 multiphasic +--------+ + + SFA MID 67 multiphasic +--------+ + + SFA DST 39 multiphasic +--------+ + + TRUDY PRX 33 multiphasic +--------+ + + TRUDY DST 40 monophasic +--------+ + + INSULATION SPRAYER DST 20 monophasic +--------+ + + DPA 30 monophasic +--------+ + + Criteria: Stenosis V. Ratio Mild <50% <2.0 Moderate 50-74% > or = 2.0 Severe 75-99% > or = 4.0 Occluded 100% no detectable flow Pressures +-----+ +--------+ +-----+ RIGHT (mmHg) LEFT (mmHg) +-----+ +--------+ +-----+ Index 96 Brachial 94 Index +-----+ +--------+ +-----+ 0.75 72 INSULATION SPRAYER 74 0.77 +-----+ +--------+ +-----+ 0.66 63 DPA 98 1.02 +-----+ +--------+ +-----+ 0.00 0 Digit 1 45 0.47 +-----+ +--------+ +-----+ Donal Meneses MD. Electronically signed on 04/26/2023 6:51:00 PM This study was performed and interpreted by a service accredited by theIntersocietal Accreditation Commission (IAC/Vascular),www.intersocietal.org/vascular Report generated by [employer]. Final Carmen Donell Carbone MD from Last 3 Months Advance Directives Documents on File Type Date Recorded Patient Academic Affairs Specialist Expl anation Healthcare Directive 05/05/2022 023 Latest [...] Code Status Discussion: Not Discussed Care Teams Exhaust Worker Relationship Specialty Start Date End Date Rl Monroe MD PCP - General Family Practice 08/19/15
--- OUTSIDE RECORDS SUMMARY | 2023-05-09 07:16 | XMS_ITS | Continuity of Care Document ---
Author Name Unknown Organization [facility] Address [address] [place] [address] Phone Care Team Providers Care Reimbursement Specialist Name Role Phone Navdi Massey Unavailable Unavailable Allergies, Adverse Reactions, Alerts [...] ZANAFLEX (unknown strength) Not Available - Active [place] 5 mg-325 mg tablet take 1 - [...] C, [address], [place], [place], [id number], [place] tel:[phone] [facility] Encounter for other specified surgical aftercare 6 Manuelito Shoemaker. [facility] [place], [address] [place] [address] [address], [facility] [place], [place], [id number] , [place]. [phone] Referring Provider: Clemente Escobar, [facility] [address], [place], [address]. tel:[phone] [facility], [address], [place], [place], [id number], [place] tel:[phone] [facility] No Information 6 Samantha Tejeda. [facility], [address] [place] [address] [address], [facility] [place], [place], [id number] , [place]. [phone] Referring Provider: Clemente Escobar, [facility] [address], [place], [address]. tel:[phone] [facility], [address], [place], [place], [id number], [place] tel:[phone] [facility] No Information 6 Manuelito Shoemaker. [facility] [place], [address] [place] [address] [address], [facility] [place] [place], [id number] , [place]. tel:[phone] [facility], [address], [place], [place], [id number], [place] tel:[phone] [facility] No Information 6 Manuelito Shoemaker. [facility], [address] [place] [address] [address], [place], [place], [id number] , [place]. tel:[phone] Office/Outpat ient Visit,[facility], [address], [place], [place], [id number], [place] tel:[phone] [facility] Spinal stenosis, lumbar region 0 Manuelito Shoemaker. [facility], [address] [place] [address] [address], [place], [id number] , [place]. tel:[phone] Referring Provider: Clemente Escobar, [facility] [address], [place], [address]. tel:[phone] Family History Family Member Type Diagnosis Age At Onset No Information Payers Payer name Insurance type Covered green party [place] [id number] Medicare [facility] [id number] Social History Type Description Quantity Date Captured [...]
--- NOTE | 2023-05-09 07:31 | CRLHL7_ITS ---
For Patients: As a result of the Century Cures Act, medical imaging exams and procedure reports are released immediately into your electronic medical record. You may view this report before your referring provider. If you have questions, please contact your health care provider. Indication: Altered mental status, recent fall Technique: Volumetric multidetector CT images of the head were obtained without the administration of low osmolar intravenous contrast. Comparison: CT head May 05, 2023 Findings: There is no intra-axial or extra-axial fluid collection. There is no mass effect or midline shift. There is age-related cortical atrophy with mild sulcal widening and ex vacuo dilatation of the lateral ventricles. There are chronic small vessel disease changes in the subcortical and periventricular white matter without lost rizvi-white differentiation. The orbits and their contents are grossly within normal limits. The bony calvarium is grossly intact. There is moderate bubbly secretion and mucosal thickening seen throughout the paranasal sinuses. The mastoid air cells are well aerated. Impression: Stable age-related and chronic small-vessel disease changes of the brain similar to previous exam without acute intracranial abnormality. Please note that all CT scans at this facility use dose modulation, iterative reconstruction, and/or weight-based dosing when appropriate to reduce radiation dose to as low as reasonably achievable. Dictated by Calvin Crow MD @ 05/09/2023 9:40:18 AM (Electronically Signed)
[2023-05-09 07:50] LABS: HCO3 VBG 21 mmol/L (21-28); PCO2 VBG 40 mmHG (40-50); PO2 VBG 31.1 mmHG (25-47); pH VBG 7.318 (7.32-7.43)
--- NOTE | 2023-05-09 07:55 | ED.NURSE ---
pt trying to climb out of bed, pt taken monitors off. pt picking at air. pt talks very softly, can't hear what he is saying. pt repositioned in bed, turned to r side. per dr. estevez, do not need to place iv, can have lab draw.
[2023-05-09 08:11] LABS: Chloride* 108 mmol/L (96-114)
[2023-05-09 08:12] LABS: Albumin* 4.2 g/dL (3.3-5.0); Potassium* 4.2 mmol/L (3.6-5.1); Sodium* 138 mmol/L (135-149)
[2023-05-09 08:14] LABS: Creatinine* 1.7 mg/dL (0.5-1.5); Estimated Glomerular Filt Rate 42 ml/min
[2023-05-09 08:15] LABS: Alanine Aminotransferase* 21 U/L (4-50); Alkaline Phosphatase* 52 U/L (40-150); Anion Gap 12 mEq/L (7-15); Aspartate Amino Transferase* 29 U/L (12-35); Bilirubin Direct* 0.3 mg/dL (0.0-0.5); Bilirubin Total* 0.7 mg/dL (0.1-1.5); Blood Urea Nitrogen* 46 mg/dL (7-30); Calcium* 9.9 mg/dL (8.4-10.6); Carbon Dioxide* 18 mmol/L (20-32); Glucose* 182 mg/dL (60-115); Total Protein* 7.4 g/dL (6.0-8.3)
[2023-05-09 08:16] LABS: Magnesium* 1.8 mg/dL (1.5-2.6)
[2023-05-09 08:23] LABS: Ammonia* < 9.0 umol/L (13.1-30.0)
[2023-05-09 08:55] LABS: Basophils Absolute Auto 0.02 K/uL (0.00-0.30); Basophils Percent Auto 0.3 % (0.0-3.0); Eosinophils Absolute Auto 0.06 K/uL (0.00-0.50); Eosinophils Percent Auto 0.8 % (0.0-7.0); Hematocrit 33.8 % (37.0-53.0); Hemoglobin* 10.4 gm/dL (13.5-17.5); Immature Granulocytes Abs Auto 0.03 K/uL (0.00-0.30); Immature Granulocytes Pct Auto 0.4 %; Lymphocytes Percent Auto 8.6 % (20-44); Mean Corpuscular HGB Conc 31 gm/dL (32-36); Mean Corpuscular Hemoglobin 27 pg (26-34); Mean Corpuscular Volume 88 fL (80-100); Monocytes Percent Auto 10.9 % (0.0-11.0); Platelet Count* 435 K/uL (140-440); Red Blood Count 3.85 m/uL (4.30-5.90); White Blood Count* 7.31 K/uL (4.50-11.00)
[2023-05-09 08:58] LABS: Slide Review Reflex No
--- NOTE | 2023-05-09 09:15 | ED.NURSE ---
arrived and at bedside. pt sleeping.
--- NOTE | 2023-05-09 11:11 | PC.SOCIAL ---
Addendum entered by PABLO Denny 05/09/23 11:46: Follow up phone call at 11:45 am to [facility] admissions at [phone] to follow up on the status of referral. Confirmed information was received and they will review and call back with update on acceptance or denial this afternoon. Original Note: Contacted the following [facility] inpatient facilities for possible placement. 1. [facility]- Phone call to intake at [phone] and spoke to [place] in intake. There are currently no openings for this week. [place] took pt information if an opening comes up. 2. [facility]- There are openings, however, pt is not appropriate due to needing to be cognitively able to participate in all programming. 3. [facility]- There are openings, however, pt is not appropriate due to needing to be cognitively able to participate in all programming. 4. [facility]- Phone call to admissions at [phone]. There are no anticipated openings this week. 5. [facility]- Phone call to admissions at [phone]. There is an opening and they will review referral. Faxed referral to [phone]. Social work will follow up as needed.
--- NOTE | 2023-05-09 11:57 | ED.NURSE ---
pt continues to sleep. does not want to wake him for lunch. states he hasn't slept in days. ran home to get some belongings for pt in case he transfers.
--- NOTE | 2023-05-09 12:42 | ED.NURSE ---
Given report to [facility] nurse and plan to admit to room 243 via cart. called and is aware that the patient is going to be admitted to [facility] due to not being accepted due to illness at the facility and want staff to call tomorrow.
--- NOTE | 2023-05-09 15:53 | P.IMHP_ITS ---
Hospitalist- H&P: [place] History of Present Illness Date Seen: 05/09/23 Chief complaint: agitation Narrative: Fransisca Benton is a 73 year old male with dementia, diabetes, coronary artery disease, peripheral vascular disease admitted through the emergency department with severe agitation. Patient has had dementia for last couple years. He has had occasional episodes of delirium in the past. In the past 2 months however he has had progression of his dementia with loss of ability to do his ADLs at home. this is been associated with infection of the toes of the right foot. he has peripheral arterial disease with diabetes and has had problems with ulcerations on his right foot toes. Three weeks ago he was diagnosed with critical ischemia and underwent intervention at [facility] . He had balloon angioplasty of the bilateral common iliac arteries and right lower extremity angiogram with recanalization of the right pop /TP trunk/PT arteries, Balloon angioplasty of the right PT, DC be of popliteal, SFA and stenting of SFA. He has been placed on long-term aspirin and Plavix for this. During the hospital stay he had significant sundowning with delirium. This impacted decisions about his treatment plan including a decision not to do lower extremity bypass surgery. He was also felt out to be a candidate for anticoagulation with his fall risk and delirium. Since discharge from the hospital on May 05 he has been fluctuating in his sundowning and delirium. He was having problems than got better than last night head gotten much worse with more agitation. He did not sleep all night. He was up moving around. Could not be redirected by his . He was brought to the emergency room for evaluation treatment of his delirium. At [facility] he was continued on his chronic Zyprexa 5 mg at bedtime and q.6 hours p.r.n. they added Seroquel 50 mg at bedtime. His has continued this at home. His notes that his code status is DNR. She says that he quite clearly would not want to continue to live in his current condition with his dementia and delirium. Patient is now sleeping soundly and difficult to arouse. He is largely nonverbal. History is obtained from his medical record and from his . Review of Systems Narrative: Other than the delirium he seems to be doing fairly well. His notes that since his bypass surgery he has had a warm and red and somewhat swollen right foot. It gets better if it is elevated and gets worse if it is on the ground. She is not aware that it has changed substantially since surgery. Before gerard cheng he had a cold right foot. He was previously on metformin but this was stopped because of concerns about kidney function. He was put on glipizide but this was stopped as well. He has not recently been on medication for diabetes. [facility] Medical History (Updated 05/09/23 @ 16:27 by Manuelito Vasquez MD) Urinary retention ?R33.9 - Retention of urine, unspecified (ICD-10) Palliative care encounter ?Z51.5 - Encounter for palliative care (ICD-10) Delirium ?R41.0 - Disorientation, unspecified (ICD-10) Torticollis, acquired ?M43.6 - Torticollis (ICD-10) Fall ?W19.XXXA - Unspecified fall, initial encounter (ICD-10) Cellulitis of foot associated with diabetes mellitus ?E11.628 - Type 2 diabetes mellitus with other skin complications (ICD-10) ?L03.119 - Cellulitis of unspecified part of limb (ICD-10) Gout ?M10.9 - Gout, unspecified (ICD-10) Vasomotor rhinitis ?J30.0 - Vasomotor rhinitis (ICD-10) Dementia ?F03.90 - Unspecified dementia without behavioral disturbance (ICD-10) B12 deficiency ?E53.8 - Deficiency of other specified B group vitamins (ICD-10) Left knee DJD ?M17.12 - Unilateral primary osteoarthritis, left knee (ICD-10) Type 2 diabetes mellitus (12/18/09) ?E11.9 - Type 2 diabetes mellitus without complications (ICD-10) Osteoarthritis of both hips ?M16.0 - Bilateral primary osteoarthritis of hip (ICD-10) Hypothyroidism (04/14/06) ?E03.9 - Hypothyroidism, unspecified (ICD-10) Hypertension (12/29/08) ?I10 - Essential (primary) hypertension (ICD-10) Hyperlipidemia (04/14/06) ?E78.5 - Hyperlipidemia, unspecified (ICD-10) Erectile dysfunction (12/29/08) ?N52.9 - Male erectile dysfunction, unspecified (ICD-10) Disorder of intervertebral disc of lumbar spine ?M51.9 - Unspecified thoracic, thoracolumbar and lumbosacral intervertebral disc disorder (ICD-10) Depression (12/29/08) ?F32.A - Depression, unspecified (ICD-10) Chronic kidney disease (2013) ?N18.9 - Chronic kidney disease, unspecified (ICD-10) CAD (coronary artery disease) (04/14/06) ?I25.10 - Atherosclerotic heart disease of [place] coronary artery without angina pectoris (ICD-10) Bipolar disorder (12/29/08) ?F31.9 - Bipolar disorder, unspecified (ICD-10) Atrial fibrillation ?I48.91 - Unspecified atrial fibrillation (ICD-10) Acute renal failure superimposed on chronic kidney disease ?N17.9 - Acute kidney failure, unspecified (ICD-10) ?N18.9 - Chronic kidney disease, unspecified (ICD-10) Durable power of production underwriter in chart Health care directive on file ?Z78.9 - Other specified health status (ICD-10) Submucosal rectal lesion ?K62.9 - Disease of anus and rectum, unspecified (ICD-10) History of adenomatous polyp of colon (2013) ?Z86.010 - Personal history of colonic polyps (ICD-10) High prostate specific antigen (PSA) ?R97.20 - Elevated prostate specific antigen [PSA] (ICD-10) Cataract (01/12/12) ?H26.9 - Unspecified cataract (ICD-10) Surgical History (Updated 05/09/23 @ 16:26 by Manuelito Vasquez MD) History of angioplasty of peripheral vessel ?Z98.62 - Peripheral vascular angioplasty status (ICD-10) H/O cataract extraction ?Z98.49 - Cataract extraction status, unspecified eye (ICD-10) H/O shoulder surgery ?Z98.890 - Other specified postprocedural states (ICD-10) History of tonsillectomy (04/14/06) ?Z90.89 - Acquired absence of other organs (ICD-10) History of excision of lamina of lumbar vertebra for decompression of spinal cord (2015) ?Z98.890 - Other specified postprocedural states (ICD-10) History of coronary artery bypass surgery (1993) ?Z95.1 - Presence of aortocoronary bypass graft (ICD-10) Social History (Updated 05/09/23 @ 16:19 by Manuelito Vasquez MD) Narrative: patient has been living with his , Akosua, who is his primary caregiver and healthcare power of production underwriter. She is a retired RN from [employer]. He does not smoke. He quit drinking alcohol about a year and a half ago. code status is DNR. In the past 2 months he has been losing his ability to perform ADLs, showering , shaving, dressing and brushing teeth. he is unsteady on his feet. Sometimes uses a walker. What is your current living situation?: I presently have a place to live Problems where you live: no known problems Problems where you live details: none In the past 12 months, utilities in danger of being shut off: no In past 12 months, lack of transportation kept you from medical appts, meetings, work, or getting things needed for daily living: no In the past 12 mos, have been you worried that your food would run out before you had money to buy more?: never true In the past 12 mos, the food you bought just didn't last and you didn't have money to buy more?: never true Smoking Status: Former smoker Do you use any of these nicotine containing products: None Second hand tobacco smoke exposure: No How often do you have a drink containing alcohol: never How often do you have six or more drinks on one occasion: Never AUDIT-C Alcohol total score: 0 Non-prescribed substance use: denies use How often does anyone, including family, friends and others, physically hurt you : never How often does anyone, including family, friends and others, insult or talk down to you: never How often does anyone, including family, friends and others, threaten you with harm: never How often does anyone, including family, friends and others, scream or curse at you: never Little interest or pleasure in doing things: more than half the days Feeling down, depressed, or hopeless: more than half the days service: Yes Meds Home Medications and Allergies Home Medications Medication Instructions Recorded Confirmed Type cyanocobalamin (vitamin B-12) 1,000 mcg PO DAILY 10/08/21 05/09/23 History 1,000 mcg tablet multivitamin 1 tab PO QAM 10/08/21 05/09/23 History aspirin 81 mg tablet,delayed 81 mg PO QDAY 03/14/23 05/09/23 History release (Adult Aspirin Regimen) acetaminophen 500 mg tablet 1,000 mg PO TID PRN 05/09/23 05/09/23 History atorvastatin 40 mg tablet 40 mg PO HS 05/09/23 05/09/23 History cholecalciferol (vitamin D3) 125 125 mcg PO DAILY 05/09/23 05/09/23 History mcg (5,000 unit) capsule clopidogrel 75 mg tablet 75 mg PO DAILY 05/09/23 05/09/23 History fenofibrate nanocrystallized 48 mg 96 mg PO DAILY 05/09/23 05/09/23 History tablet fluoxetine 20 mg capsule 20 mg PO DAILY 05/09/23 05/09/23 History ipratropium bromide 42 mcg (0.06 2 spray intranasal TID PRN allergy 05/09/23 05/09/23 History %) nasal spray symptoms lisinopril 10 mg tablet 10 mg PO DAILY 05/09/23 05/09/23 History melatonin 3 mg capsule 6 mg PO HS 05/09/23 05/09/23 History olanzapine 5 mg tablet 5 mg PO Q6H PRN 05/09/23 05/09/23 History quetiapine 50 mg tablet (Seroquel) 50 mg PO QHS 05/09/23 05/09/23 History Allergies Allergy/AdvReac Type Severity Reaction Status Date / Time No Known Drug Allergies Allergy Verified 05/09/23 06:44 Exam Narrative: Exam Narrative: He is sleeping soundly when I initial cm. I check in repeatedly and he does arouse to voice. He does not give significant verbal responses to questions. He is not agitated. He does not follow commands. Head is without obvious trauma. He has his head and neck mildly flexed to the right and mildly rotated to the right. Does not tolerate much passive or active motion in his cervical spine. Palpation of the spine is nontender. Eyes appear normal. No obvious facial asymmetry. Does not open his mouth on command. I do not palpate a mass in his neck. Respirations are clear to auscultation. Breathing is unlabored. Cardiovascular: S1, S2, regular rate and rhythm. No murmur gallop or rub. Abdomen: Bowel sounds active. Abdomen is soft without tenderness or mass. Lower extremities are bilaterally warm to touch. The left lower extremity has no edema. I do not palpate pedal pulses on the left foot but it is warm to touch. Right lower extremity has 1 to 2+ edema in the foot mild erythema. Warm to touch. With the edema pedal pulses are difficult to palpate. Ulcerations on his toes of his right foot with eschar present. He moves all 4 extremities with Approximately equal strength no obvious rigidity. Const: Vital Signs, click to edit/add: Vital Signs - 24 hr 05/09/23 06:44 05/09/23 08:00 05/09/23 12:53 Temperature 97 F L 98.2 F Pulse Rate [Pulse Oximeter] 84 78 87 Respiratory Rate 20 18 14 Blood Pressure [Le ft Arm] 144/92 H Blood Pressure [Ri ght Upper Arm] 115/62 112/72 Pulse Oximetry 100 99 97 Oxygen Delivery Me thod Room Air Room Air Room Air 05/09/23 13:36 05/09/23 15:34 05/09/23 15:34 Temperature 98.3 F Pulse Rate [Pulse Oximeter] 90 90 Respiratory Rate 14 14 14 Blood Pressure [Le ft Arm] 104/67 Blood Pressure [Ri ght Upper Arm] Pulse Oximetry 97 94 Oxygen Delivery Me thod Room Air Room Air Documenting provider has reviewed patient's vital signs: yes Hospitalist - H&P: Result Labs Labs: Short CBC 05/09/23 Range/Units 07:43 WBC 7.31 (4.50-11.00) K/uL Hgb 10.4 L (13.5-17.5) gm/dL Hct 33.8 L (37.0-53.0) % Plt Count 435 (140-440) K/uL BMP 05/09/23 07:43 Sodium 138 Potassium 4.2 Chloride 108 Carbon Dioxide 18 L BUN 46 H Creatinine 1.7 H Glucose 182 H Calcium 9.9 Liver Function 05/09/23 Range/Units 07:43 Total Bilirubin 0.7 (0.1-1.5) mg/dL Direct Bilirubin 0.3 (0.0-0.5) mg/dL AST 29 (12-35) U/L ALT 21 (4-50) U/L Alkaline Phosphatase 52 (40-150) U/L Albumin 4.2 (3.3-5.0) g/dL Assessment and Plan Assessment and plan (1) Delirium: Problem comment: due to underlying dementia with exacerbation due to recent hospitalizations and illnesses. Possible [facility] psych placement Status: Acute (2) Dementia: Problem comment: advanced and progressive now developing behavioral disturbances as well. Consider Geriatric Psychiatry. Status: Acute (3) Urinary retention: Problem comment: had a need for straight cath on at least a couple of occasions at [facility]. Postvoid residuals of up to 900 mL of urine. Poorly tolerated catheter placement. Will check postvoid residuals and try to avoid catheter placement. On admission he had a postvoid residual of 480 mL. Status: Acute (4) Chronic kidney disease: Problem comment: continue to monitor. Continue JUDITH-inhibitor if tolerated Status: Acute (5) Type 2 diabetes mellitus: Problem comment: previously on metformin. Blood sugars have been fairly well controlled. I recommend restarting low-dose metformin which should be acceptable with his stage 3 kidney disease. Ideally this would give adequate blood sugar control so that he would not have to have frequent blood glucose monitoring and risk for hypoglycemia. Status: Acute (6) Cellulitis of foot associated with diabetes mellitus: Problem comment: Previously had cellulitis of his foot. According to his his current redness and swelling in that foot is baseline after his revascularization Status: Acute (7) Fall: Problem comment: fell on May 05 with head and neck injury. No obvious bony injury. Status: Acute (8) Torticollis, acquired: Problem comment: patient is developed what appears to be torticollis. He is flexing and turning his head toward the right. He does not voluntarily move his neck through range of motion. This is been a problem associated with swallowing where he seems to have difficulties with swallowing in this abnormal position. This was evaluated at [facility] with the recommendation that we and encouraged him to get his head in a neutral position and look up to help with swallowing. Did fall and have a head and neck injury on May 05 and imaging of his spine was unremarkable except for the they abnormal positioning Status: Suspected (9) Palliative care encounter: Problem comment: 05/09/2023 discussed with his goals of care. She is very clear that he would not want to live with his dementia and delirium as he has now. She indicates that if she asked him when he was of sound mind he would want to end his life rather than live this way. Consider hospice . Status: Acute (10) History of angioplasty of peripheral vessel: Problem comment: lower extremity angioplasty performed at multiple sites at [facility] April 2019 for for right lower extremity critical ischemia. Continue aspirin and Plavix Status: Acute (11) Atrial fibrillation: Problem comment: currently appears to be in sinus rhythm. Poor candidate for anticoagulation. Continue metoprolol. Status: Acute (12) Hypertension: Problem comment: Continue to monitor and modify hypertension treatment to simplify his medication regimen. Continue beta cait with history of AFib Status: Acute (13) CAD (coronary artery disease): Problem comment: aspirin, Plavix, statin, metoprolol Status: Acute Plan patient admitted to the hospital for management of delirium pending appropriate placement. Will continue psychotropic medications including Seroquel and Zyprexa for safety /sedation with severe agitation. Total time spent today is 90 minutes, 75 minutes in coordination of care and discussing with patient's and other providers management of delirium and other medical problems noted above
[2023-05-09] MEDS: INSULIN ASPART 100 UNIT/ML SUBCUT ×2 (17:45→21:05)
--- NOTE | 2023-05-09 17:59 | PC.NURSE ---
End of Shift: Patient pleasant, oriented to self. Patient at times is re-directable or also not redirectable. Patient vitally stable, lungs clear, BS WNL, NO IV. Patient incontinent of urine x2, got out of bed sat in recliner then urinated self. Bladder scan performed 481 scanned, MD aware. Patient's dinner set up and patient was able to feed self, tolerating regular diet. Blood sugar 165. Patient's right leg in pitting +2 with ulcers, scaly skin, and the great toe nail is falling off. Patient has been sleeping majority of shift. Patient will answer questions from movie writer on and off.
[2023-05-09] MEDS: QUETIAPINE 25 MG TABLET 50 MG PO (20:55)
[2023-05-09] MEDS: TAMSULOSIN HCL 0.4 MG CAPSULE PO (20:56)
[2023-05-09] MEDS: MELATONIN 3 MG TABLET PO (20:56)
[2023-05-09] MEDS: ATORVASTATIN CALCIUM 40 MG TABLET PO (20:56)
[2023-05-09] MEDS: METOPROLOL TARTRATE 25 MG TABLET 12.5 MG PO (20:56)
[2023-05-09] MEDS: OXYCODONE 5 MG TABLET 2.5 MG PO (21:05)
[2023-05-09] MEDS: OLANZapine 5 MG TAB.RAPDIS PO (21:57)
[2023-05-09] MEDS: SODIUM CHLORIDE 0.9 % (FLUSH) 10 ML SYRINGE 5 ML IVF (21:57)
--- NOTE | 2023-05-10 06:26 | PC.NURSE ---
End of shift report [id number]: Patient alert, able to state name and date of , unable to state where he is, day or time. Patient response to questions not appropriate to question asked. Impulsive with transfers, patient attempting several times to get out of bed but then lays right back down, unable to verbalize need. Patient restless, noted to be fidgeting with covers, throwing bedding off onto the floor and throwing water on the floor. Incontinent of bladder, attempted x 4 to bring patient into bathroom when having increased restlessness but patient resistive. PRN olanzapine administered for increased restlessness/agitation not resolving with staff intervention. Patient able to fall asleep around 0100.
[2023-05-10] MEDS: LEVOTHYROXINE 75 MCG TABLET 150 MCG PO (06:44)
[2023-05-10 07:15] LABS: Basophils Absolute Auto 0.02 K/uL (0.00-0.30); Basophils Percent Auto 0.3 % (0.0-3.0); Eosinophils Absolute Auto 0.24 K/uL (0.00-0.50); Eosinophils Percent Auto 3.6 % (0.0-7.0); Hematocrit 34.7 % (37.0-53.0); Hemoglobin* 10.9 gm/dL (13.5-17.5); Immature Granulocytes Abs Auto 0.02 K/uL (0.00-0.30); Immature Granulocytes Pct Auto 0.3 %; Lymphocytes Percent Auto 19.1 % (20-44); Mean Corpuscular HGB Conc 31 gm/dL (32-36); Mean Corpuscular Hemoglobin 28 pg (26-34); Mean Corpuscular Volume 88 fL (80-100); Monocytes Percent Auto 12.6 % (0.0-11.0); Neutrophils Absolute Auto 4.23 K/uL (1.7-7.0); Neutrophils Percent Auto 64.1 % (42.0-72.0); Platelet Count* 390 K/uL (140-440); RDW Coefficient of Variation % 13.2 % (11.5-15.5); Red Blood Count 3.95 m/uL (4.30-5.90)
[2023-05-10 07:17] LABS: Chloride* 110 mmol/L (96-114); Sodium* 137 mmol/L (135-149)
[2023-05-10 07:19] LABS: Slide Review Reflex No
[2023-05-10 07:20] LABS: Anion Gap 9 mEq/L (7-15); Blood Urea Nitrogen* 38 mg/dL (7-30); Carbon Dioxide* 18 mmol/L (20-32); Creatinine* 1.4 mg/dL (0.5-1.5); Estimated Glomerular Filt Rate 52 ml/min
[2023-05-10 07:21] LABS: Calcium* 9.7 mg/dL (8.4-10.6); Glucose* 139 mg/dL (60-115)
[2023-05-10 09:00] VITALS: RESP 16
[2023-05-10 09:56] VITALS: BMI 27.7
--- NOTE | 2023-05-10 10:10 | PC.SOCIAL ---
Discharge planning: Evaluated and called all of the facilities listed on the [facility] as having mental health in-pt placement for a patient who is 74 yeards old with the following results. 1. [facility] - no beds available today. Call back tomorrow. 2. [facility]- Will not accept a pt with dementia. 3. [facility]- Will not accept a pt with dementia. 4. [facility] - no beds available today. Call back tomorrow. 5. [facility] - Will not accept a pt with dementia. 6. [facility] - No openings this week. But has pt information and the facility will call the hospital if bed opens up unexpectedly. 7. [facility] - no openings but unable to accept due to dementia. 8. [facility] - no openings this week. [facility] - Unable to accept patients this week due to medical outbreak on the unit. There are currently no available in-pt mental health geriatric beds available in the state. blow off worker to follow up on geriatric placement options tomorrow and will continue to explore if there are any other placement options including discharge to home with increased services. blow off worker to follow up as needed.
--- NOTE | 2023-05-10 10:30 | REH.PT ---
Per nurse, pt had meds for agitation and is sleeping. Will reassess pt tomorrow as he becomes more awake. Spoke to spouse who is in agreement to this plan. She states his baseline is a 4ww, but due to confusion he does let go of it and try to walk without it. Has had a decline in mobility recently after his foot surgery at [facility]. PT to reattempt eval tomorrow as appropriate.
[2023-05-10 11:00] VITALS: RESP 16
--- NOTE | 2023-05-10 12:17 | REH.OT ---
Order received for OT evaluation, per Nsg, pt. not appropriate for evaluation at his time. Will reattempt when able.
--- NOTE | 2023-05-10 14:15 | P.IMPN_ITS ---
Progress Note: A&P Assessment and plan (1) Delirium: Problem details: With reported agitation, due to underlying dementia with exacerbation due to recent hospitalizations and illnesses Management - Seroquel dosing increased to b.i.d., Zyprexa q.6 hours p.r.n.. Monitor response with goal to decrease agitation, increase independent function, balance sleep/wake cycle Will forego further labs and decrease vitals to b.i.d. for comfort Status: Acute (2) Dementia: Problem details: Advanced and progressive now developing behavioral disturbances as well Continue home medications academic services coordinator assisting with Geripsych placement Status: Acute (3) Urinary retention: Problem details: History of Will check postvoid residuals and try to avoid catheter placement as not previously tolerated. On admission he had a postvoid residual of 480 mL. Status: Acute (4) Chronic kidney disease: Problem details: Creatinine improved to 1.4 from 1.7, baseline 1.7-2.3 Continue JUDITH-inhibitor if tolerated Per discussion with , will not obtain daily labs while awaiting placement Status: Acute (5) Type 2 diabetes mellitus: Problem details: Previously on metformin. Blood sugars have been fairly well controlled. I recommend restarting low-dose metformin which should be acceptable with his stage 3 kidney disease. Ideally this would give adequate blood sugar control so that he would not have to have frequent blood glucose monitoring and risk for hypoglycemia -metformin 500 mg once daily Status: Acute (6) Fall: Problem details: fell on May 05 with head and neck injury. No obvious bony injury. Status: Acute (7) Torticollis, acquired: Problem details: patient has developed what appears to be torticollis. He is flexing and turning his head toward the right. He does not voluntarily move his neck through range of motion. This is been a problem associated with swallowing where he seems to have difficulties with swallowing in this abnormal position. This was evaluated at [place] with the recommendation that we encourage him to get his head in a neutral position and look up to help with swallowing. Did fall and have a head and neck injury on May 05 and imaging of his spine was unremarkable except for the they abnormal positioning Status: Suspected (8) Palliative care encounter: Problem details: 05/09/2023 discussed with his goals of care. She is very clear that he would not want to live with his dementia and delirium as he has now. She indicates that if she asked him when he was of sound mind he would want to end his life rather than live this way. Consider hospice if appropriate. -Will attempt to assess FAST score when awake and interacting. Status: Acute (9) History of angioplasty of peripheral vessel: Problem details: lower extremity angioplasty performed at multiple sites at [facility] April 2019 for for right lower extremity critical ischemia. Continue aspirin and Plavix -current redness and swelling in that foot is baseline after his revascularization - not c/w an acute cellulitis Status: Acute (10) Atrial fibrillation: Problem details: currently appears to be in sinus rhythm. Poor candidate for anticoagulation. Continue metoprolol. Status: Acute (11) Hypertension: Problem details: Continue to monitor and modify hypertension treatment to simplify his medication regimen. Continue beta cait with history of AFib Status: Acute (12) CAD (coronary artery disease): Problem details: aspirin, Plavix, statin, metoprolol Status: Acute Plan Management - Seroquel dosing increased to b.i.d., Zyprexa q.6 hours p.r.n.. Monitor response with goal to decrease agitation, increase independent function, balance sleep/wake cycle Will forego further labs and decrease vitals to b.i.d. for comfort academic services coordinator assisting with [facility] psych placement. May need to consider other options Time Spent With Patient Total time spent: Total time spent caring for the patient today was 45 minutes. This includes time spent for the visit reviewing the chart, time spent during the visit, time spent after the visit and documentation and planning in coordination of care. Subjective Date Seen: 05/10/23 Interval history: Patient is seen with at bedside this morning. Patient is still sleeping, having taken his usual dose of Seroquel last night and an additional p.r.n. dose of Zyprexa at bedtime. No events reported overnight. Remains vitally stable. In discussion with , Akosua, reviewed options for cares going forward. Currently, will minimize labs and vitals. With assistance of social sciences department chair, will continue to seek geriatric psych placement for further medication management. Patient is not currently appropriate for memory care given worsening agitation, but could be in the future given appropriate medication management of his dementia. Akosua also verbalizes may be able to manage patient upon returning home if unable to find placement in near future and medication management is improving. Exam Narrative: Exam Narrative: PHYSICAL EXAM General: Sleeping on right side, appears calm Cardiovascular: RRR Pulmonary: No dyspnea on room air Neurological: Sleeping Skin: Exposed skin warm, dry. Const: Vital Signs, click to edit/add: Vital Signs - 24 hr 05/09/23 15:34 05/09/23 15:34 05/09/23 19:00 Temperature 98.3 F 98.3 F Pulse Rate [Pulse Oximeter] 90 90 89 Respiratory Rate 14 14 20 Blood Pressure [Le ft Arm] 104/67 91/56 L Pulse Oximetry 94 95 Oxygen Delivery Me thod Room Air Room Air 05/09/23 23:00 05/09/23 23:00 05/10/23 09:00 Temperature 98.4 F Pulse Rate [Pulse Oximeter] 74 74 Respiratory Rate 20 20 16 Blood Pressure [Le ft Arm] 108/67 Pulse Oximetry 95 Oxygen Delivery Me thod Room Air 05/10/23 11:00 Temperature Pulse Rate [Pulse Oximeter] Respiratory Rate 16 Blood Pressure [Le ft Arm] Pulse Oximetry Oxygen Delivery Me thod Labs Labs: Laboratory Results - last 24 hr 05/10/23 06:30 WBC 6.60 RBC 3.95 L Hgb 10.9 L Hct 34.7 L MCV 88 MCH 28 MCHC 31 L RDW Coeff of Eufemia 13.2 Plt Count 390 Neut % (Auto) 64.1 Lymph % (Auto) 19.1 L Dawes % (Auto) 12.6 H Eos % (Auto) 3.6 Baso % (Auto) 0.3 Neut # (Auto) 4.23 Lymph # (Auto) 1.30 Dawes # (Auto) 0.80 Eos # (Auto) 0.24 Baso # (Auto) 0.02 Abs Immat Gran (auto) 0.02 Imm/Tot Granulo (auto) 0.3 Sodium 137 Potassium 4.0 Chloride 110 Carbon Dioxide 18 L Anion Gap 9 BUN 38 H Creatinine 1.4 Estimated GFR 52 Glucose 139 H Calcium 9.7 C-Reactive Protein 3.0 H
--- NOTE | 2023-05-10 15:01 | PC.SOCIAL ---
Discharge planning: Met at length with who is interested in discharge plans in the preference of order listed: 1. Geriatric psych placement - as she is hoping medication management could improve his behavior to a point she could care for him at home after this stay. Earlier today, oncology social work called all geriatric mental health hospitals in [place] and there were no beds available. Called [facility] in [place] regarding bed availability and was informed they are not considering admission for pt's outside of their system. is aware there are currently no available geriatric psych beds available. . 2. Placement at a usp for rehab with goal of him returning home. Called [facility] at 's request as a rehab stay at this facility was discussed from [facility]. Spoke with admissions coordinated who stated pt would not be appropriate for their short term or electric motor analyst stay units due to behavior concerns. Sent information for evaluation to [facility] usp unit. Received call back stating there are no beds and pt would not be appropriate for [facility] unit due to behaviors. 3. Returning home with additional care and possibly Hospice if behavior improves so that can sleep at night. Discussed with option to hire additional assistance at home and provided her with Hse Advisor care resource list. She will consider this option if medication at the hospital that could be continued at home would help with him being awake at night. 4. [facility] Placement in a memory care unit. Sent information to [facility], to [facility] and to [facility] for evaluation for memory care assisted living unit. Awaiting decision on admit. recreation worker to follow up as needed.
[2023-05-10 15:28] LABS: Hemoglobin A1C* 6.6 % (0-5.6)
--- NOTE | 2023-05-10 19:54 | PC.NURSE ---
Pt slept most of day. request to not wake pt. Pt was panicing and pacing from door to BR, able to sit pt on toilet and relax to have large, hard BM. Pt was much more at ease after and able to sit in chair and eat dinner.
[2023-05-10] MEDS: TAMSULOSIN HCL 0.4 MG CAPSULE PO (21:08)
[2023-05-10] MEDS: QUETIAPINE 25 MG TABLET 50 MG PO (21:08)
[2023-05-10] MEDS: SENNOSIDES/DOCUSATE TABLET PO (21:08)
[2023-05-10] MEDS: ATORVASTATIN CALCIUM 40 MG TABLET PO (21:08)
[2023-05-10] MEDS: MELATONIN 3 MG TABLET 6 MG PO (21:08)
[2023-05-10] MEDS: METOPROLOL TARTRATE 25 MG TABLET 12.5 MG PO (21:09)
[2023-05-10] MEDS: ACETAMINOPHEN 325 MG TABLET 650 MG PO (21:09)
[2023-05-10] MEDS: OXYCODONE 5 MG TABLET 2.5 MG PO (21:10)
[2023-05-10] MEDS: INSULIN ASPART 100 UNIT/ML SUBCUT (21:17)
[2023-05-10 21:42] VITALS: BP 150/97; PULSE 85; RESP 16; TEMP 36.8; O2SAT 95
[2023-05-10 23:00] VITALS: PULSE 90; RESP 16
[2023-05-11 04:12] VITALS: BP 146/74; PULSE 74; RESP 20; TEMP 36.4; O2SAT 95
[2023-05-11] MEDS: LEVOTHYROXINE 75 MCG TABLET 150 MCG PO (06:54)
[2023-05-11 07:22] VITALS: BP 115/75; PULSE 64; RESP 24; TEMP 36.5; O2SAT 98
[2023-05-11] MEDS: QUETIAPINE 25 MG TABLET PO (08:27)
[2023-05-11] MEDS: FLUOXETINE HCL 20 MG CAPSULE PO (08:27)
[2023-05-11] MEDS: lisinopriL 10 MG TABLET PO (08:27)
[2023-05-11] MEDS: MULTIVITAMIN/MINERALS 1 TABLET 1 TAB PO (08:27)
[2023-05-11] MEDS: METFORMIN ER 500 MG PO (08:27)
[2023-05-11] MEDS: METOPROLOL TARTRATE 25 MG TABLET 12.5 MG PO ×2 (08:27→19:40)
[2023-05-11] MEDS: CLOPIDOGREL 75 MG TABLET PO (08:28)
[2023-05-11] MEDS: CYANOCOBALAMIN (VITAMIN B-12) 500 MCG TABLET 1000 MCG PO (08:28)
[2023-05-11] MEDS: ASPIRIN 81 MG TABLET EC PO (08:28)
[2023-05-11] MEDS: SENNOSIDES/DOCUSATE TABLET 1 TAB PO ×2 (08:30→19:40)
--- NOTE | 2023-05-11 10:53 | PC.SOCIAL ---
Discharge planning: Spoke with , Akosua, regarding progress made yesterday. Akosua had asked to look into the following 4 options. 1. Placement at a geriatric psyche facility. This remains 's first choice. municipal maintenance worker will continue to look for availability in a psyche facility. There have not been any beds available but this can be checked daily. 2. Placement for rehab under insurance coverage. had requested this be explored as this was the plan after surgery at [place]. municipal maintenance worker has discussed this with the hospital team and also with the facility requested by , [facility] admission coordinator. Based on pt's current cognitive and behavioral issues, he would not be eligible for a short term rehab stay. agrees not to explore this option any more. 3. assisted memory care placement. Discussed with , that the memory care units are not covered by insurance and typically require proof finances for at least 2 years of private pay before Medical Assistance would be needed for coverage. states that is not something they can do and requested information be sent to memory care units that do not require a certain length of time for private pay. states that initially she can pay privately for memory care unit. Information will be sent to [facility] for evaluation for admit. is aware that due to pt's current behavior it is unlikely that a memory care facility will accept him directly from the hospital. 4. Home with hired additional assistance. is considering taking pt home with hired home manager care. Provided with written information on home manager care which she will look into. She states she can pay privately for this for a few months. municipal maintenance worker to continue to look for geriatric psyche placement, or memory care placement. to look into options to hire home manager care.
--- NOTE | 2023-05-11 11:44 | P.IMPN_ITS ---
Progress Note: A&P Assessment and plan (1) Delirium: Problem details: With reported agitation, due to underlying dementia with exacerbation due to recent hospitalizations and illnesses CBC without evidence of infection, BMP without evidence of electrolyte derangement. UA has been ordered. Management - Seroquel dosing increased to b.i.d., Zyprexa q.6 hours p.r.n.. Monitor response with goal to decrease agitation, increase independent function, balance sleep/wake cycle Will forego further labs and decrease vitals to b.i.d. for comfort 05/11: With awareness and understanding of risks and benefits in using antipsychotic medications to manage agitation, delirium in dementia, goal, in agreement with his , is to continue to tweak medications, currently using Seroquel and Zyprexa (max 5mg bid ideal) to find appropriate dose to keep patient alert and calm during daytime hours, allowing him to independently feed himself, and reducing risk for self-harm or harm to others and provide rest and sleep during nighttime hours without frequent awakenings. Status: Acute (2) Dementia: Problem details: Advanced and progressive now developing behavioral disturbances as well Continue home medications vice president of consulting services assisting with Geripsych placement. Alternatives include returning to home with his when appropriately medicated and safe to do so with assistance of friends/family. Could consider [facility] also if medication changes providing appropriate management. Status: Acute (3) Urinary retention: Problem details: History of Will check postvoid residuals and try to avoid catheter placement as not previously tolerated. On admission he had a postvoid residual of 480 mL. Awaiting UA Status: Acute (4) Chronic kidney disease: Problem details: Creatinine improved to 1.4 from 1.7, baseline 1.7-2.3 Continue JUDITH-inhibitor if tolerated Per discussion with , will not obtain daily labs while awaiting placement Status: Acute (5) Type 2 diabetes mellitus: Problem details: Previously on metformin. Blood sugars have been fairly well controlled. I recommend restarting low-dose metformin which should be acceptable with his stage 3 kidney disease. Ideally this would give adequate blood sugar control so that he would not have to have frequent blood glucose monitoring and risk for hypoglycemia A1c 6.6, improved from previous 8.5 -metformin 500 mg once daily Status: Acute (6) Fall: Problem details: fell on May 05 with head and neck injury. No obvious bony injury. Status: Acute (7) Torticollis, acquired: Problem details: patient has developed what appears to be torticollis. He is flexing and turning his head toward the right. He does not voluntarily move his neck throug h range of motion. This is been a problem associated with swallowing where he seems to have difficulties with swallowing in this abnormal position. This was evaluated at [place] with the recommendation that we encourage him to get his head in a neutral position and look up to help with swallowing. Did fall and have a head and neck injury on May 05 and imaging of his spine was unremarkable except for the they abnormal positioning 05/11: Does not complain of pain, is not interfering with self feeding Status: Suspected (8) Palliative care encounter: Problem details: 05/09/2023 discussed with his goals of care. She is very clear that he would not want to live with his dementia and delirium as he has now. She indicates that if she asked him when he was of sound mind he would want to end his life rather than live this way. Consider hospice if appropriate. 05/11: FAST score when observed working with PT, currently 6a-6c. No significant medical comorbidities interfering. Likely not yet appropriate for hospice but could be considered at a later date Status: Acute (9) History of angioplasty of peripheral vessel: Problem details: lower extremity angioplasty performed at multiple sites at [facility] April 2019 for for right lower extremity critical ischemia. Continue aspirin and Plavix -current redness and swelling in that foot is baseline after his revascularizati on - not c/w an acute cellulitis Status: Acute (10) Atrial fibrillation: Problem details: currently appears to be in sinus rhythm. Poor candidate for anticoagulation. Continue metoprolol. Status: Acute (11) Hypertension: Problem details: Continue to monitor and modify hypertension treatment to simplify his medication regimen. Continue beta cait with history of AFib Status: Acute (12) CAD (coronary artery disease): Problem details: aspirin, Plavix, statin, metoprolol Status: Acute Plan 05/11: With awareness and understanding of risks and benefits in using antipsychotic medications to manage agitation, delirium in dementia, goal, in agreement with his , is to continue to tweak medications, currently using Seroquel and Zyprexa (max 5mg bid ideal) to find appropriate dose to keep patient alert and calm during daytime hours, allowing him to independently feed himself, and reducing risk for self-harm or harm to others and provide rest and sleep during nighttime hours without frequent awakenings. Time Spent With Patient Total time spent: Total time spent caring for the patient today was 45 minutes. This includes time spent for the visit reviewing the chart, time spent during the visit, time spent after the visit and documentation and planning in coordination of care. Subjective Date Seen: 05/11/23 Interval history: Patient is seen this morning, sitting up eating breakfast. Is calm, pleasant, interactive. Slept most of the day yesterday. Overnight, reported to be awake from 3-7 a.m., confused but much less agitated. As the morning has gone on today, patient restless, getting up setting off bed/chair alarm, remains conf used, no agitation. Exam Narrative: Exam Narrative: PHYSICAL EXAM General: Pleasant, calm, NAD Cardiovascular: RRR, S1S2. No pitting edema Pulmonary: CTA bilaterally without rhonchi, rales, expiratory wheezes. No dyspnea on room air Neurological: Alert, sitting up feeding himself, appropriate interaction Extremities: No gross joint deformity or swelling. AROMI. Neurovascularly intact Skin: Warm, dry. Const: Vital Signs, click to edit/add: Vital Signs - 24 hr 05/10/23 21:42 05/10/23 23:00 05/11/23 04:12 Temperature 98.3 F 97.6 F Pulse Rate [Pulse Oximeter] 85 90 74 Respiratory Rate 16 16 20 Blood Pressure [Le ft Arm] 150/97 H 146/74 H Pulse Oximetry 95 95 Oxygen Delivery Me thod Room Air 05/11/23 07:22 05/11/23 07:22 Temperature 97.7 F Pulse Rate [Pulse Oximeter] 64 64 Respiratory Rate 24 Blood Pressure [Le ft Arm] 115/75 Pulse Oximetry 98 Oxygen Delivery Me thod Room Air Labs Labs: Laboratory Results - last 24 hr 05/09/23 05/10/23 05/10/23 07:43 06:30 14:15 Hemoglobin A1c 6.6 H Cancelled Lab Acknowledgement Test Added
[2023-05-11] MEDS: OLANZapine 5 MG TAB.RAPDIS PO (11:47)
[2023-05-11] MEDS: INSULIN ASPART 100 UNIT/ML SUBCUT ×2 (11:48→22:09)
--- NOTE | 2023-05-11 13:04 | PC.SOCIAL ---
Addendum entered by LIANA Gallardo 05/11/23 16:44: Received call back from Bri at [facility] [phone] stating they can not accept pt due to the level of physical assistance he needs being too high acuity for the current unit. This facility requires patients to be more independent. Addendum entered by PABLO Denny 05/11/23 15:18: [facility] in [place] declined pt due to not being able to meet pt's medical needs. Original Note: Discharge planning- Contacted the following facilities to locate placement for geriatric psych. 1. [facility] ([place])- Phone call to Evelyne in admissions at [phone]. They have one opening and will assess. Faxed requested documentation to [phone]. 2. [facility]- Phone call to admissions at [phone], spoke to [place] and there are no openings. There will be a potential opening early next week. 3. [facility]- No openings. 4. [facility]- There are openings, however, pt is not appropriate due to needing to be able to cognitively able to participate in all programming. 5. [facility]- No openings but unable to accept due to dementia. Social Work will continue to follow up as needed.
[2023-05-11] MEDS: OXYCODONE 5 MG TABLET 2.5 MG PO (14:49)
[2023-05-11] MEDS: ACETAMINOPHEN 325 MG TABLET 650 MG PO (14:50)
--- NOTE | 2023-05-11 16:55 | PM.WSCN ---
Date of Consult Consult date: 05/11/23 Requesting Physician: Hospitalist Primary Care Provider: Rl Monroe MD Consult Narrative Reason for consult: arterial ulcers to right foot Narrative: Fransisca Benton is a 73 year old male known to Wound Services. Currently admitted to the hospital with delirium in dementia. He had been aggressive and brought for hospitalization d/t safety concerns. is working with 7th grade social studies teacher on having patient placed in a geriatric facility with rehab services.. Patient is known to Wound Services for DFU/arterial ulcerations to right foot. Last seen in the Wound Center on 04/04 08/02 4 at that time critical limb ischemia had progressed to being on stable. He was transferred to [facility] same day. Angioplasty with stent was undertaken by their vascular service. Patient went from 16% patent blood flow to 60-70% blood flow post procedure. [facility] balloon angioplasty of the bilateral common iliac arteries and right lower extremity angiogram with recanalization of the right pop /TP trunk/PT arteries, Balloon angioplasty of the right PT, DC be of popliteal, SFA and stenting of SFA. Patient continues on aspirin and Plavix.. is at bedside today. Patient is afebrile and vitally stable. Review of Systems Status of ROS: Reports: 6 or more systems reviewed and unremarkable except as noted in History and below [facility] Medical History (Updated 05/11/23 @ 17:15 by Brenna Keller [facility]) Urinary retention ?R33.9 - Retention of urine, unspecified (ICD-10) Palliative care encounter ?Z51.5 - Encounter for palliative care (ICD-10) Delirium ?R41.0 - Disorientation, unspecified (ICD-10) Torticollis, acquired ?M43.6 - Torticollis (ICD-10) Fall ?W19.XXXA - Unspecified fall, initial encounter (ICD-10) Cellulitis of foot associated with diabetes mellitus ?E11.628 - Type 2 diabetes mellitus with other skin complications (ICD-10) ?L03.119 - Cellulitis of unspecified part of limb (ICD-10) Gout ?M10.9 - Gout, unspecified (ICD-10) Vasomotor rhinitis ?J30.0 - Vasomotor rhinitis (ICD-10) Dementia ?F03.90 - Unspecified dementia without behavioral disturbance (ICD-10) B12 deficiency ?E53.8 - Deficiency of other specified B group vitamins (ICD-10) Left knee DJD ?M17.12 - Unilateral primary osteoarthritis, left knee (ICD-10) Type 2 diabetes mellitus (12/18/09) ?E11.9 - Type 2 diabetes mellitus without complications (ICD-10) Osteoarthritis of both hips ?M16.0 - Bilateral primary osteoarthritis of hip (ICD-10) Hypothyroidism (04/14/06) ?E03.9 - Hypothyroidism, unspecified (ICD-10) Hypertension (12/29/08) ?I10 - Essential (primary) hypertension (ICD-10) Hyperlipidemia (04/14/06) ?E78.5 - Hyperlipidemia, unspecified (ICD-10) Erectile dysfunction (12/29/08) ?N52.9 - Male erectile dysfunction, unspecified (ICD-10) Disorder of intervertebral disc of lumbar spine ?M51.9 - Unspecified thoracic, thoracolumbar and lumbosacral intervertebral disc disorder (ICD-10) Depression (12/29/08) ?F32.A - Depression, unspecified (ICD-10) Chronic kidney disease (2013) ?N18.9 - Chronic kidney disease, unspecified (ICD-10) CAD (coronary artery disease) (04/14/06) ?I25.10 - Atherosclerotic heart disease of [place] coronary artery without angina pectoris (ICD-10) Bipolar disorder (12/29/08) ?F31.9 - Bipolar disorder, unspecified (ICD-10) Atrial fibrillation ?I48.91 - Unspecified atrial fibrillation (ICD-10) Acute renal failure superimposed on chronic kidney disease ?N17.9 - Acute kidney failure, unspecified (ICD-10) ?N18.9 - Chronic kidney disease, unspecified (ICD-10) 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 Health care directive on file ?Z78.9 - Other specified health status (ICD-10) Submucosal rectal lesion ?K62.9 - Disease of anus and rectum, unspecified (ICD-10) History of adenomatous polyp of colon (2013) ?Z86.010 - Personal history of colonic polyps (ICD-10) High prostate specific antigen (PSA) ?R97.20 - Elevated prostate specific antigen [PSA] (ICD-10) Cataract (01/12/12) ?H26.9 - Unspecified cataract (ICD-10) Surgical History (Updated 05/10/23 @ 14:46 by Ariadna Sanchez PA-C) History of angioplasty of peripheral vessel ?Z98.62 - Peripheral vascular angioplasty status (ICD-10) H/O cataract extraction ?Z98.49 - Cataract extraction status, unspecified eye (ICD-10) H/O shoulder surgery ?Z98.890 - Other specified postprocedural states (ICD-10) History of tonsillectomy (04/14/06) ?Z90.89 - Acquired absence of other organs (ICD-10) History of excision of lamina of lumbar vertebra for decompression of spinal cord (2015) ?Z98.890 - Other specified postprocedural states (ICD-10) History of coronary artery bypass surgery (1993) ?Z95.1 - Presence of aortocoronary bypass graft (ICD-10) Social History (Updated 05/09/23 @ 16:19 by Manuelito Vasquez MD) Narrative: patient has been living with his , Akosua, who is his primary caregiver and healthcare power of engraver [employer]. She is a retired RN from [employer]. He does not smoke. He quit drinking alcohol about a year and a half ago. code status is DNR. In the past 2 months he has been losing his ability to perform ADLs, showering , shaving, dressing and brushing teeth. he is unsteady on his feet. Sometimes uses a walker. What is your current living situation?: I presently have a place to live Problems where you live: no known problems Problems where you live details: none In the past 12 months, utilities in danger of being shut off: no In past 12 months, lack of transportation kept you from medical appts, meetings, work, or getting things needed for daily living: no In the past 12 mos, have been you worried that your food would run out before you had money to buy more?: never true In the past 12 mos, the food you bought just didn't last and you didn't have money to buy more?: never true Smoking Status: Former smoker Do you use any of these nicotine containing products: None Second hand tobacco smoke exposure: No How often do you have a drink containing alcohol: never How often do you have six or more drinks on one occasion: Never AUDIT-C Alcohol total score: 0 Non-prescribed substance use: denies use How often does anyone, including family, friends and others, physically hurt you: never How often does anyone, including family, friends and others, insult or talk down to you: never How often does anyone, including family, friends and others, threaten you with harm: never How often does anyone, including family, friends and others, scream or curse at you: never Little interest or pleasure in doing things: more than half the days Feeling down, depressed, or hopeless: more than half the days service: Yes Meds Home Medications and Allergies Home Medications Medication Instructions Recorded Confirmed Type cyanocobalamin (vitamin B-12) 1,000 mcg PO DAILY 10/08/21 05/09/23 History 1,000 mcg tablet multivitamin 1 tab PO QAM 10/08/21 05/09/23 History aspirin 81 mg tablet,delayed 81 mg PO QDAY 03/14/23 05/09/23 History release (Adult Aspirin Regimen) acetaminophen 500 mg tablet 1,000 mg PO TID PRN 05/09/23 05/09/23 History atorvastatin 40 mg tablet 40 mg PO HS 05/09/23 05/09/23 History cholecalciferol (vitamin D3) 125 125 mcg PO DAILY 05/09/23 05/09/23 History mcg (5,000 unit) capsule clopidogrel 75 mg tablet 75 mg PO DAILY 05/09/23 05/09/23 History fenofibrate nanocrystallized 48 mg 96 mg PO DAILY 05/09/23 05/09/23 History tablet fluoxetine 20 mg capsule 20 mg PO DAILY 05/09/23 05/09/23 History ipratropium bromide 42 mcg (0.06 2 spray intranasal TID PRN allergy 05/09/23 05/09/23 History %) nasal spray symptoms lisinopril 10 mg tablet 10 mg PO DAILY 05/09/23 05/09/23 History melatonin 3 mg capsule 6 mg PO HS 05/09/23 05/09/23 History olanzapine 5 mg tablet 5 mg PO Q6H PRN 05/09/23 05/09/23 History quetiapine 50 mg tablet (Seroquel) 50 mg PO QHS 05/09/23 05/09/23 History Allergies Allergy/AdvReac Type Severity Reaction Status Date / Time No Known Drug Allergies Allergy Verified 05/09/23 06:44 Exam Narrative: Exam Narrative: General: Sitting comfortably in bed. No acute distress. Alert. Pulmonary: Unlabored, symmetrical rise RLE: Mild 1-2 edema with diffuse confluent erythema to the right foot, consistent with recent revascularization. Foot is warm, not hot; WNL. Pedal pulses appreciated. Right 5th head wound: measuring 1.3X1.5X0.1cm. 90% dry eschar, 10% slough. No drainage. Stable. Right great toe: 0.7X1X0.1, 100% dry hard eschar. Stable. Right 3rd & Fourth digit wounds: each measuring 0.4X0.4X0.1 100% dry hard eschar. Stable Psych: flat affect Const: Vital Signs, click to edit/add: Vital Signs - 24 hr 05/10/23 21:42 05/10/23 23:00 05/11/23 04:12 Temperature 98.3 F 97.6 F Pulse Rate [Pulse Oximeter] 85 90 74 Respiratory Rate 16 16 20 Blood Pressure [Le ft Arm] 150/97 H 146/74 H Pulse Oximetry 95 95 Oxygen Delivery Me thod Room Air 05/11/23 07:22 05/11/23 07:22 Temperature 97.7 F Pulse Rate [Pulse Oximeter] 64 64 Respiratory Rate 24 Blood Pressure [Le ft Arm] 115/75 Pulse Oximetry 98 Oxygen Delivery Me thod Room Air Documenting provider has reviewed patient's vital signs: yes Assessment and Plan Assessment and plan (1) History of angioplasty of peripheral vessel: Problem comment: lower extremity angioplasty performed at multiple sites at [facility] April 2019 for for right lower extremity critical ischemia. Continue aspirin and Plavix -current redness and swelling in that foot is baseline after his revascularization - not c/w an acute cellulitis Status: Acute (2) Type 2 diabetes mellitus: Problem comment: Previously on metformin. Blood sugars have been fairly well controlled. I recommend restarting low-dose metformin which should be acceptable with his stage 3 kidney disease. Ideally this would give adequate blood sugar control so that he would not have to have frequent blood glucose monitoring and risk for hypoglycemia A1c 6.6, improved from previous 8.5 -metformin 500 mg once daily Status: Acute (3) Peripheral arterial disease with history of revascularization: Status: Acute (4) Dementia: Problem comment: Advanced and progressive now developing behavioral disturbances as well Continue home medications environmental services attendant assisting with Geripsych placement. Alternatives include returning to home with his when appropriately medicated and safe to do so with assistance of friends/family. Could consider halfway also if medication changes providing appropriate management. Status: Acute (5) Non-pressure chronic ulcer of other part of right foot with unspecified severity: Status: Acute Plan No evidence of cellulitis. Wounds are stable. Patient is tolerating elevation to help with the post revascularization expected edema, okay to continue with this. Wounds were cleansed and dressed by this consumer loan underwriter. Nurse updated on wound care orders. Hospitalist updated on wound care orders. Right foot 5th head wound: Cleanse with unit approved cleanser. Iodosorb to wound bed cover with bordered gauze changed every other day and p.r.n.. Remaining right foot wounds cleanse with unit approved cleanser swabbed with Betadine daily. Nursing to complete wound care dressing changes. As wounds are stable, and patient is expected to discharge, wound Services will sign off on patient. Also patient will be discharged from the Wound Center as per due to his impending placement, facility will continue management of wound.
--- NOTE | 2023-05-11 18:22 | PC.NURSE ---
Pt able answer conversational questions with off/on confusion. Easily redirectable. Unable to express pain but actions demonstrate irritation and resetlessness. Tylenol and Oxycodone per 's request given per JUN with relief shown by pt resting in bed for 75minutes.
[2023-05-11 19:30] VITALS: PULSE 93; RESP 18
[2023-05-11] MEDS: TAMSULOSIN HCL 0.4 MG CAPSULE PO (19:39)
[2023-05-11] MEDS: QUETIAPINE 25 MG TABLET 50 MG PO (19:40)
[2023-05-11] MEDS: MELATONIN 3 MG TABLET 6 MG PO (19:41)
[2023-05-11] MEDS: ATORVASTATIN CALCIUM 40 MG TABLET PO (19:41)
[2023-05-12] MEDS: OLANZapine 5 MG TAB.RAPDIS PO ×3 (00:15→17:32)
--- NOTE | 2023-05-12 06:33 | PC.NURSE ---
END OF SHIFT NOTE: PT PLEASANTLY DEMENTED. ALERT; ORIENTED TO SELF AND . DENIES CP, SOB, N/V. AMBULATES WITH SBA. VSS ON RA; AFEBRILE. BED ALARM ON AND CALL LIGHT WITHIN PT?S REACH. PT DID NOT SLEEP WELL DURING HS. IMPULSIVE; SET OFF BED ALARM MULTIPLE TIMES DURING THE NIGHT. PRN ZYPREXA GIVEN FOR AGITATION AND RESTLESSNESS WITH LITTLE EFFECT. ?
[2023-05-12] MEDS: LEVOTHYROXINE 75 MCG TABLET 150 MCG PO (06:37)
[2023-05-12] MEDS: INSULIN ASPART 100 UNIT/ML SUBCUT ×2 (06:40→11:56)
--- NOTE | 2023-05-12 07:26 | PM.IMPN1 ---
Progress Note: A&P Assessment and plan (1) Delirium: Problem details: With reported agitation, due to underlying dementia with exacerbation due to recent hospitalizations and illnesses CBC without evidence of infection, BMP without evidence of electrolyte derangement. UA has been ordered. Management - Seroquel dosing increased to b.i.d., Zyprexa q.6 hours p.r.n.. Monitor response with goal to decrease agitation, increase independent function, balance sleep/wake cycle Will forego further labs and decrease vitals to b.i.d. for comfort 05/11: With awareness and understanding of risks and benefits in using antipsychotic medications to manage agitation, delirium in dementia, goal, in agreement with his , is to continue to tweak medications, currently using Seroquel and Zyprexa (max 5mg bid ideal) to find appropriate dose to keep patient alert and calm during daytime hours, allowing him to independently feed himself, and reducing risk for self-harm or harm to others and provide rest and sleep during nighttime hours without frequent awakenings. 05/12: Increasing dose of seroquel to 75mg qhs, 50mg qam. Adding gabapentin 100mg qhs (do not have 50mg dose available). Still has Zyprexa prn. BMP and EKG tomorrow morning. QTC should be <450. Status: Acute (2) Dementia: Problem details: Advanced and progressive now developing behavioral disturbances as well Continue home medications human services instructor assisting with Geripsych placement - thus far limited bed availability or inability to take patient. Alternatives include returning to home with his when appropriately medicated and safe to do so with assistance of friends/family. Could consider [facility] also if medication changes providing appropriate management. Status: Acute (3) Urinary retention: Problem details: History of Will check postvoid residuals and try to avoid catheter placement as not previously tolerated. On admission he had a postvoid residual of 480 mL. Awaiting UA Status: Acute (4) Chronic kidney disease: Problem details: Creatinine improved to 1.4 from 1.7, baseline 1.7-2.3 Continued on JUDITH-inhibitor Per discussion with , will not obtain daily labs while awaiting placement - 05/12: Will check BMP tomorrow with recent medication changes Status: Acute (5) Type 2 diabetes mellitus: Problem details: Previously on metformin. Blood sugars have been fairly well controlled. I recommend restarting low-dose metformin which should be acceptable with his stage 3 kidney disease. Ideally this would give adequate blood sugar control so that he would not have to have frequent blood glucose monitoring and risk for hypoglycemia A1c 6.6, improved from previous 8.5 -metformin 500 mg once daily Status: Acute (6) Fall: Problem details: fell on May 05 with head and neck injury. No obvious bony injury. Status: Acute (7) Torticollis, acquired: Problem details: patient has developed what appears to be torticollis. He is flexing and turning his head toward the right. He does not voluntarily move his neck through range of motion. This is been a problem associated with swallowing where he seems to have difficulties with swallowing in this abnormal position. This was evaluated at [place] with the recommendation that we encourage him to get his head in a neutral position and look up to help with swallowing. Did fall and have a head and neck injury on May 05 and imaging of his spine was unremarkable except for the they abnormal positioning 05/11: Does not complain of pain, is not interfering with self feeding Status: Suspected (8) Palliative care encounter: Problem details: 05/09/2023 discussed with his goals of care. She is very clear that he would not want to live with his dementia and delirium as he has now. She indicates that if she asked him when he was of sound mind he would want to end his life rather than live this way. Consider hospice if appropriate. 05/11: FAST score when observed working with PT, currently 6a-6c. No significant medical comorbidities interfering. Likely not yet appropriate for hospice but could be considered at a later date Status: Acute (9) History of angioplasty of peripheral vessel: Problem details: lower extremity angioplasty performed at multiple sites at [facility] April 2019 for for right lower extremity critical ischemia. Continue aspirin and Plavix -current redness and swelling in that foot is baseline after his revascularization - not c/w an acute cellulitis 05/12: Wound care consult completed yesterday, note reviewed, appreciate recommendations Status: Acute (10) Atrial fibrillation: Problem details: currently appears to be in sinus rhythm. Poor candidate for anticoagulation. Continue metoprolol. Status: Acute (11) Hypertension: Problem details: Continue to monitor and modify hypertension treatment to simplify his medication regimen. Continue beta cait with history of AFib Status: Acute (12) CAD (coronary artery disease): Problem details: aspirin, Plavix, statin, metoprolol Status: Acute Plan 05/11: With awareness and understanding of risks and benefits in using antipsychotic medications to manage agitation, delirium in dementia, goal, in agreement with his , is to continue to tweak medications, currently using Seroquel and Zyprexa (max 5mg bid ideal) to find appropriate dose to keep patient alert and calm during daytime hours, allowing him to independently feed himself, and reducing risk for self-harm or harm to others and provide rest and sleep during nighttime hours without frequent awakenings. 05/12: Safe discharge plan not yet in place. Continuing to work with medication changes/management. Time Spent With Patient Total time spent: Total time spent caring for the patient today was 45 minutes. This includes time spent for the visit reviewing the chart, time spent during the visit, time spent after the visit and documentation and planning in coordination of care. Subjective Date Seen: 05/12/23 Interval history: Patient is restless this morning, wandering outside of room with his pants down, otherwise calm without agitation. Redirectable with time and patience. Overnight, reported to be up several times. Has otherwise remained afebrile, vitals stable. Exam Narrative: Exam Narrative: PHYSICAL EXAM General: Wandering this morning, conversant Cardiovascular: RRR Pulmonary: No dyspnea on room air Neurological: Alert, wandering, calm Skin: Warm, dry Const: Vital Signs, click to edit/add: Vital Signs - 24 hr 05/11/23 19:30 Pulse Rate [Pulse Oximeter] 93 Respiratory Rate 18 Documenting provider has reviewed patient's vital signs: yes
[2023-05-12] MEDS: CYANOCOBALAMIN (VITAMIN B-12) 500 MCG TABLET 1000 MCG PO (08:33)
[2023-05-12] MEDS: METFORMIN ER 500 MG PO (08:33)
[2023-05-12] MEDS: CLOPIDOGREL 75 MG TABLET PO (08:34)
[2023-05-12] MEDS: ASPIRIN 81 MG TABLET EC PO (08:34)
[2023-05-12] MEDS: SENNOSIDES/DOCUSATE TABLET 1 TAB PO ×2 (08:34→19:47)
[2023-05-12] MEDS: MULTIVITAMIN/MINERALS 1 TABLET 1 TAB PO (08:34)
[2023-05-12] MEDS: METOPROLOL TARTRATE 25 MG TABLET 12.5 MG PO ×2 (08:35→19:48)
[2023-05-12] MEDS: QUETIAPINE 25 MG TABLET 50 MG PO (08:36)
[2023-05-12] MEDS: FLUOXETINE HCL 20 MG CAPSULE PO (08:36)
[2023-05-12] MEDS: lisinopriL 10 MG TABLET PO (08:36)
[2023-05-12 08:45] VITALS: BP 125/76; PULSE 82; RESP 16; TEMP 36.3; O2SAT 96
[2023-05-12] MEDS: ACETAMINOPHEN 325 MG TABLET 650 MG PO ×2 (09:20→15:56)
--- NOTE | 2023-05-12 09:51 | PC.SOCIAL ---
Addendum entered by LIANA Gallardo 05/12/23 15:06: Received call from Ann at [facility] stating she can assess pt next week for memory care at [facility]. Met with who is aware and agrees with this plan for evaluation. is still hoping for in-pt geriatric placement. Updated her that there are currently no beds available and nurse will call [place] and [place] on Monday and Monday to check on in-pr geriatric psych bed availability. See original social work note for additional details on geriatric bed search. Addendum entered by LIANA Gallardo 05/12/23 11:44: Additional Discharge planning: At 's request, faxed pt information to [facility] and [facility] for evaluation for memory care. is aware this would be a private pay placement if accepted. building maintenance worker to follow up as needed. Original Note: Discharge planning: Evaluated and called all of the facilities listed on the [facility] Services Bilingual Trainer as having mental health in-pt placement for a patient who is 74 years old with the following results. 1. [facility] ([facility] - [phone] no beds available today. They do have units that if they had a bed available could accept a pt with dementia. Call back tomorrow. 2. [facility]- Will not accept a pt with dementia. Not an option. 3. [facility]- Will not accept a pt with dementia. Not an option. 4. [facility] - [phone] no beds available today. If they had a bed available, [place] facility is able to accept pt with dementia. Call back tomorrow. 5. [facility] - Will not accept a pt with dementia. Not an option 6. [facility] - No openings this week. But has pt information and the facility will call the hospital if bed opens up unexpectedly. 7. [facility] - no openings but unable to accept due to dementia. Not an option. 8. [facility] - Pt was evaluated and declined due to his high equity. Facility will not reassess. Not an option. 9. [facility] - Unable to accept patients this week due to medical outbreak on the unit. Can call back on Monday to see if they are open to admissions. 10. [facility] - Unable to accept a pt with dementia. Not an option. Over the weekend, RN can call [facility] [phone] and [facility] [phone] for bed availability. Neither of these facilities have had a bed or evaluated pt for admission yet. The other facilities are not options for placement this weekend.
[2023-05-12] MEDS: OXYCODONE 5 MG TABLET 2.5 MG PO ×2 (11:43→15:55)
--- NOTE | 2023-05-12 15:28 | PC.NURSE ---
Shift Summary: Patient confused and agitated this morning, Staffed stayed with patient in room or walked in halls. C/o pain in right foot following wound care, given PRN medication, see JUN. Vitals stable and WNL. Patient more relaxed with present, was able to take a nap and ate 100% of lunch. Poor appetite with breakfast but agreed to ensure. Patient has voided x2 but staff has been unable to measure, bladder scan performed with 61cc shown, patient denied pain with palpation.
--- NOTE | 2023-05-12 19:44 | PC.NURSE ---
VSS, RA. Unable to communicate pain, fidgety. Tried 2.5 oxy & tylenol- slight decrease in restlessness. Tried zyprexa- still fidgety/restless. Confused. Hallucinating, delusions. Unable to communicate needs. Continues to get up and walk without calling, rummages through things, pushes walker away- unstable gait. Bed & chair alarm on. 1:1 initiated. Ate 100% of dinner, drinking plenty of fluids. Voided x1, says has to void off and on, but then does not go. Last BM, this AM 2/9. No IV. , [place], here for most of afternoon. Awaiting placement. Will continue to monitor, follow POC, and keep pt and family updated. June Clarke RN
[2023-05-12 19:45] VITALS: BP 104/67; PULSE 78; RESP 16; TEMP 37; O2SAT 95
[2023-05-12] MEDS: MELATONIN 3 MG TABLET 6 MG PO (19:47)
[2023-05-12] MEDS: QUETIAPINE 25 MG TABLET 75 MG PO (19:47)
[2023-05-12] MEDS: TAMSULOSIN HCL 0.4 MG CAPSULE PO (19:47)
[2023-05-12] MEDS: ATORVASTATIN CALCIUM 40 MG TABLET PO (19:47)
[2023-05-12] MEDS: GABAPENTIN 100 MG CAPSULE PO (19:48)
[2023-05-12 23:00] VITALS: RESP 16
[2023-05-13 01:39] LABS: Appearance Urine Clear (Clear); Bilirubin Urine Negative (Negative); Blood Urine Negative (Negative); Color Urine Yellow (Yellow); Glucose Urine Negative (Negative); Ketones Urine Negative (Negative); Leukocyte Esterase Urine Negative (Negative); Nitrite Urine Negative (Negative); Protein Urine Negative (Negative); Urobilinogen Urine 0.2 (0.2-1.0); pH Urine 5.5 (5.0-8.5)
[2023-05-13 01:56] LABS: RBC Urine 0-2 (0-2)
--- NOTE | 2023-05-13 06:28 | PC.NURSE ---
Pt oriented to self only. Afebrile. Pt denies chest pain, pain, SOB, and N/V. Pt is difficult to reorient but can be redirected. Pt had not urinated for previous shift and had good fluid intake,?PRN?bladder scanned for 343 mls, pt got up and urinated for 950 ml, some urine got on his sweatpants, changed pants and attempted to put brief but pt kept trying to take it off and repeatedly stated ?stop that? but allowed RN to put pajama pants on him. Pt slept throughout most of night.??
[2023-05-13 07:21] LABS: Chloride* 110 mmol/L (96-114); Sodium* 138 mmol/L (135-149)
[2023-05-13 07:23] LABS: Creatinine* 1.5 mg/dL (0.5-1.5); Estimated Glomerular Filt Rate 48 ml/min
[2023-05-13 07:24] LABS: Anion Gap 9 mEq/L (7-15); Blood Urea Nitrogen* 34 mg/dL (7-30); Calcium* 9.5 mg/dL (8.4-10.6); Carbon Dioxide* 19 mmol/L (20-32); Glucose* 143 mg/dL (60-115)
[2023-05-13] MEDS: METFORMIN ER 500 MG PO (08:23)
[2023-05-13] MEDS: OLANZapine 5 MG TAB.RAPDIS PO ×2 (08:23→18:53)
[2023-05-13] MEDS: OXYCODONE 5 MG TABLET 2.5 MG PO (08:23)
[2023-05-13] MEDS: ASPIRIN 81 MG TABLET EC PO (08:24)
[2023-05-13] MEDS: LEVOTHYROXINE 75 MCG TABLET 150 MCG PO (08:24)
[2023-05-13] MEDS: CLOPIDOGREL 75 MG TABLET PO (08:24)
[2023-05-13] MEDS: QUETIAPINE 25 MG TABLET 50 MG PO (08:24)
[2023-05-13] MEDS: MULTIVITAMIN/MINERALS 1 TABLET 1 TAB PO (08:25)
[2023-05-13] MEDS: FLUOXETINE HCL 20 MG CAPSULE PO (08:25)
[2023-05-13] MEDS: CYANOCOBALAMIN (VITAMIN B-12) 500 MCG TABLET 1000 MCG PO (08:25)
[2023-05-13] MEDS: SENNOSIDES/DOCUSATE TABLET 1 TAB PO ×2 (08:29→19:42)
[2023-05-13] MEDS: METOPROLOL TARTRATE 25 MG TABLET 12.5 MG PO ×2 (09:00→19:41)
[2023-05-13] MEDS: lisinopriL 10 MG TABLET PO (09:00)
--- NOTE | 2023-05-13 09:35 | PC.NURSE ---
Called both [facility] and [facility] this morning for bed availability for geriatric psych. Neither facility has bed available today. Will call again tomorrow.
[2023-05-13] MEDS: INSULIN ASPART 100 UNIT/ML SUBCUT (13:08)
--- NOTE | 2023-05-13 14:36 | PM.IMPN1 ---
Progress Note: A&P Assessment and plan (1) Delirium: Problem details: With reported agitation, due to underlying dementia with exacerbation due to recent hospitalizations and illnesses CBC without evidence of infection, BMP without evidence of electrolyte derangement. UA unremarkable Management - Seroquel dosing increased to b.i.d., Zyprexa q.6 hours p.r.n.. Monitor response with goal to decrease agitation, increase independent function, balance sleep/wake cycle Will forego further labs and decrease vitals to b.i.d. for comfort 05/11: With awareness and understanding of risks and benefits in using antipsychotic medications to manage agitation, delirium in dementia, goal, in agreement with his , is to continue to tweak medications, currently using Seroquel and Zyprexa (max 5mg bid ideal) to find appropriate dose to keep patient alert and calm during daytime hours, allowing him to independently feed himself, and reducing risk for self-harm or harm to others and provide rest and sleep during nighttime hours without frequent awakenings. 05/12: Increasing dose of seroquel to 75mg qhs, 50mg qam. Adding gabapentin 100mg qhs (do not have 50mg dose available). Still has Zyprexa prn. BMP and EKG tomorrow morning. QTC should be <450. 05/13: Creatinine 1.5, QTC 456, NSR. With careful consideration, will start donepezil daily, increase gabapentin to 100mg bid, continue bid seroquel. Hope to eventually reduce need for Zyprexa. Unfortunately, medication additions/adjustments take time to see results. Still waiting for possible acceptance at care facilities. Status: Acute (2) Dementia: Problem details: Advanced and progressive now developing behavioral disturbances as well Continue home medications - 05/13 : Adding donepezil. director of clinical services assisting with Geripsych placement - thus far limited bed availability or inability to take patient. Alternatives include returning to home with his when appropriately medicated and safe to do so with assistance of friends/family. Could consider skilled nursing also if medication changes providing appropriate management. Patient really would benefit from psychiatry evaluation, further neurocognitive screening and diagnostics Status: Acute (3) Urinary retention: Problem details: History of Will check postvoid residuals and try to avoid catheter placement as not previously tolerated. On admission he had a postvoid residual of 480 mL. UA unremarkable Status: Acute (4) Chronic kidney disease: Problem details: Creatinine improved to 1.4 from 1.7, baseline 1.7-2.3 Continued on JUDITH-inhibitor Per discussion with , will not obtain daily labs while awaiting placement - 05/12: Will check BMP tomorrow with recent medication changes 1.5 Status: Acute (5) Type 2 diabetes mellitus: Problem details: Previously on metformin. Blood sugars have been fairly well controlled. I recommend restarting low-dose metformin which should be acceptable with his stage 3 kidney disease. Ideally this would give adequate blood sugar control so that he would not have to have frequent blood glucose monitoring and risk for hypoglycemia A1c 6.6, improved from previous 8.5 -metformin 500 mg once daily Status: Acute (6) Fall: Problem details: fell on May 05 with head and neck injury. No obvious bony injury. Status: Acute (7) Torticollis, acquired: Problem details: patient has developed what appears to be torticollis. He is flexing and turning his head toward the right. He does not voluntarily move his neck through range of motion. This is been a problem associated with swallowing where he seems to have difficulties with swallowing in this abnormal position. This was evaluated at [facility] with the recommendation that we encourage him to get his head in a neutral position and look up to help with swallowing. Did fall and have a head and neck injury on May 05 and imaging of his spine was unremarkable except for the they abnormal positioning 05/11: Does not complain of pain, is not interfering with self feeding Status: Suspected (8) Palliative care encounter: Problem details: 05/09/2023 discussed with his goals of care. She is very clear that he would not want to live with his dementia and delirium as he has now. She indicates that if she asked him when he was of sound mind he would want to end his life rather than live this way. Consider hospice if appropriate. 05/11: FAST score when observed working with PT, currently 6a-6c. No significant medical comorbidities interfering. Likely not yet appropriate for hospice but could be considered at a later date Status: Acute (9) History of angioplasty of peripheral vessel: Problem details: lower extremity angioplasty performed at multiple sites at [facility] April 2019 for for right lower extremity critical ischemia. Continue aspirin and Plavix -current redness and swelling in that foot is baseline after his revascularization - not c/w an acute cellulitis 05/12: Wound care consult completed yesterday, note reviewed, appreciate recommendations Status: Acute (10) Atrial fibrillation: Problem details: currently appears to be in sinus rhythm. Poor candidate for anticoagulation. Continue metoprolol. Status: Acute (11) Hypertension: Problem details: Continue to monitor and modify hypertension treatment to simplify his medication regimen. Continue beta cait with history of AFib Status: Acute (12) CAD (coronary artery disease): Problem details: aspirin, Plavix, statin, metoprolol Status: Acute Plan 05/11: With awareness and understanding of risks and benefits in using antipsychotic medications to manage agitation, delirium in dementia, goal, in agreement with his , is to continue to tweak medications, currently using Seroquel and Zyprexa (max 5mg bid ideal) to find appropriate dose to keep patient alert and calm during daytime hours, allowing him to independently feed himself, and reducing risk for self-harm or harm to others and provide rest and sleep during nighttime hours without frequent awakenings. 05/12: Safe discharge plan not yet in place. Continuing to work with medication changes/management. Time Spent With Patient Total time spent: Total time spent caring for the patient today was 45 minutes. This includes time spent for the visit reviewing the chart, time spent during the visit, time spent after the visit and documentation and planning in coordination of care. Subjective Date Seen: 05/13/23 Interval history: Patient is observed wandering this morning. Reported to actually sleep most of the night. Continues to wander during the day, urinating outside of the bathroom. Continues to receive p.r.n. Zyprexa. Exam Narrative: Exam Narrative: PHYSICAL EXAM General: Wandering, calm, Pulmonary: No dyspnea on room air Neurological: Alert, wandering, calm Skin: Warm, dry Const: Vital Signs, click to edit/add: Vital Signs - 24 hr 05/11/23 19:30 05/12/23 08:45 Temperature 97.4 F L Pulse Rate [Pulse Oximeter] 93 82 Respiratory Rate 18 16 Blood Pressure [Le ft Arm] 125/76 Pulse Oximetry 96 Oxygen Delivery Me thod Room Air Documenting provider has reviewed patient's vital signs: yes
[2023-05-13] MEDS: DONEPEZIL 5 MG TABLET PO (15:17)
[2023-05-13] MEDS: ACETAMINOPHEN 325 MG TABLET 650 MG PO (18:02)
--- NOTE | 2023-05-13 18:23 | PC.NURSE ---
Nursing Care Hours: [id number] Pt this shift calm and cooperative with cares. Alert to self. Impulsive movements. Void on toilet x2. Assisted with feeding. Acetaminophen given at HS to help with pain in R foot. foot red and swollen but no warmth. Bandage CDI. In bed around 1800.
[2023-05-13] MEDS: MELATONIN 3 MG TABLET 6 MG PO (19:40)
[2023-05-13] MEDS: TAMSULOSIN HCL 0.4 MG CAPSULE PO (19:41)
[2023-05-13] MEDS: QUETIAPINE 25 MG TABLET 75 MG PO (19:41)
[2023-05-13] MEDS: ATORVASTATIN CALCIUM 40 MG TABLET PO (19:42)
[2023-05-13] MEDS: GABAPENTIN 100 MG CAPSULE PO (19:43)
[2023-05-13 20:33] VITALS: RESP 16
[2023-05-13 20:41] VITALS: BP 111/71; PULSE 68; RESP 16; TEMP 36.4; O2SAT 97
[2023-05-14 09:00] VITALS: PULSE 67; RESP 16
[2023-05-14] MEDS: SENNOSIDES/DOCUSATE TABLET 1 TAB PO ×2 (09:29→20:01)
[2023-05-14] MEDS: FLUOXETINE HCL 20 MG CAPSULE PO (09:29)
[2023-05-14] MEDS: DONEPEZIL 5 MG TABLET PO (09:29)
[2023-05-14] MEDS: lisinopriL 10 MG TABLET PO (09:29)
[2023-05-14] MEDS: MULTIVITAMIN/MINERALS 1 TABLET 1 TAB PO (09:29)
[2023-05-14] MEDS: ASPIRIN 81 MG TABLET EC PO (09:29)
[2023-05-14] MEDS: METFORMIN ER 500 MG PO (09:29)
[2023-05-14] MEDS: METOPROLOL TARTRATE 25 MG TABLET 12.5 MG PO ×2 (09:29→20:01)
[2023-05-14] MEDS: CLOPIDOGREL 75 MG TABLET PO (09:29)
[2023-05-14] MEDS: CYANOCOBALAMIN (VITAMIN B-12) 500 MCG TABLET 1000 MCG PO (09:30)
[2023-05-14] MEDS: GABAPENTIN 100 MG CAPSULE PO ×2 (09:30→20:05)
[2023-05-14] MEDS: LEVOTHYROXINE 75 MCG TABLET 150 MCG PO (09:30)
[2023-05-14] MEDS: QUETIAPINE 25 MG TABLET 50 MG PO (09:30)
--- NOTE | 2023-05-14 10:31 | PM.IMPN1 ---
Progress Note: A&P Assessment and plan (1) Delirium: Problem details: With reported agitation, due to underlying dementia with exacerbation due to recent hospitalizations and illnesses CBC without evidence of infection, BMP without evidence of electrolyte derangement. UA unremarkable Management - Seroquel dosing increased to b.i.d., Zyprexa q.6 hours p.r.n.. Monitor response with goal to decrease agitation, increase independent function, balance sleep/wake cycle Will forego further labs and decrease vitals to b.i.d. for comfort 05/11: With awareness and understanding of risks and benefits in using antipsychotic medications to manage agitation, delirium in dementia, goal, in agreement with his , is to continue to tweak medications, currently using Seroquel and Zyprexa (max 5mg bid ideal) to find appropriate dose to keep patient alert and calm during daytime hours, allowing him to independently feed himself, and reducing risk for self-harm or harm to others and provide rest and sleep during nighttime hours without frequent awakenings. 05/12: Increasing dose of seroquel to 75mg qhs, 50mg qam. Adding gabapentin 100mg qhs (do not have 50mg dose available). Still has Zyprexa prn. BMP and EKG tomorrow morning. QTC should be <450. 05/13: Creatinine 1.5, QTC 456, NSR. With careful consideration, will start donepezil daily, increase gabapentin to 100mg bid, continue bid seroquel. Hope to eventually reduce need for Zyprexa. Unfortunately, medication additions/adjustments take time to see results. Still waiting for possible acceptance at care facilities. Status: Acute (2) Dementia: Problem details: Advanced and progressive now developing behavioral disturbances as well. Unable to find documentation of neurocognitive assessment, screening, evidence of lewy body findings Continue home medications foreign exchange services manager assisting with Geripsych placement - thus far limited bed availability or inability to take patient. Alternatives include returning to home with his when appropriately medicated and safe to do so with assistance of friends/family. Could consider halfway also if medication changes providing appropriate management. Would benefit from psychiatry evaluation, possible further neurocognitive screening and diagnostics to determine most appropriate medication management 05/13 : Adding donepezil Status: Acute (3) Urinary retention: Problem details: History of Will check postvoid residuals and try to avoid catheter placement as not previously tolerated. On admission he had a postvoid residual of 480 mL. UA unremarkable Status: Acute (4) Chronic kidney disease: Problem details: Creatinine improved to 1.4 from 1.7, baseline 1.7-2.3 Continued on JUDITH-inhibitor Per discussion with , will not obtain daily labs while awaiting placement 05/13: Recheck of creatinine, given initiation of new medications, stable at 1.5 Status: Acute (5) Type 2 diabetes mellitus: Problem details: Previously on metformin. Blood sugars have been fairly well controlled. I recommend restarting low-dose metformin which should be acceptable with his stage 3 kidney disease. Ideally this would give adequate blood sugar control so that he would not have to have frequent blood glucose monitoring and risk for hypoglycemia A1c 6.6, improved from previous 8.5 -metformin 500 mg once daily Status: Acute (6) Fall: Problem details: fell on May 05 with head and neck injury. No obvious bony injury. Status: Acute (7) Torticollis, acquired: Problem details: patient has developed what appears to be torticollis. He is flexing and turning his head toward the right. He does not voluntarily move his neck through range of motion. This is been a problem associated with swallowing where he seems to have difficulties with swallowing in this abnormal position. This was evaluated at [place] with the recommendation that we encourage him to get his head in a neutral position and look up to help with swallowing. Did fall and have a head and neck injury on May 05 and imaging of his spine was unremarkable except for the they abnormal positioning 05/11: Does not complain of pain, is not interfering with self feeding Status: Suspected (8) Palliative care encounter: Problem details: 05/09/2023 discussed with his goals of care. She is very clear that he would not want to live with his dementia and delirium as he has now. She indicates that if she asked him when he was of sound mind he would want to end his life rather than live this way. Consider hospice if appropriate. 05/11: FAST score when observed working with PT, currently 6a-6c. No significant medical comorbidities interfering. Likely not yet appropriate for hospice but could be considered at a later date Status: Acute (9) History of angioplasty of peripheral vessel: Problem details: lower extremity angioplasty performed at multiple sites at [facility] April 2019 for for right lower extremity critical ischemia. Continue aspirin and Plavix -current redness and swelling in that foot is baseline after his revascularization - not c/w an acute cellulitis 05/12: Wound care consult completed yesterday, note reviewed, appreciate recommendations Status: Acute (10) Atrial fibrillation: Problem details: currently appears to be in sinus rhythm. Poor candidate for anticoagulation. Continue metoprolol. Status: Acute (11) Hypertension: Problem details: Continue to monitor and modify hypertension treatment to simplify his medication regimen. Continue beta cait with history of AFib Status: Acute (12) CAD (coronary artery disease): Problem details: aspirin, Plavix, statin, metoprolol Status: Acute Plan 05/14: Further medication changes implemented, goal continues to be to keep patient alert and calm during daytime hours, allowing for participation in ADLs to the best of his ability, restful night sleeps. Therefore possibly returning to home with if unable to find [facility] psych placement or long-term care facility/memory care unit. Awaiting safe discharge plan. Time Spent With Patient Total time spent: Total time spent caring for the patient today was 45 minutes. This includes time spent for the visit reviewing the chart, time spent during the visit, time spent after the visit and documentation and planning in coordination of care. Subjective Date Seen: 05/14/23 Interval history: Patient is sleeping this morning. Reported by nursing staff to sleep through the night for the 2nd night in a row. After waking this morning, was appropriate, directable, able to participate in ADLs, feeding himself breakfast. Remains afebrile, vitally stable. Exam Narrative: Exam Narrative: PHYSICAL EXAM General: Calm, cooperative, NAD Pulmonary: No dyspnea on room air Neurological: Alert, calm, confusion appears at baseline Skin: Warm, dry Const: Vital Signs, click to edit/add: Vital Signs - 24 hr 05/13/23 20:33 05/13/23 20:41 Temperature 97.5 F L Pulse Rate [Pulse Oximeter] 68 Respiratory Rate 16 16 Blood Pressure [Le ft Arm] 111/71 Pulse Oximetry 97 Oxygen Delivery Me thod Room Air Documenting provider has reviewed patient's vital signs: yes ECG Attestation: I personally reviewed and interpreted this ECG as follows: Pacemaker model: NSR, ventricular rate 67, QTC 456
[2023-05-14] MEDS: INSULIN ASPART 100 UNIT/ML SUBCUT (12:33)
[2023-05-14 15:39] VITALS: RESP 16
--- NOTE | 2023-05-14 18:26 | PC.NURSE ---
Nursing Care Hours: [id number] Pt this shift calm and cooperative. Setting off bed alarm frequently to get up and adjust pants or start walking towards door. Easily redirected, cooperative and pleasant. Went for walk in [place]. Bandage on foot CDI. Ate about 50% of meal with staff assist. Nutrition drink given earlier.
[2023-05-14 19:35] VITALS: BP 114/68; PULSE 66; RESP 16; TEMP 36.6; O2SAT 100
[2023-05-14] MEDS: MELATONIN 3 MG TABLET 6 MG PO (20:00)
[2023-05-14] MEDS: TAMSULOSIN HCL 0.4 MG CAPSULE PO (20:01)
[2023-05-14] MEDS: QUETIAPINE 25 MG TABLET 75 MG PO (20:01)
[2023-05-14] MEDS: ATORVASTATIN CALCIUM 40 MG TABLET PO (20:01)
--- NOTE | 2023-05-15 06:31 | PC.NURSE ---
Pt oriented to self only. Afebrile. Pt denies chest pain, pain, SOB, and N/V. Pt was pleasant and cooperative.?Pt slept throughout most of night.?Night uneventful.?
[2023-05-15] MEDS: QUETIAPINE 25 MG TABLET 50 MG PO (09:09)
[2023-05-15] MEDS: LEVOTHYROXINE 75 MCG TABLET 150 MCG PO (09:09)
[2023-05-15] MEDS: FLUOXETINE HCL 20 MG CAPSULE PO (09:09)
[2023-05-15] MEDS: MULTIVITAMIN/MINERALS 1 TABLET 1 TAB PO (09:10)
[2023-05-15] MEDS: CYANOCOBALAMIN (VITAMIN B-12) 500 MCG TABLET 1000 MCG PO (09:10)
[2023-05-15] MEDS: GABAPENTIN 100 MG CAPSULE PO (09:10)
[2023-05-15] MEDS: METFORMIN ER 500 MG PO (09:10)
[2023-05-15] MEDS: SENNOSIDES/DOCUSATE TABLET 1 TAB PO (09:10)
[2023-05-15] MEDS: CLOPIDOGREL 75 MG TABLET PO (09:10)
[2023-05-15] MEDS: ASPIRIN 81 MG TABLET EC PO (09:10)
[2023-05-15] MEDS: METOPROLOL TARTRATE 25 MG TABLET 12.5 MG PO (09:11)
[2023-05-15] MEDS: DONEPEZIL 5 MG TABLET PO (09:11)
[2023-05-15] MEDS: lisinopriL 10 MG TABLET PO (09:11)
--- NOTE | 2023-05-15 10:12 | PC.SOCIAL ---
Addendum entered by LIANA Gallardo 05/15/23 15:20: Discharge planning: Met with who is aware there are currently no beds available in geriatric psyche care units, is not interested in having pt evaluated for memory care assisted living unit at this time and wants pt to return home with her. Provided with information on [facility] home demonstr[facility] care, memory care facilities in the area and information on how to search for availability in geriatric psych units. Discussed with that some geriatric psyche units are connected directly to acute care hospitals, and that these units accept pt's from their own hospital before they will consider patients from outside hospitals. is aware of how to contact social media assistant if any additional resources or information are needed. Addendum entered by LIANA Gallardo 05/15/23 10:30: Called [facility] and was informed there are no geraitric psych beds available at [facility] today. Called [facility] who stated pt would only be appropriate for a 2East bed ad [facility] and that there are currently no beds, but social media assistant can call back at 4:00pm today to see if this has changed. acid conditioning worker to follow up as needed. Original Note: [facility]charge planning: [facility] left [facility] requesting call back about bed availability. This facility was considering pt last week prior to their unit closing due to a medical outbreak. acid conditioning worker to follow up as needed.
--- NOTE | 2023-05-15 11:02 | P.IMPN_ITS ---
Progress Note: A&P Assessment and plan (1) Delirium: Problem details: With reported agitation, due to underlying dementia with exacerbation due to recent hospitalizations and illnesses CBC without evidence of infection, BMP without evidence of electrolyte derangement. UA unremarkable Management - Seroquel dosing increased to b.i.d., Zyprexa q.6 hours p.r.n.. Monitor response with goal to decrease agitation, increase independent function, balance sleep/wake cycle Will forego further labs and decrease vitals to b.i.d. for comfort 05/11: With awareness and understanding of risks and benefits in using antipsychotic medications to manage agitation, delirium in dementia, goal, in agreement with his , is to continue to tweak medications, currently using Seroquel and Zyprexa (max 5mg bid ideal) to find appropriate dose to keep patient alert and calm during daytime hours, allowing him to independently feed himself, and reducing risk for self-harm or harm to others and provide rest and sleep during nighttime hours without frequent awakenings. 05/12: Increasing dose of seroquel to 75mg qhs, 50mg qam. Adding gabapentin 100mg qhs (do not have 50mg dose available). Still has Zyprexa prn. BMP and EKG tomorrow morning. QTC should be <450. 05/13: Creatinine 1.5, QTC 456, NSR. With careful consideration, will start donepezil daily, increase gabapentin to 100mg bid, continue bid seroquel. Hope to eventually reduce need for Zyprexa. Unfortunately, medication additions/adjustments take time to see results. Still waiting for possible acceptance at care facilities. 05/15: With decreased behaviors and sleeping well overnight for 2 days, feels she may be able to manage patient at home, but requests that they remain on waiting lists for higher level of care if beds become available. Status: Acute (2) Dementia: Problem details: Advanced and progressive now developing behavioral disturbances as well. Unable to find documentation of neurocognitive assessment, screening, evidence of lewy body findings Continue home medications web services professional assisting with Geripsych placement - thus far limited bed availability or inability to take patient. Alternatives include returning to home with his when appropriately medicated and safe to do so with assistance of friends/family. [place] [facility] also if medication changes providing appropriate management. Would benefit from psychiatry evaluation, possible further neurocognitive screening and diagnostics to determine most appropriate medication management 05/13 : Added donepezil Status: Acute (3) Cellulitis of foot associated with diabetes mellitus: Problem details: Previously had cellulitis of his foot. According to his his current redness and swelling in that foot is baseline after his revascularization Status: Acute (4) Non-pressure chronic ulcer of other part of right foot with unspecified severity: Problem details: Right great toe is dry and with overlying eschar, no evidence of surrounding i nfection Status: Acute (5) Peripheral arterial disease with history of revascularization: Status: Acute (6) Urinary retention: Problem details: History of Will check postvoid residuals and try to avoid catheter placement as not previously tolerated. On admission he had a postvoid residual of 480 mL. UA unremarkable Status: Acute (7) History of angioplasty of peripheral vessel: Problem details: lower extremity angioplasty performed at multiple sites at [facility] April 2019 for for right lower extremity critical ischemia. Continue aspirin and Plavix -current redness and swelling in that foot is baseline after his revascularization - not c/w an acute cellulitis 05/12: Wound care consult completed yesterday, note reviewed, appreciate recomme ndations Status: Acute (8) Palliative care encounter: Problem details: 05/09/2023 discussed with his goals of care. She is very clear that he would not want to live with his dementia and delirium as he has now. She indicates that if she asked him when he was of sound mind he would want to end his life rather than live this way. Consider hospice if appropriate. 05/11: FAST score when observed working with PT, currently 6a-6c. No significant medical comorbidities interfering. Likely not yet appropriate for hospice but could be considered at a later date Status: Acute (9) Fall: Problem details: fell on May 05 with head and neck injury. No obvious bony injury. Status: Acute (10) Type 2 diabetes mellitus: Problem details: Previously on metformin. Blood sugars have been fairly well controlled. I recommend restarting low-dose metformin which should be acceptable with his stage 3 kidney disease. Ideally this would give adequate blood sugar control so that he would not have to have frequent blood glucose monitoring and risk for hypoglycemia A1c 6.6, improved from previous 8.5 -metformin 500 mg once daily Status: Acute (11) Hypertension: Problem details: Continue to monitor and modify hypertension treatment to simplify his medication regimen. Continue beta cait with history of AFib Status: Acute (12) Atrial fibrillation: Problem details: currently appears to be in sinus rhythm. Poor candidate for anticoagulation. Continue metoprolol. Status: Acute (13) Chronic kidney disease: Problem details: Creatinine improved to 1.4 from 1.7, baseline 1.7-2.3 Continued on JUDITH-inhibitor Per discussion with , will not obtain daily labs while awaiting placement 05/13: Recheck of creatinine, given initiation of new medications, stable at 1.5 Status: Acute (14) CAD (coronary artery disease): Problem details: aspirin, Plavix, statin, metoprolol Status: Acute Subjective Date Seen: 05/15/23 Interval history: Patient is seen and examined. is at bedside. Patient reportedly slept well over the last 2 nights following some medication changes. Behaviors have reportedly improved. He is awake and able to answer some questions. Denies any new concerns. EXAM: General- Well appearing, no distress HEENT: NCAT Resp: Unlabored, CTAB CV: RRR, no m/g/r Abd: Soft/NT Skin: Warm and dry Exam Const: Vital Signs, click to edit/add: Vital Signs - 24 hr 05/14/23 15:39 05/14/23 19:35 Temperature 97.8 F Pulse Rate [Pulse Oximeter] 66 Respiratory Rate 16 16 Blood Pressure [Le ft Arm] 114/68 Pulse Oximetry 100 Oxygen Delivery Me thod Room Air
[2023-05-15] MEDS: OLANZapine 5 MG TAB.RAPDIS PO (14:26)
--- NOTE | 2023-05-15 14:30 | PM.DS1 ---
DS: Providers Provider Date Seen: 05/15/23 Date of admission: 05/11/23 12:31 Primary care physician: Rl Monroe MD Admitting Clinician: Lara Lancaster MD Consults: 05/09/23 15:40 Consult to Occupational Therapy [CONS] Routine Comment: Reason(s) for OT Consult:: Evaluate and Treat Any Restrictions?:: No Restrictions Consult to Physical Therapy [CONS] Routine Comment: Reason(s) for PT Consult:: Evaluate and Treat Any Restrictions?:: No Restrictions Consult to Painting Contractor [CONS] Routine Comment: Reason for Consult:: Discharge Planning Needs 05/11/23 12:07 Consult to Wound Care [CONS] Routine Comment: Consulting Provider: Brenna Keller Attending Physician on discharge: Mayra Lopez MD Date of Discharge: 05/15/23 DS: Diagnosis Discharge Diagnosis (1) Delirium: Status: Acute Problem details: With reported agitation, due to underlying dementia with exacerbation due to recent hospitalizations and illnesses CBC without evidence of infection, BMP without evidence of electrolyte derangement. UA unremarkable Management - Seroquel dosing increased to b.i.d., Zyprexa q.6 hours p.r.n. Will forego further labs and decrease vitals to b.i.d. for comfort 05/11: With awareness and understanding of risks and benefits in using antipsychotic medications to manage agitation, delirium in dementia, goal, in agreement with his , is to continue to tweak medications, currently using Seroquel and Zyprexa (max 5mg bid ideal) to find appropriate dose to keep patient alert and calm during daytime hours, allowing him to independently feed himself, and reducing risk for self-harm or harm to others and provide rest and sleep during nighttime hours without frequent awakenings. 05/12: Increasing dose of seroquel to 75mg qhs, 50mg qam. Adding gabapentin 100mg qhs (do not have 50mg dose available). Still has Zyprexa prn. BMP and EKG tomorrow morning. QTC should be <450. 05/13: Creatinine 1.5, QTC 456, NSR. With careful consideration, started donepezil daily, increased gabapentin to 100mg bid, continue bid seroquel. Hope to eventually reduce need for Zyprexa. Unfortunately, medication additions/adjustments take time to see results. 2/12: With decreased behaviors and sleeping well overnight for 2 days, feels she will be able to manage patient at home. RECOMMEND follow up with PCP in 1 week with EKG to monitor QTc (2) Dementia: Status: Acute Problem details: Advanced and progressive now developing behavioral disturbances as well. Unable to find documentation of neurocognitive assessment, screening, evidence of lewy body findings Continue home medications protective services case worker attempted Geripsych placement - thus far limited bed availability or inability to take patient. Would benefit from psychiatry evaluation, possible further neurocognitive screening and diagnostics to determine most appropriate medication management 05/13 : Added donepezil (3) Non-pressure chronic ulcer of other part of right foot with unspecified severity: Status: Acute Problem details: Right great toe is dry and with overlying eschar, no evidence of surrounding infection (4) Peripheral arterial disease with history of revascularization: Status: Acute (5) Urinary retention: Status: Acute Problem details: History of retention. Had mild retention here but did not require maldonado placement UA unremarkable (6) History of angioplasty of peripheral vessel: Status: Acute Problem details: lower extremity angioplasty performed at multiple sites at [facility] April 2019 for for right lower extremity critical ischemia. Continue aspirin and Plavix -current redness and swelling in that foot is baseline after his revascularization - not c/w an acute cellulitis 05/12: Wound care consult completed yesterday, note reviewed, appreciate recommendations (7) Palliative care encounter: Status: Acute Problem details: 05/09/2023 discussed with his goals of care. She is very clear that he would not want to live with his dementia and delirium as he has now. She indicates that if she asked him when he was of sound mind he would want to end his life rather than live this way. Consider hospice if appropriate. 05/11: FAST score when observed working with PT, currently 6a-6c. No significant medical comorbidities interfering. Likely not yet appropriate for hospice but could be considered at a later date (8) Torticollis, acquired: Status: Suspected Problem details: On admission, noted patient has developed what appears to be torticollis. He is flexing and turning his head toward the right. He does not voluntarily move his neck through range of motion. This is been a problem associated with swallowing where he seems to have difficulties with swallowing in this abnormal position. This was evaluated at [place] with the recommendation that we encourage him to get his head in a neutral position and look up to help with swallowing. Did fall and have a head and neck injury on May 05 and imaging of his spine was unremarkable except for the they abnormal positioning. Does not complain of pain, is not interfering with self feeding. He denies any issues and is able to range neck somewhat on day of discharge (9) Fall: Status: Acute Problem details: fell on May 05 with head and neck injury. No obvious bony injury. (10) Cellulitis of foot associated with diabetes mellitus: Status: Acute Problem details: Previously had cellulitis of his foot. According to his his current redness and swelling in that foot is baseline after his revascularization (11) Type 2 diabetes mellitus: Status: Acute Problem details: Previously on metformin. Blood sugars have been fairly well controlled. I recommend restarting low-dose metformin which should be acceptable with his stage 3 kidney disease. Ideally this would give adequate blood sugar control so that he would not have to have frequent blood glucose monitoring and risk for hypoglycemia A1c 6.6, improved from previous 8.5 -metformin 500 mg once daily (12) Hypertension: Status: Acute Problem details: Continue to monitor and modify hypertension treatment to simplify his medication regimen. Continue beta cait with history of AFib. 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 (13) Atrial fibrillation: Status: Acute Problem details: Poor candidate for anticoagulation. Continue metoprolol. (14) Chronic kidney disease: Status: Acute Problem details: Creatinine improved to 1.4 from 1.7, baseline 1.7-2.3 Continued on JUDITH-inhibitor Per discussion with , will not obtain daily labs while awaiting placement 05/13: Recheck of creatinine, given initiation of new medications, stable at 1.5 (15) CAD (coronary artery disease): Status: Acute Problem details: aspirin, Plavix, statin, metoprolol DS: Summary Hospital Course Hospital Course: Patient was admitted on 05/09/23 with acute delirium in the setting of progressive dementia following hospitalizations for critical limb ischemia and cellulitis. There was no evidence of infection or other etiology for decompensation, but patient's was unable to care for him at home. We attempted to locate a geriatric mental health facility to adjust medications, but there were no beds available. He had some medication changes including addition of aricept, low-dose gabapentin and additional seroquel. On the day of discharge, he had slept well for 2 nights and behaviors were improved. His felt comfortable bringing him home and will continue to seek memory care facilities as he is unlikely to remain safely independent much longer given his progressive dementia. Remainder of medical issues as above. Status at Discharge Functional status at discharge: uses cane/walker Time Spent with Patient Time attestation: Total time spent providing and/or coordinating discharge services: Time spent: Greater than 30 minutes Exam Narrative: Exam Narrative: General: Well appearing, interactive HEENT: NCAT Resp: Comfortable, unlabored and CTAB CV: RRR, no m/g/r Abd: Soft, NT/ND Skin: Chronic wounds on right foot with dry skin, no evidence of infection Const: Vital Signs, click to edit/add: Vital Signs - 24 hr 05/14/23 15:39 05/14/23 19:35 Temperature 97.8 F Pulse Rate [Pulse Oximeter] 66 Respiratory Rate 16 16 Blood Pressure [Le ft Arm] 114/68 Pulse Oximetry 100 Oxygen Delivery Me thod Room Air Discharge Plan Discharge Disposition: Home, Self-Care Date of Admission: 05/11/23 12:31 Attending Provider on Discharge: Mayra Lopez Consulting Providers: Brenna Keller Primary Care Provider: Rl Monroe Condition: Stable Anticipated Discharge Date/Time: 05/15/23 14:16 Discharge Medications: New quetiapine 25 mg Tablet 75 mg PO HS@1999 Qty: 30 0RF quetiapine 25 mg Tablet 50 mg PO QAM Qty: 30 0RF donepezil 5 mg Tablet 5 mg PO DAILY Qty: 30 0RF tamsulosin 0.4 mg Capsule 0.4 mg PO HS@1999 Qty: 30 0RF gabapentin 100 mg Capsule 100 mg PO BID Qty: 60 0RF fluoxetine 20 mg Capsule 20 mg PO DAILY Qty: 30 0RF metformin 500 mg Tablet Extended Release 24 Hr 500 mg PO DAILY Qty: 30 0RF Continued multivitamin Tablet 1 tab PO QAM cyanocobalamin (vitamin B-12) 1,000 mcg tablet 1,000 mcg PO DAILY aspirin [Adult Aspirin Regimen] 81 mg tablet,delayed release (DR/EC) 81 mg PO QDAY metoprolol tartrate 25 mg tablet 12.5 mg PO BID Qty: 180 3RF clopidogrel 75 mg tablet 75 mg PO DAILY acetaminophen 500 mg tablet 1,000 mg PO TID PRN cholecalciferol (vitamin D3) 125 mcg (5,000 unit) capsule 125 mcg PO DAILY lisinopril 10 mg tablet 10 mg PO DAILY olanzapine 5 mg tablet 5 mg PO Q6H PRN melatonin 3 mg capsule 6 mg PO HS atorvastatin 40 mg tablet 40 mg PO HS ipratropium bromide 42 mcg (0.06 %) spray,non-aerosol 2 spray intranasal TID PRN (Reason: allergy symptoms) Rx Instructions: administer into each nostril fluoxetine 20 mg capsule 20 mg PO DAILY fenofibrate nanocrystallized 48 mg tablet 96 mg PO DAILY oxycodone 5 mg tablet 5 mg PO Q8H PRN (Reason: pain) Qty: 20 0RF levothyroxine 150 mcg tablet 150 mcg PO DAILY Qty: 90 2RF glipizide 10 mg tablet extended release 24hr 10 mg PO QDAY Qty: 90 3RF Hold Instructions: per [facility] discharge Discontinued hydrochlorothiazide 25 mg tablet 25 mg PO QAM Qty: 90 3RF Hold Instructions: per [facility] discharge quetiapine [Seroquel] 50 mg tablet 50 mg PO QHS Discharge Orders: Discharge Order (Routine); Ordered 05/15/23 Ordered By: Mayra Lopez Patient Education: Altered Mental Status (GEN) Additional Instructions: Please resume home care services patient had prior to admission Activity Level: Activity as Tolerated Discharge Diet: Diabetic Follow Up Appointments: Rl Monroe MD [Primary Care Provider] - (Follow up with EKG in 1 week) Forms: [employer] Info Instructions
--- NOTE | 2023-05-15 16:23 | PC.NURSE ---
Discharge - Pt alert, oriented to self and significant other, cooperative to care. Pt up with standby assistance and observed to ambulate in the halls. Pt denied pain, nausea, SOB. Family at bedside for majority of shift. Pt displayed agitated behavior prior to discharge, pt spouse requested pharmaceutical intervention to pre-medicate for discharge. Pt given medication per MAR with behavior indicating improvement. Discharge education given to spouse, pt discharged to home with spouse at approximately 1550.
== END 2023-05-15 15:50 | disposition home or self-care (01) | DRG 884 ==
LOC: ED 11:42 → MEDSURG 12:53
PROVIDERS: Family Medicine; Admitting Provider Physician Assistant; Emergency Provider Student in an Organized Health Care Education/Training Program; PCP Family Medicine; Visit Provider Family Medicine
DX: F03.911 Unspecified dementia, unspecified severity, with agitation (principal); F05 Delirium due to known physiological condition; L03.115 Cellulitis of right lower limb; R33.9 Retention of urine, unspecified; Z51.5 Encounter for palliative care; M43.6 Torticollis; E11.628 Type 2 diabetes mellitus with other skin complications; E03.9 Hypothyroidism, unspecified; I25.10 Atherosclerotic heart disease of native coronary artery without angina pectoris; I48.91 Unspecified atrial fibrillation; Z98.62 Peripheral vascular angioplasty status; E11.22 Type 2 diabetes mellitus with diabetic chronic kidney disease; I12.9 Hypertensive chronic kidney disease with stage 1 through stage 4 chronic kidney disease, or unspecified chronic kidney disease; N18.30 Chronic kidney disease, stage 3 unspecified; L97.519 Non-pressure chronic ulcer of other part of right foot with unspecified severity; Z91.81 History of falling; Z87.828 Personal history of other (healed) physical injury and trauma
CPT/HCPCS: 36415; 51798; 70450; 80048; 80076; 81001; 82140; 82803; 82962; 83036; 83735; 85025; 86140; 93005; 97116; 97161; 97165; 99283; 99285; A9153; A9270; G0378

== ENCOUNTER 2023-05-24 07:48 | Outpatient (CLI) | payer MEDICARE, BC, SELFPAY | END 2023-05-24 07:49 | disposition home or self-care (01) | LOC: AMB 06-06 12:36 | PROVIDERS: PCP Family Medicine; Visit Provider Family Medicine | DX: S09.90XA Unspecified injury of head, initial encounter (principal); W18.30XA Fall on same level, unspecified, initial encounter; Y92.000 Kitchen of unspecified non-institutional (private) residence as the place of occurrence of the external cause | CPT/HCPCS: A0425; A0427 ==

== ENCOUNTER 2023-05-24 08:26 | Observation (INO) | payer MEDICARE, BC, SELFPAY ==
[2023-05-24] VITALS (9 sets, daily range): BP systolic 97–116; BP diastolic 59–67; PULSE 74–110; RESP 14–24; TEMP 36.4–37.2; O2SAT 97–100
--- NOTE | 2023-05-24 08:33 | ED_ITS ---
HPI - Fall General Time Seen by Provider: 08:33 Date Seen: 05/24/23 Chief Complaint: Fall/Minor Trauma Stated Complaint: fall Time Seen by Provider: 05/24/23 08:31 Source: patient, EMS, RN notes reviewed and old records reviewed Mode of arrival: EMS Limitations: altered mental status History of Present Illness HPI Narrative: This 73-year-old male is brought in by EMS from home where he was found down in the kitchen, had an unwitnessed fall. He is on Plavix. He is denying any pain, EMS did not see any physical symptoms of acute trauma from any fall. He was fou nd by the stove. He does not remember the fall on questioning him right now. He has significant dementia. It is possible that he is weaker than baseline. His Akosua is a nurse that works here previously at [facility]. She will be on her way in shortly. Patient resides with her, she is his primary child care center assistant director at home. He denies any pain right now. He will answer yes no questions but is not really verbalizing beyond that. EMS found his blood sugar to be 277, stable vitals, no difficulty breathing, no outward signs of any trauma. Did have some dried blood in the left ear canal. Patient has had 2 other recent ED visits. He has had a vascular tibial left leg graft since I last saw him in March. He also had a fall May 05, negative head CT at that time. He was seen May 09 with increased agitation. He is also known to have atrial fibrillation but is noted to be a poor candidate for anticoagulation. Related Data Home Medications Medication Instructions Recorded Confirmed cyanocobalamin (vitamin B-12) 1,000 mcg PO DAILY 10/08/21 05/24/23 1,000 mcg tablet multivitamin 1 tab PO QAM 10/08/21 05/09/23 aspirin 81 mg tablet,delayed 81 mg PO QDAY 03/14/23 05/24/23 release (Adult Aspirin Regimen) acetaminophen 500 mg tablet 1,000 mg PO TID PRN 05/09/23 05/22/23 atorvastatin 40 mg tablet 40 mg PO HS 05/09/23 05/24/23 cholecalciferol (vitamin D3) 125 125 mcg PO DAILY 05/09/23 05/22/23 mcg (5,000 unit) capsule clopidogrel 75 mg tablet 75 mg PO DAILY 05/09/23 05/24/23 fenofibrate nanocrystallized 48 mg 96 mg PO DAILY 05/09/23 05/24/23 tablet ipratropium bromide 42 mcg (0.06 2 spray intranasal TID PRN allergy 05/09/23 05/22/23 %) nasal spray symptoms lisinopril 10 mg tablet 10 mg PO DAILY 05/09/23 05/24/23 melatonin 3 mg capsule 6 mg PO HS 05/09/23 05/24/23 paroxetine HCl 37.5 mg 75 mg PO QDAY 05/22/23 05/24/23 tablet,extended release 24 hr (Paxil CR) quetiapine 25 mg tablet 50 - 75 mg PO BID 05/22/23 05/24/23 sennosides 8.6 mg tablet (senna) 8.6 mg PO QHS 05/22/23 05/24/23 Previous Rx's Medication Instructions Recorded levothyroxine 150 mcg tablet 150 mcg PO DAILY #90 tabs 11/08/22 metoprolol tartrate 25 mg tablet 12.5 mg (1/2 x 25 mg) PO BID #180 11/25/22 tabs oxycodone 5 mg tablet 5 mg PO Q8H PRN pain #20 tabs 04/18/23 donepezil 5 mg tablet 5 mg PO DAILY #30 tabs 05/15/23 fluoxetine 20 mg capsule 20 mg PO DAILY #30 caps 05/15/23 gabapentin 100 mg capsule 100 mg PO BID #60 caps 05/15/23 metformin 500 mg tablet,extended 500 mg PO DAILY #30 tabs 05/15/23 release 24 hr tamsulosin 0.4 mg capsule 0.4 mg PO HS@1999 #30 caps 05/15/23 olanzapine 5 mg tablet 5 mg PO BID PRN psychosis #60 tabs 05/22/23 Allergies Allergy/AdvReac Type Severity Reaction Status Date / Time No Known Drug Allergies Allergy Verified 05/22/23 13:36 Review of Systems Status of ROS: Reports: unobtainable due to medical condition (Doubt validity of patient to give me meaningful review of systems. ) [facility] Medical History Urinary retention ?R33.9 - Retention of urine, unspecified (ICD-10) Fall ?W19.XXXA - Unspecified fall, initial encounter (ICD-10) Health care directive on file ?Z78.9 - Other specified health status (ICD-10) Gout ?M10.9 - Gout, unspecified (ICD-10) Vasomotor rhinitis ?J30.0 - Vasomotor rhinitis (ICD-10) Dementia ?F03.90 - Unspecified dementia without behavioral disturbance (ICD-10) B12 deficiency ?E53.8 - Deficiency of other specified B group vitamins (ICD-10) Left knee DJD ?M17.12 - Unilateral primary osteoarthritis, left knee (ICD-10) Osteoarthritis of both hips ?M16.0 - Bilateral primary osteoarthritis of hip (ICD-10) Erectile dysfunction (12/29/08) ?N52.9 - Male erectile dysfunction, unspecified (ICD-10) Disorder of intervertebral disc of lumbar spine ?M51.9 - Unspecified thoracic, thoracolumbar and lumbosacral intervertebral disc disorder (ICD-10) Durable power of assistant city attorney in chart Submucosal rectal lesion ?K62.9 - Disease of anus and rectum, unspecified (ICD-10) History of adenomatous polyp of colon (2013) ?Z86.010 - Personal history of colonic polyps (ICD-10) High prostate specific antigen (PSA) ?R97.20 - Elevated prostate specific antigen [PSA] (ICD-10) Cataract (01/12/12) ?H26.9 - Unspecified cataract (ICD-10) Surgical History History of angioplasty of peripheral vessel ?Z98.62 - Peripheral vascular angioplasty status (ICD-10) H/O cataract extraction ?Z98.49 - Cataract extraction status, unspecified eye (ICD-10) H/O shoulder surgery ?Z98.890 - Other specified postprocedural states (ICD-10) History of tonsillectomy (04/14/06) ?Z90.89 - Acquired absence of other organs (ICD-10) History of excision of lamina of lumbar vertebra for decompression of spinal cord (2015) ?Z98.890 - Other specified postprocedural states (ICD-10) History of coronary artery bypass surgery (1993) ?Z95.1 - Presence of aortocoronary bypass graft (ICD-10) Social History Narrative: patient has been living with his , Akosua, who is his primary caregiver and healthcare power of assistant city attorney. She is a retired RN from [employer]. He does not smoke. He quit drinking alcohol about a year and a half ago. code status is DNR. In the past 2 months he has been losing his ability to perform ADLs, showering , shaving, dressing and brushing teeth. he is unsteady on his feet. Sometimes uses a walker. What is your current living situation?: I presently have a place to live Problems where you live: no known problems Problems where you live details: none In the past 12 months, utilities in danger of being shut off: no In past 12 months, lack of transportation kept you from medical appts, meetings, work, or getting things needed for daily living: no In the past 12 mos, have been you worried that your food would run out before you had money to buy more?: never true In the past 12 mos, the food you bought just didn't last and you didn't have money to buy more?: never true Smoking Status: Former smoker Do you use any of these nicotine containing products: None Second hand tobacco smoke exposure: No How often do you have a drink containing alcohol: never How often do you have six or more drinks on one occasion: Never AUDIT-C Alcohol total score: 0 Non-prescribed substance use: denies use How often does anyone, including family, friends and others, physically hurt you : never How often does anyone, including family, friends and others, insult or talk down to you: never How often does anyone, including family, friends and others, threaten you with harm: never How often does anyone, including family, friends and others, scream or curse at you: never Little interest or pleasure in doing things: more than half the days Feeling down, depressed, or hopeless: more than half the days service: Yes Exam Const: Vital Signs, click to edit/add: Vital Signs - 24 hr 05/24/23 08:29 05/24/23 08:50 05/24/23 09:01 Temperature 97.6 F Pulse Rate 79 Pulse Rate [Pulse Oximeter] 74 Respiratory Rate 14 14 Blood Pressure 116/67 Blood Pressure [Le ft Upper Arm] 97/63 Pulse Oximetry 99 98 97 Oxygen Delivery Me thod Room Air 05/24/23 09:57 05/24/23 10:39 Temperature Pulse Rate 110 H 79 Pulse Rate [Pulse Oximeter] Respiratory Rate Blood Pressure Blood Pressure [Le ft Upper Arm] Pulse Oximetry 98 100 Oxygen Delivery Me thod Patient is alert, interactive, no apparent distress. Breathing easily on room air. Is conversive with yes no questions, pleasant. Has dried blood in his left ear canal, see no acute traumatic change. Pupils are equal round reactive, conjugate gaze. Symmetrical facial function, see no traumatic overnight cashier his face or head. Does not complain of any pain on palpation of his neck her back. Lungs are clear, breathing easily on room air. Heart rate sounds regular at this time, not fast or slow. Do not hear any significant murmur. Abdomen is soft, no masses, no organomegaly. Has good symmetrical foot strength, 5/5. Cannot get him to follow commands of lifting his legs up off the bed however. Strength is 5/5 and symmetric in upper extremities. Seems to have normal light touch sensation. Do not find any acute traumatic change on his extremities. Documenting provider has reviewed patient's vital signs: yes Course Course ED Course: This is a 73-year-old male with an unwitnessed fall in significant dementia. He is on Plavix and aspirin for his vascular disease. Will get EKG, labs, will do head and neck imaging despite lack of complaints of pain. Do not feel that patient as a historian can be trusted to give meaningful review of systems. He does not remember the fall. His Akosua will be in hopefully shortly, will see if she has anything to add to this. Reevaluation(s) Time of Reevaluation #1: 10:05 Reevaluation #1: Patient has been mildly agitated, getting up and down while here. Do have staff watching him. Still awaiting his Akosua to arrive, she definitely is a source of comfort for him. Nursing staff did report to me that the patient seems to be dyspneic or have increased work of breathing whenever he is up. Will obtain a portable chest x-ray based on this information. Do note that his hemoglobin is mildly down, will need to discuss this further with his . Time of Reevaluation #2: 11:38 Reevaluation #2: Have reviewed normal workup to this point with Akosua. Akosua states that they are having increasing problems at home. He is having increasing episodes where he is stating help me, seems agitated. Did discuss with her that this might be part of his dimension could be anxiety episodes. She is wondering about geriatric psychiatry placement. She states that he is going to continue to have the behaviors unless they get the medication management right. She feels that she is having difficulty managing him at home. She is not on willing to take him home but feels he needs increased evaluation for his dementia and behaviors. Time of Reevaluation #3: 13:44 Reevaluation #3: Patient given another dose of oral Zyprexa 5 mg. He is having increased agitation. Will see if that helps. After further discussion with nursing staff, Akosua would like to try Seroquel over Zyprexa. Will order 50 mg Seroquel as she states 25 is never sufficient. Will leave the order for Zyprexa in in case we do want to give it. Additional Reevaluation(s): 4:35 p.m. I have been informed that all geriatric psychiatry facilities have declined this patient. Akosua states she cannot take him home, cannot manage him. Will update the hospitalist Dr. Lancaster, have already given her a preliminary idea that he may need to come in. He is likely going to need placement. Consultations Consultation #1: Did speak with Paola from social media campaign manager via phone. She stated that the facility that he had been accepted prior does not have any availability. She will look into some other facilities but is not very hopeful that this will happen through the ER. I did update Akosua his on this. Patient is a bit more agitated, hallucinating some which is not out of the ordinary per Akosua. She did request Zyprexa, will give him a dose 5 mg orally. Time: 11:45 Vital Signs Vital signs: Initial Vital Signs Temperature 97.6 F 05/24/23 08:29 Temperature Source Temporal Artery Scan 05/24/23 08:29 Pulse Rate 74 05/24/23 08:29 Pulse Rhythm Irregular 05/24/23 08:29 Respiratory Rate 14 05/24/23 08:29 Blood Pressure 97/63 05/24/23 08:29 Blood Pressure Mean 74 05/24/23 08:29 Blood Pressure Position Supine 05/24/23 08:29 Pulse Oximetry 99 05/24/23 08:29 Oxygen Delivery Method Room Air 05/24/23 08:29 Vital Signs Temperature 97.6 F 05/24/23 08:29 Pulse Rate 74 05/24/23 08:29 Respiratory Rate 14 05/24/23 08:29 Blood Pressure 97/63 05/24/23 08:29 Pulse Oximetry 99 05/24/23 08:29 Oxygen Delivery Method Room Air 05/24/23 08:29 Temperature 97.6 F 05/24/23 08:29 Pulse Rate 79 05/24/23 10:39 Respiratory Rate 14 05/24/23 09:01 Blood Pressure 116/67 05/24/23 09:01 Pulse Oximetry 100 05/24/23 10:39 Oxygen Delivery Method Room Air 05/24/23 08:29 Medications Administered Medications: Discontinued Medications Generic Name Dose Route Start Last Admin Trade Name Freq PRN Reason Stop Dose Admin Olanzapine 5 mg 05/24/23 11:50 05/24/23 11:53 Olanzapine 5 Mg Tab.Rapdis PO 05/24/23 11:51 5 mg ONCE ONE Administration Quetiapine Fumarate 50 mg 05/24/23 13:49 05/24/23 14:05 Quetiapine 25 Mg Tablet PO 05/24/23 13:50 50 mg ONCE ONE Administration MDM - Fall Lab Data Attestation: I reviewed the patient's lab results. Labs: Lab Results 05/24/23 05/24/23 05/24/23 Range/Units 08:42 09:10 09:35 WBC 10.30 (4.50-11.00) K/uL RBC 3.36 L (4.30-5.90) m/uL Hgb 9.3 L (13.5-17.5) gm/dL Hct 29.8 L (37.0-53.0) % MCV 89 (80-100) fL MCH 28 (26-34) pg MCHC 31 L (32-36) gm/dL RDW Coeff of Eufemia 13.4 (11.5-15.5) % Plt Count 350 (140-440) K/uL Neut % (Auto) 86.3 H (42.0-72.0) % Lymph % (Auto) 6.2 L (20-44) % [place] % (Auto) 6.6 (0.0-11.0) % Eos % (Auto) 0.2 (0.0-7.0) % Baso % (Auto) 0.1 (0.0-3.0) % Neut # (Auto) 8.90 H (1.7-7.0) K/uL Lymph # (Auto) 0.60 L (0.90-2.90) K/uL [place] # (Auto) 0.70 (0.00-0.90) K/UL Eos # (Auto) 0.02 (0.00-0.50) K/uL Baso # (Auto) 0.01 (0.00-0.30) K/uL Abs Immat Gran (auto) 0.06 (0.00-0.30) K/uL Imm/Tot Granulo (auto) 0.6 % Sodium 132 L (135-149) mmol/L Potassium 5.0 (3.6-5.1) mmol/L Chloride 106 (96-114) mmol/L Carbon Dioxide 16 L (20-32) mmol/L Anion Gap 10 (7-15) mEq/L BUN 56 H (7-30) mg/dL Creatinine 1.5 (0.5-1.5) mg/dL Estimated GFR 48 ml/min Glucose 240 H (60-115) mg/dL Lactate 2.0 H (0.5-1.9) mmol/L Calcium 9.4 (8.4-10.6) mg/dL Total Bilirubin 0.3 (0.1-1.5) mg/dL AST 21 (12-35) U/L ALT 19 (4-50) U/L Alkaline Phosphatase 75 (40-150) U/L Troponin I 0.02 (0.01-0.04) ng/mL Total Protein 6.2 (6.0-8.3) g/dL Albumin 3.5 (3.3-5.0) g/dL Urine Color Yellow (Yellow) Urine Appearance (Clear) Urine pH (5.0-8.5) Ur Specific [place] (1.000-1.030) Urine Protein (Negative) Urine Glucose (UA) (Negative) Urine Ketones (Negative) Urine Blood (Negative) Urine Nitrite (Negative) Urine Bilirubin (Negative) Urine Urobilinogen (0.2-1.0) Ur Leukocyte Esterase (Negative) Urine RBC (0-2) Urine WBC (0-5) Urine WBC Clumps Ur Squamous Epith Cells (None-Few) [place] Biurate Crystals Calcium Carbonate Cryst Calcium Phosphate Cryst Calcium Oxalate Crystal Cystine Crystals Uric Acid Crystals Triple Phos Crystals Sulfur Crystals Cholesterol Crystals Tyrosine Crystals Hippuric Acid Crystals Amorphous Sediment Other Sediment (None) Urine Bacteria (None) Fatty Casts Hyaline Casts Fine Granular Casts Coarse Granular Casts Waxy Casts RBC Casts WBC Casts Other Casts Urine Starch Urine Mucus (None) Urine Trichomonas Urine Yeast SARS-CoV-2 (PCR) Negative SARS-CoV-2 (Negative) Influenza Type A (PCR) Negative PCR FLU A (Negative) Influenza Type B (PCR) Negative PCR FLU B (Negative) RSV (PCR) Negative PCR RSV (Negative) 05/24/23 05/24/23 05/24/23 Range/Units 09:35 09:35 09:35 WBC (4.50-11.00) K/uL RBC (4.30-5.90) m/uL Hgb (13.5-17.5) gm/dL Hct (37.0-53.0) % MCV (80-100) fL MCH (26-34) pg MCHC (32-36) gm/dL RDW Coeff of Eufemia (11.5-15.5) % Plt Count (140-440) K/uL Neut % (Auto) (42.0-72.0) % Lymph % (Auto) (20-44) % [place] % (Auto) (0.0-11.0) % Eos % (Auto) (0.0-7.0) % Baso % (Auto) (0.0-3.0) % Neut # (Auto) (1.7-7.0) K/uL Lymph # (Auto) (0.90-2.90) K/uL [place] # (Auto) (0.00-0.90) K/UL Eos # (Auto) (0.00-0.50) K/uL Baso # (Auto) (0.00-0.30) K/uL Abs Immat Gran (auto) (0.00-0.30) K/uL Imm/Tot Granulo (auto) % Sodium (135-149) mmol/L Potassium (3.6-5.1) mmol/L Chloride (96-114) mmol/L Carbon Dioxide (20-32) mmol/L Anion Gap (7-15) mEq/L BUN (7-30) mg/dL Creatinine (0.5-1.5) mg/dL Estimated GFR ml/min Glucose (60-115) mg/dL Lactate (0.5-1.9) mmol/L Calcium (8.4-10.6) mg/dL Total Bilirubin (0.1-1.5) mg/dL AST (12-35) U/L ALT (4-50) U/L Alkaline Phosphatase (40-150) U/L Troponin I (0.01-0.04) ng/mL Total Protein (6.0-8.3) g/dL Albumin (3.3-5.0) g/dL Urine Color Cancelled (Yellow) Urine Appearance Clear Cancelled (Clear) Urine pH 6.0 Cancelled (5.0-8.5) Ur Specific [place] 1.020 (1.000-1.030) Urine Protein (Negative) Urine Glucose (UA) (Negative) Urine Ketones (Negative) Urine Blood (Negative) Urine Nitrite (Negative) Urine Bilirubin (Negative) Urine Urobilinogen (0.2-1.0) Ur Leukocyte Esterase (Negative) Urine RBC (0-2) Urine WBC (0-5) Urine WBC Clumps Ur Squamous Epith Cells (None-Few) [place] Biurate Crystals Calcium Carbonate Cryst Calcium Phosphate Cryst Calcium Oxalate Crystal Cystine Crystals Uric Acid Crystals Triple Phos Crystals Sulfur Crystals Cholesterol Crystals Tyrosine Crystals Hippuric Acid Crystals Amorphous Sediment Other Sediment (None) Urine Bacteria (None) Fatty Casts Hyaline Casts Fine Granular Casts Coarse Granular Casts Waxy Casts RBC Casts WBC Casts Other Casts Urine Starch Urine Mucus (None) Urine Trichomonas Urine Yeast SARS-CoV-2 (PCR) (Negative) Influenza Type A (PCR) (Negative) Influenza Type B (PCR) (Negative) RSV (PCR) (Negative) 05/24/23 05/24/23 05/24/23 Range/Units 09:35 09:35 09:35 WBC (4.50-11.00) K/uL RBC (4.30-5.90) m/uL Hgb (13.5-17.5) gm/dL Hct (37.0-53.0) % MCV (80-100) fL MCH (26-34) pg MCHC (32-36) gm/dL RDW Coeff of Eufemia (11.5-15.5) % Plt Count (140-440) K/uL Neut % (Auto) (42.0-72.0) % Lymph % (Auto) (20-44) % [place] % (Auto) (0.0-11.0) % Eos % (Auto) (0.0-7.0) % Baso % (Auto) (0.0-3.0) % Neut # (Auto) (1.7-7.0) K/uL Lymph # (Auto) (0.90-2.90) K/uL [place] # (Auto) (0.00-0.90) K/UL Eos # (Auto) (0.00-0.50) K/uL Baso # (Auto) (0.00-0.30) K/uL Abs Immat Gran (auto) (0.00-0.30) K/uL Imm/Tot Granulo (auto) % Sodium (135-149) mmol/L Potassium (3.6-5.1) mmol/L Chloride (96-114) mmol/L Carbon Dioxide (20-32) mmol/L Anion Gap (7-15) mEq/L BUN (7-30) mg/dL Creatinine (0.5-1.5) mg/dL Estimated GFR ml/min Glucose (60-115) mg/dL Lactate (0.5-1.9) mmol/L Calcium (8.4-10.6) mg/dL Total Bilirubin (0.1-1.5) mg/dL AST (12-35) U/L ALT (4-50) U/L Alkaline Phosphatase (40-150) U/L Troponin I (0.01-0.04) ng/mL Total Protein (6.0-8.3) g/dL Albumin (3.3-5.0) g/dL Urine Color (Yellow) Urine Appearance (Clear) Urine pH (5.0-8.5) Ur Specific [place] Cancelled (1.000-1.030) Urine Protein Negative Cancelled (Negative) Urine Glucose (UA) Trace A Cancelled (Negative) Urine Ketones Negative (Negative) Urine Blood (Negative) Urine Nitrite (Negative) Urine Bilirubin (Negative) Urine Urobilinogen (0.2-1.0) Ur Leukocyte Esterase (Negative) Urine RBC (0-2) Urine WBC (0-5) Urine WBC Clumps Ur Squamous Epith Cells (None-Few) [place] Biurate Crystals Calcium Carbonate Cryst Calcium Phosphate Cryst Calcium Oxalate Crystal Cystine Crystals Uric Acid Crystals Triple Phos Crystals Sulfur Crystals Cholesterol Crystals Tyrosine Crystals Hippuric Acid Crystals Amorphous Sediment Other Sediment (None) Urine Bacteria (None) Fatty Casts Hyaline Casts Fine Granular Casts Coarse Granular Casts Waxy Casts RBC Casts WBC Casts Other Casts Urine Starch Urine Mucus (None) Urine Trichomonas Urine Yeast SARS-CoV-2 (PCR) (Negative) Influenza Type A (PCR) (Negative) Influenza Type B (PCR) (Negative) RSV (PCR) (Negative) 05/24/23 05/24/23 05/24/23 Range/Units 09:35 09:35 09:35 WBC (4.50-11.00) K/uL RBC (4.30-5.90) m/uL Hgb (13.5-17.5) gm/dL Hct (37.0-53.0) % MCV (80-100) fL MCH (26-34) pg MCHC (32-36) gm/dL RDW Coeff of Eufemia (11.5-15.5) % Plt Count (140-440) K/uL Neut % (Auto) (42.0-72.0) % Lymph % (Auto) (20-44) % [place] % (Auto) (0.0-11.0) % Eos % (Auto) (0.0-7.0) % Baso % (Auto) (0.0-3.0) % Neut # (Auto) (1.7-7.0) K/uL Lymph # (Auto) (0.90-2.90) K/uL [place] # (Auto) (0.00-0.90) K/UL Eos # (Auto) (0.00-0.50) K/uL Baso # (Auto) (0.00-0.30) K/uL Abs Immat Gran (auto) (0.00-0.30) K/uL Imm/Tot Granulo (auto) % Sodium (135-149) mmol/L Potassium (3.6-5.1) mmol/L Chloride (96-114) mmol/L Carbon Dioxide (20-32) mmol/L Anion Gap (7-15) mEq/L BUN (7-30) mg/dL Creatinine (0.5-1.5) mg/dL Estimated GFR ml/min Glucose (60-115) mg/dL Lactate (0.5-1.9) mmol/L Calcium (8.4-10.6) mg/dL Total Bilirubin (0.1-1.5) mg/dL AST (12-35) U/L ALT (4-50) U/L Alkaline Phosphatase (40-150) U/L Troponin I (0.01-0.04) ng/mL Total Protein (6.0-8.3) g/dL Albumin (3.3-5.0) g/dL Urine Color (Yellow) Urine Appearance (Clear) Urine pH (5.0-8.5) Ur Specific [place] (1.000-1.030) Urine Protein (Negative) Urine Glucose (UA) (Negative) Urine Ketones Cancelled (Negative) Urine Blood Negative Cancelled (Negative) Urine Nitrite Negative Cancelled (Negative) Urine Bilirubin Negative (Negative) Urine Urobilinogen (0.2-1.0) Ur Leukocyte Esterase (Negative) Urine RBC (0-2) Urine WBC (0-5) Urine WBC Clumps Ur Squamous Epith Cells (None-Few) [place] Biurate Crystals Calcium Carbonate Cryst Calcium Phosphate Cryst Calcium Oxalate Crystal Cystine Crystals Uric Acid Crystals Triple Phos Crystals Sulfur Crystals Cholesterol Crystals Tyrosine Crystals Hippuric Acid Crystals Amorphous Sediment Other Sediment (None) Urine Bacteria (None) Fatty Casts Hyaline Casts Fine Granular Casts Coarse Granular Casts Waxy Casts RBC Casts WBC Casts Other Casts Urine Starch Urine Mucus (None) Urine Trichomonas Urine Yeast SARS-CoV-2 (PCR) (Negative) Influenza Type A (PCR) (Negative) Influenza Type B (PCR) (Negative) RSV (PCR) (Negative) 05/24/23 05/24/23 05/24/23 Range/Units 09:35 09:35 09:35 WBC (4.50-11.00) K/uL RBC (4.30-5.90) m/uL Hgb (13.5-17.5) gm/dL Hct (37.0-53.0) % MCV (80-100) fL MCH (26-34) pg MCHC (32-36) gm/dL RDW Coeff of Eufemia (11.5-15.5) % Plt Count (140-440) K/uL Neut % (Auto) (42.0-72.0) % Lymph % (Auto) (20-44) % [place] % (Auto) (0.0-11.0) % Eos % (Auto) (0.0-7.0) % Baso % (Auto) (0.0-3.0) % Neut # (Auto) (1.7-7.0) K/uL Lymph # (Auto) (0.90-2.90) K/uL [place] # (Auto) (0.00-0.90) K/UL Eos # (Auto) (0.00-0.50) K/uL Baso # (Auto) (0.00-0.30) K/uL Abs Immat Gran (auto) (0.00-0.30) K/uL Imm/Tot Granulo (auto) % Sodium (135-149) mmol/L Potassium (3.6-5.1) mmol/L Chloride (96-114) mmol/L Carbon Dioxide (20-32) mmol/L Anion Gap (7-15) mEq/L BUN (7-30) mg/dL Creatinine (0.5-1.5) mg/dL Estimated GFR ml/min Glucose (60-115) mg/dL Lactate (0.5-1.9) mmol/L Calcium (8.4-10.6) mg/dL Total Bilirubin (0.1-1.5) mg/dL AST (12-35) U/L ALT (4-50) U/L Alkaline Phosphatase (40-150) U/L Troponin I (0.01-0.04) ng/mL Total Protein (6.0-8.3) g/dL Albumin (3.3-5.0) g/dL Urine Color (Yellow) Urine Appearance (Clear) Urine pH (5.0-8.5) Ur Specific [place] (1.000-1.030) Urine Protein (Negative) Urine Glucose (UA) (Negative) Urine Ketones (Negative) Urine Blood (Negative) Urine Nitrite (Negative) Urine Bilirubin Cancelled (Negative) Urine Urobilinogen 0.2 Cancelled (0.2-1.0) Ur Leukocyte Esterase 1+ A Cancelled (Negative) Urine RBC 0-2 (0-2) Urine WBC (0-5) Urine WBC Clumps Ur Squamous Epith Cells (None-Few) [place] Biurate Crystals Calcium Carbonate Cryst Calcium Phosphate Cryst Calcium Oxalate Crystal Cystine Crystals Uric Acid Crystals Triple Phos Crystals Sulfur Crystals Cholesterol Crystals Tyrosine Crystals Hippuric Acid Crystals Amorphous Sediment Other Sediment (None) Urine Bacteria (None) Fatty Casts Hyaline Casts Fine Granular Casts Coarse Granular Casts Waxy Casts RBC Casts WBC Casts Other Casts Urine Starch Urine Mucus (None) Urine Trichomonas Urine Yeast SARS-CoV-2 (PCR) (Negative) Influenza Type A (PCR) (Negative) Influenza Type B (PCR) (Negative) RSV (PCR) (Negative) 05/24/23 05/24/23 05/24/23 Range/Units 09:35 09:35 09:35 WBC (4.50-11.00) K/uL RBC (4.30-5.90) m/uL Hgb (13.5-17.5) gm/dL Hct (37.0-53.0) % MCV (80-100) fL MCH (26-34) pg MCHC (32-36) gm/dL RDW Coeff of Eufemia (11.5-15.5) % Plt Count (140-440) K/uL Neut % (Auto) (42.0-72.0) % Lymph % (Auto) (20-44) % [place] % (Auto) (0.0-11.0) % Eos % (Auto) (0.0-7.0) % Baso % (Auto) (0.0-3.0) % Neut # (Auto) (1.7-7.0) K/uL Lymph # (Auto) (0.90-2.90) K/uL [place] # (Auto) (0.00-0.90) K/UL Eos # (Auto) (0.00-0.50) K/uL Baso # (Auto) (0.00-0.30) K/uL Abs Immat Gran (auto) (0.00-0.30) K/uL Imm/Tot Granulo (auto) % Sodium (135-149) mmol/L Potassium (3.6-5.1) mmol/L Chloride (96-114) mmol/L Carbon Dioxide (20-32) mmol/L Anion Gap (7-15) mEq/L BUN (7-30) mg/dL Creatinine (0.5-1.5) mg/dL Estimated GFR ml/min Glucose (60-115) mg/dL Lactate (0.5-1.9) mmol/L Calcium (8.4-10.6) mg/dL Total Bilirubin (0.1-1.5) mg/dL AST (12-35) U/L ALT (4-50) U/L Alkaline Phosphatase (40-150) U/L Troponin I (0.01-0.04) ng/mL Total Protein (6.0-8.3) g/dL Albumin (3.3-5.0) g/dL Urine Color (Yellow) Urine Appearance (Clear) Urine pH (5.0-8.5) Ur Specific [place] (1.000-1.030) Urine Protein (Negative) Urine Glucose (UA) (Negative) Urine Ketones (Negative) Urine Blood (Negative) Urine Nitrite (Negative) Urine Bilirubin (Negative) Urine Urobilinogen (0.2-1.0) Ur Leukocyte Esterase (Negative) Urine RBC Cancelled (0-2) Urine WBC 2-5 Cancelled (0-5) Urine WBC Clumps Cancelled Ur Squamous Epith Cells Few Cancelled (None-Few) [place] Biurate Crystals Cancelled Calcium Carbonate Cryst Cancelled Calcium Phosphate Cryst Cancelled Calcium Oxalate Crystal Cancelled Cystine Crystals Cancelled Uric Acid Crystals Cancelled Triple Phos Crystals Cancelled Sulfur Crystals Cancelled Cholesterol Crystals Cancelled Tyrosine Crystals Cancelled Hippuric Acid Crystals Cancelled Amorphous Sediment Cancelled Other Sediment FEW HYALINE CASTS (None) Urine Bacteria (None) Fatty Casts Hyaline Casts Fine Granular Casts Coarse Granular Casts Waxy Casts RBC Casts WBC Casts Other Casts Urine Starch Urine Mucus (None) Urine Trichomonas Urine Yeast SARS-CoV-2 (PCR) (Negative) Influenza Type A (PCR) (Negative) Influenza Type B (PCR) (Negative) RSV (PCR) (Negative) 05/24/23 05/24/23 05/24/23 Range/Units 09:35 09:35 09:35 WBC (4.50-11.00) K/uL RBC (4.30-5.90) m/uL Hgb (13.5-17.5) gm/dL Hct (37.0-53.0) % MCV (80-100) fL MCH (26-34) pg MCHC (32-36) gm/dL RDW Coeff of Eufemia (11.5-15.5) % Plt Count (140-440) K/uL Neut % (Auto) (42.0-72.0) % Lymph % (Auto) (20-44) % [place] % (Auto) (0.0-11.0) % Eos % (Auto) (0.0-7.0) % Baso % (Auto) (0.0-3.0) % Neut # (Auto) (1.7-7.0) K/uL Lymph # (Auto) (0.90-2.90) K/uL [place] # (Auto) (0.00-0.90) K/UL Eos # (Auto) (0.00-0.50) K/uL Baso # (Auto) (0.00-0.30) K/uL Abs Immat Gran (auto) (0.00-0.30) K/uL Imm/Tot Granulo (auto) % Sodium (135-149) mmol/L Potassium (3.6-5.1) mmol/L Chloride (96-114) mmol/L Carbon Dioxide (20-32) mmol/L Anion Gap (7-15) mEq/L BUN (7-30) mg/dL Creatinine (0.5-1.5) mg/dL Estimated GFR ml/min Glucose (60-115) mg/dL Lactate (0.5-1.9) mmol/L Calcium (8.4-10.6) mg/dL Total Bilirubin (0.1-1.5) mg/dL AST (12-35) U/L ALT (4-50) U/L Alkaline Phosphatase (40-150) U/L Troponin I (0.01-0.04) ng/mL Total Protein (6.0-8.3) g/dL Albumin (3.3-5.0) g/dL Urine Color (Yellow) Urine Appearance (Clear) Urine pH (5.0-8.5) Ur Specific [place] (1.000-1.030) Urine Protein (Negative) Urine Glucose (UA) (Negative) Urine Ketones (Negative) Urine Blood (Negative) Urine Nitrite (Negative) Urine Bilirubin (Negative) Urine Urobilinogen (0.2-1.0) Ur Leukocyte Esterase (Negative) Urine RBC (0-2) Urine WBC (0-5) Urine WBC Clumps Ur Squamous Epith Cells (None-Few) [place] Biurate Crystals Calcium Carbonate Cryst Calcium Phosphate Cryst Calcium Oxalate Crystal Cystine Crystals Uric Acid Crystals Triple Phos Crystals Sulfur Crystals Cholesterol Crystals Tyrosine Crystals Hippuric Acid Crystals Amorphous Sediment Other Sediment Cancelled (None) Urine Bacteria Few A Cancelled (None) Fatty Casts Cancelled Hyaline Casts Cancelled Fine Granular Casts Cancelled Coarse Granular Casts Cancelled Waxy Casts Cancelled RBC Casts Cancelled WBC Casts Cancelled Other Casts Cancelled Urine Starch Cancelled Urine Mucus Moderate A Cancelled (None) Urine Trichomonas Cancelled Urine Yeast Cancelled SARS-CoV-2 (PCR) (Negative) Influenza Type A (PCR) (Negative) Influenza Type B (PCR) (Negative) RSV (PCR) (Negative) Imaging Data CT scan - head: Attestation: I have reviewed the pertinent imaging results. Radiologist's impression: Patient: CLEMENTE WEI Facility:?[facility] Patient ID:?[id number] Site Patient ID:?[id number]. Site :?1950 Study:?CT Head WITHOUT-05/24/2023 9:08:25 AM Ordering Physician:RYAN Final Report: Indication: Unwitnessed fall, dementia Technique: CT head without IV contrast. Multiplanar reformats are included. Please note that all CT scans at this facility use dose modulation, iterative reconstruction, and/or weight-based dosing when appropriate to reduce radiation dose to as low as reasonably achievable. Comparison: 05/09/2023 Findings: Generalized parenchymal atrophy. No acute or subacute stroke. No intracranial hemorrhage. No mass effect or midline shift. No ventriculomegaly. No calvarial fracture. Impression: No acute intracranial findings. Please note that all CT scans at this facility use dose modulation, iterative reconstruction, and/or weight-based dosing when appropriate to reduce radiation dose to as low as reasonably achievable. Dictated by Yvette Almodovar MD @ 05/24/2023 9:16:34 AM (Electronic Signature) CT cervical spine: Attestation: I have reviewed the pertinent imaging results. Radiologist's impression: Patient: [facility] Facility:?[facility] Patient ID:?[id number] Site Patient ID:?[id number]. Site :?1950 Study:?CT Spine Cervical -05/24/2023 9:10:43 AM Ordering Physician:RYAN Final Report: Indication: Unwitnessed fall, dementia Technique: CT cervical spine without IV contrast. Multiplanar reformats are included. Please note that all CT scans at this facility use dose modulation, iterative reconstruction, and/or weight-based dosing when appropriate to reduce radiation dose to as low as reasonably achievable. Comparison: 05/05/2023 Findings: The neck is flexed, the head is tilted to the right, and the chin is down. No fracture. Normal alignment considering the patient positioning. Multilevel disc degenerative change. Minimal upper facet arthropathy. No severe neural foraminal stenosis or central canal narrowing. No cervical prevertebral soft tissue swelling. Heavy atherosclerotic vascular calcifications at the carotid bulb. Impression: No acute traumatic findings in the cervical spine. Degenerative change as above. Please note that all CT scans at this facility use dose modulation, iterative reconstruction, and/or weight-based dosing when appropriate to reduce radiation dose to as low as reasonably achievable. Dictated by Yvette Almodovar MD @ 05/24/2023 9:18:58 AM (Electronic Signature) Chest x-ray: Attestation: I have reviewed the pertinent imaging results. Radiologist's impression: Patient: [facility] Facility:?[facility] Patient ID:?[id number] Site Patient ID:?[id number]. Site :?1950 Study:?XRay Chest 1V-05/24/2023 10:38:10 AM Ordering Physician:?DR. JAUREGUI Final Report: Indication: Fall, minor trauma Technique: Portable chest one view Comparison: None. Findings: The lungs are moderately well expanded. No focal or diffuse opacities. Median sternotomy wires. Normal cardiomediastinal silhouette accounting for rotation towards the right. Left shoulder arthroplasty. No acute appearing osseous findings. Impression: Moderate volumes. No acute findings. Dictated by Yvette Almodovar MD @ 05/24/2023 10:50:29 AM (Electronic Signature) ECG Data Attestation: I personally reviewed and interpreted this ECG as follows: (Sinus rhythm, 74 beats per minute. PVC seen. QT corrected 439 milliseconds.) ECG interpretation date: 05/24/23 ECG interpretation time: 08:50 Discharge Plan Discharge Clinical Impression: Behavioral problems Dementia Qualifiers: Dementia type: unspecified type Patient Disposition: Admitted As Observation Prescriptions: No Action multivitamin Tablet 1 tab PO QAM cyanocobalamin (vitamin B-12) 1,000 mcg tablet 1,000 mcg PO DAILY aspirin [Adult Aspirin Regimen] 81 mg tablet,delayed release (DR/EC) 81 mg PO QDAY metoprolol tartrate 25 mg tablet 12.5 mg PO BID Qty: 180 3RF sennosides [senna] 8.6 mg tablet 8.6 mg PO QHS paroxetine HCl [Paxil CR] 37.5 mg tablet extended release 24 hr 75 mg PO QDAY quetiapine 25 mg tablet 50 - 75 mg PO BID Patient Comments: 50 mg QAM, 75 mg QPM. olanzapine 5 mg tablet 5 mg PO BID PRN (Reason: psychosis) Qty: 60 3RF clopidogrel 75 mg tablet 75 mg PO DAILY acetaminophen 500 mg tablet 1,000 mg PO TID PRN cholecalciferol (vitamin D3) 125 mcg (5,000 unit) capsule 125 mcg PO DAILY lisinopril 10 mg tablet 10 mg PO DAILY melatonin 3 mg capsule 6 mg PO HS atorvastatin 40 mg tablet 40 mg PO HS ipratropium bromide 42 mcg (0.06 %) spray,non-aerosol 2 spray intranasal TID PRN (Reason: allergy symptoms) Rx Instructions: administer into each nostril fenofibrate nanocrystallized 48 mg tablet 96 mg PO DAILY donepezil 5 mg Tablet 5 mg PO DAILY Qty: 30 0RF tamsulosin 0.4 mg Capsule 0.4 mg PO HS@2000 Qty: 30 0RF gabapentin 100 mg Capsule 100 mg PO BID Qty: 60 0RF fluoxetine 20 mg Capsule 20 mg PO DAILY Qty: 30 0RF metformin 500 mg Tablet Extended Release 24 Hr 500 mg PO DAILY Qty: 30 0RF oxycodone 5 mg tablet 5 mg PO Q8H PRN (Reason: pain) Qty: 20 0RF levothyroxine 150 mcg tablet 150 mcg PO DAILY Qty: 90 2RF Follow Up/Referrals: Rl Monroe MD [Primary Care Provider] -
--- NOTE | 2023-05-24 08:35 | ED.NURSE ---
MD exam during triage.
[2023-05-24 09:19] LABS: Basophils Absolute Auto 0.01 K/uL (0.00-0.30); Basophils Percent Auto 0.1 % (0.0-3.0); Eosinophils Absolute Auto 0.02 K/uL (0.00-0.50); Eosinophils Percent Auto 0.2 % (0.0-7.0); Hematocrit 29.8 % (37.0-53.0); Hemoglobin* 9.3 gm/dL (13.5-17.5); Immature Granulocytes Abs Auto 0.06 K/uL (0.00-0.30); Immature Granulocytes Pct Auto 0.6 %; Lymphocytes Percent Auto 6.2 % (20-44); Mean Corpuscular HGB Conc 31 gm/dL (32-36); Mean Corpuscular Hemoglobin 28 pg (26-34); Mean Corpuscular Volume 89 fL (80-100); Monocytes Percent Auto 6.6 % (0.0-11.0); Neutrophils Percent Auto 86.3 % (42.0-72.0); Platelet Count* 350 K/uL (140-440); RDW Coefficient of Variation % 13.4 % (11.5-15.5); Red Blood Count 3.36 m/uL (4.30-5.90)
[2023-05-24 09:25] LABS: Slide Review Reflex No
[2023-05-24 09:31] LABS: PCR FLU A Negative PCR FLU A (Negative); PCR FLU B Negative PCR FLU B (Negative); PCR RSV Negative PCR RSV (Negative); SARS PCR* Negative SARS-CoV-2 (Negative)
[2023-05-24 09:36] LABS: Albumin* 3.5 g/dL (3.3-5.0); Chloride* 106 mmol/L (96-114); Sodium* 132 mmol/L (135-149)
[2023-05-24 09:38] LABS: Bilirubin Total* 0.3 mg/dL (0.1-1.5); Creatinine* 1.5 mg/dL (0.5-1.5); Estimated Glomerular Filt Rate 48 ml/min
[2023-05-24 09:39] LABS: Alanine Aminotransferase* 19 U/L (4-50); Alkaline Phosphatase* 75 U/L (40-150); Anion Gap 10 mEq/L (7-15); Aspartate Amino Transferase* 21 U/L (12-35); Blood Urea Nitrogen* 56 mg/dL (7-30); Calcium* 9.4 mg/dL (8.4-10.6); Carbon Dioxide* 16 mmol/L (20-32); Glucose* 240 mg/dL (60-115); Total Protein* 6.2 g/dL (6.0-8.3)
[2023-05-24 09:44] LABS: Appearance Urine Clear (Clear); Bilirubin Urine Negative (Negative); Blood Urine Negative (Negative); Color Urine Yellow (Yellow); Glucose Urine Trace (Negative); Ketones Urine Negative (Negative); Leukocyte Esterase Urine 1+ (Negative); Nitrite Urine Negative (Negative); Protein Urine Negative (Negative); Urobilinogen Urine 0.2 (0.2-1.0)
[2023-05-24 09:50] LABS: Troponin I* 0.02 ng/mL (0.01-0.04)
--- OUTSIDE RECORDS SUMMARY | 2023-05-24 09:52 | XMS_ITS | Continuity of Care Document ---
Author Name Unknown Organization [facility] Address [address] [place] [address] Phone Care Team Providers Care Circulation Representative Name Role Phone Navid Massey Unavailable Unavailable [...] ZANAFLEX (unknown strength) Not Available - Active [place] 5 mg-325 mg tablet take 1 - [...] C, [address], [place], [place], [id number], [place] tel:[phone] [facility] Encounter for other specified surgical aftercare [address] [facility], [address] [place] [address] [address], [facility], [place], [id number] , [place]. [phone] Referring Provider: Clemente Escobar, [facility] [address], [place], [address]. tel:[phone] [facility], [address], [place], [place], [id number], [place] tel:[phone] [facility] No Information 6 Samantha Tejeda. [facility], [address] [place] [address] [address], [facility] [place], [place], [id number] , [place]. [phone] Referring Provider: Clemente Escobar, [facility] [address], [place], [address]. tel:[phone] [facility], [address], [place], [place], [id number], [place] tel:[phone] [facility] No Information [address] [facility], [address] [place] [address] [address], [facility] [place], [id number] , [place]. tel:[phone] [facility], [address], [place], [place], [id number], [place] tel:[phone] [facility] No Information 6 Manuelito Shoemaker. [facility], [address] [place] [address] [address], [place], [place], [id number] , [place]. tel:[phone] Office/Outpat ient Visit,Scott [facility], [address], [place], [id number], [place] tel:[phone] [facility] Spinal stenosis, lumbar region [address] [facility], [address] [place] [address] [address], [place], [id number] , [place]. tel:[phone] Referring Provider: Clemente Escobar, [facility] [address], [place], [address]. tel:[phone] Family History Family Member Type Diagnosis Age At Onset No Information Payers Payer name Insurance type Covered libertarian ID [id number] Medicare [facility] [id number] Social History Type Description Quantity Date Captured [...]
--- OUTSIDE RECORDS SUMMARY | 2023-05-24 09:52 | XMS_ITS | Clinical Summary ---
Author Name Unknown Organization [employer] [facility] [employer] Address [place], [place] [address] Care Team Providers Care Guest Attendant Name Role Phone Rl Monroe MD Primary Care Provider [phone] Allergies No known active allergies Medications Medication [...] Depression 09/29/2015 Bipolar disorder 09/29/2015 Overview: Stopped [facility] in 2011 Spinal stenosis, lumbar deborah on, [...] Type Department Care Team Description 05/12/2023 Telephone [facility] [address] [place] [address] Donal Meneses MD Imaging 05/12/2023 Orders Only [facility] [address] [place] [address] Donal Meneses MD <No scans attached> 05/05/2023 Orders Only [facility] [address] [place] [address] Abida Louis MD <No scans attached> 05/02/2023 2:14 PM ANIMAL SCIENCE PROFESSOR Anesthesia Event [facility] [address] [place] [address] June Damian MD Rochon Genny Coleman, SUZANNA 04/28/2023 9:28 AM ANIMAL SCIENCE PROFESSOR Anesthesia Event [facility] [address] [place] [address] June Damian MD Taylor, Phillip Norman, MD 04/27/2023 6:58 PM ANIMAL SCIENCE PROFESSOR - 05/05/2023 4:45 PM ANIMAL SCIENCE PROFESSOR Hospital Encounter [facility] [address] [place] [address] Helen Ryder MD 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 (ARRT) Critical limb ischemia of both lower extremities (HC) 04/26/2023 Travel 04/20/2023 Telephone [facility] [address] [place] [phone] Carmen Carbone MD Follow Up 04/19/2023 Orders Only [facility] [address] [place] [id number] Carmen Carbone MD <No scans attached> 04/19/2023 Telephone [facility] [address] [place] [address] Carmen Carbone MD Appointment 04/18/2023 Telephone [facility] [address] [place] [address] Carmen Carbone MD from Last 3 Months [...] Comments Blood Pressure 112/54 05/05/2023 3:37 PM ANIMAL SCIENCE PROFESSOR Pulse 61 05/05/2023 3:37 PM ANIMAL SCIENCE PROFESSOR Temperature 36.6 ??C (97.8 ??F) 05/05/2023 3:37 PM CS T Respiratory Rate 16 05/05/2023 3:37 PM ANIMAL SCIENCE PROFESSOR Oxygen Saturation 100% 05/05/2023 3:37 PM ANIMAL SCIENCE PROFESSOR Inhaled Oxygen Concentration - - Weight 103.3 kg (227 lb 11.2 oz) 05/05/2023 6:00 AM ANIMAL SCIENCE PROFESSOR Height 185.4 cm (6' 1) 04/27/2023 5:50 PM ANIMAL SCIENCE PROFESSOR Body Mass Index 30.04 04/27/2023 5:50 PM ANIMAL SCIENCE PROFESSOR Plan of Treatment Health Maintenance Due Date [...] Comments GLUCOSE METER Timed 05/05/2023 1:38 PM ANIMAL SCIENCE PROFESSOR GLUCOSE METER Timed 05/05/2023 9:12 AM ANIMAL SCIENCE PROFESSOR GLUCOSE METER Timed 05/04/2023 9:25 PM ANIMAL SCIENCE PROFESSOR GLUCOSE METER Timed 05/04/2023 5:29 PM ANIMAL SCIENCE PROFESSOR US ARTERIAL LOWER EXTREMITY W REYNA RIGHT Routine 05/04/2023 3:49 PM ANIMAL SCIENCE PROFESSOR GLUCOSE METER Timed 05/04/2023 2:18 PM ANIMAL SCIENCE PROFESSOR XR FOOT 3 VIEWS RIGHT PORTABLE Routine 05/03/2023 12:36 PM ANIMAL SCIENCE PROFESSOR HEMOGLOBIN A1C SCREENING MORRIS 05/03/2023 8:49 AM ANIMAL SCIENCE PROFESSOR EXTRA TUBE BLUE Today 05/03/2023 8:49 AM ANIMAL SCIENCE PROFESSOR BASIC METABOLIC PANEL Early AM 05/03/2023 8:49 AM ANIMAL SCIENCE PROFESSOR CBC W PLT NO DIFF Early AM 05/03/2023 8:4 9 AM ANIMAL SCIENCE PROFESSOR SCAN-CARDIAC STRIP 05/03/2023 8: 12 AM ANIMAL SCIENCE PROFESSOR APTT Early AM 05/03/2023 7:28 AM ANIMAL SCIENCE PROFESSOR GLUCOSE METER Timed 05/02/2023 6:33 PM ANIMAL SCIENCE PROFESSOR PV OTHER PROCEDURE Routine 05/02/2023 6: 20 PM ANIMAL SCIENCE PROFESSOR HCHG ACTIVATED CLOTTING TM CV Timed 05/02/2023 6:05 PM ANIMAL SCIENCE PROFESSOR HCHG ACTIVATED CLOTTING TM CV Timed 05/02/2023 5:12 PM ANIMAL SCIENCE PROFESSOR HCHG ACTIVATED CLOTTING TM CV Timed 05/02/2023 5:02 PM ANIMAL SCIENCE PROFESSOR HCHG ACTIVATED CLOTTING TM CV Timed 05/02/2023 4:30 PM ANIMAL SCIENCE PROFESSOR HCHG ACTIVATED CLOTTING TM CV Timed 05/02/2023 3:55 PM ANIMAL SCIENCE PROFESSOR HCHG ACTIVATED CLOTTING TM CV Timed 05/02/2023 3:21 PM ANIMAL SCIENCE PROFESSOR HCHG ACTIVATED CLOTTING TM CV Timed 05/02/2023 3:09 PM ANIMAL SCIENCE PROFESSOR ENDOTRACHEAL TUBE Routine 05/02/2023 2:4 0 PM ANIMAL SCIENCE PROFESSOR ENDOTRACHEAL TUBE Routine 05/02/2023 2:4 0 PM ANIMAL SCIENCE PROFESSOR ENDOTRACHEAL TUBE Routine 05/02/2023 2:4 0 PM ANIMAL SCIENCE PROFESSOR CBC W PLT NO DIFF Timed 05/02/2023 9:3 0 AM ANIMAL SCIENCE PROFESSOR BASIC METABOLIC PANEL Timed 05/02/2023 9:30 AM ANIMAL SCIENCE PROFESSOR APTT Early AM 05/02/2023 9:30 AM ANIMAL SCIENCE PROFESSOR SCAN-CARDIAC STRIP 05/02/2023 12 :00 AM ANIMAL SCIENCE PROFESSOR GLUCOSE METER Timed 05/01/2023 9:34 PM ANIMAL SCIENCE PROFESSOR GLUCOSE METER Timed 05/01/2023 8:42 PM ANIMAL SCIENCE PROFESSOR GLUCOSE METER Timed 05/01/2023 5:12 PM ANIMAL SCIENCE PROFESSOR GLUCOSE METER Timed 05/01/2023 12:01 PM ANIMAL SCIENCE PROFESSOR GLUCOSE METER Timed 05/01/2023 8:02 AM ANIMAL SCIENCE PROFESSOR APTT MORRIS 05/01/2023 7:53 AM ANIMAL SCIENCE PROFESSOR GLUCOSE METER Timed 04/30/2023 10:21 PM ANIMAL SCIENCE PROFESSOR GLUCOSE METER Timed 04/30/2023 4:51 PM ANIMAL SCIENCE PROFESSOR GLUCOSE METER Timed 04/30/2023 11:45 AM ANIMAL SCIENCE PROFESSOR GLUCOSE, RANDOM MORRIS 04/30/2023 7:26 AM ANIMAL SCIENCE PROFESSOR APTT Early AM 04/30/2023 7:26 AM ANIMAL SCIENCE PROFESSOR CREATININE Early AM 04/30/2023 7:26 AM ANIMAL SCIENCE PROFESSOR APTT Timed 04/30/2023 12:10 AM ANIMAL SCIENCE PROFESSOR GLUCOSE METER Timed 04/29/2023 10:09 PM ANIMAL SCIENCE PROFESSOR APTT Timed 04/29/2023 4:51 PM ANIMAL SCIENCE PROFESSOR GLUCOSE METER Timed 04/29/2023 4:46 PM ANIMAL SCIENCE PROFESSOR GLUCOSE METER Timed 04/29/2023 12:05 PM ANIMAL SCIENCE PROFESSOR GLUCOSE METER Timed 04/29/2023 7:56 AM ANIMAL SCIENCE PROFESSOR APTT Timed 04/29/2023 7:31 AM ANIMAL SCIENCE PROFESSOR CBC W PLT NO DIFF Early AM 04/29/2023 7:3 1 AM ANIMAL SCIENCE PROFESSOR BASIC METABOLIC PANEL Early AM 04/29/2023 7:31 AM ANIMAL SCIENCE PROFESSOR APTT Timed 04/28/2023 11:13 PM ANIMAL SCIENCE PROFESSOR GLUCOSE METER Timed 04/28/2023 10:41 PM ANIMAL SCIENCE PROFESSOR GLUCOSE METER Timed 04/28/2023 6:39 PM ANIMAL SCIENCE PROFESSOR US VEIN MAPPING LOWER EXTREMITY BILATERAL Today 04/28/2023 5:38 PM ANIMAL SCIENCE PROFESSOR SCAN-CARDIAC STRIP 04/28/2023 4: 41 PM ANIMAL SCIENCE PROFESSOR CREATININE Early AM 04/28/2023 4:32 PM ANIMAL SCIENCE PROFESSOR GLUCOSE METER Timed 04/28/2023 2:12 PM ANIMAL SCIENCE PROFESSOR GLUCOSE METER Timed 04/28/2023 1:44 PM ANIMAL SCIENCE PROFESSOR GLUCOSE METER Timed 04/28/2023 1:30 PM ANIMAL SCIENCE PROFESSOR GLUCOSE METER Timed 04/28/2023 1:26 PM ANIMAL SCIENCE PROFESSOR SCAN-OPERATIVE/PROCED URE REPORT 04/28/2023 12:00 AM ANIMAL SCIENCE PROFESSOR LACTATE SCREEN VENOUS ISTAT W BECKFORD Timed 04/27/2023 9:43 PM ANIMAL SCIENCE PROFESSOR TYPE & SCREEN STAT 04/27/2023 8:21 PM ANIMAL SCIENCE PROFESSOR APTT MORRIS 04/27/2023 8:21 PM ANIMAL SCIENCE PROFESSOR ISTAT EC8 Timed 04/27/2023 7:52 PM ANIMAL SCIENCE PROFESSOR BLOOD CULTURE STAT 04/27/2023 7:41 PM ANIMAL SCIENCE PROFESSOR EXTRA TUBE BECKFORD ON ICE STAT 04/27/2023 7:35 PM ANIMAL SCIENCE PROFESSOR ISTAT LACTATE SCREEN VENOUS STAT 04/27/2023 7:35 PM ANIMAL SCIENCE PROFESSOR CBC WITH AUTO DIFFERENTIAL STAT 04/27/2023 7:34 PM ANIMAL SCIENCE PROFESSOR BLOOD CULTURE STAT 04/27/2023 7:34 PM ANIMAL SCIENCE PROFESSOR BASIC METABOLIC PANEL STAT 04/27/2023 7:34 PM ANIMAL SCIENCE PROFESSOR CBC WITH AUTO DIFFERENTIAL STAT 04/27/2023 7:34 PM ANIMAL SCIENCE PROFESSOR US ARTERIAL LOWER EXTREMITY W REYNA BILATERAL MORRIS 04/26/2023 1:40 PM ANIMAL SCIENCE PROFESSOR Critical limb ischemia of both lower extremities (HC) from Last 3 Months Results * (ABNORMAL) GLUCOSE METER (05/05/2023 1:38 PM ANIMAL SCIENCE PROFESSOR) Only the most recent of24 resultswithin the time period is included. [facility] GLUCOSE METER 160(H) 65 - 100 mg/dL 05/05/2023 1:39 PM ANIMAL SCIENCE PROFESSOR [facility] Blood BLOOD SPECIMEN / Unknown 05/05/2023 1:38 PM ANIMAL SCIENCE PROFESSOR 05/05/2023 1:39 PM ANIMAL SCIENCE PROFESSOR Abida Louis MD CHEMISTRY [facility] LAB[facility] [address] [place] [address], * US ARTERIAL LOWER EXTREMITY W REYNA RIGHT (05/04/2023 3:49 PM ANIMAL SCIENCE PROFESSOR) Anatomical Region Laterality Modality LEG R Ultrasound Impressions 05/05/2023 8:20 AM ANIMAL SCIENCE PROFESSOR ?? 1. ??Right lower extremity: ??Moderately reduced [...] [email or web address] / Narrative 05/05/2023 8:20 AM ANIMAL SCIENCE PROFESSOR Table formatting from the original result was [...] CM/SEC ? RIGHT PSV T,B,M VELOCITY RATIO INTERNATIONAL BANK MANAGER Prox 96 T - ?? INTERNATIONAL BANK MANAGER Dist 124 T ??- PFA 124 T - ?? SFA Prox ??109 62 T - ?? SFA Mid ??117 140 T - ?? SFA Dist ??101 116 T - ?? TRUDY Prox 63 M - ?? TRUDY Dist 88 M - ?? MEAT PASSER ??147 M - ?? CHAPARRO 75 M - DPA 65 M - ?? T= Triphasic; ??B= Biphasic; ??M= Monophasic ?? LEFT PSV T,B,M VELOCITY RATIO INTERNATIONAL BANK MANAGER Prox 88 ??T ??- ?? INTERNATIONAL BANK MANAGER Dist 89 ??T ??- ?? PFA 136 ??T ??- ?? SFA Prox ??62 69 ??T ??- ?? SFA Mid ??62 78 T ??- ?? SFA Dist ??58 62 ??T ??- ?? TRUDY Prox 31 T ??- ?? TRUDY Dist 49 ??T ??- ?? MEAT PASSER ??0 - - ?? CHAPARRO 72 T - DPA 33 M - ?? Right ??Left ?Index ??Index Brachial 125 ??118 ?? Ankle (PT) 72 0.58 0 0.00 Ankle (DP) 68 0.54 82 0.66 Digit 16 0.13 44 0.35 Ny LUDWIG US * XR FOOT 3 VIEWS RIGHT PORTABLE (05/03/2023 12:36 PM ANIMAL SCIENCE PROFESSOR) Anatomical Region Laterality Modality FEET, FOOT R Digital Radiogra phy 05/03/2023 6:22 PM ANIMAL SCIENCE PROFESSOR Impressions 05/03/2023 6:22 PM ANIMAL SCIENCE PROFESSOR Assessment of the toes is limited by flexion. No soft tissue air. No foreign body. No obvious bone resorption. No fracture or significant bone lesion. 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 Dictated by Jareth Jones MD @ May 03 2023 ??6:22PM (Electronically Signed) ?? Narrative 05/03/2023 6:22 PM ANIMAL SCIENCE PROFESSOR For Patients: ??As a result of the [...] (ABNORMAL) HEMOGLOBIN A1C SCREENING (05/03/2023 8:49 AM ANIMAL SCIENCE PROFESSOR) HEMOGLOBIN A1C SCREENING 7.2(H) <=6.4 % 05/03/2023 2:03 PM ANIMAL SCIENCE PROFESSOR [facility] [employer] [facility] TRAL LABORAT[facility] Blood BLOOD SPECIMEN / Unknown Butterfly / Unknown 05/03/2023 8:49 AM ANIMAL SCIENCE PROFESSOR 05/03/2023 8:59 AM ANIMAL SCIENCE PROFESSOR Narrative [facility]-C[facility] LAB[facility]ATORY - 05/03/2023 2:03 PM ANIMAL SCIENCE PROFESSOR ? (<5.7%) ?Normal ? (5.7% to 6.4%) ? Indicates prediabetes ? (>=6.5%) ? Confirms diabetes Falsely low levels may be seen with: Recent Transfusion, Recent Significant Blood Loss, Hemolytic Diseases, or Falsely elevated levels may be seen with: Untreated Anemias, Splenectomy Huma Spain DPM CHEMISTRY [facility] [address] [place] [address], [place] * EXTRA TUBE BLUE (05/03/2023 8:49 AM ANIMAL SCIENCE PROFESSOR) Blood BLOOD SPECIMEN / Unknown Butterfly / Unknown 05/03/2023 8:49 AM ANIMAL SCIENCE PROFESSOR 05/03/2023 8:59 AM ANIMAL SCIENCE PROFESSOR Abida Louis MD LABORATORY [facility] [address] [place] [address], [place] * (ABNORMAL) CBC (05/03/2023 8:49 AM ANIMAL SCIENCE PROFESSOR) Only the most recent of3 resultswithin the time period is included. WHITE BLOOD COUNT 7.1 4.5 - 11.0 thou/cu mm 05/03/2023 9:18 AM [facility] TRAL LABORATORY RED BLOOD COUNT 4.09(L) 4.30 - 5.90 mil/cu mm 05/03/2023 9:18 AM [facility] TRAL LABOR[facility]ORY HEMOGLOBIN 10.9(L) 13.5 - 17.5 g/dL 05/03/2023 9:18 AM [facility] TRAL LABORATORY HEMATOCRIT 36.0(L) 37.0 - 53.0 % 05/03/2023 9:18 AM [facility] TRAL LABOR[facility]ORY MCV 88 80 - 100 fL 05/03/2023 9:18 AM [facility] TRAL LABOR[facility]ORY MCH 26.7 26.0 - 34.0 pg 05/03/2023 9:18 AM [facility] TRAL LABOR[facility]ORY MCHC 30.3(L) 32.0 - 36.0 g/dL 05/03/2023 9:18 AM [facility] TRAL LABOR[facility]ORY RDW 13.6 11.5 - 15.5 % 05/03/2023 9:18 AM [facility] TRAL LABOR[facility]ORY PLATELET COUNT 343 140 - 440 thou/cu mm 05/03/2023 9:18 AM [facility] TR[facility] LAB[facility]ORY MPV 9.4 6.5 - 11.0 fL 05/03/2023 9:18 AM [facility] TR[facility] LAB[facility]ORY NRBC 0.0 % 05/03/2023 9:18 AM [facility] TR[facility] LAB[facility] ABS NRBC 0.0 thou /cu mm 05/03/2023 9:18 AM [facility] TR[facility] Blood BLOOD SPECIMEN / Unknown Butterfly / Unknown 05/03/2023 8:49 AM ANIMAL SCIENCE PROFESSOR 05/03/2023 8:59 AM ANIMAL SCIENCE PROFESSOR [facility] LABORATORY - 05/03/2023 9:18 AM ANIMAL SCIENCE PROFESSOR Call if Hemoglobin less than 10. Jennifer Torres MD HEMATOLOGY [facility] [address] [place] [address], * (ABNORMAL) Basic Metabolic Panel (05/03/2023 8:49 AM ANIMAL SCIENCE PROFESSOR) Only the most recent of4 resultswithin the time period is included. SODIUM 137 136 - 145 mmol/L 05/03/2023 9:43 AM [facility] TRAL LABORATORY POTASSIUM 4.3 3.5 - 5.1 mmol/L 05/03/2023 9:43 AM [facility] TRAL LABOR[facility]ORY CHLORIDE 106 98 - 107 mmol/L 05/03/2023 9:43 AM [facility] TRAL LAB[facility] CO2,TOTAL 20(L) 22 - 29 mmol/L 05/03/2023 9:43 AM [facility] TRAL LABOR[facility] ANION GAP 11 5 - 18 05/03/2023 9:43 AM [facility] TRAL LAB[facility]ORY GLUCOSE 97 70 - 99 mg/dL 05/03/2023 9:43 AM [facility] TR[facility] LAB[facility]ORY CALCIUM 9.5 8.8 - 10.2 mg/dL 05/03/2023 9:43 AM [facility] TRAL LABORATORY BUN 20 8 - 23 mg/dL 05/03/2023 9:43 AM [facility] TRAL LABOR[facility]ORY CREATININE 1.68(H) 0.70 - 1.20 mg/dL 05/03/2023 9:43 AM ANIMAL SCIENCE PROFESSOR [facility] TRAL LABORATORY BUN/CREAT RATIO 12 10 - 20 9:43 AM ANIMAL SCIENCE PROFESSOR [facility] TRAL LABORATORY eGFR 42(L) >90 mL/min/1.7 3m2 05/03/2023 9:43 AM ANIMAL SCIENCE PROFESSOR [facility] TRAL LABORATORY Comment:As of 2021, eG FR is calculated by the CKD-EPI creatinine equation without race adjustment. ??eGFR can be influenced by muscle mass, exercise, and diet. ??The reported eGFR is an estimation only and is only applicable if the renal function is stable. Blood BLOOD SPECIMEN / Unknown Butterfly / Unknown 05/03/2023 8:49 AM ANIMAL SCIENCE PROFESSOR 05/03/2023 8:59 AM ANIMAL SCIENCE PROFESSOR Jennifer Torres MD CHEMISTRY Performing Organization Address [facility] Co de Phone Number [facility]ORAT[facility] [address] [place] [address], * SCAN-CARDIAC STRIP (05/03/2023 8:12 AM ANIMAL SCIENCE PROFESSOR) Scanner OTHER * APTT (05/03/2023 7:28 AM ANIMAL SCIENCE PROFESSOR) Only the most recent of9 resultswithin the time period is included. APTT 31 29 - 36 sec 05/03/2023 8:17 AM ANIMAL SCIENCE PROFESSOR [facility] Blood BLOOD SPECIMEN / Unknown Butterfly / Unknown 05/03/2023 7:28 AM ANIMAL SCIENCE PROFESSOR 05/03/2023 7:42 AM ANIMAL SCIENCE PROFESSOR Narrative [facility] - 05/03/2023 8:17 AM ANIMAL SCIENCE PROFESSOR Therapeutic Range: 57-100 seconds Donal Meneses MD HEMATOLOG Y Performing Organization Address [place]/[facility] Co de Phone Number [facility] [address] [place] [address], * PV OTHER PROCEDURE (05/02/2023 6:20 PM ANIMAL SCIENCE PROFESSOR) Anatomical Region Laterality Modality Other Narrative 05/02/2023 6:20 PM ANIMAL SCIENCE PROFESSOR Donal Meneses MD ? 05/03/2023 ??9:42 AM OPERATIVE REPORT DATE OF SURGERY: 05/03/2023 SURGEON: Donal Meneses MD CANAL DRIVER: Jennifer Torres MD (vascular surgery fellow) PREOPERATIVE [...] kit and we subsequently placed in a 5-Yakut sheath. We then were able to select [...] artery over the Amplatz wire. Using a Instabugo ES 0.014 wire and Montgomery catheter we attempted to cross antegrade through [...] and the sheath was removed over a Humedicsson wire and a Perclose was successfully deployed [...] for the entire procedure as dictated above. CANDY MAKER HELPER MEASURES: We utilized approximately 65 ml of Visipaque contrast and fluoroscopy time was approximately 32.8 minutes (232 mGy). The patient was systemically heparinized during the procedure Donal Meneses MD Vascular and Endovascular Surgery Donal Meneses MD CV IMAGIN G * (ABNORMAL) ACTIVATED CLOTTING TIME NER859 ACT (05/02/2023 6:05 PM ANIMAL SCIENCE PROFESSOR) Only the most recent of7 resultswithin the time period is included. ACTIVATED CLOTTING TIME, POCT 228(H) 74 - 125 sec 05/02/2023 6:29 PM ANIMAL SCIENCE PROFESSOR [facility] Blood BLOOD SPECIMEN / Unknown 05/02/2023 6:05 PM ANIMAL SCIENCE PROFESSOR 05/02/2023 6:29 PM ANIMAL SCIENCE PROFESSOR Abida Louis MD [facility]ATOLOGY [facility] [address] [address], * HCHG TUBE PR1, HCHG INSTRUMENT DISP PR10, HCHG STYLET PR1 (05/02/2023 2:40 PM ANIMAL SCIENCE PROFESSOR) Narrative Jatin Ross CRNA - 05/02/2023 2:40 PM ANIMAL SCIENCE PROFESSOR Jatin Ross CRNA ? 05/02/2023 ??2:41 PM [...] Difficulty Comment: limited neck mobility Jatin Ross CAD DESIGNER ANESTHESIA PX NOTE ORDERABLES * SCAN-CARDIAC STRIP (05/02/2023 12:00 AM ANIMAL SCIENCE PROFESSOR) Narrative 05/02/2023 12:00 AM ANIMAL SCIENCE PROFESSOR Ordered by an unspecified provider. Other Clinical Staff OTHER * GLUCOSE, RANDOM (04/30/2023 7:26 AM ANIMAL SCIENCE PROFESSOR) Pathologist [facility] [place] GLUCOSE,RANDOM 116 70 - 139 mg/dL 04/30/2023 10:36 AM ANIMAL SCIENCE PROFESSOR [facility] [place] [facility] Blood BLOOD SPECIMEN / Unknown Venipuncture / Unknown 04/30/2023 7:26 AM ANIMAL SCIENCE PROFESSOR 04/30/2023 7:39 AM ANIMAL SCIENCE PROFESSOR Lisbeth Dee RN CHEMISTRY [facility] [address] * (ABNORMAL) Creatinine AM (04/30/2023 7:26 AM ANIMAL SCIENCE PROFESSOR) Only the most recent of2 resultswithin the time period is included. Pathologist [facility] [place] eGFR 50(L) >90 mL/min/1.7 3m2 04/30/2023 8:06 AM ANIMAL SCIENCE PROFESSOR [facility] [place] [facility] Comment:As of 2021, eG FR is calculated by the CKD-EPI creatinine equation without race adjustment. ??eGFR can be influenced by muscle mass, exercise, and diet. ??The reported eGFR is an estimation only and is only applicable if the renal function is stable. CREATININE 1.45(H) 0.70 - 1.20 mg/dL 04/30/2023 8:06 AM ANIMAL SCIENCE PROFESSOR [facility] Blood BLOOD SPECIMEN / Unknown Venipuncture / Unknown 04/30/2023 7:26 AM ANIMAL SCIENCE PROFESSOR 04/30/2023 7:39 AM ANIMAL SCIENCE PROFESSOR Abida Louis MD CHEMISTRY [facility]AL LABORATORY [address] [place] [address], [place] * US VEIN MAPPING LOWER EXTREMITY BILATERAL (04/28/2023 5:38 PM ANIMAL SCIENCE PROFESSOR) Anatomical Region Laterality Modality LEGS, LEG L, LEG R Ultrasound Impressions 04/29/2023 3:00 PM ANIMAL SCIENCE PROFESSOR ??Bilateral lower extremity superficial venous mapping with diameters outlined above. The bilateral greater saphenous veins are patent and compressible throughout. The right small saphenous vein is noncompressible in the distal calf. The left small saphenous vein is noncompressible throughout. Chase Barnes M.D. Vascular and Interventional Radiology [employer] [email or web address] / Narrative 04/29/2023 3:00 PM ANIMAL SCIENCE PROFESSOR For Patients: As a result of the [...] US * SCAN-CARDIAC STRIP (04/28/2023 4:41 PM ANIMAL SCIENCE PROFESSOR) Scanner OTHER * SCAN-OPERATIVE/PROCEDURE REPORT (04/28/2023 12:00 AM ANIMAL SCIENCE PROFESSOR) Narrative 04/28/2023 12:00 AM ANIMAL SCIENCE PROFESSOR Ordered by an unspecified provider. Other Clinical Staff OTHER * LACTATE SCREEN VENOUS ISTAT W BECKFORD (04/27/2023 9:43 PM ANIMAL SCIENCE PROFESSOR) LACTATE VENOUS SCREEN ISTAT <1.8 <=2.0 04/27/2023 9:48 PM ANIMAL SCIENCE PROFESSOR [facility] LAB[facility]AT[facility] LACTATE SCREEN VENOUS POCT 1.5 <=2.0 04/27/2023 9:48 PM ANIMAL SCIENCE PROFESSOR [facility] Blood BLOOD SPECIMEN / Unknown 04/27/2023 9:43 PM ANIMAL SCIENCE PROFESSOR 04/27/2023 9:48 PM ANIMAL SCIENCE PROFESSOR Helen Ryder MD LABORATORY [facility] LAB[facility] [address] [place] [address], * TYPE & SCREEN (04/27/2023 8:21 PM ANIMAL SCIENCE PROFESSOR) ABORH O Rh Positive 04/27/2023 9:31 PM ANIMAL SCIENCE PROFESSOR [facility] ANTIBODY SCREEN Negative Negative 04/27/2023 9:31 PM ANIMAL SCIENCE PROFESSOR [facility] SPECIMEN EXPIRATION DATE/TIME 04/30/23 23:59 04/27/2023 9:31 PM ANIMAL SCIENCE PROFESSOR [facility] Blood BLOOD SPECIMEN / Unknown Non-Lab Venipuncture / Unknown 04/27/2023 8:21 PM ANIMAL SCIENCE PROFESSOR 04/27/2023 8:48 PM ANIMAL SCIENCE PROFESSOR Rosie Orourke MD BLOOD BANK [facility] [address] [place] [address], * (ABNORMAL) ISTAT EC8 (04/27/2023 7:52 PM ANIMAL SCIENCE PROFESSOR) GLUCOSE, POCT 70 70 - 99 mg/dL 04/27/2023 7:56 PM ANIMAL SCIENCE PROFESSOR [facility] TRAL LABORATORY BUN, POCT 37(H) 8 - 25 mg/dL 04/27/2023 7:56 PM ANIMAL SCIENCE PROFESSOR [facility] TRAL LABORATORY SODIUM, POCT 135 135 - 145 mmol/L 04/27/2023 7:56 PM [employer]IM[employer] SCI[employer] PROF[employer] [facility] POTASSIUM, POCT 4.3 3.5 - 5.0 mmol/L 04/27/2023 7:56 PM [employer] PROF[employer] [facility] CHLORIDE, POCT 107 98 - 107 mmol/L 04/27/2023 7:56 PM ANIM[employer] SCI[employer] PROF[employer] [facility] CO2,TOTAL, POCT 21 21 - 31 mmol/L 04/27/2023 7:56 PM [employer]IM[employer] PROF[employer] [facility] ANION GAP, POCT 13 5 - 18 04/27/2023 7:56 PM [employer] SCI[employer] PROF[employer] [facility] PH, VENOUS, POCT 7.44(H) 7.32 - 7.42 04/27/2023 7:56 PM [employer] PROF[employer] [facility] PCO2, VENOUS, POCT 29(L) 41 - 51 mmHg 04/27/2023 7:56 PM ANIM[employer] SCIENCE PROFESSOR [facility] HCO3, VENOUS, POCT 20(L) 22 - 30 mmol/L 04/27/2023 7:56 PM ANIM[employer] SCI[employer] PROF[employer] [facility] BASE EXCESS, VENOUS, POCT -5.0(L) -2.0 - 3.0 04/27/2023 7:56 PM ANIMAL SCIENCE PROFESS[employer] [facility] HEMATOCRIT, POCT 35.0(L) 37.0 - 53.0 % 04/27/2023 7:56 PM ANIMAL SCIENCE PROFESSOR [facility] HEMOGLOBIN, POCT 11.9(L) 13.5 - 17.5 g/dL 04/27/2023 7:56 PM ANIMAL SCIENCE PROFESSOR [facility] Blood BLOOD SPECIMEN / Unknown 04/27/2023 7:52 PM ANIMAL SCIENCE PROFESSOR 04/27/2023 7:56 PM ANIMAL SCIENCE PROFESSOR Helen Ryder MD CHEMISTRY Performing Organization Address City/[facility]/ZIP Co de Phone Number [facility] [address] [place] [address], * BLOOD CULTURE X2 (04/27/2023 7:41 PM ANIMAL SCIENCE PROFESSOR) Only the most recent of2 resultswithin the time period is included. CULTURE No Growth. 05/01/2023 9:49 PM ANIMAL SCIENCE PROFESSOR [facility] Blood BLOOD SPECIMEN / Unknown Non-Lab Venipuncture / Unknown 04/27/2023 7:41 PM ANIMAL SCIENCE PROFESSOR 04/27/2023 7:49 PM ANIMAL SCIENCE PROFESSOR Narrative [facility] - 05/01/2023 9:49 PM ANIMAL SCIENCE PROFESSOR Low volume blood culture received; possible false negative culture. Helen Ryder MD MICROBIOLOGY [facility] [address] [place] [id number], [place] * EXTRA TUBE [place] ON ICE (04/27/2023 7:35 PM ANIMAL SCIENCE PROFESSOR) Blood BLOOD SPECIMEN / Unknown Non-Lab Venipuncture / Unknown 04/27/2023 7:35 PM ANIMAL SCIENCE PROFESSOR 04/27/2023 7:50 PM ANIMAL SCIENCE PROFESSOR Helen Ryder MD LABORATORY [facility] [address] [place] [address], * (ABNORMAL) CBC WITH AUTO DIFFERENTIAL (04/27/2023 7:34 PM ANIMAL SCIENCE PROFESSOR) WHITE BLOOD COUNT 7.3 4.5 - 11.0 thou/cu mm 04/27/2023 8:00 PM [facility] RED BLOOD COUNT 4.20(L) 4.30 - 5.90 mil/cu mm 04/27/2023 8:00 PM [facility] HEMOGLOBIN 11.7(L) 13.5 - 17.5 g/dL 04/27/2023 8:00 PM [facility] HEMATOCRIT 35.4(L) 37.0 - 53.0 % 04/27/2023 8:00 PM [facility] MCV 84 80 - 100 fL 04/27/2023 8:00 PM [facility] MCH 27.9 26.0 - 34.0 pg 04/27/2023 8:00 PM [facility] MCHC 33.1 32.0 - 36.0 g/dL 04/27/2023 8:00 PM [facility] RDW 13.3 11.5 - 15.5 % 04/27/2023 8:00 PM [facility] PLATELET COUNT 425 140 - 440 thou/cu mm 04/27/2023 8:00 PM [facility] MPV 9.3 6.5 - 11.0 fL 04/27/2023 8:00 PM [facility] NRBC 0.0 % 04/27/2023 8:00 PM [facility] ABS NRBC 0.0 thou /cu mm 04/27/2023 8:00 PM [facility] % NEUT 68.6 % 04/27/2023 8:00 PM [facility] % LYMPH 16.8 % 04/27/2023 8:00 PM [facility] % MONO 12.2 % 04/27/2023 8:00 PM [facility] % EOS 1.1 % 04/27/2023 8:00 PM [facility] % BASO 0.3 % 04/27/2023 8:00 PM [facility] % IMMATURE GRAN (METAS,MYELOS,CT OS) 1.0 % 04/27/2023 8:00 PM [facility] ABSOLUTE NEUTROPHILS 5.0 1.7 - 7.0 thou/cu mm 04/27/2023 8:00 PM [facility] ABSOLUTE LYMPHOCYTES 1.2 0.9 - 2.9 thou/cu mm 04/27/2023 8:00 PM [facility] ABSOLUTE MONOCYTES 0.9(H) <0.9 thou/cu mm 04/27/2023 8:00 PM [facility] ABSOLUTE EOSINOPHILS 0.1 <0.5 thou/cu mm 04/27/2023 8:00 PM [facility] ABSOLUTE BASOPHILS 0.0 <0.3 thou/cu mm 04/27/2023 8:00 PM [facility] ABSOLUTE IMMATURE GRANULOCYTES(MET ,MYELOS,PROS) 0.1 <0.3 thou/cu mm 04/27/2023 8:00 PM [facility] Blood BLOOD SPECIMEN / Unknown Non-Lab Venipuncture / Unknown 04/27/2023 7:34 PM ANIMAL SCIENCE PROFESSOR 04/27/2023 7:49 PM [facility] Helen Ryder MD HEMATOLOGY [facility] [address] [place] [address], * US ARTERIAL LOWER EXTREMITY W REYNA BILATERAL (04/26/2023 1:40 PM ANIMAL SCIENCE PROFESSOR) Anatomical Region Laterality Modality LEGS Ultrasound 04/26/2023 1:01 PM ANIMAL SCIENCE PROFESSOR Narrative 04/26/2023 6:51 PM ANIMAL SCIENCE PROFESSOR VASCULAR ULTRASOUND REPORT CLEMENTE BENTON Accession#: ?? [id number] : ?1950 Study Date: ?? 04/26/2023 1:01:19 PM Age: ?73 years ?? Tech: ? JSL Gender: M ?Referring MD: CARMEN CARBONE Site: [facility] V[facility] Center Study performed: ?Lower extremity (bilateral), [...] Phasicity ? +--------+ + + +--------+ + INTERNATIONAL BANK MANAGER PRX ? 74 ? multiphasic ? +--------+ + + +--------+ + INTERNATIONAL BANK MANAGER DST ? 82 ? multiphasic ? +--------+ [...] monophasic ? +--------+ + + +--------+ + MEAT PASSER DST ? 16 ? monophasic ? +--------+ + + +--------+ + ENEIDA DST ? 13 ? monophasic ? +--------+ + + +--------+ + DPA ? 14 ? monophasic ? +--------+ + + +--------+ + +--------+ + + LEFT ? Velocity cm/s Phasicity ?? +--------+ + + INTERNATIONAL BANK MANAGER PRX ? 57 ? multiphasic +--------+ + + INTERNATIONAL BANK MANAGER DST ? 66 ? multiphasic +--------+ + + PFA ? 91 ? multiphasic +--------+ + + SFA PRX ? 53 ? multiphasic +--------+ + + SFA MID ? 67 ? multiphasic +--------+ + + SFA DST ? 39 ? multiphasic +--------+ + + TRUDY PRX ? 33 ? multiphasic +--------+ + + TRUDY DST ? 40 ? monophasic +--------+ + + MEAT PASSER DST ? 20 ? monophasic +--------+ + [...] Index +-----+ +--------+ +-----+ 0.75 ? 72 ?MEAT PASSER ?74 ? 0.77 +-----+ +--------+ +-----+ 0.66 ? 63 ?DPA ?98 ? 1.02 +-----+ +--------+ +-----+ 0.00 ? 0 ? Digit 1 ?45 ? 0.47 +-----+ +--------+ +-----+ Donal Meneses MD. Electronically signed on 04/26/2023 6:51:00 PM This study was performed and interpreted by a service accredited by the Intersocietal Accreditation Commission (IAC/Vascular), www.intersocietal.org/vascular Report generated by [employer]. ??Final ?? Procedure Note Donal Meneses MD - 04/26/2023 VASCULAR ULTRASOUND REPORT CLEMENTE BENTON : 1950 Study Date: 04/26/2023 1:01:19 PM Age: 73 years Tech: ETHEL Gender: M Referring MD: CARMEN CARBONE Site: [facility] Vascular Center Study performed: Lower extremity (bilateral), [...] cm/s Phasicity +--------+ + + +--------+ + INTERNATIONAL BANK MANAGER PRX 74 multiphasic +--------+ + + +--------+ + INTERNATIONAL BANK MANAGER DST 82 multiphasic +--------+ + + +--------+ [...] 17 monophasic +--------+ + + +--------+ + MEAT PASSER DST 16 monophasic +--------+ + + +--------+ + ENEIDA DST 13 monophasic +--------+ + + +--------+ + DPA 14 monophasic +--------+ + + +--------+ + +--------+ + + LEFT Velocity cm/s Phasicity +--------+ + + INTERNATIONAL BANK MANAGER PRX 57 multiphasic +--------+ + + INTERNATIONAL BANK MANAGER DST 66 multiphasic +--------+ + + PFA 91 multiphasic +--------+ + + SFA PRX 53 multiphasic +--------+ + + SFA MID 67 multiphasic +--------+ + + SFA DST 39 multiphasic +--------+ + + TRUDY PRX 33 multiphasic +--------+ + + TRUDY DST 40 monophasic +--------+ + + MEAT PASSER DST 20 monophasic +--------+ + + DPA 30 monophasic +--------+ + + Criteria: Stenosis V. Ratio Mild <50% <2.0 Moderate 50-74% > or = 2.0 Severe 75-99% > or = 4.0 Occluded 100% no detectable flow Pressures +-----+ +--------+ +-----+ RIGHT (mmHg) LEFT (mmHg) +-----+ +--------+ +-----+ Index 96 Brachial 94 Index +-----+ +--------+ +-----+ 0.75 72 MEAT PASSER 74 0.77 +-----+ +--------+ +-----+ 0.66 63 DPA 98 1.02 +-----+ +--------+ +-----+ 0.00 0 Digit 1 45 0.47 +-----+ +--------+ +-----+ Donal Meneses MD. Electronically signed on 04/26/2023 6:51:00 PM This study was performed and interpreted by a service accredited by theIntersocietal Accreditation Commission (IAC/Vascular),www.intersocietal.org/vascular Report generated by [employer]. Final Carmen Donell Carbone MD US from Last 3 Months Advance Directives Documents on File Type Date Recorded Patient Cyber Software Engineer Expl anation Healthcare Directive 05/05/2022 023 Latest [...] Code Status Discussion: Not Discussed Care Teams Guest Attendant Relationship Specialty Start Date End Date Rl Monroe MD PCP - General Family Practice 08/19/15
[2023-05-24 09:59] LABS: Bacteria Urine Few; Mucus Urine Moderate; Other Sediment Urine FEW HYALINE CASTS; RBC Urine 0-2 (0-2); Squamous Epithelial Cell Urine Few (None-Few)
--- NOTE | 2023-05-24 10:06 | XR_ITS ---
Final Report Patient: CLEMENTE WEI Facility:?[facility] Patient ID:?[id number] Site Patient ID:?[id number]. Site :?[id number] Study:?XRay Chest 1V-05/24/2023 10:38:10 AM Ordering Physician:?DR. HALL Final Report: Indication: Fall, minor trauma Technique: Portable chest one view Comparison: None. Findings: The lungs are moderately well expanded. No focal or diffuse opacities. Median sternotomy wires. Normal cardiomediastinal silhouette accounting for rotation towards the right. Left shoulder arthroplasty. No acute appearing osseous findings. Impression: Moderate volumes. No acute findings. Dictated by Yvette Almodovar MD @ 05/24/2023 10:50:29 AM (Electronic Signature)
--- NOTE | 2023-05-24 11:26 | ED.NURSE ---
Meal tradamian Parada with
[2023-05-24] MEDS: OLANZapine 5 MG TAB.RAPDIS PO (11:53)
--- NOTE | 2023-05-24 13:07 | PC.SOCIAL ---
Addendum entered by Paola Billings ANIMAL PARK CODE ENFORCEMENT OFFICER 05/24/23 16:32: Discharge planning: Called [facility] intake and spoke with [place], who states they can complete evaluation tomorrow morning, but are no longer able to accept any patients tonight. wardrobe specialty worker to follow up tomorrow. Addendum entered by LIANA Gallardo 05/24/23 15:35: Discharge planning: Faxed requested information to [facility] for evaluation for admit. Called back to the facility at 3:30 and was informed by intake, they are no longer accepting patients today and can review this patient tomorrow if they have availability. Called [facility] and secure emailed requested information to [email or web address] Awaiting decision from [facility] regarding admit. wardrobe specialty worker to follow up as needed. Original Note: Discharge planning: Met with , [place], who is in suport of a geriatric psyche placement. Called all the facilities in [facility] who provide in-pt mental health to patients of his age with dementia with the following results: 1. [facility] - no beds today, can call back tomorrow. 2. [facility] - No beds today, can call back tomorrow. 3. [facility] - [phone], has an available bed, can fax information for review. 4. [facility] unit - [phone] , has an available bed, can fax information for review. 5. [facility] - unable to assess pt for admit due to acuity on unit already. Presented the two available facilities to , who [facility] and [facility] as her second choice. Faxed information to [facility] and awaiting call back with decision on admit. wardrobe specialty worker to follow up as needed.
[2023-05-24] MEDS: QUETIAPINE 25 MG TABLET 50 MG PO (14:05)
--- NOTE | 2023-05-24 17:12 | ED.NURSE ---
Report given to M/S RN. Pt will go by cart.
--- NOTE | 2023-05-24 19:17 | PC.NURSE ---
Pt alert to self. Pt?s at bedside. Pt arrived to Med/Surg floor around 1730. Pt came from ER after falling at home. Pt had no complaints/no nonverbal indications of pain. Pt up with one assist. ?
[2023-05-24] MEDS: ATORVASTATIN CALCIUM 40 MG TABLET PO (20:18)
[2023-05-24] MEDS: GABAPENTIN 100 MG CAPSULE PO (20:18)
[2023-05-24] MEDS: MELATONIN 3 MG TABLET 6 MG PO (20:18)
[2023-05-24] MEDS: METOPROLOL TARTRATE 25 MG TABLET 12.5 MG PO (20:26)
[2023-05-24] MEDS: QUETIAPINE 25 MG TABLET 75 MG PO (20:27)
[2023-05-24] MEDS: SENNOSIDES 1 TAB TABLET PO (20:28)
[2023-05-24] MEDS: TAMSULOSIN HCL 0.4 MG CAPSULE PO (20:28)
--- NOTE | 2023-05-24 20:54 | PM.IMHP1 ---
Hospitalist- H&P: HPI History of Present Illness Time Seen by Provider: 18:05 Date Seen: 05/24/23 Chief complaint: fall Narrative: Fransisca Benton is a 73 year old male with progressive dementia was hospitalized earlier this month for delirium and challenging behaviors. Delirium and challenging behaviors worsened dramatically after revascularization procedure of his right leg at [facility] about 4 weeks ago now. Due to that he was admitted earlier this month and an attempt was made to locate geriatric mental health facility to adjust medications, but there were no beds available. Aricept, low-dose gabapentin, and Seroquel were added and his behaviors improved enough that his felt comfortable taking him home to seek memory care facilities. Unfortunately he has been having restlessness and agitation and spells that will last a few hours marked by rocking, repeating ?help me? over and over and stating that he is going to . On a few of these occasions giving him an as-needed dose of Zyprexa was helpful, but more recently he has remained agitated despite getting day as needed dose of Zyprexa. Due to this, he saw his primary care doctor a few days ago and Zyprexa was scheduled twice a day. This has not helped and he continues to have the behaviors described above. His is a retired medical surgical nurse and very knowledgeable. She notes that hit is becoming too difficult for her to care for him at home and desires for him to get help at a geriatric mental health facility or if there are no beds available, to be admitted to [facility]. Review of Systems Status of ROS: Reports: unobtainable due to mental status [facility] Medical History (Updated 05/24/23 @ 21:32 by Lara Lancaster MD) Spinal stenosis, lumbar region, without neurogenic claudication (09/28/15) ?M48.061 - Spinal stenosis, lumbar region without neurogenic claudication (ICD-10) Insomnia (09/28/15) ?G47.00 - Insomnia, unspecified (ICD-10) Critical limb ischemia of right lower extremity (04/28/23) ?I70.221 - Atherosclerosis of [place] arteries of extremities with rest pain, right leg (ICD-10) Arthropathy of shoulder region (03/19/09) ?M19.019 - Primary osteoarthritis, unspecified shoulder (ICD-10) Urinary retention ?R33.9 - Retention of urine, unspecified (ICD-10) Fall ?W19.XXXA - Unspecified fall, initial encounter (ICD-10) Health care directive on file ?Z78.9 - Other specified health status (ICD-10) Gout ?M10.9 - Gout, unspecified (ICD-10) Vasomotor rhinitis ?J30.0 - Vasomotor rhinitis (ICD-10) Dementia ?F03.90 - Unspecified dementia without behavioral disturbance (ICD-10) B12 deficiency ?E53.8 - Deficiency of other specified B group vitamins (ICD-10) Left knee DJD ?M17.12 - Unilateral primary osteoarthritis, left knee (ICD-10) Osteoarthritis of both hips ?M16.0 - Bilateral primary osteoarthritis of hip (ICD-10) Erectile dysfunction (12/29/08) ?N52.9 - Male erectile dysfunction, unspecified (ICD-10) Disorder of intervertebral disc of lumbar spine ?M51.9 - Unspecified thoracic, thoracolumbar and lumbosacral intervertebral disc disorder (ICD-10) Durable power of senior attorney in chart Submucosal rectal lesion ?K62.9 - Disease of anus and rectum, unspecified (ICD-10) History of adenomatous polyp of colon (2013) ?Z86.010 - Personal history of colonic polyps (ICD-10) High prostate specific antigen (PSA) ?R97.20 - Elevated prostate specific antigen [PSA] (ICD-10) Cataract (01/12/12) ?H26.9 - Unspecified cataract (ICD-10) Surgical History History of angioplasty of peripheral vessel ?Z98.62 - Peripheral vascular angioplasty status (ICD-10) H/O cataract extraction ?Z98.49 - Cataract extraction status, unspecified eye (ICD-10) H/O shoulder surgery ?Z98.890 - Other specified postprocedural states (ICD-10) History of tonsillectomy (04/14/06) ?Z90.89 - Acquired absence of other organs (ICD-10) History of excision of lamina of lumbar vertebra for decompression of spinal cord (2015) ?Z98.890 - Other specified postprocedural states (ICD-10) History of coronary artery bypass surgery (1993) ?Z95.1 - Presence of aortocoronary bypass graft (ICD-10) Social History Narrative: patient has been living with his , Akosua, who is his primary caregiver and healthcare power of senior attorney. She is a retired RN from [employer]. He does not smoke. He quit drinking alcohol about a year and a half ago. code status is DNR. In the past 2 months he has been losing his ability to perform ADLs, showering , shaving, dressing and brushing teeth. he is unsteady on his feet. Sometimes uses a walker. What is your current living situation?: I presently have a place to live Problems where you live: no known problems Problems where you live details: none In the past 12 months, utilities in danger of being shut off: no In past 12 months, lack of transportation kept you from medical appts, meetings, work, or getting things needed for daily living: no In the past 12 mos, have been you worried that your food would run out before you had money to buy more?: never true In the past 12 mos, the food you bought just didn't last and you didn't have money to buy more?: never true Highest level of school completed/degree received: some college, no degree Smoking Status: Former smoker Do you use any of these nicotine containing products: None Second hand tobacco smoke exposure: No How often do you have a drink containing alcohol: never How often do you have six or more drinks on one occasion: Never AUDIT-C Alcohol total score: 0 Non-prescribed substance use: denies use Caffeine: Yes How often does anyone, including family, friends and others, physically hurt you: never How often does anyone, including family, friends and others, insult or talk down to you: never How often does anyone, including family, friends and others, threaten you with harm: never How often does anyone, including family, friends and others, scream or curse at you: never Little interest or pleasure in doing things: more than half the days Feeling down, depressed, or hopeless: more than half the days service: Yes Meds Home Medications and Allergies Home Medications Medication Instructions Recorded Confirmed Type cyanocobalamin (vitamin B-12) 1,000 mcg PO DAILY 10/08/21 05/24/23 History 1,000 mcg tablet multivitamin 1 tab PO QAM 10/08/21 05/24/23 History aspirin 81 mg tablet,delayed 81 mg PO QDAY 03/14/23 05/24/23 History release (Adult Aspirin Regimen) atorvastatin 40 mg tablet 40 mg PO HS 05/09/23 05/24/23 History cholecalciferol (vitamin D3) 125 125 mcg PO DAILY 05/09/23 05/24/23 History mcg (5,000 unit) capsule clopidogrel 75 mg tablet 75 mg PO DAILY 05/09/23 05/24/23 History fenofibrate nanocrystallized 48 mg 96 mg PO DAILY 05/09/23 05/24/23 History tablet ipratropium bromide 42 mcg (0.06 2 spray intranasal TID PRN allergy 05/09/23 05/24/23 History %) nasal spray symptoms lisinopril 10 mg tablet 10 mg PO DAILY 05/09/23 05/24/23 History melatonin 3 mg capsule 6 mg PO HS 05/09/23 05/24/23 History quetiapine 25 mg tablet 50 - 75 mg PO BID 05/22/23 05/24/23 History sennosides 8.6 mg tablet (senna) 8.6 mg PO QHS 05/22/23 05/24/23 History olanzapine 5 mg tablet 5 mg PO BID@09,18 psychosis 05/24/23 05/24/23 History Allergies Allergy/AdvReac Type Severity Reaction Status Date / Time No Known Drug Allergies Allergy Verified 05/22/23 13:36 Exam Narrative: Exam Narrative: General: No acute distress. Sitting up in the bedside chair eating dinner. His prepped the food for him. Awake, alert, oriented to self. HEENT: Normocephalic atraumatic, pupils equally round and reactive to light and accommodation. Oropharynx clear. Mucous membranes are moist. Torticollis with bowed head noted. No cervical lymphadenopathy, thyromegaly or carotid bruits. No JVD. Cardiovascular: Regular rate and rhythm. No murmurs, gallops, or rubs. Chest: No increased work of breathing. Clear to auscultation bilaterally. No crackles or wheezes. Abdomen: Bowel sounds present. Soft, nondistended, nontender. No hepatosplenomegaly or masses. Extremities: No left lower extremity edema. Right lower extremity has 2+ edema. With the edema pedal pulses are difficult to palpate. Ulcerations on the toes of his right foot consistent with previously documented ulcerations for which he was seen by wound care on 05/11/23. Skin: As above. No jaundice, no pallor. Neuro: Not following commands. I did observe him ambulate with the nurses in the hallway without difficulty. He was moving all extremities equally. Const: Vital Signs, click to edit/add: Vital Signs - 24 hr 05/24/23 08:29 05/24/23 08:50 05/24/23 09:01 Temperature 97.6 F Pulse Rate 79 Pulse Rate [Pulse Oximeter] 74 Respiratory Rate 14 14 Blood Pressure 116/67 Blood Pressure [Le ft Arm] Blood Pressure [Le ft Upper Arm] 97/63 Pulse Oximetry 99 98 97 Oxygen Delivery Me thod Room Air 05/24/23 09:57 05/24/23 10:39 05/24/23 18:12 Temperature 98.9 F Pulse Rate 110 H 79 Pulse Rate [Pulse Oximeter] 94 Respiratory Rate 16 Blood Pressure Blood Pressure [Le ft Arm] 108/61 Blood Pressure [Le ft Upper Arm] Pulse Oximetry 98 100 97 Oxygen Delivery Me thod Room Air 05/24/23 20:00 05/24/23 20:34 Temperature 98.7 F Pulse Rate Pulse Rate [Pulse Oximeter] 102 H Respiratory Rate 16 18 Blood Pressure Blood Pressure [Le ft Arm] 113/59 L Blood Pressure [Le ft Upper Arm] Pulse Oximetry 98 98 Oxygen Delivery Me thod Room Air Room Air Hospitalist - H&P: Result Labs Labs: Short CBC 05/24/23 Range/Units 09:10 WBC 10.30 (4.50-11.00) K/uL Hgb 9.3 L (13.5-17.5) gm/dL Hct 29.8 L (37.0-53.0) % Plt Count 350 (140-440) K/uL BMP 05/24/23 09:10 Sodium 132 L Potassium 5.0 Chloride 106 Carbon Dioxide 16 L BUN 56 H Creatinine 1.5 Glucose 240 H Calcium 9.4 Cardiac Enzymes 05/24/23 Range/Units 09:10 Troponin I 0.02 (0.01-0.04) ng/mL Liver Function 05/24/23 Range/Units 09:10 Total Bilirubin 0.3 (0.1-1.5) mg/dL AST 21 (12-35) U/L ALT 19 (4-50) U/L Alkaline Phosphatase 75 (40-150) U/L Albumin 3.5 (3.3-5.0) g/dL Urine 05/24/23 05/24/23 05/24/23 Range/Units 09:35 09:35 09:35 Urine Color Yellow Cancelled (Yellow) Urine Appearance Clear Cancelled (Clear) Urine pH 6.0 (5.0-8.5) Ur Specific [place] (1.000-1.030) Urine Protein (Negative) Urine Glucose (UA) (Negative) 05/24/23 05/24/23 05/24/23 Range/Units 09:35 09:35 09:35 Urine Color (Yellow) Urine Appearance (Clear) Urine pH Cancelled (5.0-8.5) Ur Specific [place] 1.020 Cancelled (1.000-1.030) Urine Protein Negative Cancelled (Negative) Urine Glucose (UA) Trace A (Negative) 05/24/23 Range/Units 09:35 Urine Color (Yellow) Urine Appearance (Clear) Urine pH (5.0-8.5) Ur Specific [place] (1.000-1.030) Urine Protein (Negative) Urine Glucose (UA) Cancelled (Negative) Study: CT Spine Cervical -05/24/2023 9:10:43 AM Ordering Physician: JOSE Final Report: Indication: Unwitnessed fall, dementia Technique: CT cervical spine without IV contrast. Multiplanar reformats are included. Please note that all CT scans at this facility use dose modulation, iterative reconstruction, and/or weight-based dosing when appropriate to reduce radiation dose to as low as reasonably achievable. Comparison: 05/05/2023 Findings: The neck is flexed, the head is tilted to the right, and the chin is down. No fracture. Normal alignment considering the patient positioning. Multilevel disc degenerative change. Minimal upper facet arthropathy. No severe neural foraminal stenosis or central canal narrowing. No cervical prevertebral soft tissue swelling. Heavy atherosclerotic vascular calcifications at the carotid bulb. Impression: No acute traumatic findings in the cervical spine. Degenerative change as above. Please note that all CT scans at this facility use dose modulation, iterative reconstruction, and/or weight-based dosing when appropriate to reduce radiation dose to as low as reasonably achievable. Dictated by Yvette Almodovar MD @ 05/24/2023 9:18:58 AM (Electronic Signature) Study: CT Head WITHOUT-05/24/2023 9:08:25 AM Ordering Physician: JOSE Final Report: Indication: Unwitnessed fall, dementia Technique: CT head without IV contrast. Multiplanar reformats are included. Please note that all CT scans at this facility use dose modulation, iterative reconstruction, and/or weight-based dosing when appropriate to reduce radiation dose to as low as reasonably achievable. Comparison: 05/09/2023 Findings: Generalized parenchymal atrophy. No acute or subacute stroke. No intracranial hemorrhage. No mass effect or midline shift. No ventriculomegaly. No calvarial fracture. Impression: No acute intracranial findings. Please note that all CT scans at this facility use dose modulation, iterative reconstruction, and/or weight-based dosing when appropriate to reduce radiation dose to as low as reasonably achievable. Dictated by Yvette Almodovar MD @ 05/24/2023 9:16:34 AM (Electronic Signature) Dictated By: Yvette Almodovar M.D. Signed By: 05/24/23 1213 DD/ 0916 TD/TT: 05/24/23 1213 Contract Mail Carrier: REA Study: XRay Chest 1V-05/24/2023 10:38:10 AM Ordering Physician: DR. HALL Final Report: Indication: Fall, minor trauma Technique: Portable chest one view Comparison: None. Findings: The lungs are moderately well expanded. No focal or diffuse opacities. Median sternotomy wires. Normal cardiomediastinal silhouette accounting for rotation towards the right. Left shoulder arthroplasty. No acute appearing osseous findings. Impression: Moderate volumes. No acute findings. Dictated by Yvette Almodovar MD @ 05/24/2023 10:50:29 AM (Electronic Signature) Dictated By: Yvette Almodovar M.D. Signed By: 05/24/23 1147 DD/ 1050 TD/TT: 05/24/23 1147 Contract Mail Carrier: REA Assessment and Plan Assessment and plan (1) Behavioral problems: Problem comment: - behaviors secondary to dementia with exacerbation likely secondary to recent hospitalizations and illnesses. Will continue to seek geriatric psych placement. In the meantime I will continue Seroquel and scheduled Zyprexa and add in as needed Zyprexa. If no geriatric psych is available, is agreeable to [place]. Status: Acute (2) Dementia: Problem comment: Advanced and progressive now developing behavioral disturbances as well. Unable to find documentation of neurocognitive assessment, screening, evidence of lewy body findings Continue home medications director of clinical services attempted Geripsych placement - thus far limited bed availability or inability to take patient. Would benefit from psychiatry evaluation, possible further neurocognitive screening and diagnostics to determine most appropriate medication management 05/13 : Added donepezil Status: Acute (3) Atrial fibrillation: Problem comment: Poor candidate for anticoagulation. Continue metoprolol. Status: Chronic (4) Type 2 diabetes mellitus: Problem comment: A1c 6.6, improved from previous 8.5 -continue metformin 500 mg once daily - will hold off on Accu-Cheks as this may exacerbate patient's agitation. Status: Chronic (5) Torticollis, acquired: Problem comment: He is able to eat without difficulty and denies pain. Status: Suspected (6) History of angioplasty of peripheral vessel: Problem comment: lower extremity angioplasty performed at multiple sites at [facility] April 2019 for for right lower extremity critical ischemia. Continue aspirin and Plavix -current redness and swelling in that foot is baseline after his revascularization - not c/w an acute cellulitis 05/11 wound care consult: Right foot 5th head wound: Cleanse with unit approved cleanser. Iodosorb to wound bed cover with bordered gauze changed every other day and p.r.n.. Remaining right foot wounds cleanse with unit approved cleanser swabbed with Betadine daily. Nursing to complete wound care dressing changes. As wounds are stable, and patient is expected to discharge, wound Services will sign off on patient. Also patient will be [facility] as per due to his impending placement, facility will continue management of wound. Will continue these dressing recommendations. Status: Acute
[2023-05-25] MEDS: OLANZapine 5 MG TAB.RAPDIS PO ×2 (00:02→12:01)
[2023-05-25] MEDS: ACETAMINOPHEN 325 MG TABLET 650 MG PO (00:48)
[2023-05-25 03:30] VITALS: BP 109/67; PULSE 66; RESP 22; TEMP 36.8; O2SAT 99
--- NOTE | 2023-05-25 05:43 | PC.NURSE ---
END OF SHIFT NOTE: PT WITH BASELINE ADVANCED DEMENTIA. PT REDIRECTED FREQUENTLY. A&O TO SELF. PT STOOD AT SIDE OF BED AND URINATED ON FLOOR. PT SETTING OFF BED ALARM EVERY 5-15 MINUTES. PT RESTLESS AND AGITATED MUCH OF THE NIGHT WITH APPROXIMATELY 20MINS OF SLEEP x2. SCHEDULED MELATONIN AND SEROQUEL, ALSO PRN ZYPREXA ADMINISTERED WITH LITTLE EFFECTIVENESS. PT SPEAKING TO PEOPLE NOT PRESENT IN THE ROOM. REPETITIVELY STATING HE WANTS TO LEAVE. I GOTTA GET OUT OF HERE. PT IS SOB WITH ACTIVITY. SATS REMAIN >95%. PT 1:1 WITH RN THIS SHIFT.
[2023-05-25] MEDS: LEVOTHYROXINE 75 MCG TABLET 150 MCG PO (06:06)
[2023-05-25] MEDS: ASPIRIN 81 MG TABLET EC PO (08:16)
[2023-05-25] MEDS: MULTIVITAMIN/MINERALS 1 TABLET 1 TAB PO (08:16)
[2023-05-25] MEDS: lisinopriL 10 MG TABLET PO (08:16)
[2023-05-25] MEDS: METFORMIN ER 500 MG PO (08:16)
[2023-05-25] MEDS: FLUOXETINE HCL 20 MG CAPSULE PO (08:17)
[2023-05-25] MEDS: METOPROLOL TARTRATE 25 MG TABLET 12.5 MG PO (08:17)
[2023-05-25] MEDS: QUETIAPINE 25 MG TABLET 75 MG PO (08:17)
[2023-05-25] MEDS: GABAPENTIN 100 MG CAPSULE PO (08:17)
[2023-05-25] MEDS: CLOPIDOGREL 75 MG TABLET PO (08:18)
[2023-05-25] MEDS: CYANOCOBALAMIN (VITAMIN B-12) 500 MCG TABLET 1000 MCG PO (08:18)
[2023-05-25 08:30] VITALS: BP 122/55; PULSE 89; RESP 20; RESP 22; TEMP 36.7; O2SAT 99
--- NOTE | 2023-05-25 09:10 | PC.NURSE ---
Patient cooperative this morning. Took medications, tolerated breakfast well, up to BR with SBA. Up in chair.
--- NOTE | 2023-05-25 11:00 | P.DS_ITS ---
DS: Providers Provider Date Seen: 05/25/23 Date of admission: 05/24/23 17:15 Primary care physician: Rl Monroe MD Admitting Clinician: Lara Lancaster MD Consults: 05/24/23 11:38 Consult to Marketing Regional Consultant [CONS] Urgent Comment: Reason for Consult:: Social Service Consult Discharge Planning Needs 05/24/23 18:47 Consult to Marketing Regional Consultant [CONS] Routine Comment: Reason for Consult:: Possible SNF placement Attending Physician on discharge: [facility]na Sanchez [facility] Date of Discharge: 05/25/23 DS: Diagnosis Discharge Diagnosis (1) Behavioral problems: Status: Acute Problem details: Behaviors secondary to dementia with exacerbation likely secondary to recent hospitalizations and illnesses. Continued Seroquel and scheduled Zyprexa, additional Zyprexa prn. (2) Dementia: Status: Acute Problem details: Advanced and progressive now developing behavioral disturbances as well. Unable to find documentation of neurocognitive assessment, screening, evidence of lewy body findings. Continued on home medications, donepezil, gabapentin, fluoxetine, Seroquel, Zyprexa. (3) Atrial fibrillation: Status: Chronic Problem details: Poor candidate for anticoagulation. Continue metoprolol. (4) Type 2 diabetes mellitus: Status: Chronic Problem details: A1c 6.6, improved from previous 8.5. Continue metformin 500 mg once daily (5) Torticollis, acquired: Status: Suspected Problem details: He is able to eat without difficulty and denies pain. (6) History of angioplasty of peripheral vessel: Status: Acute Problem details: Lower extremity angioplasty performed at multiple sites at [facility] April 2019 for for right lower extremity critical ischemia. Continue aspirin and Plavix -current redness and swelling in that foot is baseline after his revascularization - not c/w an acute cellulitis 05/11 wound care consult: Right foot 5th head wound: Cleanse with unit approved cleanser. Iodosorb to wound bed cover with bordered gauze changed every other day and p.r.n.. Remaining right foot wounds cleanse with unit approved cleanser swabbed with Betadine daily. DS: Summary Hospital Course Hospital Course: [age] year old male past medical history significant for dementia, progressive behaviors, diabetes mellitus, chronic ulcer right foot, peripheral arterial disease with history of revascularization, history of angioplasty, torticollis, CKD was admitted to the medical floor for medical management progressing dementia with behaviors and plan for placement. Course of care and details as noted above. Remainder of chronic medical comorbidities were monitored and managed with home medications. Status at Discharge Functional status at discharge: uses cane/walker Overall status at discharge: patient is not back to baseline Time Spent with Patient Time attestation: Total time spent providing and/or coordinating discharge services: Time spent: Greater than 30 minutes Exam Narrative: Exam Narrative: PHYSICAL EXAM General: Pleasant, appropriately conversant, NAD Cardiovascular: RRR Pulmonary: No dyspnea Neurological: Alert, oriented to self, calm, cooperative. Wanders, easily redirectable Skin: Warm, dry. Const: Vital Signs, click to edit/add: Vital Signs - 24 hr 05/24/23 18:12 05/24/23 20:00 05/24/23 20:34 Temperature 98.9 F 98.7 F Pulse Rate [Pulse Oximeter] 94 102 H Respiratory Rate 16 16 18 Blood Pressure [Le ft Arm] 108/61 113/59 L Pulse Oximetry 97 98 98 Oxygen Delivery Me thod Room Air Room Air Room Air 05/24/23 23:10 05/24/23 23:10 05/25/23 03:30 Temperature 98.2 F Pulse Rate [Pulse Oximeter] 66 Respiratory Rate 24 24 22 Blood Pressure [Le ft Arm] 109/67 Pulse Oximetry 99 Oxygen Delivery Me thod Room Air Room Air DS: Data Data Completed and Pending Labs on day of discharge: Preliminary micro results at discharge 05/24/23 Unknown Urine Culture - Preliminary Urine,Clean Catch Culture in Progress Imaging Chest x-ray: Attestation: I have reviewed the pertinent imaging results. Radiologist's impression: Indication: Fall, minor trauma Technique: Portable chest one view Comparison: None. Findings: The lungs are moderately well expanded. No focal or diffuse opacities. Median sternotomy wires. Normal cardiomediastinal silhouette accounting for rotation towards the right. Left shoulder arthroplasty. No acute appearing osseous findings. Impression: Moderate volumes. No acute findings. CT scan - head: Attestation: I have reviewed the pertinent imaging results. Radiologist's impression: Indication: Unwitnessed fall, dementia Technique: CT head without IV contrast. Multiplanar reformats are included. Please note that all CT scans at this facility use dose modulation, iterative reconstruction, and/or weight-based dosing when appropriate to reduce radiation dose to as low as reasonably achievable. Comparison: 05/09/2023 Findings: Generalized parenchymal atrophy. No acute or subacute stroke. No intracranial hemorrhage. No mass effect or midline shift. No ventriculomegaly. No calvarial fracture. Impression: No acute intracranial findings. C-spine CT: Attestation: I have reviewed the pertinent imaging results. Radiologist's impression: Technique: CT cervical spine without IV contrast. Multiplanar reformats are included. Please note that all CT scans at this facility use dose modulation, iterative reconstruction, and/or weight-based dosing when appropriate to reduce radiation dose to as low as reasonably achievable. Comparison: 05/05/2023 Findings: The neck is flexed, the head is tilted to the right, and the chin is down. No fracture. Normal alignment considering the patient positioning. Multilevel disc degenerative change. Minimal upper facet arthropathy. No severe neural foraminal stenosis or central canal narrowing. No cervical prevertebral soft tissue swelling. Heavy atherosclerotic vascular calcifications at the carotid bulb. Impression: No acute traumatic findings in the cervical spine. Degenerative change as above. Discharge Plan Discharge Disposition: [facility] Date of Admission: 05/24/23 17:15 Attending Provider on Discharge: Ariadna Sanchez Primary Care Provider: Rl Monroe Condition: Stable Discharge Orders: Transfer of Care to Other Hospital (ORDER); Ordered 05/25/23 Ordered By: Ariadna Sanchez Oxygen: No Services not available here: [facility]vel[facility] psych eval and treat
--- NOTE | 2023-05-25 11:10 | PC.SOCIAL ---
Discharge planning- Received a phone call from [place] at [facility] in [place] at [phone]. [place] is requesting information on if pt has a POA for healthcare. [place] will be calling nursing for a nurse to nurse. Phone call to pt's [employer] to provide update. [employer] informs that pt does have a POA for healthcare and she can bring that document in at 11:00 am. Phone call to [place] from [facility] to provide update. Faxed pt's health care directive and POA for financial to [facility] at [phone]. Received a phone call back from [place] at [facility] informing that they can accept pt for admission today. Pt will have to be to the facility before 6:30 pm. Drop off location is [address] [place] [address] (Door F Entrance) in [place], [place]. [facility] requests that when pt leaves the unit a nurse to nurse is completed by calling the charge nurse at [phone]. [place] requests a call back with an anticipated time that EMS will grape picker pt. [place] informed that she has called pt's and updated her and pt's has agreed for pt to go to their facility. Provided update to charge nurse. Social work will follow up as needed.
--- NOTE | 2023-05-25 14:14 | PC.NURSE ---
PATIENT COOPERATIVE BUT CONFUSED. PATIENT'S IN ROOM. TRANSFERRED TO [facility] VIA EMS.
== END 2023-05-25 12:05 | disposition short-term general hospital (02) ==
LOC: ED 16:41 → MEDSURG 17:15
PROVIDERS: Admitting Provider Family Medicine; Emergency Provider Family Medicine; PCP Family Medicine; Visit Provider Family Medicine
DX: F03.918 Unspecified dementia, unspecified severity, with other behavioral disturbance (principal); R45.1 Restlessness and agitation; I48.20 Chronic atrial fibrillation, unspecified; R26.81 Unsteadiness on feet; W19.XXXA Unspecified fall, initial encounter; I70.221 Atherosclerosis of native arteries of extremities with rest pain, right leg; D64.9 Anemia, unspecified; I48.0 Paroxysmal atrial fibrillation; E11.9 Type 2 diabetes mellitus without complications; M43.6 Torticollis; I73.9 Peripheral vascular disease, unspecified; F91.9 Conduct disorder, unspecified; L97.519 Non-pressure chronic ulcer of other part of right foot with unspecified severity; M51.9 Unspecified thoracic, thoracolumbar and lumbosacral intervertebral disc disorder; I10 Essential (primary) hypertension; R06.00 Dyspnea, unspecified; R44.3 Hallucinations, unspecified; M10.9 Gout, unspecified; N52.9 Male erectile dysfunction, unspecified; Z98.62 Peripheral vascular angioplasty status; Z79.84 Long term (current) use of oral hypoglycemic drugs; Z79.82 Long term (current) use of aspirin; Z86.010 Personal history of colon polyps; Z87.448 Personal history of other diseases of urinary system; Z87.891 Personal history of nicotine dependence; Z98.49 Cataract extraction status, unspecified eye; Z90.89 Acquired absence of other organs; Z95.1 Presence of aortocoronary bypass graft; Z98.890 Other specified postprocedural states; Z78.9 Other specified health status; Z66 Do not resuscitate
CPT/HCPCS: 36415; 70450; 71045; 72125; 80053; 81001; 83605; 84484; 85025; 87086; 87186; 87631; 93005; 94761; 99284; 99285; A9153; A9270; G0378

== ENCOUNTER 2023-05-25 11:52 | Outpatient (CLI) | payer MEDICARE, BC, SELFPAY | END 2023-05-25 11:53 | disposition home or self-care (01) | LOC: AMB 06-07 11:24 | PROVIDERS: PCP Family Medicine; Visit Provider Family Medicine | DX: F30.9 Manic episode, unspecified (principal) | CPT/HCPCS: A0425; A0428 ==